=== PATIENT | male | born 1940 | race Caucasian/White ===

== ENCOUNTER 2022-05-09 07:36 | Inpatient (IN) | payer MEDICARE ==
--- NOTE | 2022-05-09 08:09 | ED ---
General Adult HPI - General Chief complaint: Shortness of Breath Stated complaint: Respiratory failure Time Seen by Provider: 05/09/22 07:38 Source: patient, EMS Mode of arrival: EMS Limitations: no limitations - History of Present Illness Initial comments: Dictation was produced using EyeEm dictation software. please excuse any grammatical, word or spelling errors. Chief Complaint: 82-year-old male transferred from outside hospital for shortness of breath History of Present Illness: Patient is a 82-year-old male presents emergency department for shortness of breath. Patient allegedly is 2 months postoperative [facility]. His had one day of shortness of breath. Patient was brought to outside hospital according to transfer documentation for shortness breath and hypoxia measured 57%. Patient had elevated cardiac enzymes and elevated prematurity peptide suggesting heart failure. Patient was given La six, vancomycin, cefepime and placed on BiPAP. Patient is a limited historian. The ROS documented in this emergency department record has been reviewed and confirmed by me. Those systems with pertinent positive or negative responses have been documented in the HPI. All other systems are other negative and/or noncontributory. PHYSICAL EXAM: General Impression: Alert and oriented, not in acute distress, BiPAP in place HEENT: Normocephalic atraumatic, extra-ocular movements intact, pupils equal and reactive to light bilaterally, mucous membranes moist. Cardiovascular: Heart regular rate and rhythm Chest: Diffuse crackles with auscultation of the lungs, no retractions, no tachypnea Abdomen: abdomen soft, non-tender, non-distended, no organomegaly Musculoskeletal: Pulses present and equal in all extremities, 2+ pitting edema to bilateral lower extremities Motor: no focal deficits noted Neurological: CN II-XII grossly intact, no focal motor or sensory deficits noted Skin: Intact with no visualized rashes Psych: Normal affect and mood ED course: 82-year-old male transferred from outside hospital for shortness of breath. Patient was received in emergency Department room #2. Patient is in no acute distress. He does have lower extremity pitting edema and diffuse crackles with auscultation of the lungs. Vital signs upon arrival are within acceptable limits. Nursing notes and chart review was performed Transfer documentation was reviewed. Labs imaging and documentation was reviewed. Unclear why patient was given broad-spectrum antibiotics.Patient is a poor historian unable to explain what cardiac procedures he had performed 2 months ago. Attempt was made to remove BiPAP and patient became hypoxic and dyspneic. BiPAP was replaced. My EKG interpretation: Ventricular rate 76, sinus rhythm,. Interval 132, QRS 106, QTC 410. No ND prolongation, no QTC prolongation, no ST or T-wave changes noted. Laboratory evaluation obtained. CBC within acceptable limits. Coag panel is negative. Metabolic within acceptable limits. Lactic acidosis of 4.6. Tr oponin 0.020. Patient's lactic acidosis likely secondary to respiratory failure. Chest x-ray shows pneumonia versus pulmonary edema. Patient had originally received antibiotics prior to hospital arrival. Respiratory issues likely multifactorial. After replacing the BiPAP is reevaluated with normal vitals and no dyspnea noted. Patient will be admitted to [facility] group with consultation to cardiology. Critical care time: 33 minutes - Related Data Home Medications Medication Instructions Recorded Confirmed Amiodarone [Cordarone] 200 mg PO BID@0900,1700 05/09/22 05/09/22 Aspirin EC [Ecotrin Low Dose] 81 mg PO DAILY 05/09/22 05/09/22 Atorvastatin [Lipitor] 10 mg PO HS 05/09/22 05/09/22 Azithromycin [Zithromax] See Taper PO DAILY 05/09/22 05/09/22 Bumetanide [BUMEX] 2 mg PO DAILY 05/09/22 05/09/22 Ferrous Sulfate [Feosol] 325 mg PO DAILY 05/09/22 05/09/22 Furosemide 40 mg IM ONCE 05/09/22 05/09/22 Margaret-Lanta 30 ml PO Q4H PRN 05/09/22 05/09/22 Ipratropium-Albuterol Nebulize 3 ml INHALATION RT-Q4H PRN 05/09/22 05/09/22 [Duoneb 0.5 mg-3 mg/3 ml Soln] Lactobacillus Acidophilus 1 tab PO DAILY 05/09/22 05/09/22 [Acidophilus] Levothyroxine Sodium [Synthroid] 125 mcg PO DAILY 05/09/22 05/09/22 Magnesium Hydroxide [Milk of 7,200 mg PO DAILY PRN 05/09/22 05/09/22 Magnesia Concentrate] Magnesium Oxide [Mag-Ox] 400 mg PO DIRECTED 05/09/22 05/09/22 Melatonin 5 mg PO HS 05/09/22 05/09/22 Methylprednisolone 125mg Inj 125 mg IM ONCE 05/09/22 05/09/22 Midodrine HCl [ProAmatine] 10 mg PO TID@0900,1300,2100 05/09/22 05/09/22 Multivitamins, Thera [Multivitamin 1 tab PO DAILY 05/09/22 05/09/22 (formulary)] [place]-3 Fatty Acids [[place]-3] 1,000 mg PO DAILY 05/09/22 05/09/22 Ondansetron [Zofran] 4 mg PO Q8H PRN 05/09/22 05/09/22 Tamsulosin HCl [Flomax] 0.4 mg PO DAILY 05/09/22 05/09/22 Thermotabs 1 tab PO DIRECTED 05/09/22 05/09/22 predniSONE [Deltasone] 20 mg PO BID 05/09/22 05/09/22 predniSONE [Deltasone] 20 mg PO ONCE 05/09/22 05/09/22 Allergies Allergy/AdvReac Type Severity Reaction Status Date / Time Penicillins Allergy Unknown Verified 05/09/22 08:02 Review of Systems ROS Statement: Those systems with pertinent positive or pertinent negative responses have been documented in the HPI. ROS Other: All systems not noted in ROS Statement are negative. Past Medical History Past Medical History: Atrial Fibrillation, Coronary Artery Disease (CAD), Heart Failure, GERD/Reflux, Hyperlipidemia, Prostate Disorder, Respiratory Disorder, Thyroid Disorder Additional Past Medical History / Comment(s): hypothyroid, Angina, pulmonary edema, difficulty in walking, hypotension, anemia, hx of covid, hx of respiratory failure, insomnia, Past Surgical History: Coronary Bypass/CABG Past Psychological History: No Psychological Hx Reported Smoking Status: Former smoker Past Alcohol Use History: None Reported Past Drug Use History: None Reported General Exam Limitations: no limitations Course Vital Signs 05/09/22 05/09/22 05/09/22 07:40 07:54 07:57 Temperature 98.3 F Pulse Rate 79 Respiratory 18 Rate Blood Pressure 113/68 O2 Sat by Pulse 96 Oximetry Fraction of 60 60 Inspired Oxygen (FIO2) 05/09/22 05/09/22 05/09/22 07:58 08:01 09:24 Temperature Pulse Rate 74 Respiratory 18 18 Rate Blood Pressure 124/71 O2 Sat by Pulse 97 Oximetry Fraction of 60 Inspired Oxygen (FIO2) Medical Decision Making - Lab Data Result diagrams: 05/09/22 08:35 05/09/22 08:35 Lab Results 05/09/22 05/09/22 05/09/22 Range/Units 08:35 08:35 08:35 WBC 12.6 H (3.8-10.6) k/uL RBC 3.45 L (4.30-5.90) m/uL Hgb 10.3 L (13.0-17.5) gm/dL Hct 33.2 L (39.0-53.0) % MCV 96.4 (80.0-100.0) fL MCH 29.9 (25.0-35.0) pg MCHC 31.0 (31.0-37.0) g/dL RDW 13.5 (11.5-15.5) % Plt Count 309 (150-450) k/uL MPV 9.2 Neutrophils % 94 % Lymphocytes % 1 % Monocytes % 4 % Eosinophils % 0 % Basophils % 0 % Neutrophils # 11.9 H (1.3-7.7) k/uL Lymphocytes # 0.2 L (1.0-4.8) k/uL Monocytes # 0.5 (0-1.0) k/uL Eosinophils # 0.0 (0-0.7) k/uL Basophils # 0.0 (0-0.2) k/uL Hypochromasia Marked PT (9.0-12.0) sec INR (<1.2) APTT (22.0-30.0) sec Sodium 139 (137-145) mmol/L Potassium 3.6 (3.5-5.1) mmol/L Chloride 92 L (98-107) mmol/L Carbon Dioxide 38 H (22-30) mmol/L Anion Gap 9 mmol/L BUN 38 H (9-20) mg/dL Creatinine 0.93 (0.66-1.25) mg/dL Est GFR (CKD-EPI)AfAm 87 (>60 ml/min/1.73 sqM) Est GFR (CKD-EPI)NonAf 75 (>60 ml/min/1.73 sqM) Glucose 171 H (74-99) mg/dL Plasma Lactic Acid Huy 4.6 H* (0.7-2.0) mmol/L Calcium 8.2 L (8.4-10.2) mg/dL Total Bilirubin 0.5 (0.2-1.3) mg/dL AST 36 (17-59) U/L ALT 32 (4-49) U/L Alkaline Phosphatase 140 H (38-126) U/L Troponin I (0.000-0.034) ng/mL Total Protein 7.0 (6.3-8.2) g/dL Albumin 3.3 L (3.5-5.0) g/dL 05/09/22 05/09/22 Range/Units 08:35 09:50 WBC (3.8-10.6) k/uL RBC (4.30-5.90) m/uL Hgb (13.0-17.5) gm/dL Hct (39.0-53.0) % MCV (80.0-100.0) fL MCH (25.0-35.0) pg MCHC (31.0-37.0) g/dL RDW (11.5-15.5) % Plt Count (150-450) k/uL MPV Neutrophils % % Lymphocytes % % Monocytes % % Eosinophils % % Basophils % % Neutrophils # (1.3-7.7) k/uL Lymphocytes # (1.0-4.8) k/uL Monocytes # (0-1.0) k/uL Eosinophils # (0-0.7) k/uL Basophils # (0-0.2) k/uL Hypochromasia PT 11.4 (9.0-12.0) sec INR 1.1 (<1.2) APTT 21.9 L (22.0-30.0) sec Sodium (137-145) mmol/L Potassium (3.5-5.1) mmol/L Chloride (98-107) mmol/L Carbon Dioxide (22-30) mmol/L Anion Gap mmol/L BUN (9-20) mg/dL Creatinine (0.66-1.25) mg/dL Est GFR (CKD-EPI)AfAm (>60 ml/min/1.73 sqM) Est GFR (CKD-EPI)NonAf (>60 ml/min/1.73 sqM) Glucose (74-99) mg/dL Plasma Lactic Acid Huy (0.7-2.0) mmol/L Calcium (8.4-10.2) mg/dL Total Bilirubin (0.2-1.3) mg/dL AST (17-59) U/L ALT (4-49) U/L Alkaline Phosphatase (38-126) U/L Troponin I 0.020 (0.000-0.034) ng/mL Total Protein (6.3-8.2) g/dL Albumin (3.5-5.0) g/dL Disposition Clinical Impression: Respiratory failure Disposition: ADMITTED IP TO THIS HOSP Condition: Serious Referrals: Arnie Saleem MD [Primary Care Provider] - 1-2 days Decision Time: 10:39
[2022-05-09 08:56] LABS: Basophils % (A) 0 %; Eosinophils % (A) 0 %; HCT 33.2 % (39.0-53.0); HGB 10.3 gm/dL (13.0-17.5); Hypochromasia Marked; Lymphocytes # (A) 0.2 k/uL (1.0-4.8); Lymphocytes % (A) 1 %; MCH 29.9 pg (25.0-35.0); MCV 96.4 fL (80.0-100.0); Mean Platelet Volume 9.2; Monocytes # (A) 0.5 k/uL (0-1.0); Monocytes % (A) 4 %; Neutrophils # (A) 11.9 k/uL (1.3-7.7); Neutrophils % (A) 94 %; Platelet Count 309 k/uL (150-450); RBC 3.45 m/uL (4.30-5.90); RDW 13.5 % (11.5-15.5); WBC 12.6 k/uL (3.8-10.6)
[2022-05-09 09:05] LABS: Albumin 3.3 g/dL (3.5-5.0); Calcium 8.2 mg/dL (8.4-10.2); Potassium 3.6 mmol/L (3.5-5.1); Total Bilirubin 0.5 mg/dL (0.2-1.3)
--- NOTE | 2022-05-09 09:26 | XR ---
EXAMINATION TYPE: XR chest 1V DATE OF EXAM: 05/09/2022 HISTORY: Shortness of breath. COMPARISON: None. TECHNIQUE: Single view of the chest is submitted. FINDINGS: Demonstrated are scattered senescent parenchymal change. Diffuse bilateral airspace infiltrates may reflect pulmonary edema versus pneumonia. Correlate clinic ally. The heart is mildly enlarged. Hilar and mediastinal structures are within normal limits. Degenerative changes are seen of the dorsal spine. IMPRESSION: 1. Diffuse bilateral airspace infiltrates may reflect pulmonary edema versus pneumonia. Correlate cl inically.
[2022-05-09 10:21] LABS: INR 1.1 (<1.2); Prothrombin Time 11.4 sec (9.0-12.0)
[2022-05-09 10:30] LABS: Partial Thromboplastin Time 21.9 sec (22.0-30.0)
[2022-05-09] MEDS ORDERED: NALOXONE 0.4 MG/ML 1 ML VIAL IV PRN (10:40)
[2022-05-09] MEDS ORDERED: MELATONIN 5 MG TABLET PO PRN (11:32)
[2022-05-09] MEDS: IPRATROPIUM-ALBUTEROL 3 ML NEB INHALATION PRN ×3 (11:54→20:09)
[2022-05-09] MEDS: FUROSEMIDE 10 MG/ML 10 ML VIAL IV SCH ×2 (12:00→20:28)
[2022-05-09] MEDS: SODIUM CHLORIDE 0.9% 1,000 ML IV SCH (12:39)
--- NOTE | 2022-05-09 12:53 | P.HPIM ---
History of Present Illness 82-year-old presently came in with complains of shortness of breath orthopnea, proximal nocturnal dyspnea patient had open-heart surgery at [facility] recently I do not have any echo available although patient has significant pulmonary edema with a BNP of 3790 patient does have elevated lactic acid of around 4.6 which has come down to 4. Patient is not receiving IV fluids in fact patient will need IV Lasix patient is on BiPAP at this time. Patient doesn't have any fever chills does have leukocytosis with the WBC of around 1600 and takes 2 mg of Bumex at home he does have history of atrial fibrillation for denied any history of COPD, does have previous history of smoking. Doesn't use any oxygen at home. Facet of troponin is 0.020. REVIEW OF SYSTEMS: CONSTITUTIONAL: No fever, no malaise, no fatigue. HEENT: No recent visual problems or hearing problems. Denied any sore throat. CARDIOVASCULAR: No chest pain, no palpitations, no syncope. PULMONARY: no cough, no hemoptysis. GASTROINTESTINAL: No diarrhea, no nausea, no vomiting, no abdominal pain. NEUROLOGICAL: No headaches, no weakness, no numbness. HEMATOLOGICAL: Denies any bleeding or petechiae. GENITOURINARY: Denies any burning micturition, frequency, or urgency. MUSCULOSKELETAL/RHEUMATOLOGICAL: Denies any joint pain, swelling, or any muscle pain. ENDOCRINE: Denies any polyuria or polydipsia. The rest of the 14-point review of systems is negative. PHYSICAL EXAMINATION: GENERAL: The patient is alert and oriented x3, not in any acute distress. Well developed, well nourished. HEENT: Pupils are round and equally reacting to light. EOMI. No scleral icterus. No conjunctival pallor. Normocephalic, atraumatic. No pharyngeal erythema. No thyromegaly. CARDIOVASCULAR: S1 and S2 present. No murmurs, rubs, or gallops. Crackles bilaterally PULMONARY: no wheezing or bilateral diffuse crackles ABDOMEN: Soft, nontender, nondistended, normoactive bowel sounds. No palpable organomegaly. MUSCULOSKELETAL: No joint swelling or deformity. EXTREMITIES: No cyanosis, clubbing, does have 1+ pitting pedal edema extending up to the midshin area NEUROLOGICAL: Gross neurological examination did not reveal any focal deficits. SKIN: No rashes. Assessment and plan -Congestive heart failure probably systolic dysfunction echo cardiac is not av ailable patient does have acute heart failure exacerbation at this time patient will be started on 60 mg twice a day of IV Lasix continue with respiratory support will obtain pro-Level of the Possibility of Pneumonia Is Low -Acute hypoxic respiratory failure secondary to pulmonary edema -History of atrial fibrillation probably paroxysmal presently sinus rhythm not on any anti-correlation at this time. Patient probably had a maze procedure. She is on amiodarone which will be continued and-coronary artery disease with recent CABG -Gases pharyngeal reflux disease -Hyperlipidemia -Benign prostatic hypertrophy -Hypothyroidism DVT prophylaxis: On Lovenox Past Medical History Past Medical History: Atrial Fibrillation, Coronary Artery Disease (CAD), Heart Failure, GERD/Reflux, Hyperlipidemia, Prostate Disorder, Respiratory Disorder, Thyroid Disorder Additional Past Medical History / Comment(s): hypothyroid, Angina, pulmonary edema, difficulty in walking, hypotension, anemia, hx of covid, hx of respiratory failure, insomnia, Past Surgical History: Coronary Bypass/CABG Past Psychological History: No Psychological Hx Reported Smoking Status: Former smoker Past Alcohol Use History: None Reported Past Drug Use History: None Reported Medications and Allergies Home Medications Medication Instructions Recorded Confirmed Type Amiodarone [Cordarone] 200 mg PO BID@0900,1700 05/09/22 05/09/22 History Aspirin EC [Ecotrin Low Dose] 81 mg PO DAILY 05/09/22 05/09/22 History Atorvastatin [Lipitor] 10 mg PO HS 05/09/22 05/09/22 History Azithromycin [Zithromax] See Taper PO DAILY 05/09/22 05/09/22 History Bumetanide [BUMEX] 2 mg PO DAILY 05/09/22 05/09/22 History Ferrous Sulfate [Feosol] 325 mg PO DAILY 05/09/22 05/09/22 History Furosemide 40 mg IM ONCE 05/09/22 05/09/22 History Margaret-Lanta 30 ml PO Q4H PRN 05/09/22 05/09/22 History Ipratropium-Albuterol Nebulize 3 ml INHALATION RT-Q4H PRN 05/09/22 05/09/22 History [Duoneb 0.5 mg-3 mg/3 ml Soln] Lactobacillus Acidophilus 1 tab PO DAILY 05/09/22 05/09/22 History [Acidophilus] Levothyroxine Sodium [Synthroid] 125 mcg PO DAILY 05/09/22 05/09/22 History Magnesium Hydroxide [Milk of 7,200 mg PO DAILY PRN 05/09/22 05/09/22 History Magnesia Concentrate] Magnesium Oxide [Mag-Ox] 400 mg PO DIRECTED 05/09/22 05/09/22 History Melatonin 5 mg PO HS 05/09/22 05/09/22 History Methylprednisolone 125mg Inj 125 mg IM ONCE 05/09/22 05/09/22 History Midodrine HCl [ProAmatine] 10 mg PO TID@0900,1300,2100 05/09/22 05/09/22 History Multivitamins, Thera [Multivitamin 1 tab PO DAILY 05/09/22 05/09/22 History (formulary)] [place]-3 Fatty Acids [[place]-3] 1,000 mg PO DAILY 05/09/22 05/09/22 History Ondansetron [Zofran] 4 mg PO Q8H PRN 05/09/22 05/09/22 History Tamsulosin HCl [Flomax] 0.4 mg PO DAILY 05/09/22 05/09/22 History Thermotabs 1 tab PO DIRECTED 05/09/22 05/09/22 History predniSONE [Deltasone] 20 mg PO BID 05/09/22 05/09/22 History predniSONE [Deltasone] 20 mg PO ONCE 05/09/22 05/09/22 History Allergies Allergy/AdvReac Type Severity Reaction Status Date / Time Penicillins Allergy Unknown Verified 05/09/22 08:02 Physical Exam Vitals: Vital Signs Temp Pulse Resp BP Pulse Ox FiO2 05/09/22 12:10 75 05/09/22 11:55 72 55 05/09/22 09:24 74 18 124/71 97 05/09/22 08:01 60 05/09/22 07:58 18 05/09/22 07:57 60 05/09/22 07:54 60 05/09/22 07:40 98.3 F 79 18 113/68 96 Intake and Output 05/08/22 05/09/22 05/09/22 22:59 06:59 14:59 Other: Weight 88.451 kg Results CBC & Chem 7: 05/09/22 08:35 05/09/22 08:35 Labs: Abnormal Lab Results - Last 24 Hours (Table) 05/09/22 05/09/22 05/09/22 Range/Units 08:35 08:35 08:35 WBC 12.6 H (3.8-10.6) k/uL RBC 3.45 L (4.30-5.90) m/uL Hgb 10.3 L (13.0-17.5) gm/dL Hct 33.2 L (39.0-53.0) % Neutrophils # 11.9 H (1.3-7.7) k/uL Lymphocytes # 0.2 L (1.0-4.8) k/uL APTT (22.0-30.0) sec Chloride 92 L (98-107) mmol/L Carbon Dioxide 38 H (22-30) mmol/L BUN 38 H (9-20) mg/dL Glucose 171 H (74-99) mg/dL Plasma Lactic Acid Huy 4.6 H* (0.7-2.0) mmol/L Calcium 8.2 L (8.4-10.2) mg/dL Alkaline Phosphatase 140 H (38-126) U/L Albumin 3.3 L (3.5-5.0) g/dL 05/09/22 05/09/22 Range/Units 09:50 11:21 WBC (3.8-10.6) k/uL RBC (4.30-5.90) m/uL Hgb (13.0-17.5) gm/dL Hct (39.0-53.0) % Neutrophils # (1.3-7.7) k/uL Lymphocytes # (1.0-4.8) k/uL APTT 21.9 L (22.0-30.0) sec Chloride (98-107) mmol/L Carbon Dioxide (22-30) mmol/L BUN (9-20) mg/dL Glucose (74-99) mg/dL Plasma Lactic Acid Huy 4.0 H* (0.7-2.0) mmol/L Calcium (8.4-10.2) mg/dL Alkaline Phosphatase (38-126) U/L Albumin (3.5-5.0) g/dL
--- NOTE | 2022-05-09 14:34 | P.CNPUL ---
History of Present Illness Consult date: 05/09/22 Requesting physician: Meng Muñoz Reason for consult: dyspnea, cough, other Chief complaint: shortness of breath and cough. History of present illness: This is an 82-year-old white male with history of coronary artery disease, recent CABG about 2 months ago, this was done at [facility]. Patient presented to [facility] with a few days' history of increased shortness of breath, and his shortness of breath, much worse today. In addition to shortness of breath, the patient is coughing, the cough is productive with whitish phlegm, no fever no chills, no hemoptysis, no chest pain. workup in [place] showed evidence of pulmonary edema, he also had elevated BNP level, and elevated troponin level. Patient was transferred to [facility], I saw him down in the ER. Patient is on BiPAP, 12/5/55%, O2 saturation is in the low 90s. Patient was already given Lasix by the admitting physician and he is now on Lasix at 60 mg IV push twice a day. Some improvement clinically noted according to the patient. Patient has no previous history of COPD, and no previous history of smoking. His WBC count is 12.6 hemoglobin is 10.3, basic metabolic profile is normal renal profile is normal bicarb is 38 lactic acid 4.6. ProBNP level is 3790. Chest x-ray is consistent with interstitial edema however underlying pneumonia is not entirely ruled out but felt to be less likely. EKG showed sinus rhythm, and incomplete right bundle branch block pattern otherwise unremarkable, nonspecific ST and T-wave changes noted. Review of Systems CONSTITUTIONAL: Denies fever chills weight loss. HEENT: Negative. CARDIOVASCULAR: As noted in HPI. PULMONARY: Cough, cough is productive with whitish phlegm, no chest pain no hemoptysis. GASTROINTESTINAL: Negative NEUROLOGICAL: negative HEMATOLOGICAL: negative GENITOURINARY: negative MUSCULOSKELETAL/RHEUMATOLOGICAL: negativen. ENDOCRINE: negative Past Medical History Past Medical History: Atrial Fibrillation, Coronary Artery Disease (CAD), Heart Failure, GERD/Reflux, Hyperlipidemia, Prostate Disorder, Respiratory Disorder, Thyroid Disorder Additional Past Medical History / Comment(s): hypothyroid, Angina, pulmonary edema, difficulty in walking, hypotension, anemia, hx of covid, hx of respiratory failure, insomnia, Past Surgical History: Coronary Bypass/CABG Past Psychological History: No Psychological Hx Reported Smoking Status: Former smoker Past Alcohol Use History: None Reported Past Drug Use History: None Reported Medications and Allergies Home Medications Medication Instructions Recorded Confirmed Type Amiodarone [Cordarone] 200 mg PO BID@0900,1700 05/09/22 05/09/22 History Aspirin EC [Ecotrin Low Dose] 81 mg PO DAILY 05/09/22 05/09/22 History Atorvastatin [Lipitor] 10 mg PO HS 05/09/22 05/09/22 History Azithromycin [Zithromax] See Taper PO DAILY 05/09/22 05/09/22 History Bumetanide [BUMEX] 2 mg PO DAILY 05/09/22 05/09/22 History Ferrous Sulfate [Feosol] 325 mg PO DAILY 05/09/22 05/09/22 History Furosemide 40 mg IM ONCE 05/09/22 05/09/22 History Margaret-L[place] 30 ml PO Q4H PRN 05/09/22 05/09/22 History Ipratropium-Albuterol Nebulize 3 ml INHALATION RT-Q4H PRN 05/09/22 05/09/22 History [Duoneb 0.5 mg-3 mg/3 ml Soln] Lactobacillus Acidophilus 1 tab PO DAILY 05/09/22 05/09/22 History [Acidophilus] Levothyroxine Sodium [Synthroid] 125 mcg PO DAILY 05/09/22 05/09/22 History Magnesium Hydroxide [Milk of 7,200 mg PO DAILY PRN 05/09/22 05/09/22 History Magnesia Concentrate] Magnesium Oxide [Mag-Ox] 400 mg PO DIRECTED 05/09/22 05/09/22 History Melatonin 5 mg PO HS 05/09/22 05/09/22 History Methylprednisolone 125mg Inj 125 mg IM ONCE 05/09/22 05/09/22 History Midodrine HCl [ProAmatine] 10 mg PO TID@0900,1300,2100 05/09/22 05/09/22 History Multivitamins, Thera [Multivitamin 1 tab PO DAILY 05/09/22 05/09/22 History (formulary)] [place]-3 Fatty Acids [[place]-3] 1,000 mg PO DAILY 05/09/22 05/09/22 History Ondansetron [Zofran] 4 mg PO Q8H PRN 05/09/22 05/09/22 History Tamsulosin HCl [Flomax] 0.4 mg PO DAILY 05/09/22 05/09/22 History Thermotabs 1 tab PO DIRECTED 05/09/22 05/09/22 History predniSONE [Deltasone] 20 mg PO BID 05/09/22 05/09/22 History predniSONE [Deltasone] 20 mg PO ONCE 05/09/22 05/09/22 History Allergies Allergy/AdvReac Type Severity Reaction Status Date / Time Penicillins Allergy Unknown Verified 05/09/22 08:02 Physical Exam Vitals: Vital Signs Temp Pulse Resp BP Pulse Ox FiO2 05/09/22 12:51 76 18 121/71 92 L 05/09/22 12:10 75 05/09/22 11:55 72 55 05/09/22 09:24 74 18 124/71 97 05/09/22 08:01 60 05/09/22 07:58 18 05/09/22 07:57 60 05/09/22 07:54 60 05/09/22 07:40 98.3 F 79 18 113/68 96 Intake and Output 05/08/22 05/09/22 05/09/22 22:59 06:59 14:59 Other: Weight 88.451 kg Physical Exam: Revealed an 82-year-old white male in no distress, on BiPAP,04/24/% HEENT:[Neck is supple.] [No neck masses.] [No thyromegaly.] [No JVD.] Chest: [ symmetrical chest expansion, crackles bilaterally. No rhonchi and no wheezes. Cardiac Exam: Distant S1 and S2, no S3 gallop, no murmur. Abdomen: [Soft, nontender, no megaly, no rebound, no guarding, normal bowel sounds.] Extremities: [No clubbing, 2+ bipedaledema, no cyanosis.] Neurological Exam: patient seems to be a bit confused, not a great historian. Psychiatric: Normal mood, normal affect, slightly confused and unable to give a good history. Skin: No rashes. Results - Laboratory Findings CBC and BMP: 05/09/22 08:35 05/09/22 08:35 PT/INR, D-dimer PT 11.4 sec (9.0-12.0) 05/09/22 09:50 INR 1.1 (<1.2) 05/09/22 09:50 Abnormal lab findings: Abnormal Labs 05/09/22 05/09/22 05/09/22 08:35 08:35 08:35 WBC 12.6 H RBC 3.45 L Hgb 10.3 L Hct 33.2 L Neutrophils # 11.9 H Lymphocytes # 0.2 L APTT Chloride 92 L Carbon Dioxide 38 H BUN 38 H Glucose 171 H Plasma Lactic Acid Huy 4.6 H* Calcium 8.2 L Alkaline Phosphatase 140 H Albumin 3.3 L 05/09/22 05/09/22 09:50 11:21 WBC RBC Hgb Hct Neutrophils # Lymphocytes # APTT 21.9 L Chloride Carbon Dioxide BUN Glucose Plasma Lactic Acid Huy 4.0 H* Calcium Alkaline Phosphatase Albumin - Diagnostic Findings Chest x-ray: image reviewed ( As noted in HPI) Assessment and Plan Assessment: impression: Acute hypoxic respiratory failure secondary to acute congestive heart failure, not clear whether this is systolic or diastolic in nature, echocardiogram is pending. Acute pulmonary edema history of paroxysmal atrial fibrillation, patient is maintained on amiodarone. Recent CABG at [facility]. History of underlying coronary artery disease. Dyslipidemia history of hypothyroidism GERD without esophagitis recommendation: Continue BiPAP and titrate FiO2 down, maintaining O2 saturation above 90% continue Lasix presently on 60 mg IV push every 12 hours resume his home cardiac meds including amiodarone. No need for antibiotics at this point unless pro calcitonin comes back elevated. Continue Lovenox for DVT prophylaxis Protonix for GI prophylaxis repeat chest x-ray in a.m. after good Trial of diuretics, Lasix 60 mg IV push twice a day Will continue to follow. Time with Patient: Greater than 30
[2022-05-09] MEDS: AMIODARONE 200 MG TAB PO SCH (17:45)
[2022-05-09] MEDS: ATORVASTATIN 10 MG TAB PO SCH (20:29)
[2022-05-10] MEDS: LEVOTHYROXINE 125 MCG TAB PO SCH (06:48)
[2022-05-10] MEDS: IPRATROPIUM-ALBUTEROL 3 ML NEB INHALATION PRN ×4 (07:32→19:24)
[2022-05-10] MEDS: FUROSEMIDE 10 MG/ML 10 ML VIAL IV SCH ×2 (09:32→21:47)
[2022-05-10] MEDS: AMIODARONE 200 MG TAB PO SCH ×2 (09:32→17:06)
[2022-05-10] MEDS: TAMSULOSIN 0.4 MG CAP.ER.24H PO SCH (09:32)
[2022-05-10] MEDS: ASPIRIN 81 MG PO SCH (09:32)
[2022-05-10] MEDS: ENOXAPARIN 40 MG/0.4 ML SYRINGE SQ SCH (09:33)
[2022-05-10 11:31] LABS: Potassium 3.7 mmol/L (3.5-5.1)
[2022-05-10 11:32] LABS: Calcium 8.5 mg/dL (8.4-10.2)
[2022-05-10 12:22] LABS: Basophils % (A) 0 %; Eosinophils % (A) 0 %; HCT 31.7 % (39.0-53.0); HGB 9.6 gm/dL (13.0-17.5); Hypochromasia Marked; Lymphocytes # (A) 0.4 k/uL (1.0-4.8); Lymphocytes % (A) 3 %; MCH 29.6 pg (25.0-35.0); MCHC 30.1 g/dL (31.0-37.0); MCV 98.1 fL (80.0-100.0); Mean Platelet Volume 9.5; Monocytes # (A) 0.6 k/uL (0-1.0); Monocytes % (A) 5 %; Neutrophils % (A) 91 %; Platelet Count 275 k/uL (150-450); RBC 3.24 m/uL (4.30-5.90); RDW 13.3 % (11.5-15.5)
[2022-05-10 12:39] LABS: ALT 24 U/L (4-49); AST 35 U/L (17-59); African American GFR (CKD) >90 (>60 ml/min/1.73 sqM); Albumin 2.9 g/dL (3.5-5.0); Alkaline Phosphatase 123 U/L (38-126); Blood Urea Nitrogen 40 mg/dL (9-20); Calcium 8.4 mg/dL (8.4-10.2); Chloride 93 mmol/L (98-107); Glucose 109 mg/dL (74-99); Non-African American GFR(CKD) 81 (>60 ml/min/1.73 sqM); Potassium 3.8 mmol/L (3.5-5.1); Sodium 142 mmol/L (137-145); Total Bilirubin 0.6 mg/dL (0.2-1.3); Total Protein 6.5 g/dL (6.3-8.2)
[2022-05-10 12:47] LABS: Anion Gap 7 mmol/L
[2022-05-10 13:04] LABS: Carbon Dioxide 42 mmol/L (22-30)
--- NOTE | 2022-05-10 13:09 | P.CRDCN ---
History of Present Illness History of present illness: HISTORY OF PRESENTING ILLNESS Patient is a pleasant 82-year-old male with history of CAD status post recent CABG, BPH, GERD, hyperlipidemia, hypothyroidism, paroxysmal atrial fibrillation, reported systolic heart failure, previous issues with hypotension. Patient states he had CABG approximately 1.5 months ago at [facility] and has been in rehab since then. He states that over the past few days he has been more short of breath and has been having increasing lower extremity edema. Denies any chest pain or pressure. Denies any palpitations. He was noted to be in respiratory distress on presentation and placed on BiPAP. It appears he was placed on amiodarone 200 mg twice a day on discharge as well as prednisone 20 mg twice a day. Per medication list he was being given Lasix on an as-needed basis. He was initially seen at [facility] and then transferred to [facility]. Lactic acid initially 4.3, GFR 64, troponin 0.03, white blood cell count 14.0, hemoglobin 10.0, BNP 685, creatinine 1.1. He was given IV Lasix with good urine output per patient. Unclear if atrial fibrillation was postoperative however patient not on any anticoagulation. EKG currently showing sinus rhythm with normal axis, no significant ST or T wave abnormalities REVIEW OF SYSTEMS At the time of my exam: CONSTITUTIONAL: Denies fever or chills. CARDIOVASCULAR: Denies chest pain, +shortness of breath, +orthopnea, no PND or palpitations. RESPIRATORY: Denies cough. GASTROINTESTINAL: Denies abdominal pain, diarrhea, constipation, nausea or vomiting. MUSCULOSKELETAL: Denies myalgias. NEUROLOGIC: Denies numbness, tingling or weakness. ENDOCRINE: Denies fatigue, weight change, polydipsia or polyurina. GENITOURINARY: Denies burning, hematuria or urgency with micturation. HEMATOLOGIC: Denies history of anemia or bleeding. PHYSICAL EXAMINATION Vital signs reviewed. CONSTITUTIONAL: Mild tachypnea on BIPAP, ill appearing HEENT: Head is normocephalic. Pupils are equal, round. Sclerae anicteric. Mucous membranes of the mouth are moist. No JVD. No carotid bruit. CHEST EXAMINATION: +crackles throughout HEART EXAMINATION: Regular rate and rhythm. S1, S2 heard. No murmurs, gallops or rub. ABDOMEN: Soft, nontender. Positive bowel sounds. EXTREMITIES: 2+ peripheral pulses, 2+ extremity edema and no calf tenderness. NEUROLOGIC EXAMINATION: Patient is awake, alert and oriented x3. ASSESSMENT 1. Acute on chronic systolic heart failure 2. CAD status post CABG 3. Paroxysmal atrial fibrillation, unclear if postoperative A. fib, not on anticoagulation at home 4. Mild anemia 5. Bilateral infiltrates more likely consistent with vascular congestion, rule out pneumonia 6. Hypertension, borderline blood pressures PLAN Continue with diuretics. Check repeat 2-D echo to rule out any complications from surgery. Optimize heart failure regimen as able. No significant ischemic type symptoms. Prognosis guarded. Past Medical History Past Medical History: Atrial Fibrillation, Coronary Artery Disease (CAD), Heart Failure, GERD/Reflux, Hyperlipidemia, Prostate Disorder, Respiratory Disorder, Thyroid Disorder Additional Past Medical History / Comment(s): hypothyroid, Angina, pulmonary edema, difficulty in walking, hypotension, anemia, hx of covid, hx of respiratory failure, insomnia, History of Any Multi-Drug Resistant Organisms: Unobtainable Past Surgical History: Coronary Bypass/CABG Past Anesthesia/Blood Transfusion Reactions: Unable to Obtain Past Psychological History: No Psychological Hx Reported Smoking Status: Former smoker Past Alcohol Use History: None Reported Past Drug Use History: None Reported Medications and Allergies Home Medications Medication Instructions Recorded Confirmed Type Amiodarone [Cordarone] 200 mg PO BID@0900,1700 05/09/22 05/09/22 History Aspirin EC [Ecotrin Low Dose] 81 mg PO DAILY 05/09/22 05/09/22 History Atorvastatin [Lipitor] 10 mg PO HS 05/09/22 05/09/22 History Azithromycin [Zithromax] See Taper PO DAILY 05/09/22 05/09/22 History Bumetanide [BUMEX] 2 mg PO DAILY 05/09/22 05/09/22 History Ferrous Sulfate [Feosol] 325 mg PO DAILY 05/09/22 05/09/22 History Furosemide 40 mg IM ONCE 05/09/22 05/09/22 History Margaret-Lanta 30 ml PO Q4H PRN 05/09/22 05/09/22 History Ipratropium-Albuterol Nebulize 3 ml INHALATION RT-Q4H PRN 05/09/22 05/09/22 History [Duoneb 0.5 mg-3 mg/3 ml Soln] Lactobacillus Acidophilus 1 tab PO DAILY 05/09/22 05/09/22 History [Acidophilus] Levothyroxine Sodium [Synthroid] 125 mcg PO DAILY 05/09/22 05/09/22 History Magnesium Hydroxide [Milk of 7,200 mg PO DAILY PRN 05/09/22 05/09/22 History Magnesia Concentrate] Magnesium Oxide [Mag-Ox] 400 mg PO DIRECTED 05/09/22 05/09/22 History Melatonin 5 mg PO HS 05/09/22 05/09/22 History Methylprednisolone 125mg Inj 125 mg IM ONCE 05/09/22 05/09/22 History Midodrine HCl [ProAmatine] 10 mg PO TID@0900,1300,2100 05/09/22 05/09/22 History Multivitamins, Thera [Multivitamin 1 tab PO DAILY 05/09/22 05/09/22 History (formulary)] Houston-3 Fatty Acids [Houston-3] 1,000 mg PO DAILY 05/09/22 05/09/22 History Ondansetron [Zofran] 4 mg PO Q8H PRN 05/09/22 05/09/22 History Tamsulosin HCl [Flomax] 0.4 mg PO DAILY 05/09/22 05/09/22 History Thermotabs 1 tab PO DIRECTED 05/09/22 05/09/22 History predniSONE [Deltasone] 20 mg PO BID 05/09/22 05/09/22 History predniSONE [Deltasone] 20 mg PO ONCE 05/09/22 05/09/22 History Allergies Allergy/AdvReac Type Severity Reaction Status Date / Time Penicillins Allergy Unknown Verified 05/09/22 08:02 Physical Exam Vitals: Vital Signs Temp Pulse Pulse Resp BP BP Pulse Ox 05/10/22 11:45 76 05/10/22 11:27 72 05/10/22 08:00 81 40 H 119/59 84 L 05/10/22 07:45 76 05/10/22 07:32 76 05/10/22 04:00 98.4 F 81 28 H 121/66 90 L 05/10/22 03:44 05/10/22 02:15 32 H 05/10/22 00:19 05/10/22 00:00 97.7 F 76 31 H 117/64 98 05/09/22 20:26 80 05/09/22 20:25 98.4 F 78 32 H 119/66 98 05/09/22 20:15 32 H 05/09/22 20:09 75 05/09/22 19:54 95 05/09/22 19:52 05/09/22 19:00 98.8 F 72 18 112/72 95 05/09/22 17:56 87 18 130/65 96 05/09/22 15:57 76 05/09/22 15:41 73 05/09/22 15:00 79 18 126/64 94 L 05/09/22 14:00 77 18 120/79 94 L FiO2 05/10/22 11:45 05/10/22 11:27 55 05/10/22 08:00 55 05/10/22 07:45 05/10/22 07:32 55 05/10/22 04:00 55 05/10/22 03:44 55 05/10/22 02:15 05/10/22 00:19 55 05/10/22 00:00 55 05/09/22 20:26 05/09/22 20:25 55 05/09/22 20:15 05/09/22 20:09 05/09/22 19:54 55 05/09/22 19:52 55 05/09/22 19:00 05/09/22 17:56 05/09/22 15:57 05/09/22 15:41 55 05/09/22 15:00 05/09/22 14:00 Intake and Output 05/09/22 05/10/22 05/10/22 22:59 06:59 14:59 Output Total 200 Balance -200 Output: Urine 200 Other: Weight 83.5 kg Results 05/10/22 11:01 05/10/22 11:51 Cardiac Enzymes 05/10/22 Range/Units 11:51 AST 35 (17-59) U/L CBC 05/10/22 Range/Units 11:01 WBC 11.0 H (3.8-10.6) k/uL RBC 3.24 L (4.30-5.90) m/uL Hgb 9.6 L (13.0-17.5) gm/dL Hct 31.7 L (39.0-53.0) % Plt Count 275 (150-450) k/uL Comprehensive Metabolic Panel 05/10/22 05/10/22 Range/Units 11:01 11:51 Sodium 143 142 (137-145) mmol/L Potassium 3.7 3.8 (3.5-5.1) mmol/L Chloride 92 L 93 L (98-107) mmol/L Carbon Dioxide 45 H* 42 H* (22-30) mmol/L BUN 38 H 40 H (9-20) mg/dL Creatinine 1.00 0.82 (0.66-1.25) mg/dL Glucose 114 H 109 H (74-99) mg/dL Calcium 8.5 8.4 (8.4-10.2) mg/dL AST 35 (17-59) U/L ALT 24 (4-49) U/L Alkaline Phosphatase 123 (38-126) U/L Total Protein 6.5 (6.3-8.2) g/dL Albumin 2.9 L (3.5-5.0) g/dL Current Medications Generic Name Dose Route Start Last Admin Trade Name Freq PRN Reason Stop Dose Admin Albuterol/Ipratropium 3 ml 05/09/22 11:32 05/10/22 11:27 Ipratropium-Albuterol 3 Ml Neb INHALATION 3 ml RT-Q4H PRN Administration Shortness Of Breath Or Wheezing Amiodarone HCl 200 mg 05/09/22 17:00 05/10/22 09:32 Amiodarone 200 Mg Tab PO 200 mg BID@0900,1700 AUGUST Administration Aspirin 81 mg 05/10/22 09:00 05/10/22 09:32 Aspirin 81 Mg PO 81 mg DAILY AUGUST Administration Atorvastatin Calcium 10 mg 05/09/22 21:00 05/09/22 20:29 Atorvastatin 10 Mg Tab PO 10 mg HS AUGUST Administration Enoxaparin Sodium 40 mg 05/10/22 09:00 05/10/22 09:33 Enoxaparin 40 Mg/0.4 Ml Syringe SQ 40 mg DAILY AUGUST Administration Furosemide 60 mg 05/09/22 11:45 05/10/22 09:32 Furosemide 10 Mg/Ml 10 Ml Vial IV 60 mg Q12HR AUGUST Administration Sodium Chloride 1,000 mls @ 20 mls/hr 05/09/22 10:45 05/09/22 12:39 Saline 0.9% IV 20 mls/hr .Q24H AUGUST Administration Levothyroxine Sodium 125 mcg 12/21/22 06:30 05/10/22 06:48 Levothyroxine 125 Mcg Tab PO 125 mcg DAILY@0630 AUGUST Administration Magnesium Hydroxide 7,200 mg 05/09/22 11:32 Magnesium Hydroxide 2,400 Mg/10 Ml Cup PO DAILY PRN Constipation Magnesium Oxide 400 mg 05/12/22 09:00 Magnesium Oxide 400 Mg Tab PO DAILY AUGUST Melatonin 5 mg 05/09/22 11:32 Melatonin 5 Mg Tablet PO HS PRN Insomnia Naloxone HCl 0.2 mg 05/09/22 10:40 Naloxone 0.4 Mg/Ml 1 Ml Vial IV Q2M PRN Opioid Reversal Tamsulosin HCl 0.4 mg 05/10/22 09:00 05/10/22 09:32 Tamsulosin 0.4 Mg Cap.Er.24h PO 0.4 mg DAILY AUGUST Administration Intake and Output 05/09/22 05/10/22 05/10/22 22:59 06:59 14:59 Output Total 200 Balance -200 Output: Urine 200 Other: Weight 83.5 kg 05/10/22 11:01 05/10/22 11:51
--- NOTE | 2022-05-10 13:11 | XR ---
EXAMINATION TYPE: XR chest 1V portable DATE OF EXAM: 05/10/2022 HISTORY: Shortness of breath. COMPARISON: 05/09/2022 TECHNIQUE: Single view of the chest is submitted. FINDINGS: Demonstrated are scattered senescent parenchymal change. Diffuse mixed infiltrates are seen bilaterally. There appears to be a tiny right-sided pleural effusi on. Findings are suspicious for pneumonia. Pulmonary edema is felt to be less likely. The heart is stable. Hilar and mediastinal structures are within normal limits. Degenerative changes are seen of the dorsal spine. IMPRESSION: 1. Diffuse mixed infiltrates are seen bilaterally. There appears to be a tiny right-sided pleural ef fusion. Findings are suspicious for pneumonia. Pulmonary edema is felt to be less likely.
--- NOTE | 2022-05-10 13:22 | CA ---
Transthoracic Echo Report Name: Derek Sanchez Age: 82 Gender: M : 1940 Exam Date: 05/10/2022 09:43 Exam Location: [facility] Ht (in): 60 Wt (lb): 184 Ordering Physician: Meng Muñoz MD Attending/Referring Phys: Underground Truck Operator Francheska Romero RDCS Procedure CPT: Indications: chf Cardiac Hx: Technical Quality: Contrast 1: Total Dose (mL): Contrast 2: Total Dose (mL): MEASUREMENTS (Male / Female) Normal Values 2D ECHO LV Diastolic Diameter PLAX 4.6 cm 4.2 - 5.9 / 3.9 - 5.3 cm LV Systolic Diameter PLAX 3.7 cm IVS Diastolic Thickness 1.0 cm 0.6 - 1.0 / 0.6 - 0.9 cm LVPW Diastolic Thickness 1.5 cm 0.6 - 1.0 / 0.6 - 0.9 cm LV Relative Wall Thickness 0.5 RV Internal Dim ED PLAX 3.4 cm LA Systolic Diameter LX 3.6 cm 3.0 - 4.0 / 2.7 - 3.8 cm LA Volume 71.7 cm??? 18 - 58 / 22 - 52 cm??? M-MODE Aortic Root Diameter MM 3.7 cm LA Systolic Diameter MM 4.0 cm LA Ao Ratio MM 1.1 MV E Point Septal Separation 0.5 cm AV Cusp Separation MM 1.9 cm DOPPLER MV Area PHT 6.5 cm??? Mitral E Point Velocity 80.3 cm/s Mitral A Point Velocity 36.6 cm/s Mitral E to A Ratio 2.2 MV Deceleration Time 116.9 ms MV E' Velocity 5.6 cm/s Mitral E to MV E' Ratio 14.2 TR Peak Velocity 337.9 cm/s TR Peak Gradient 45.7 mmHg Right Ventricular Systolic Press 50.7 mmHg FINDINGS Left Ventricle Low-normal left ventricular systolic function was EF around 50% Right Ventricle Normal right ventricular size and function. Moderate pulmonary hypertension. Right ventricular systolic pressure estimated at 50.7 mm hg. Right Atrium Normal right atrial size. Left Atrium Moderately increased left atrial volume. Mildly increased left atrial area. Mitral Valve Structurally normal mitral valve. Moderate to severe mitral regurgitation Aortic Valve Trileaflet aortic valve. Tricuspid Valve Structurally normal tricuspid valve. Mild tricuspid regurgitation. Pulmonic Valve Structurally normal pulmonic valve. Pericardium Normal pericardium. Aorta Normal size aortic root and proximal ascending aorta. CONCLUSIONS Low-normal left ventricular systolic function was EF around 50% Moderate to severe mitral regurgitation Previewed by: Dr. Héctor Conte MD (Electronically Signed) Final Date: 10 May 2022 13:21
--- NOTE | 2022-05-10 13:23 | P.PN ---
Subjective Progress Note Date: 05/10/22 This is an 82-year-old white male with history of coronary artery disease, recent CABG about 2 months ago, this was done at [facility]. Patient presented to [facility] with a few days' history of increased shortness of breath, and his shortness of breath, much worse today. In addition to shortness of breath, the patient is coughing, the cough is productive with whitish phlegm, no fever no chills, no hemoptysis, no chest pain. workup in [place] showed evidence of pulmonary edema, he also had elevated BNP level, and elevated troponin level. Patient was transferred to [facility], I saw him down in the ER. Patient is on BiPAP, 12/5/55%, O2 saturation is in the low 90s. Patient was already given Lasix by the admitting physician and he is now on Lasix at 60 mg IV push twice a day. Some improvement clinically noted according to the patient. Patient has no previous history of COPD, and no previous history of smoking. His WBC count is 12.6 hemoglobin is 1 0.3, basic metabolic profile is normal renal profile is normal bicarb is 38 lactic acid 4.6. ProBNP level is 3790. Chest x-ray is consistent with interstitial edema however underlying pneumonia is not entirely ruled out but felt to be less likely. EKG showed sinus rhythm, and incomplete right bundle branch block pattern otherwise unremarkable, nonspecific ST and T-wave changes noted. The patient is seen today 05/10/2022 in follow-up on the selective care unit. He is currently resting in bed. Awake and alert in no acute distress. He is still on BiPAP 12/5 and 55%. white count 11.0. Hemoglobin 9.6. Platelets 275. Sodium 142. Potassium 3.8. Bicarb 42. BUN 40. Creatinine 0.82. Glucose 109. He is continued on Lasix 60 mg every 12 hours. No accurate I&O recorded. Current weight 83.5 kg. today's chest x-ray is essentially unchanged. Pro- calcitoninn level 0.07. Objective - Vital Signs Vital signs: Vital Signs Temp 98.4 F 05/10/22 04:00 Pulse 76 05/10/22 11:45 Resp 40 H 05/10/22 08:00 BP 119/59 05/10/22 08:00 Pulse Ox 84 L 05/10/22 08:00 FiO2 55 05/10/22 11:27 Intake & Output 05/09/22 05/10/22 05/10/22 18:59 06:59 18:59 Output Total 200 Balance -200 Weight 83.5 kg 83.5 kg Output: Urine 200 - Exam GENERAL EXAM: Alert, pleasant 82-year-old gentleman, currently on BiPAP 12/5 and 55% FiO2 comfortable in no apparent distress. HEAD: Normocephalic. EYES: Normal reaction of pupils, equal size. NOSE: Clear with pink turbinates. THROAT: No erythema or exudates. NECK: No masses, no JVD. CHEST: No chest wall deformity. LUNGS: Equal air entry with bibasilar crackles. CVS: S1 and S2 normal with no audible murmur, regular rhythm. ABDOMEN: No hepatosplenomegaly, normal bowel sounds, no guarding or rigidity. SPINE: No scoliosis or deformity SKIN: No rashes CENTRAL NERVOUS SYSTEM: No focal deficits, tone is normal in all 4 extremities. EXTREMITIES: There is 2+ peripheral edema. No clubbing, no cyanosis. Peripheral pulses are intact. - Labs CBC & Chem 7: 05/10/22 11:01 05/10/22 11:51 Labs: Abnormal Lab Results - Last 24 Hours (Table) 05/09/22 05/09/22 05/10/22 Range/Units 14:18 17:31 11:01 WBC 11.0 H (3.8-10.6) k/uL RBC 3.24 L (4.30-5.90) m/uL Hgb 9.6 L (13.0-17.5) gm/dL Hct 31.7 L (39.0-53.0) % MCHC 30.1 L (31.0-37.0) g/dL Chloride (98-107) mmol/L Carbon Dioxide (22-30) mmol/L BUN (9-20) mg/dL Glucose (74-99) mg/dL Plasma Lactic Acid Huy 3.6 H* 3.0 H* (0.7-2.0) mmol/L Albumin (3.5-5.0) g/dL 05/10/22 05/10/22 Range/Units 11:01 11:51 WBC (3.8-10.6) k/uL RBC (4.30-5.90) m/uL Hgb (13.0-17.5) gm/dL Hct (39.0-53.0) % MCHC (31.0-37.0) g/dL Chloride 92 L 93 L (98-107) mmol/L Carbon Dioxide 45 H* 42 H* (22-30) mmol/L BUN 38 H 40 H (9-20) mg/dL Glucose 114 H 109 H (74-99) mg/dL Plasma Lactic Acid Huy (0.7-2.0) mmol/L Albumin 2.9 L (3.5-5.0) g/dL Assessment and Plan Assessment: Acute hypoxemic respiratory failure secondary to an acute exacerbation of suspected systolic congestive heart failure, echocardiogram pending, cannot rule out amiodarone toxicity fibrosis Acute pulmonary edema History of paroxysmal atrial fibrillation maintained on amiodarone, History of recent coronary artery bypass grafting at [facility] History of underlying coronary disease Hyperlipidemia Hypothyroidism History of gastroesophageal reflux disease without esophagitis Former smoker Plan: The patient was seen and evaluated Chest x-ray, labs and medications reviewed Cannot rule out amiodarone toxicity Hold amiodarone for now We'll obtain a high-resolution computed tomography scan of the chest Continued on BiPAP support for now Titrate down the FiO2 as tolerated Increase Lasix to 60 mg IV every 8 hours Insert indwelling catheter Follow-up chest x-ray and labs in a.m. We will continue to follow I have personally seen and examined the patient, performed the documentation and the assessment and plan as written. Number of minutes spent on the visit: 10.
[2022-05-10] MEDS: SODIUM CHLORIDE 0.9% 1,000 ML IV SCH (13:41)
[2022-05-10 13:42] LABS: Anisocytosis (M) Present; Poikilocytosis (M) Present
--- NOTE | 2022-05-10 17:30 | CT ---
EXAMINATION TYPE: CT chest w con CT DLP: 354 mGycm, Automated exposure control for dose reduction was used. DATE OF EXAM: 05/10/2022 5:12 PM COMPARISON: Chest radiograph from same day. CLINICAL INDICATION:Male, 82 years old with history of Hypoxemic respiratory failure; TECHNIQUE: Multiple axial images were obtained through the chest. Sagittal and coronal reformats were created for review. Contrast used:100 mL of Isovue 300 with IV Contrast Oral contrast used: none. FINDINGS: LUNGS/ PLEURA: Small bilateral pleural effusions right greater than left. There is extensive diffuse groundglass and consolidation changes throughout the lungs. No evidence of pneumothorax. Interlobular septal thickening is noted. AIRWAY: Patent and unremarkable. HEART: Heart is enlarged for size. There is coronary artery atherosclerosis. MEDIASTINUM: The sternal lymphadenopathy with right low paratracheal lymph node measuring up to 17 mm in short axis. VASCULATURE: No aortic aneurysm. Pulmonary trunk is enlarged measuring up to 3.8 cm. MUSCULOSKELETAL: No acute osseous abnormalities, multilevel disc degeneration changes throughout the spine. Sternotomy wires are present. T9 and T12 compression deformities are present. No evidence of s ignificant spinal canal neural foraminal stenosis. SOFT TISSUES/LYMPH NODES: Unremarkable. LOWER NECK: No significant findings. UPPER ABDOMEN: Bilateral renal cysts. IMPRESSION: 1. Diffuse airspace opacities and consolidation changes, small bilateral pleural effusions, evidence of pulmonary hypertension and cardiomegaly. Findings likely representing combination of atypical pne umonia/infection/inflammatory process with superimposed pulmonary vascular congestion/congestive hear t failure. Correlate with serum BNP and symptomatology. 2. Reactive lymph nodes in the mediastinum likely secondary to #1. 3. Compression deformities of the vertebral bodies at T9 and T12 favored to be chronic.
[2022-05-10] MEDS: methylPREDNISolone SOD SUCCI 40 MG/ML 1 ML VIAL IV SCH ×2 (17:55→23:40)
[2022-05-10] MEDS: ATORVASTATIN 10 MG TAB PO SCH (21:48)
[2022-05-11] MEDS: LEVOTHYROXINE 125 MCG TAB PO SCH (06:52)
--- NOTE | 2022-05-11 06:56 | P.PN ---
Subjective Progress Note Date: 05/10/22 82-year-old presently came in with complains of shortness of breath orthopnea, proximal nocturnal dyspnea patient had open-heart surgery at [facility] recently I do not have any echo available although patient has significant pulmonary edema with a BNP of 3790 patient does have elevated lactic acid of around 4.6 which has come down to 4. Patient is not receiving IV fluids in fact patient will need IV Lasix patient is on BiPAP at this time. Patient doesn't have any fever chills does have leukocytosis with the WBC of around 1600 and takes 2 mg of Bumex at home he does have history of atrial fibrillation for denied any history of COPD, does have previous history of smoking. Doesn't use any oxygen at home. Facet of troponin is 0.020. 05/10/2022 Patient is seen and evaluated in follow-up today continues on BiPAP at 55% FiO2 with cardiology and pulmonary following. Patient continues on antibiotics along with high-dose IV Lasix twice daily. Chest x-ray with concerns for bilateral in filtrates and effusions with concerns for pneumonia and pro-calcitonin has been ordered and negative. Repeat 2-D echo was ordered along with a CT of the chest. Patient is afebrile and continues to have shortness of breath continue with BiPAP and wean as tolerated. Patient is not eating very well due to his respiratory status and will monitor closely. Recommend repeat labs in a.m. Review of systems: Constitutional: reports of fatigue, no fever, or chills Cardiovascular: No reports of chest pain or palpitations Respiratory: reports of worsening shortness of breath GI: No reports of nausea, vomiting, or diarrhea reports decreased appetite and not eating : No reports of dysuria or retention Neurovascular: reports of generalized weakness All medications have been reviewed PHYSICAL EXAMINATION: GENERAL: The patient is alert and oriented x3, not in any acute distress. Well developed, well nourished. HEENT: Pupils are round and equally reacting to light. EOMI. No scleral icterus. No conjunctival pallor. Normocephalic, atraumatic. No pharyngeal erythema. No thyromegaly. CARDIOVASCULAR: S1 and S2 present. No murmurs, rubs, or gallops. Crackles bilaterally PULMONARY: no wheezing or bilateral diffuse crackles ABDOMEN: Soft, nontender, nondistended, normoactive bowel sounds. No palpable organomegaly. MUSCULOSKELETAL: No joint swelling or deformity. EXTREMITIES: No cyanosis, clubbing, does have 1+ pitting pedal edema extending up to the midshin area NEUROLOGICAL: Gross neurological examination did not reveal any focal deficits. SKIN: No rashes. Assessment and plan -Congestive heart failure with systolic dysfunction, on chronic with exacerbation -Acute hypoxic respiratory failure secondary to pulmonary edema and CHF exacerbation -History of atrial fibrillation probably paroxysmal presently sinus rhythm, not on anticoagulation at this time. -coronary artery disease with recent CABG -Gastroesophageal reflux disease -Hyperlipidemia -Benign prostatic hypertrophy -Hypothyroidism -DVT prophylaxis: On Lovenox -Full code Plan: Recommend to continue on high-dose IV Lasix along with BiPAP support with pulmonary and cardiology following Recommend follow-up labs in the a.m. Chest x-ray with concerns for possible infiltrate more likely venous congestion although CT chest being ordered Pro-calcitonin is negative most likely CHF exacerbation and suspicion for pneumonia is low Recommend wean FiO2 as tolerated Prognosis is guarded The impression and plan of care has been dictated by Gabriela Ma, Nurse Practitioner as directed. Dr. Wanda MD I have performed a history and examination and MDM of this patient, discussed the same with the dictator, and agree with the dictator's assessment and plan as written ,documented as a scribe. Based on total visit time, I have performed more than 50% of the visit. Objective - Vital Signs Vital signs: Vital Signs Temp 98.4 F 05/10/22 04:00 Pulse 76 05/10/22 07:45 Resp 28 H 05/10/22 04:00 BP 121/66 05/10/22 04:00 Pulse Ox 90 L 05/10/22 04:00 FiO2 55 05/10/22 07:32 Intake & Output 05/09/22 05/10/22 05/10/22 18:59 06:59 18:59 Output Total 200 Balance -200 Weight 88.451 kg 83.5 kg Output: Urine 200 - Labs CBC & Chem 7: 05/10/22 11:01 05/10/22 11:51 Labs: Abnormal Lab Results - Last 24 Hours (Table) 05/09/22 05/09/22 05/09/22 Range/Units 09:50 11:21 14:18 APTT 21.9 L (22.0-30.0) sec Plasma Lactic Acid Huy 4.0 H* 3.6 H* (0.7-2.0) mmol/L 05/09/22 Range/Units 17:31 APTT (22.0-30.0) sec Plasma Lactic Acid Huy 3.0 H* (0.7-2.0) mmol/L
[2022-05-11] MEDS: IPRATROPIUM-ALBUTEROL 3 ML NEB INHALATION PRN ×3 (07:35→19:58)
[2022-05-11 08:56] LABS: Basophils % (A) 0 %; Eosinophils % (A) 0 %; HCT 30.9 % (39.0-53.0); HGB 9.4 gm/dL (13.0-17.5); Hypochromasia Marked; Lymphocytes # (A) 0.2 k/uL (1.0-4.8); Lymphocytes % (A) 3 %; MCH 29.8 pg (25.0-35.0); MCHC 30.5 g/dL (31.0-37.0); MCV 97.5 fL (80.0-100.0); Mean Platelet Volume 9.5; Monocytes # (A) 0.3 k/uL (0-1.0); Monocytes % (A) 3 %; Neutrophils # (A) 7.3 k/uL (1.3-7.7); Neutrophils % (A) 93 %; Platelet Count 280 k/uL (150-450); RBC 3.17 m/uL (4.30-5.90); RDW 13.3 % (11.5-15.5); WBC 7.8 k/uL (3.8-10.6)
[2022-05-11 09:11] LABS: Calcium 8.4 mg/dL (8.4-10.2); Potassium 3.9 mmol/L (3.5-5.1)
[2022-05-11] MEDS: ENOXAPARIN 40 MG/0.4 ML SYRINGE SQ SCH (10:05)
[2022-05-11] MEDS: FUROSEMIDE 10 MG/ML 10 ML VIAL IV SCH ×2 (10:06→20:27)
[2022-05-11] MEDS: TAMSULOSIN 0.4 MG CAP.ER.24H PO SCH (10:06)
[2022-05-11] MEDS: methylPREDNISolone SOD SUCCI 40 MG/ML 1 ML VIAL IV SCH ×3 (10:06→23:34)
[2022-05-11] MEDS: ASPIRIN 81 MG PO SCH (10:06)
--- NOTE | 2022-05-11 10:32 | XR ---
EXAMINATION TYPE: XR chest 1V portable DATE OF EXAM: 05/11/2022 HISTORY: Shortness of breath. COMPARISON: 05/10/2022 TECHNIQUE: Single view of the chest is submitted. FINDINGS: Demonstrated are scattered senescent parenchymal change. Diffuse Mixed interstitial and alveolar infiltrates are seen bilaterally. Findings are suspicious for pneumonia. Slight progression suggested. The heart is stable. Hilar and mediastinal structures are within normal limits. Degenerative changes are seen of the dorsal spine. IMPRESSION: 1. Diffuse Mixed interstitial and alveolar infiltrates are seen bilaterally. Findings are suspicious for pneumonia. Slight progression suggested.
[2022-05-11 11:12] LABS: Glucose,Whole Blood 192 mg/dL (70-110)
--- NOTE | 2022-05-11 13:32 | P.PN ---
Subjective HISTORY OF PRESENTING ILLNESS Patient is a pleasant 82-year-old male with history of CAD status post recent CABG, BPH, GERD, hyperlipidemia, hypothyroidism, paroxysmal atrial fibrillation, reported systolic heart failure, previous issues with hypotension. Patient states he had CABG approximately 1.5 months ago at [facility] and has been in rehab since then. He states that over the past few days he has been more short of breath and has been having increasing lower extremity edema. Denies any chest pain or pressure. Denies any palpitations. He was noted to be in respiratory distress on presentation and placed on BiPAP. It appears he was placed on amiodarone 200 mg twice a day on discharge as well as prednisone 20 mg twice a day. Per medication list he was being given Lasix on an as-needed basis. He was initially seen at [facility] and then transferred to [facility]. Lactic acid initially 4.3, GFR 64, troponin 0.03, white blood cell count 14.0, hemoglobin 10.0, BNP 685, creatinine 1.1. He was given IV Lasix with good urine output per patient. Unclear if atrial fibrillation was postoperative however patient not on any anticoagulation. EKG currently showing sinus rhythm with normal axis, no significant ST or T wave abnormalities 05/11 Patient seen and examined. Patient remains on BiPAP and was transferred to ICU for closer monitoring. He states he feels somewhat better with diuretics. Echo showed EF 50% with moderate to severe mitral regurgitation. Chest CT shows diffuse airspace opacities and consolidation changes, possibly representing atypical pneumonia with pulmonary vascular congestion. -2.9 L last 24 hours. Creatinine stable at 1.0. PHYSICAL EXAMINATION Vital signs reviewed. CONSTITUTIONAL: Mild tachypnea on BIPAP, ill appearing HEENT: Head is normocephalic. Pupils are equal, round. Sclerae anicteric. Mucous membranes of the mouth are moist. No JVD. No carotid bruit. CHEST EXAMINATION: +crackles throughout HEART EXAMINATION: Regular rate and rhythm. S1, S2 heard. No murmurs, gallops or rub. ABDOMEN: Soft, nontender. Positive bowel sounds. EXTREMITIES: 2+ peripheral pulses, 2+ extremity edema and no calf tenderness. NEUROLOGIC EXAMINATION: Patient is awake, alert and oriented x3. ASSESSMENT 1. Acute on chronic diastolic heart failure 2. CAD status post CABG 3. Paroxysmal atrial fibrillation, unclear if postoperative A. fib, not on anticoagulation at home 4. Mild anemia 5. Bilateral infiltrates more likely consistent with vascular congestion, rule out pneumonia 6. Hypertension, borderline blood pressures PLAN Patient appears to be progressing well with diuretics. Echo shows EF 50% with moderate to severe mitral regurgitation. Continue with current supportive care. Obtain records from [facility]. Further recommendations to follow. Objective - Vital Signs Vital signs: Vital Signs Temp 98.1 F 05/11/22 10:02 Pulse 83 05/11/22 10:02 Resp 37 H 05/11/22 10:26 BP 158/89 05/11/22 10:02 Pulse Ox 90 L 05/11/22 10:02 FiO2 70 05/11/22 11:02 Intake & Output 05/10/22 05/11/22 05/11/22 18:59 06:59 18:59 Intake Total 240 Output Total 1350 1800 1725 Balance -7976 -1800 -1722 Weight 83 kg Intake: Oral 240 Output: Urine 1350 1800 1725 Other: Voiding Method Indwelling Catheter - Labs CBC & Chem 7: 05/11/22 08:17 05/11/22 08:17 Labs: Abnormal Lab Results - Last 24 Hours (Table) 05/10/22 05/11/22 05/11/22 Range/Units 11:01 08:17 08:17 RBC 3.17 L (4.30-5.90) m/uL Hgb 9.4 L (13.0-17.5) gm/dL Hct 30.9 L (39.0-53.0) % MCHC 30.5 L (31.0-37.0) g/dL Neutrophils # 10.0 H (1.3-7.7) k/uL Lymphocytes # 0.4 L 0.2 L (1.0-4.8) k/uL Chloride 94 L (98-107) mmol/L Carbon Dioxide 42 H* (22-30) mmol/L BUN 45 H (9-20) mg/dL Glucose 139 H (74-99) mg/dL POC Glucose (mg/dL) (70-110) mg/dL 05/11/22 Range/Units 11:09 RBC (4.30-5.90) m/uL Hgb (13.0-17.5) gm/dL Hct (39.0-53.0) % MCHC (31.0-37.0) g/dL Neutrophils # (1.3-7.7) k/uL Lymphocytes # (1.0-4.8) k/uL Chloride (98-107) mmol/L Carbon Dioxide (22-30) mmol/L BUN (9-20) mg/dL Glucose (74-99) mg/dL POC Glucose (mg/dL) 192 H (70-110) mg/dL
--- NOTE | 2022-05-11 13:33 | P.PN ---
Subjective Progress Note Date: 05/11/22 Principal diagnosis: CHF exacerbation, possible pulmonary toxicity related to amiodarone This is an 82-year-old white male with history of coronary artery disease, recent CABG about 2 months ago, this was done at [facility]. Patient presented to [facility] with a few days' history of increased shortness of breath, and his shortness of breath, much worse today. In addition to shortness of breath, the patient is coughing, the cough is productive with whitish phlegm, no fever no chills, no hemoptysis, no chest pain. workup in [place] showed evidence of pulmonary edema, he also had elevated BNP level, and elevated troponin level. Patient was transferred to [facility], I saw him down in the ER. Patient is on BiPAP, 12/5/55%, O2 satu ration is in the low 90s. Patient was already given Lasix by the admitting physician and he is now on Lasix at 60 mg IV push twice a day. Some improvement clinically noted according to the patient. Patient has no previous history of COPD, and no previous history of smoking. His WBC count is 12.6 hemoglobin is 10.3, basic metabolic profile is normal renal profile is normal bicarb is 38 lactic acid 4.6. ProBNP level is 3790. Chest x-ray is consistent with interstitial edema however underlying pneumonia is not entirely ruled out but felt to be less likely. EKG showed sinus rhythm, and incomplete right bundle branch block pattern otherwise unremarkable, nonspecific ST and T-wave changes n oted. The patient is seen today 05/10/2022 in follow-up on the selective care unit. He is currently resting in bed. Awake and alert in no acute distress. He is still on BiPAP 12/5 and 55%. white count 11.0. Hemoglobin 9.6. Platelets 275. Sodium 142. Potassium 3.8. Bicarb 42. BUN 40. Creatinine 0.82. Glucose 109. He is continued on Lasix 60 mg every 12 hours. No accurate I&O recorded. Current weight 83.5 kg. today's chest x-ray is essentially unchanged. Pro- calcitoninn level 0.07. I'm evaluating this patient today on 05/11/2022. His work of breathing has obviously increased overnight. He is requiring BiPAP titrations and is currently 14/5 and 70%. He is tachypneic breathing about 30-40 breaths per minute with accessory muscle use. Recent echocardiogram was performed on 07/11/2021 which showed a normal ejection fraction of 50% and some moderate to severe mitral regurgitation. He is receiving furosemide 80 mg twice a day. A urinary catheter was inserted yesterday for accurate intake and output. Fluid balance is -1 L. Normal saline is using KVO. CT of the chest with contrast was also performed yesterday on 05/10/2022 which showed diffuse airspace opacities and consolidation changes, some small bilateral pleural effusions, evidence of pulmonary hypertension, and cardiomegaly. Likely representing a combination of atypical pneumonia versus inflammatory process. There is also some superimposed pulmonary vascular congestion. Chest x-ray from today 05/11/2022 continues to show diffuse interstitial and alveolar infiltrates bilaterally. He continues to receive by mouth amiodarone. And his heart rhythm is currently normal sinus. Patient remains afebrile. CBC did not show any leukocytosis with a WBC of 7.8, hemoglobin 9.4, hematocrit 30.9, platelet count 280,000. BMP from today shows sodium 140, potassium of 3.9, chloride of 94, serum CO2 of 42 to, UN 45, creatinine 1.04, glucose 139. Remains on Lovenox for DVT prophylaxis. We'll transfer this patient in ICU for closer monitoring. Objective - Vital Signs Vital signs: Vital Signs Temp 98.1 F 05/11/22 10:02 Pulse 83 05/11/22 10:02 Resp 37 H 05/11/22 10:26 BP 158/89 05/11/22 10:02 Pulse Ox 90 L 05/11/22 10:02 FiO2 70 05/11/22 11:02 Intake & Output 05/10/22 05/11/22 05/11/22 18:59 06:59 18:59 Intake Total 240 Output Total 1350 1800 1725 Balance -1110 -1800 -1725 Weight 83 kg Intake: Oral 240 Output: Urine 1350 1800 1725 Other: Voiding Method Indwelling Catheter - Exam GENERAL EXAM: Alert, pleasant 82-year-old gentleman, currently on BiPAP 14/5 and 70%. He is in some mild respiratory distress. HEAD: Normocephalic. EYES: Normal reaction of pupils, equal size. NOSE: Clear with pink turbinates. THROAT: No erythema or exudates. NECK: No masses, no JVD. CHEST: No chest wall deformity. Accessory muscle use. LUNGS: Equal air entry bronchial breath sounds with bibasilar crackles. CVS: S1 and S2 normal with no audible murmur, regular rhythm. ABDOMEN: No hepatosplenomegaly, normal bowel sounds, no guarding or rigidity. SPINE: No scoliosis or deformity SKIN: No rashes CENTRAL NERVOUS SYSTEM: No focal deficits, tone is normal in all 4 extremities. EXTREMITIES: There is 2+ peripheral edema. No clubbing, no cyanosis. Peripheral pulses are intact. - Labs CBC & Chem 7: 05/11/22 08:17 05/11/22 08:17 Labs: Abnormal Lab Results - Last 24 Hours (Table) 05/10/22 05/11/22 05/11/22 Range/Units 11:01 08:17 08:17 RBC 3.17 L (4.30-5.90) m/uL Hgb 9.4 L (13.0-17.5) gm/dL Hct 30.9 L (39.0-53.0) % MCHC 30.5 L (31.0-37.0) g/dL Neutrophils # 10.0 H (1.3-7.7) k/uL Lymphocytes # 0.4 L 0.2 L (1.0-4.8) k/uL Chloride 94 L (98-107) mmol/L Carbon Dioxide 42 H* (22-30) mmol/L BUN 45 H (9-20) mg/dL Glucose 139 H (74-99) mg/dL POC Glucose (mg/dL) (70-110) mg/dL 05/11/22 Range/Units 11:09 RBC (4.30-5.90) m/uL Hgb (13.0-17.5) gm/dL Hct (39.0-53.0) % MCHC (31.0-37.0) g/dL Neutrophils # (1.3-7.7) k/uL Lymphocytes # (1.0-4.8) k/uL Chloride (98-107) mmol/L Carbon Dioxide (22-30) mmol/L BUN (9-20) mg/dL Glucose (74-99) mg/dL POC Glucose (mg/dL) 192 H (70-110) mg/dL Assessment and Plan Assessment: Acute hypoxemic respiratory failure secondary to an acute exacerbation of diastolic congestive heart failure with severe mitral regurgitation as evidenced by recent echocardiogram. 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 Will hold amiodarone Acute pulmonary edema History of paroxysmal atrial fibrillation. Currently normal sinus rhythm History of recent coronary artery bypass grafting at [facility] History of underlying coronary disease Hyperlipidemia Hypothyroidism History of gastroesophageal reflux disease without esophagitis Former smoker Plan: The patient was seen and evaluated Chest x-ray, labs and medications reviewed Cannot rule out amiodarone toxicity Hold amiodarone for now Continued on BiPAP support for now Titrate down the FiO2 as tolerated Continue aggressive IV diuresis Monitor accurate intake and output We will transfer patient to ICU for closer monitoring We will continue to follow I have personally seen and examined the patient, performed the documentation and the assessment and plan as written. Number of minutes spent on the visit: [ 20]. Time with Patient: Less than 30
--- NOTE | 2022-05-11 15:21 | P.PN ---
Subjective Progress Note Date: 05/11/22 82-year-old presently came in with complains of shortness of breath orthopnea, proximal nocturnal dyspnea patient had open-heart surgery at [facility] recently I do not have any echo available although patient has significant pulmonary edema with a BNP of 3790 patient does have elevated lactic acid of around 4.6 which has come down to 4. Patient is not receiving IV fluids in fact patient will need IV Lasix patient is on BiPAP at this time. Patient doesn't have any fever chills does have leukocytosis with the WBC of around 1600 and takes 2 mg of Bumex at home he does have history of atrial fibrillation for denied any history of COPD, does have previous history of smoking. Doesn't use any oxygen at home. Facet of troponin is 0.020. 05/10/2022 Patient is seen and evaluated in follow-up today continues on BiPAP at 55% FiO2 with cardiology and pulmonary following. Patient continues on antibiotics along with high-dose IV Lasix twice daily. Chest x-ray with concerns for bilateral in filtrates and effusions with concerns for pneumonia and pro-calcitonin has been ordered and negative. Repeat 2-D echo was ordered along with a CT of the chest. Patient is afebrile and continues to have shortness of breath continue with BiPAP and wean as tolerated. Patient is not eating very well due to his respiratory status and will monitor closely. Recommend repeat labs in a.m. 05/11/2022 Patient is seen in follow-up today continues to be in respiratory distress obtained on BiPAP with oxygen saturations in the 80s with cardiology and pulmonary following. Patient is on high-dose IV Lasix which is being increased to 80 mg twice daily and pulmonary following recommending transfer to ICU for close monitoring. Patient's BiPAP settings being increased to 70% during my exam. Patient is afebrile and WBC is normalized at 7.8, hemoglobin is stable at 9.4, creatinine stable at 1.04 and will continue to monitor with follow-up labs. Chest x-ray today shows diffuse mixed interstitial and alveolar infiltrates that are seen bilaterally with suspicion for pneumonia and slight progression suggested. Patient did have CT of the chest which shows diffuse airspace opacification and consolidation changes with small bilateral pleural effusions with evidence of pulmonary hypertension and cardiomegaly and also concern for infection or inflammatory process with superimposed pulmonary vascular congestion and CHF. IV steroids also titrated to 40 every 8 and will continue. Overall prognosis remains guarded. Patient reports he is hungry although unable to eat much due to requiring continuous BiPAP and his respiratory status. Will follow-up with repeat labs in the a.m. Review of systems: Constitutional: reports of fatigue, no fever, or chills Cardiovascular: No reports of chest pain or palpitations Respiratory: reports of worsening shortness of breath GI: No reports of nausea, vomiting, or diarrhea reports feeling hungry and unable to eat due to BiPAP : No reports of dysuria or retention Neurovascular: reports of generalized weakness All medications have been reviewed PHYSICAL EXAMINATION: GENERAL: The patient is alert and oriented x3, working to breathe and tachyp neic. Well developed, well nourished. HEENT: Pupils are round and equally reacting to light. EOMI. No scleral icterus. No conjunctival pallor. Normocephalic, atraumatic. No pharyngeal erythema. No th yromegaly. CARDIOVASCULAR: S1 and S2 present. No murmurs, rubs, or gallops. PULMONARY: no wheezing or bilateral diffuse crackles bilaterally ABDOMEN: Soft, nontender, nondistended, normoactive bowel sounds. No palpable organomegaly. MUSCULOSKELETAL: No joint swelling or deformity. EXTREMITIES: No cyanosis, clubbing, does have 1+ pitting pedal edema extending up to the midshin area NEUROLOGICAL: Gross neurological examination did not reveal any focal deficits. SKIN: No rashes. Assessment: -Congestive heart failure with systolic dysfunction, acute on chronic with exacerbation -Acute hypoxic respiratory failure secondary to pulmonary edema and CHF exacerbation -History of atrial fibrillation probably paroxysmal presently sinus rhythm, not on anticoagulation at this time. -coronary artery disease with recent CABG -Gastroesophageal reflux disease -Hyperlipidemia -Benign prostatic hypertrophy -Hypothyroidism -DVT prophylaxis: On Lovenox -Full code Plan: Recommend to continue on high-dose IV Lasix along with BiPAP support with pulmonary and cardiology following. Pulmonary recommending transfer to ICU for close monitoring as patient is requiring more oxygen support and increased settings to 70% FiO2 on BiPAP Recommend follow-up labs in the a.m. Chest x-ray with concerns for progression Pro-calcitonin is negative most likely CHF exacerbation and suspicion for pneumonia is low Recommend wean FiO2 as tolerated Prognosis is extremely guarded The impression and plan of care has been dictated by Gabriela Ma, Nurse Practitioner as directed. Dr. Wanda MD I have performed a history and examination and MDM of this patient, discussed the same with the dictator, and agree with the dictator's assessment and plan as written ,documented as a scribe. Based on total visit time, I have performed more than 50% of the visit. Objective - Vital Signs Vital signs: Vital Signs Temp 98.8 F 05/11/22 04:45 Pulse 82 05/11/22 07:47 Resp 29 H 05/11/22 04:45 BP 132/71 05/11/22 04:45 Pulse Ox 89 L 05/11/22 07:35 FiO2 60 05/11/22 07:33 Intake & Output 05/10/22 05/11/22 05/11/22 18:59 06:59 18:59 Intake Total 240 Output Total 1350 1800 Balance -1110 -1800 Weight 83 kg Intake: Oral 240 Output: Urine 1350 1800 - Labs CBC & Chem 7: 05/11/22 08:17 05/11/22 08:17 Labs: Abnormal Lab Results - Last 24 Hours (Table) 05/10/22 05/10/22 05/10/22 Range/Units 11:01 11:01 11:51 WBC 11.0 H (3.8-10.6) k/uL RBC 3.24 L (4.30-5.90) m/uL Hgb 9.6 L (13.0-17.5) gm/dL Hct 31.7 L (39.0-53.0) % MCHC 30.1 L (31.0-37.0) g/dL Neutrophils # 10.0 H (1.3-7.7) k/uL Lymphocytes # 0.4 L (1.0-4.8) k/uL Chloride 92 L 93 L (98-107) mmol/L Carbon Dioxide 45 H* 42 H* (22-30) mmol/L BUN 38 H 40 H (9-20) mg/dL Glucose 114 H 109 H (74-99) mg/dL Albumin 2.9 L (3.5-5.0) g/dL 05/11/22 05/11/22 Range/Units 08:17 08:17 WBC (3.8-10.6) k/uL RBC 3.17 L (4.30-5.90) m/uL Hgb 9.4 L (13.0-17.5) gm/dL Hct 30.9 L (39.0-53.0) % MCHC 30.5 L (31.0-37.0) g/dL Neutrophils # (1.3-7.7) k/uL Lymphocytes # 0.2 L (1.0-4.8) k/uL Chloride 94 L (98-107) mmol/L Carbon Dioxide 42 H* (22-30) mmol/L BUN 45 H (9-20) mg/dL Glucose 139 H (74-99) mg/dL Albumin (3.5-5.0) g/dL
[2022-05-11 17:15] LABS: Appearance,Urine Clear (Clear); Bilirubin,Urine Negative (Negative); Blood,Urine Moderate (Negative); Color,Urine Yellow; Glucose,Urine (UA) Negative (Negative); Hyaline Casts,Urine 53 /lpf (0-2); Ketones,Urine Negative (Negative); Leukocyte Esterase,Urine Negative (Negative); Mucus,Urine Rare /hpf; Nitrite,Urine Negative (Negative); PH, Urine 5.5 (5.0-8.0); Protein,Urine 1+ (Negative); RBC,Urine 16 /hpf (0-5); Specific Gravity,Urine 1.028 (1.001-1.035); Squamous Epithelial Cell,Urine <1 /hpf (0-4); Urobilinogen,Urine <2.0 mg/dL (<2.0); WBC,Urine 5 /hpf (0-5)
[2022-05-11] MEDS: SODIUM CHLORIDE 0.9% 1,000 ML IV SCH (17:17)
[2022-05-11] MEDS: ATORVASTATIN 10 MG TAB PO SCH (20:28)
[2022-05-12] MEDS: LEVOTHYROXINE 125 MCG TAB PO SCH (06:09)
[2022-05-12 06:43] LABS: Basophils % (A) 0 %; Eosinophils % (A) 0 %; HCT 32.9 % (39.0-53.0); HGB 9.8 gm/dL (13.0-17.5); Hypochromasia Marked; Lymphocytes # (A) 0.2 k/uL (1.0-4.8); Lymphocytes % (A) 3 %; MCH 29.1 pg (25.0-35.0); MCHC 29.8 g/dL (31.0-37.0); MCV 97.8 fL (80.0-100.0); Mean Platelet Volume 9.7; Monocytes # (A) 0.3 k/uL (0-1.0); Monocytes % (A) 4 %; Neutrophils # (A) 7.6 k/uL (1.3-7.7); Neutrophils % (A) 93 %; Platelet Count 303 k/uL (150-450); RBC 3.36 m/uL (4.30-5.90); RDW 13.5 % (11.5-15.5); WBC 8.2 k/uL (3.8-10.6)
[2022-05-12 06:55] LABS: Calcium 8.2 mg/dL (8.4-10.2)
--- NOTE | 2022-05-12 08:26 | XR ---
EXAMINATION TYPE: XR chest 1V DATE OF EXAM: 05/12/2022 HISTORY: Shortness of breath. COMPARISON: 05/11/2022 TECHNIQUE: Single view of the chest is submitted. FINDINGS: Demonstrated are scattered senescent parenchymal change. Diffuse airspace infiltrates persist without significant interval change. The heart is stable. Hilar and mediastinal structures are within normal limits. Degenerative changes are seen of the dorsal spine. IMPRESSION: 1. Stable chest
[2022-05-12] MEDS: TAMSULOSIN 0.4 MG CAP.ER.24H PO SCH (08:46)
[2022-05-12] MEDS: MAGNESIUM OXIDE 400 MG TAB PO SCH (08:46)
[2022-05-12] MEDS: ASPIRIN 81 MG PO SCH (08:46)
[2022-05-12] MEDS: methylPREDNISolone SOD SUCCI 40 MG/ML 1 ML VIAL IV SCH ×3 (08:46→23:49)
[2022-05-12] MEDS: PANTOPRAZOLE 40 MG/10 ML VIAL IVP SCH (08:47)
[2022-05-12] MEDS: ENOXAPARIN 40 MG/0.4 ML SYRINGE SQ SCH (08:47)
[2022-05-12] MEDS: FUROSEMIDE 10 MG/ML 10 ML VIAL IV SCH ×2 (08:47→20:18)
[2022-05-12] MEDS: IPRATROPIUM-ALBUTEROL 3 ML NEB INHALATION PRN ×2 (08:52→19:29)
--- NOTE | 2022-05-12 08:55 | P.PN ---
Subjective HISTORY OF PRESENTING ILLNESS Patient is a pleasant 82-year-old male with history of CAD status post recent CABG, BPH, GERD, hyperlipidemia, hypothyroidism, paroxysmal atrial fibrillation, reported systolic heart failure, previous issues with hypotension. Patient states he had CABG approximately 1.5 months ago at [facility] and has been in rehab since then. He states that over the past few days he has been more short of breath and has been having increasing lower extremity edema. Denies any chest pain or pressure. Denies any palpitations. He was noted to be in respiratory distress on presentation and placed on BiPAP. It appears he was placed on amiodarone 200 mg twice a day on discharge as well as prednisone 20 mg twice a day. Per medication list he was being given Lasix on an as-needed basis. He was initially seen at [facility] and then transferred to [facility]. Lactic acid initially 4.3, GFR 64, troponin 0.03, white blood cell count 14.0, hemoglobin 10.0, BNP 685, creatinine 1.1. He was given IV Lasix with good urine output per patient. Unclear if atrial fibrillation was postoperative however patient not on any anticoagulation. EKG currently showing sinus rhythm with normal axis, no significant ST or T wave abnormalities 05/11 Patient seen and examined. Patient remains on BiPAP and was transferred to ICU for closer monitoring. He states he feels somewhat better with diuretics. Echo showed EF 50% with moderate to severe mitral regurgitation. Chest CT shows diffuse airspace opacities and consolidation changes, possibly representing atypical pneumonia with pulmonary vascular congestion. -2.9 L last 24 hours. Creatinine stable at 1.0. 05/12 Prior records from [facility] reviewed with admission 03/18/2022 with non-STEMI and relatively no prior medical problems and was found to have pulmonary edema and echo showed left ventricular EF 40-45%. He eventually u nderwent CABG 3 with left radial to diagonal, SVG to PDA and TREVIZO to LAD with left atrial appendage ligation 03/27/2022. He did have shock liver and was noted be positive for coated 04/03/2022. He additionally was noted to be in A. fib and was placed on amiodarone. He had been placed on balloon pump postoperatively as well and did have shock liver. He did require cardioversion 04/01/2022 due to atrial fibrillation with hypotension as well as cardioversion 04/05. Original heart catheterization had shown a wedge pressure 14 and LVEDP of 16 a cardiac output of 2.8 a cardiac index of 1.4 by thermodilution and cardiac index of 2.2 by thermodilution. Her cardiogram reviewed with posteriorly directed mitral regurgitation appears related to tethering of posterior leaflet. Moderate to severe however appears more moderate. PHYSICAL EXAMINATION Vital signs reviewed. CONSTITUTIONAL: Mild tachypnea on BIPAP, ill appearing HEENT: Head is normocephalic. Pupils are equal, round. Sclerae anicteric. Mucous membranes of the mouth are moist. No JVD. No carotid bruit. CHEST EXAMINATION: +crackles throughout HEART EXAMINATION: Regular rate and rhythm. S1, S2 heard. No murmurs, gallops or rub. ABDOMEN: Soft, nontender. Positive bowel sounds. EXTREMITIES: 2+ peripheral pulses, 2+ extremity edema and no calf tenderness. NEUROLOGIC EXAMINATION: Patient is awake, alert and oriented x3. ASSESSMENT 1. Acute on chronic diastolic heart failure 2. CAD status post CABG 3. Paroxysmal atrial fibrillation, unclear if postoperative A. fib, not on anticoagulation at home 4. Mild anemia 5. Bilateral infiltrates more likely consistent with vascular congestion, rule out pneumonia 6. Hypertension, borderline blood pressures 7. Moderate to severe mitral regurgitation, appears more moderate with posteriorly directed jet from posterior leaflet tethering by echo PLAN Patient still with significant respiratory distress and CT showing diffuse severe edema/infiltrates. Amiodarone was discontinued. Continue to hold however prior hospitalization he did have significant decompensation requiring urgent cardioversion 2. He did have prolonged hospitalization with [facility] with, difficulty weaning requiring balloon pump. If patient does not progress consider right heart catheterization for further evaluation. Patient having some contraction alkalosis and we will add Diamox. Additionally some decrease in urine output and give dose of Zaroxolyn. Prognosis guarded. Objective - Vital Signs Vital signs: Vital Signs Temp 97.3 F L 05/12/22 08:00 Pulse 78 05/12/22 08:30 Resp 21 05/12/22 08:30 BP 120/75 05/12/22 08:30 Pulse Ox 93 L 05/12/22 08:30 FiO2 70 05/12/22 08:00 Intake & Output 05/11/22 05/12/22 05/12/22 18:59 06:59 18:59 Intake Total 940 140 Output Total 2230 985 10 Balance -2229 130 Weight 81.6 kg Intake: Intake, IV Titration 220 20 Amount Sodium Chloride 0.9% 1, 220 20 000 ml @ 20 mls/hr IV . Q24H [facility] Rx#:[id number] Oral 720 120 Output: Urine 2230 985 10 Other: Voiding Method Indwelling Catheter Indwelling Catheter - Labs CBC & Chem 7: 05/12/22 06:01 05/12/22 06:01 Labs: Abnormal Lab Results - Last 24 Hours (Table) 05/11/22 05/11/22 05/11/22 Range/Units 08:17 08:17 11:09 RBC 3.17 L (4.30-5.90) m/uL Hgb 9.4 L (13.0-17.5) gm/dL Hct 30.9 L (39.0-53.0) % MCHC 30.5 L (31.0-37.0) g/dL Lymphocytes # 0.2 L (1.0-4.8) k/uL Chloride 94 L (98-107) mmol/L Carbon Dioxide 42 H* (22-30) mmol/L BUN 45 H (9-20) mg/dL Glucose 139 H (74-99) mg/dL POC Glucose (mg/dL) 192 H (70-110) mg/dL Calcium (8.4-10.2) mg/dL Urine Protein (Negative) Urine Blood (Negative) Urine RBC (0-5) /hpf Hyaline Casts (0-2) /lpf Urine Mucus (None) /hpf 05/11/22 05/12/22 05/12/22 Range/Units 16:24 06:01 06:01 RBC 3.36 L (4.30-5.90) m/uL Hgb 9.8 L (13.0-17.5) gm/dL Hct 32.9 L (39.0-53.0) % MCHC 29.8 L (31.0-37.0) g/dL Lymphocytes # 0.2 L (1.0-4.8) k/uL Chloride 90 L (98-107) mmol/L Carbon Dioxide 44 H* (22-30) mmol/L BUN 50 H (9-20) mg/dL Glucose 147 H (74-99) mg/dL POC Glucose (mg/dL) (70-110) mg/dL Calcium 8.2 L (8.4-10.2) mg/dL Urine Protein 1+ H (Negative) Urine Blood Moderate H (Negative) Urine RBC 16 H (0-5) /hpf Hyaline Casts 53 H (0-2) /lpf Urine Mucus Rare H (None) /hpf
[2022-05-12] MEDS: acetaZOLAMIDE 250 MG TAB PO SCH ×2 (10:12→22:32)
[2022-05-12] MEDS: metOLazone 5 MG TAB PO SCH (10:12)
--- NOTE | 2022-05-12 11:27 | P.PN ---
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 This is an 82-year-old white male with history of coronary artery disease, recent CABG about 2 months ago, this was done at [facility]. Patient presented to [facility] with a few days' history of increased shor tness of breath, and his shortness of breath, much worse today. In addition to shortness of breath, the patient is coughing, the cough is productive with whitish phlegm, no fever no chills, no hemoptysis, no chest pain. workup in [place] [facility] showed evidence of pulmonary edema, he also had elevated BNP level, and elevated troponin level. Patient was transferred to [facility], I saw him down in the ER. Patient is on BiPAP, 12/5/55%, O2 saturation is in the low 90s. Patient was already given Lasix by the admitting physician and he is now on Lasix at 60 mg IV push twice a day. Some improvement clinically noted according to the patient. Patient has no previous history of COPD, and no previous history of smoking. His WBC count is 12.6 hemoglobin is 10.3, basic metabolic profile is normal renal profile is normal bicarb is 38 lactic acid 4.6. ProBNP level is 3790. Chest x-ray is consistent with interstitial edema however underlying pneumonia is not entirely ruled out but felt to be less likely. EKG showed sinus rhythm, and incomplete right bundle branch block pattern otherwise unremarkable, nonspecific ST and T-wave changes noted. The patient is seen today 05/10/2022 in follow-up on the selective care unit. He is currently resting in bed. Awake and alert in no acute distress. He is still on BiPAP 12/5 and 55%. white count 11.0. Hemoglobin 9.6. Platelets 275. Sodium 142. Potassium 3.8. Bicarb 42. BUN 40. Creatinine 0.82. Glucose 109. He is continued on Lasix 60 mg every 12 hours. No accurate I&O recorded. Current weight 83.5 kg. today's chest x-ray is essentially unchanged. Pro- calcitoninn level 0.07. I'm evaluating this patient today on 05/11/2022. His work of breathing has obviously increased overnight. He is requiring BiPAP titrations and is currently 14/5 and 70%. He is tachypneic breathing about 30-40 breaths per minute with accessory muscle use. Recent echocardiogram was performed on 05/10/2022 which showed a normal ejection fraction of 50% and some moderate to severe mitral regurgitation. He is receiving furosemide 80 mg twice a day. A urinary catheter was inserted yesterday for accurate intake and output. Fluid balance is -1 L. Normal saline is using KVO. CT of the chest with contrast was also performed yesterday on 05/10/2022 which showed diffuse airspace opacities and consolidation changes, some small bilateral pleural effusions, evidence of pulmonary hypertension, and cardiomegaly. Likely representing a combination of atypical pneumonia versus inflammatory process. There is also some superimposed pulmonary vascular congestion. Chest x-ray from today 05/11/2022 continues to show diffuse interstitial and alveolar infiltrates bilaterally. He continues to receive by mouth amiodarone. And his heart rhythm is currently normal sinus. Patient remains afebrile. CBC did not show any leukocytosis with a WBC of 7.8, hemoglobin 9.4, hematocrit 30.9, platelet count 280,000. BMP from today shows sodium 140, potassium of 3.9, chloride of 94, serum CO2 of 42 to, UN 45, creatinine 1.04, glucose 139. Remains on Lovenox for DVT prophylaxis. We'll transfer this patient in ICU for closer monitoring. Reevaluated today on 05/12/2022, patient is basically about the same. Remains on BiPAP, he is on IPAP of 14 EPAP of 5 and FiO2 70%, chest x-ray continues to show diffuse interstitial process bilaterally, it is difficult to tell how much of this is true pulmonary edema and how much of it is acute lung injury, induced by amiodarone. Not to mention the patient is not a candidate to perform or even think of lung biopsy. Patient is receiving diuretics and he is a -2 L in the last 24 hours, he is now on Lasix and Diamox, not seeing much improvement in his overall pulmonary status in spite of aggressive diuresis as a matter of fact I have a strong feeling that the patient will require eventually intubation and mechanical ventilation if he continues to do poorly. He is basically marginal at best at this point. CBC is relatively normal electrolytes are normal except bicarb is up to 44, patient is sleepy developing a bit of metabolic contraction alkalosis. Hence Diamox was added. Patient remains on steroids for his presumptive amiodarone induced lung injury although this is not definitive Objective - Vital Signs Vital signs: Vital Signs Temp 97.3 F L 05/12/22 08:00 Pulse 84 05/12/22 10:00 Resp 27 H 05/12/22 10:00 BP 120/75 05/12/22 10:00 Pulse Ox 94 L 05/12/22 10:00 FiO2 70 05/12/22 10:27 Intake & Output 05/11/22 05/12/22 05/12/22 18:59 06:59 18:59 Intake Total 940 200 Output Total 2230 985 335 Balance -222945 -135 Weight 81.6 kg Intake: IV 60 Sodium Chloride 0.9% 1, 60 000 ml @ 20 mls/hr IV . Q24H [facility] Rx#:[id number] Intake, IV Titration 220 20 Amount Sodium Chloride 0.9% 1, 220 20 000 ml @ 20 mls/hr IV . Q24H [facility] Rx#:[id number] Oral 720 120 Output: Urine 2230 985 335 Other: Voiding Method Indwelling Catheter Indwelling Catheter Indwelling Catheter - Exam Physical Exam: Revealed an 82-year-old white male on BiPAP, in mild respiratory distress, O2 saturation is marginal on 70% FiO2. IPAP 14 EPAP of 5. Head: Atraumatic, normocephalic. HEENT:[Neck is supple.] [No neck masses.] [No thyromegaly.] [No JVD.] Chest: [Fine crackles at the bases no rhonchi and no wheezes Cardiac Exam: [Normal S1 and S2, no S3 gallop, 2/6 systolic murmur thought the precordium. Abdomen: [Soft, nontender, no megaly, no rebound, no guarding, normal bowel sounds.] Extremities: [No clubbing, trace of bipedal edema, no cyanosis.] Neurological Exam: [No focal neurologic deficit.] Alert oriented 3. Psychiatric: Normal mood, affect and normal mental status examination. Skin: No rashes. - Labs CBC & Chem 7: 05/12/22 06:01 05/12/22 06:01 Labs: Abnormal Lab Results - Last 24 Hours (Table) 05/11/22 05/12/22 05/12/22 Range/Units 16:24 06:01 06:01 RBC 3.36 L (4.30-5.90) m/uL Hgb 9.8 L (13.0-17.5) gm/dL Hct 32.9 L (39.0-53.0) % MCHC 29.8 L (31.0-37.0) g/dL Lymphocytes # 0.2 L (1.0-4.8) k/uL Chloride 90 L (98-107) mmol/L Carbon Dioxide 44 H* (22-30) mmol/L BUN 50 H (9-20) mg/dL Glucose 147 H (74-99) mg/dL Calcium 8.2 L (8.4-10.2) mg/dL Urine Protein 1+ H (Negative) Urine Blood Moderate H (Negative) Urine RBC 16 H (0-5) /hpf Hyaline Casts 53 H (0-2) /lpf Urine Mucus Rare H (None) /hpf Assessment and Plan Assessment: impression: Acute hypoxic respiratory failure secondary to acute on chronic diastolic congestive heart failure and severe mitral regurgitation noted on echocardiogram. Possibility of amiodarone induced lung injury/amiodarone lung toxicity is possible and not entirely ruled out. Hence amiodarone is still on hold at present. history of paroxysmal atrial fibrillation, presently in sinus rhythm. Recent CABG at [facility]. History of underlying coronary artery disease. Dyslipidemia history of hypothyroidism GERD without esophagitis recommendation: Continue to monitor the patient in the ICU. Continue diuretics, agree with Diamox. Continue steroids high-dose for presumptive underlying amiodarone-induced lung injury Continue BiPAP and titrate FiO2 down, maintaining O2 saturation above 90% No need for antibiotics pro calcitonin level was not elevated Continue Lovenox for DVT prophylaxis Protonix for GI prophylaxis Reviewed and discussed with the patient his abnormal chest x-ray findings Discussed and reviewed with the patient his overall status, and made him aware that he may require to go on life-support machinery, patient stated to me that he doesn't mind as long as we can potentially reverse what he has and he does not want to be on it long-term. Patient is critically ill. Critical care time is over 30 minutes. We will continue to follow Time with Patient: Greater than 30
--- NOTE | 2022-05-12 15:00 | P.PN ---
Subjective Progress Note Date: 05/12/22 82-year-old presently came in with complains of shortness of breath orthopnea, proximal nocturnal dyspnea patient had open-heart surgery at [facility] recently I do not have any echo available although patient has significant pulmonary edema with a BNP of 3790 patient does have elevated lactic acid of around 4.6 which has come down to 4. Patient is not receiving IV fluids in fact patient will need IV Lasix patient is on BiPAP at this time. Patient doesn't have any fever chills does have leukocytosis with the WBC of around 1600 and takes 2 mg of Bumex at home he does have history of atrial fibrillation for denied any history of COPD, does have previous history of smoking. Doesn't use any oxygen at home. Facet of troponin is 0.020. 05/10/2022 Patient is seen and evaluated in follow-up today continues on BiPAP at 55% FiO2 with cardiology and pulmonary following. Patient continues on antibiotics along with high-dose IV Lasix twice daily. Chest x-ray with concerns for bilateral in filtrates and effusions with concerns for pneumonia and pro-calcitonin has been ordered and negative. Repeat 2-D echo was ordered along with a CT of the chest. Patient is afebrile and continues to have shortness of breath continue with BiPAP and wean as tolerated. Patient is not eating very well due to his respiratory status and will monitor closely. Recommend repeat labs in a.m. 05/11/2022 Patient is seen in follow-up today continues to be in respiratory distress obtained on BiPAP with oxygen saturations in the 80s with cardiology and pulmonary following. Patient is on high-dose IV Lasix which is being increased to 80 mg twice daily and pulmonary following recommending transfer to ICU for close monitoring. Patient's BiPAP settings being increased to 70% during my exam. Patient is afebrile and WBC is normalized at 7.8, hemoglobin is stable at 9.4, creatinine stable at 1.04 and will continue to monitor with follow-up labs. Chest x-ray today shows diffuse mixed interstitial and alveolar infiltrates that are seen bilaterally with suspicion for pneumonia and slight progression suggested. Patient did have CT of the chest which shows diffuse airspace opacification and consolidation changes with small bilateral pleural effusions with evidence of pulmonary hypertension and cardiomegaly and also concern for infection or inflammatory process with superimposed pulmonary vascular congestion and CHF. IV steroids also titrated to 40 every 8 and will continue. Overall prognosis remains guarded. Patient reports he is hungry although unable to eat much due to requiring continuous BiPAP and his respiratory status. Will follow-up with repeat labs in the a.m. 05/12/2022 Patient is seen and evaluated in follow-up today currently remains in the ICU on BiPAP and working on possible Airvo transition sit the patient can eat. Patient is being followed by cardiology and pulmonary and repeat chest x-ray today shows stable chest with diffuse airspace infiltrates Persist without significant interval change. Patient appears more comfortable today and less dyspneic and is significantly weak. Patient is maintained on IV Lasix 80 twice a day and Diamox along with metolazone being added. Patient is currently afebrile and denies chest pain or palpitations. Patient continues with shortness of breath although feels he is breathing a little easier today. Patient denies nausea or vomiting and reports to being hungry. Active Medications Acetazolamide (Acetazolamide 250 Mg Tab) 250 mg PO BID [facility] Last Admin: 05/12/22 10:12 Dose: 250 mg Albuterol/Ipratropium (Ipratropium-Albuterol 3 Ml Neb) 3 ml INHALATION RT-Q4H PRN PRN Reason: Shortness Of Breath Or Wheezing Last Admin: 05/12/22 08:52 Dose: 3 ml Aspirin (Aspirin 81 Mg) 81 mg PO DAILY [facility] Last Admin: 05/12/22 08:46 Dose: 81 mg Atorvastatin Calcium (Atorvastatin 10 Mg Tab) 10 mg PO HS [facility] Last Admin: 05/11/22 20:28 Dose: 10 mg Enoxaparin Sodium (Enoxaparin 40 Mg/0.4 Ml Syringe) 40 mg SQ DAILY [facility] Last Admin: 05/12/22 08:47 Dose: 40 mg Furosemide (Furosemide 10 Mg/Ml 10 Ml Vial) 80 mg IV Q12HR [facility] Last Admin: 05/12/22 08:47 Dose: 80 mg Sodium Chloride (Saline 0.9%) 1,000 mls @ 20 mls/hr IV .Q24H [facility] Last Admin: 05/11/22 17:17 Dose: Not Given Levothyroxine Sodium (Levothyroxine 125 Mcg Tab) 125 mcg PO DAILY@0630 [facility] Last Admin: 05/12/22 06:09 Dose: 125 mcg Magnesium Hydroxide (Magnesium Hydroxide 2,400 Mg/10 Ml Cup) 7,200 mg PO DAILY PRN PRN Reason: Constipation Magnesium Oxide (Magnesium Oxide 400 Mg Tab) 400 mg PO DAILY [facility] Last Admin: 05/12/22 08:46 Dose: 400 mg Melatonin (Melatonin 5 Mg Tablet) 5 mg PO HS PRN PRN Reason: Insomnia Last Admin: 05/11/22 20:28 Dose: 5 mg Methylprednisolone Sodium Succinate (Methylprednisolone Sod Succi 40 Mg/Ml 1 Ml Vial) 40 mg IV Q8HR [facility] Last Admin: 05/12/22 08:46 Dose: 40 mg Metolazone (Metolazone 5 Mg Tab) 5 mg PO DAILY [facility] Last Admin: 05/12/22 10:12 Dose: 5 mg Naloxone HCl (Naloxone 0.4 Mg/Ml 1 Ml Vial) 0.2 mg IV Q2M PRN PRN Reason: Opioid Reversal Pantoprazole Sodium (Pantoprazole 40 Mg/10 Ml Vial) 40 mg IVP DAILY [facility] Last Admin: 05/12/22 08:47 Dose: 40 mg Tamsulosin HCl (Tamsulosin 0.4 Mg Cap.Er.24h) 0.4 mg PO DAILY [facility] Last Admin: 05/12/22 08:46 Dose: 0.4 mg Review of systems: Constitutional: No reports of fatigue, no fever, or chills Cardiovascular: No reports of chest pain or palpitations Respiratory: reports of continued shortness of breath GI: No reports of nausea, vomiting, or diarrhea reports feeling hungry : No reports of dysuria or retention Neurovascular: reports of generalized weakness All medications have been reviewed PHYSICAL EXAMINATION: GENERAL: The patient is alert and oriented x3, tachypneic. Well developed, well nourished. HEENT: Pupils are round and equally reacting to light. EOMI. No scleral icterus. No conjunctival pallor. Normocephalic, atraumatic. No pharyngeal erythema. No thyromegaly. CARDIOVASCULAR: S1 and S2 muffled PULMONARY: Diminished breath sounds bilaterally with some scattered rhonchi and crackles noted at the bases ABDOMEN: Soft, nontender, nondistended, normoactive bowel sounds. No palpable organomegaly. MUSCULOSKELETAL: No joint swelling or deformity. EXTREMITIES: No cyanosis, clubbing, does have 1+ pitting pedal edema extending up to the midshin area NEUROLOGICAL: Gross neurological examination did not reveal any focal deficits. Diffusely weak SKIN: No rashes. Assessment: -Congestive heart failure with systolic dysfunction, acute on chronic with exacerbation -Acute hypoxic respiratory failure secondary to pulmonary edema and CHF exacerbation -History of atrial fibrillation probably paroxysmal presently sinus rhythm, not on anticoagulation at this time. -coronary artery disease with recent CABG -Gastroesophageal reflux disease -Hyperlipidemia -Benign prostatic hypertrophy -Hypothyroidism -DVT prophylaxis: On Lovenox -Full code Plan: Recommend to continue on high-dose IV Lasix along with BiPAP support with pulmonary and cardiology following. Pulmonary has transferred the patient to ICU for close monitoring as patient is requiring more oxygen support and increased settings to 70% FiO2 on BiPAP, working on transitioning to airvo so the patient can eat with settings of 60/90 Recommend follow-up labs in the a.m. Chest x-ray today is stable with no significant change from previous Encouraged oral intake while on high flow oxygen and continuous BiPAP as needed Recommend wean FiO2 as tolerated Patient will need PT/OT therapy once respiratory status improves Prognosis is extremely guarded The impression and plan of care has been dictated by Gabriela Ma, Nurse Practitioner as directed. Dr. Adan MD I have performed a history and examination and MDM of this patient, discussed the same with the dictator, and agree with the dictator's assessment and plan as written ,documented as a scribe. Based on total visit time, I have performed more than 50% of the visit. Objective - Vital Signs Vital signs: Vital Signs Temp 97.2 F L 05/12/22 12:00 Pulse 90 05/12/22 14:00 Resp 23 05/12/22 14:00 BP 113/73 05/12/22 14:00 Pulse Ox 90 L 05/12/22 14:00 FiO2 90 05/12/22 13:00 Intake & Output 05/11/22 05/12/22 05/12/22 18:59 06:59 18:59 Intake Total 940 280 Output Total 2230 985 1260 Balance -2229 -45 -980 Weight 81.6 kg Intake: IV 140 Sodium Chloride 0.9% 1, 140 000 ml @ 20 mls/hr IV . Q24H [facility] Rx#:[id number] Intake, IV Titration 220 20 Amount Sodium Chloride 0.9% 1, 220 20 000 ml @ 20 mls/hr IV . Q24H [facility] Rx#:[id number] Oral 720 120 Output: Urine 2230 985 1260 Other: Voiding Method Indwelling Catheter Indwelling Catheter Indwelling Catheter - Labs CBC & Chem 7: 05/12/22 06:01 05/12/22 06:01 Labs: Abnormal Lab Results - Last 24 Hours (Table) 05/11/22 05/12/22 05/12/22 Range/Units 16:24 06:01 06:01 RBC 3.36 L (4.30-5.90) m/uL Hgb 9.8 L (13.0-17.5) gm/dL Hct 32.9 L (39.0-53.0) % MCHC 29.8 L (31.0-37.0) g/dL Lymphocytes # 0.2 L (1.0-4.8) k/uL Chloride 90 L (98-107) mmol/L Carbon Dioxide 44 H* (22-30) mmol/L BUN 50 H (9-20) mg/dL Glucose 147 H (74-99) mg/dL Calcium 8.2 L (8.4-10.2) mg/dL Urine Protein 1+ H (Negative) Urine Blood Moderate H (Negative) Urine RBC 16 H (0-5) /hpf Hyaline Casts 53 H (0-2) /lpf Urine Mucus Rare H (None) /hpf
[2022-05-12] MEDS: SODIUM CHLORIDE 0.9% 1,000 ML IV SCH (16:26)
[2022-05-12] MEDS: ATORVASTATIN 10 MG TAB PO SCH (20:18)
--- NOTE | 2022-05-13 06:29 | XR ---
EXAMINATION TYPE: XR chest 1V portable DATE OF EXAM: 05/13/2022 CLINICAL HISTORY: Difficulty breathing progress study. Pneumonia and CHF. TECHNIQUE: Single AP portable semiupright view of the chest is obtained. COMPARISON: Chest x-ray from one day earlier and older studies. FINDINGS: Overlying sternal wires and mediastinal clips along with left atrial appendage clip are al l redemonstrated. Stable mild cardiomegaly with bilateral increased opacities. Osseous structures are intact. IMPRESSION: Persistent bilateral multifocal edema and/or infiltrates suggestive of ARDS. No significa nt change from one day earlier.
[2022-05-13] MEDS: LEVOTHYROXINE 125 MCG TAB PO SCH (06:35)
[2022-05-13 07:08] LABS: Basophils % (A) 0 %; Eosinophils % (A) 0 %; HCT 36.5 % (39.0-53.0); HGB 10.6 gm/dL (13.0-17.5); Hypochromasia Marked; Lymphocytes # (A) 0.2 k/uL (1.0-4.8); Lymphocytes % (A) 2 %; MCH 29.2 pg (25.0-35.0); MCHC 29.1 g/dL (31.0-37.0); MCV 100.4 fL (80.0-100.0); Mean Platelet Volume 9.8; Monocytes # (A) 0.4 k/uL (0-1.0); Monocytes % (A) 4 %; Neutrophils % (A) 94 %; Platelet Count 294 k/uL (150-450); RBC 3.64 m/uL (4.30-5.90); RDW 13.3 % (11.5-15.5); WBC 10.6 k/uL (3.8-10.6)
[2022-05-13 07:26] LABS: Calcium 8.4 mg/dL (8.4-10.2); Potassium 3.9 mmol/L (3.5-5.1)
[2022-05-13] MEDS: FUROSEMIDE 10 MG/ML 10 ML VIAL IV SCH (08:05)
[2022-05-13] MEDS: ASPIRIN 81 MG PO SCH (08:05)
[2022-05-13] MEDS: methylPREDNISolone SOD SUCCI 40 MG/ML 1 ML VIAL IV SCH ×4 (08:05→23:33)
[2022-05-13] MEDS: PANTOPRAZOLE 40 MG/10 ML VIAL IVP SCH (08:05)
[2022-05-13] MEDS: TAMSULOSIN 0.4 MG CAP.ER.24H PO SCH (08:06)
[2022-05-13] MEDS: ENOXAPARIN 40 MG/0.4 ML SYRINGE SQ SCH (08:06)
[2022-05-13] MEDS: MAGNESIUM OXIDE 400 MG TAB PO SCH (08:06)
[2022-05-13] MEDS: metOLazone 5 MG TAB PO SCH (08:06)
[2022-05-13] MEDS: acetaZOLAMIDE 250 MG TAB PO SCH ×2 (08:06→20:43)
[2022-05-13] MEDS ORDERED: Potassium Replacement Protocol 1 EACH MISC MISCELLANE PRN (08:23)
[2022-05-13] MEDS ORDERED: POTASSIUM CHLORIDE ER 20 MEQ TAB.ER PO SCH ×2 (09:00→18:00)
--- NOTE | 2022-05-13 11:34 | P.PN ---
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 This is an 82-year-old white male with history of coronary artery disease, recent CABG about 2 months ago, this was done at [facility]. Patient presented to [facility] with a few days' history of increased shor tness of breath, and his shortness of breath, much worse today. In addition to shortness of breath, the patient is coughing, the cough is productive with whitish phlegm, no fever no chills, no hemoptysis, no chest pain. workup in [place] showed evidence of pulmonary edema, he also had elevated BNP level, and elevated troponin level. Patient was transferred to [facility], I saw him down in the ER. Patient is on BiPAP, 12/5/55%, O2 saturation is in the low 90s. Patient was already given Lasix by the admitting physician and he is now on Lasix at 60 mg IV push twice a day. Some improvement clinically noted according to the patient. Patient has no previous history of COPD, and no previous history of smoking. His WBC count is 12.6 hemoglobin is 10.3, basic metabolic profile is normal renal profile is normal bicarb is 38 lactic acid 4.6. ProBNP level is 3790. Chest x-ray is consistent with interstitial edema however underlying pneumonia is not entirely ruled out but felt to be less likely. EKG showed sinus rhythm, and incomplete right bundle branch block pattern otherwise unremarkable, nonspecific ST and T-wave changes noted. The patient is seen today 05/10/2022 in follow-up on the selective care unit. He is currently resting in bed. Awake and alert in no acute distress. He is still on BiPAP 12/5 and 55%. white count 11.0. Hemoglobin 9.6. Platelets 275. Sodium 142. Potassium 3.8. Bicarb 42. BUN 40. Creatinine 0.82. Glucose 109. He is continued on Lasix 60 mg every 12 hours. No accurate I&O recorded. Current weight 83.5 kg. today's chest x-ray is essentially unchanged. Pro- calcitoninn level 0.07. I'm evaluating this patient today on 05/11/2022. His work of breathing has obviously increased overnight. He is requiring BiPAP titrations and is currently 14/5 and 70%. He is tachypneic breathing about 30-40 breaths per minute with accessory muscle use. Recent echocardiogram was performed on 05/10/2022 which showed a normal ejection fraction of 50% and some moderate to severe mitral regurgitation. He is receiving furosemide 80 mg twice a day. A urinary catheter was inserted yesterday for accurate intake and output. Fluid balance is -1 L. Normal saline is using KVO. CT of the chest with contrast was also performed yesterday on 05/10/2022 which showed diffuse airspace opacities and consolidation changes, some small bilateral pleural effusions, evidence of pulmonary hypertension, and cardiomegaly. Likely representing a combination of atypical pneumonia versus inflammatory process. There is also some superimposed pulmonary vascular congestion. Chest x-ray from today 05/11/2022 continues to show diffuse interstitial and alveolar infiltrates bilaterally. He continues to receive by mouth amiodarone. And his heart rhythm is currently normal sinus. Patient remains afebrile. CBC did not show any leukocytosis with a WBC of 7.8, hemoglobin 9.4, hematocrit 30.9, platelet count 280,000. BMP from today shows sodium 140, potassium of 3.9, chloride of 94, serum CO2 of 42 to, UN 45, creatinine 1.04, glucose 139. Remains on Lovenox for DVT prophylaxis. We'll transfer this patient in ICU for closer monitoring. Reevaluated today on 05/12/2022, patient is basically about the same. Remains on BiPAP, he is on IPAP of 14 EPAP of 5 and FiO2 70%, chest x-ray continues to show diffuse interstitial process bilaterally, it is difficult to tell how much of this is true pulmonary edema and how much of it is acute lung injury, induced by amiodarone. Not to mention the patient is not a candidate to perform or even think of lung biopsy. Patient is receiving diuretics and he is a -2 L in the last 24 hours, he is now on Lasix and Diamox, not seeing much improvement in his overall pulmonary status in spite of aggressive diuresis as a matter of fact I have a strong feeling that the patient will require eventually intubation and mechanical ventilation if he continues to do poorly. He is basically marginal at best at this point. CBC is relatively normal electrolytes are normal except bicarb is up to 44, patient is sleepy developing a bit of metabolic contraction alkalosis. Hence Diamox was added. Patient remains on steroids for his presumptive amiodarone induced lung injury although this is not definitive Patient was reevaluated today on 05/09/22, remains in the ICU, his overall pulmonary status is marginal at best. Continues to have abnormal chest x-ray, continues to be relatively hypoxic, patient is now on high flow oxygen via airvo, FiO2 90% and 60 L flow, seems to be tolerating this better than the BiPAP, yesterday he was on BiPAP 14/6/80%. Remains on diuretics, remains on steroids, patient tells me that he feels a bit better today, although his chest x-ray is basically about the same, and his oxygenation seems to be marginal/the same.CBC is unremarkable, basic metabolic profile is normal bicarb is 46 BUN is 57 creatinine 1.72, hence I will start cutting down on his diuretics, we will continue Diamox continue Diamox, continue Lasix but quit ahead and stop again I am quite concerned about the rapid increase in his creatinine, not to mention the patient has been in a negative balance over the last 48 hours.since admission, the patient is almost -7 L. And he is becoming quite dehydrated. Objective - Vital Signs Vital signs: Vital Signs Temp 96.6 F L 05/13/22 08:00 Pulse 84 05/13/22 11:00 Resp 21 05/13/22 11:00 BP 112/64 05/13/22 11:00 Pulse Ox 97 05/13/22 11:00 FiO2 90 05/13/22 11:00 Intake & Output 05/12/22 05/13/22 05/13/22 18:59 06:59 18:59 Intake Total 360 600 220 Output Total 1620 1495 1235 Balance -1260 -895 -1015 Weight 79.5 kg Intake: IV 220 240 100 Sodium Chloride 0.9% 1, 220 240 100 000 ml @ 20 mls/hr IV . Q24H [facility] Rx#:[id number] Intake, IV Titration 20 Amount Sodium Chloride 0.9% 1, 20 000 ml @ 20 mls/hr IV . Q24H [facility] Rx#:[id number] Oral 120 360 120 Output: Urine 1620 1495 1235 Other: Voiding Method Indwelling Catheter Indwelling Catheter Indwelling Catheter - Exam Physical Exam: Revealed an 82-year-old white male on airflow, high flow oxygen, not in distress. Head: Atraumatic, normocephalic. HEENT:[Neck is supple.] [No neck masses.] [No thyromegaly.] [No JVD.] Chest: [Fine crackles at the bases no rhonchi and no wheezes Cardiac Exam: [Normal S1 and S2, no S3 gallop, 2/6 systolic murmur thought the precordium. Abdomen: [Soft, nontender, no megaly, no rebound, no guarding, normal bowel sounds.] Extremities: [No clubbing, trace of bipedal edema, no cyanosis.] Neurological Exam: [No focal neurologic deficit.] Alert oriented 3. Psychiatric: Normal mood, affect and normal mental status examination. Skin: No rashes. - Labs CBC & Chem 7: 05/13/22 06:40 05/13/22 06:40 Labs: Abnormal Lab Results - Last 24 Hours (Table) 05/13/22 05/13/22 Range/Units 06:40 06:40 RBC 3.64 L (4.30-5.90) m/uL Hgb 10.6 L (13.0-17.5) gm/dL Hct 36.5 L (39.0-53.0) % MCV 100.4 H (80.0-100.0) fL MCHC 29.1 L (31.0-37.0) g/dL Neutrophils # 10.0 H (1.3-7.7) k/uL Lymphocytes # 0.2 L (1.0-4.8) k/uL Chloride 88 L (98-107) mmol/L Carbon Dioxide 46 H* (22-30) mmol/L BUN 57 H (9-20) mg/dL Creatinine 1.72 H (0.66-1.25) mg/dL Glucose 192 H (74-99) mg/dL Assessment and Plan Assessment: impression: Acute hypoxic respiratory failure secondary to acute on chronic diastolic congestive heart failure and severe mitral regurgitation noted on echoc ardiogram. Possibility of amiodarone induced lung injury/amiodarone lung toxicity is possible and not entirely ruled out. Hence amiodarone is still on hold at present. history of paroxysmal atrial fibrillation, presently in sinus rhythm. Recent CABG at [facility]. History of underlying coronary artery disease. Dyslipidemia history of hypothyroidism GERD without esophagitis recommendation: Continue to monitor the patient in the ICU. Continue diuretics, discontinue Zaroxolyn, continue Lasix and continue Diamox. Continue steroids high-dose for presumptive underlying amiodarone-induced lung injury, patient is on methylprednisolone 40 mg IV push every 6 hours continue oxygen and titrate accordingly presently on airvo. No need for antibiotics pro calcitonin level was not elevated Continue Lovenox for DVT prophylaxis Protonix for GI prophylaxis Patient is critically ill.still has the feeling that the patient may eventually require intubation mechanical ventilation, but not at this point yet. Critical care time is over 30 minutes. We will continue to follow Time with Patient: Greater than 30
[2022-05-13] MEDS: SODIUM CHLORIDE 0.9% 1,000 ML IV SCH (12:19)
[2022-05-13] MEDS: DEXMEDETOMIDINE/0.9% NACL(PMX) 400 MCG in EMPTY BAG 1 BAG IV SCH (16:18)
[2022-05-13] MEDS: ATORVASTATIN 10 MG TAB PO SCH (20:43)
--- NOTE | 2022-05-13 22:35 | PN ---
PROGRESS NOTE HISTORY OF PRESENT ILLNESS: This is an 82-year-old gentleman who has been transferred to [facility] with acute exacerbation of chronic congestive heart failure. He has extensive history including coronary artery disease for which he underwent recent bypass surgery, dyslipidemia, hypothyroidism, paroxysmal atrial fibrillation. His surgery was done about 6 weeks ago at [facility], had gone through rehab and subsequently had been transferred to [facility] where because of shortness of breath and worsening leg edema, he had been transferred over to [facility]. The patient was on amiodarone and apparently has had issues with elevated liver enzymes. The patient had an echo that revealed an ejection fraction of 50% with moderate-to- severe mitral regurgitation. CT scan of the chest suggested atypical pneumonia with some pulmonary congestion. He is being treated as acute exacerbation of chronic congestive heart failure with IV Lasix at 80 mg b.i.d. and has had good urine output. PHYSICAL EXAMINATION: GENERAL: Comfortable at rest. VITAL SIGNS: Heart rate is 80 beats per minute, blood pressure is 120/62, respiratory rate is 18, O2 saturation 95% on high-flow nasal cannula of 60%. CHEST: Reveals diminished air entry at the bases without any crackles or rhonchi. HEART: Reveals first and second heart sounds and a systolic murmur at the apex. ABDOMEN: Soft. EXTREMITIES: Reveal bilateral pitting edema. LABS: Showed a hemoglobin of 10.6, platelet count is 294, potassium is 3.9, BUN and creatinine are elevated. ASSESSMENT: 1. Acute exacerbation of chronic congestive heart failure. 2. Acute renal insufficiency secondary to intravascular volume depletion. 3. Paroxysmal atrial fibrillation. 4. Coronary artery disease, status post coronary artery bypass grafting. PLAN: I am going to decrease the dose of his Lasix to 40 mg IV daily. Continue the metolazone. Follow the renal functions and decide on further course of action. MMODL / IJN: [id number] /
[2022-05-14] MEDS ORDERED: POTASSIUM CHLORIDE ER 20 MEQ TAB.ER PO SCH (01:00)
[2022-05-14 04:18] LABS: Basophils % (A) 0 %; Eosinophils % (A) 0 %; HCT 35.4 % (39.0-53.0); HGB 10.3 gm/dL (13.0-17.5); Hypochromasia Marked; Lymphocytes # (A) 0.2 k/uL (1.0-4.8); Lymphocytes % (A) 2 %; MCH 29.4 pg (25.0-35.0); MCHC 29.2 g/dL (31.0-37.0); MCV 100.6 fL (80.0-100.0); Mean Platelet Volume 10.1; Monocytes # (A) 0.3 k/uL (0-1.0); Monocytes % (A) 3 %; Neutrophils # (A) 8.5 k/uL (1.3-7.7); Neutrophils % (A) 94 %; Platelet Count 297 k/uL (150-450); RBC 3.51 m/uL (4.30-5.90); RDW 13.2 % (11.5-15.5)
[2022-05-14 04:35] LABS: Albumin 2.9 g/dL (3.5-5.0); Calcium 8.4 mg/dL (8.4-10.2); Potassium 3.9 mmol/L (3.5-5.1); Total Bilirubin 0.4 mg/dL (0.2-1.3); Total Protein 6.3 g/dL (6.3-8.2)
[2022-05-14] MEDS: DEXMEDETOMIDINE/0.9% NACL(PMX) 400 MCG in EMPTY BAG 1 BAG IV SCH ×2 (04:38→23:28)
[2022-05-14] MEDS: methylPREDNISolone SOD SUCCI 40 MG/ML 1 ML VIAL IV SCH ×4 (05:22→23:49)
[2022-05-14] MEDS: LEVOTHYROXINE 125 MCG TAB PO SCH (06:25)
[2022-05-14] MEDS: POTASSIUM CHLORIDE 10 MEQ in WATER FOR INJECTION 1 100ML.BAG IVPB SCH ×2 (06:35→08:18)
[2022-05-14] MEDS: PANTOPRAZOLE 40 MG/10 ML VIAL IVP SCH (08:16)
[2022-05-14] MEDS: acetaZOLAMIDE 250 MG TAB PO SCH ×2 (08:17→20:13)
[2022-05-14] MEDS: ASPIRIN 81 MG PO SCH (08:17)
[2022-05-14] MEDS: MAGNESIUM OXIDE 400 MG TAB PO SCH (08:17)
[2022-05-14] MEDS: ENOXAPARIN 40 MG/0.4 ML SYRINGE SQ SCH (08:17)
[2022-05-14] MEDS: TAMSULOSIN 0.4 MG CAP.ER.24H PO SCH (08:17)
--- NOTE | 2022-05-14 08:40 | XR ---
EXAMINATION TYPE: XR chest 1V portable DATE OF EXAM: 05/14/2022 Comparison: 05/13/2022 Clinical History: 82-year-old male PNA/CHF Findings: Median sternotomy wires are present with post-CABG clips the mediastinum. Diffuse bilateral airspace opacity similar to slightly increased from prior. Impression: Diffuse bilateral airspace disease similar to possibly minimally worsened.
[2022-05-14] MEDS ORDERED: FUROSEMIDE 10 MG/ML 4 ML VIAL IV SCH (09:00)
--- NOTE | 2022-05-14 10:36 | P.PN ---
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 This is an 82-year-old white male with history of coronary artery disease, recent CABG about 2 months ago, this was done at [facility]. Patient presented to [facility] with a few days' history of increased shor tness of breath, and his shortness of breath, much worse today. In addition to shortness of breath, the patient is coughing, the cough is productive with whitish phlegm, no fever no chills, no hemoptysis, no chest pain. workup in [place] showed evidence of pulmonary edema, he also had elevated BNP level, and elevated troponin level. Patient was transferred to [facility], I saw him down in the ER. Patient is on BiPAP, 12/5/55%, O2 saturation is in the low 90s. Patient was already given Lasix by the admitting physician and he is now on Lasix at 60 mg IV push twice a day. Some improvement clinically noted according to the patient. Patient has no previous history of COPD, and no previous history of smoking. His WBC count is 12.6 hemoglobin is 10.3, basic metabolic profile is normal renal profile is normal bicarb is 38 lactic acid 4.6. ProBNP level is 3790. Chest x-ray is consistent with interstitial edema however underlying pneumonia is not entirely ruled out but felt to be less likely. EKG showed sinus rhythm, and incomplete right bundle branch block pattern otherwise unremarkable, nonspecific ST and T-wave changes noted. The patient is seen today 05/10/2022 in follow-up on the selective care unit. He is currently resting in bed. Awake and alert in no acute distress. He is still on BiPAP 12/5 and 55%. white count 11.0. Hemoglobin 9.6. Platelets 275. Sodium 142. Potassium 3.8. Bicarb 42. BUN 40. Creatinine 0.82. Glucose 109. He is continued on Lasix 60 mg every 12 hours. No accurate I&O recorded. Current weight 83.5 kg. today's chest x-ray is essentially unchanged. Pro- calcitoninn level 0.07. I'm evaluating this patient today on 05/11/2022. His work of breathing has obviously increased overnight. He is requiring BiPAP titrations and is currently 14/5 and 70%. He is tachypneic breathing about 30-40 breaths per minute with accessory muscle use. Recent echocardiogram was performed on 05/10/2022 which showed a normal ejection fraction of 50% and some moderate to severe mitral regurgitation. He is receiving furosemide 80 mg twice a day. A urinary catheter was inserted yesterday for accurate intake and output. Fluid balance is -1 L. Normal saline is using KVO. CT of the chest with contrast was also performed yesterday on 05/10/2022 which showed diffuse airspace opacities and consolidation changes, some small bilateral pleural effusions, evidence of pulmonary hypertension, and cardiomegaly. Likely representing a combination of atypical pneumonia versus inflammatory process. There is also some superimposed pulmonary vascular congestion. Chest x-ray from today 05/11/2022 continues to show diffuse interstitial and alveolar infiltrates bilaterally. He continues to receive by mouth amiodarone. And his heart rhythm is currently normal sinus. Patient remains afebrile. CBC did not show any leukocytosis with a WBC of 7.8, hemoglobin 9.4, hematocrit 30.9, platelet count 280,000. BMP from today shows sodium 140, potassium of 3.9, chloride of 94, serum CO2 of 42 to, UN 45, creatinine 1.04, glucose 139. Remains on Lovenox for DVT prophylaxis. We'll transfer this patient in ICU for closer monitoring. Reevaluated today on 05/12/2022, patient is basically about the same. Remains on BiPAP, he is on IPAP of 14 EPAP of 5 and FiO2 70%, chest x-ray continues to show diffuse interstitial process bilaterally, it is difficult to tell how much of this is true pulmonary edema and how much of it is acute lung injury, induced by amiodarone. Not to mention the patient is not a candidate to perform or even think of lung biopsy. Patient is receiving diuretics and he is a -2 L in the last 24 hours, he is now on Lasix and Diamox, not seeing much improvement in his overall pulmonary status in spite of aggressive diuresis as a matter of fact I have a strong feeling that the patient will require eventually intubation and mechanical ventilation if he continues to do poorly. He is basically marginal at best at this point. CBC is relatively normal electrolytes are normal except bicarb is up to 44, patient is sleepy developing a bit of metabolic contraction alkalosis. Hence Diamox was added. Patient remains on steroids for his presumptive amiodarone induced lung injury although this is not definitive Patient was reevaluated today on 05/09/22, remains in the ICU, his overall pulmonary status is marginal at best. Continues to have abnormal chest x-ray, continues to be relatively hypoxic, patient is now on high flow oxygen via airvo, FiO2 90% and 60 L flow, seems to be tolerating this better than the BiPAP, yesterday he was on BiPAP 14/6/80%. Remains on diuretics, remains on steroids, patient tells me that he feels a bit better today, although his chest x-ray is basically about the same, and his oxygenation seems to be marginal/the same.CBC is unremarkable, basic metabolic profile is normal bicarb is 46 BUN is 57 creatinine 1.72, hence I will start cutting down on his diuretics, we will continue Diamox continue Diamox, continue Lasix but quit ahead and stop again I am quite concerned about the rapid increase in his creatinine, not to mention the patient has been in a negative balance over the last 48 hours.since admission, the patient is almost -7 L. And he is becoming quite dehydrated. Reevaluated today on 05/14/22, patient remains in the ICU, remains on BiPAP with IPAP of 14/EPAP of 6, FiO2 is 70%. Patient is becoming more and more alkalotic, hence I'm stopping his Lasix. We will continue the patient on Diamox. He is also off Zaroxolyn. Patient has been in a significant negative balance over the last few days. Last night he became quite agitated and we had to place him on Precedex, he is on 0.4 mcg/kg/h of Precedex today. Seems to be calm, chest x- ray continues to show evidence of interstitial infiltrates bilaterally. Again it is not clear how much of it is really congestive heart failure and how much of an acute lung injury.WBC count today is 9 hemoglobin is 10.3, bicarb is elevated at 52 BUN is 50 creatinine 1.61 slightly better than yesterday. Objective - Vital Signs Vital signs: Vital Signs Temp 97.4 F L 05/14/22 08:00 Pulse 64 05/14/22 10:00 Resp 16 05/14/22 10:00 BP 97/60 05/14/22 10:00 Pulse Ox 98 05/14/22 10:00 FiO2 70 05/14/22 10:00 Intake & Output 05/13/22 05/14/22 05/14/22 18:59 06:59 18:59 Intake Total 360 731.099 144.075 Output Total 2165 1045 150 Balance -1805 -313.901 -5.925 Weight 78.8 kg Intake: IV 240 260 40 Sodium Chloride 0.9% 1, 240 260 40 000 ml @ 20 mls/hr IV . Q24H [facility] Rx#:[id number] Intake, IV Titration 111.099 104.075 Amount Dexmedetomidine/0.9% NaCl 11.099 4.075 (Pmx) 400 mcg In Empty Bag 1 bag @ 0.2 MCG/KG/HR 3.975 mls/hr IV .Q24H [facility] Rx#:[id number] Potassium Chloride 10 meq 100 100 In Water For Injection 1 100ml.bag @ 100 mls/hr IVPB Q1H [facility] Rx#: [id number] Oral 120 360 Output: Urine 2165 1045 150 Other: Voiding Method Indwelling Catheter Indwelling Catheter - Exam Physical Exam: Revealed an 82-year-old white male on BiPAP, 14/, FiO2 70%. Patient is also on Precedex. Head: Atraumatic, normocephalic. HEENT:[Neck is supple.] [No neck masses.] [No thyromegaly.] [No JVD.] Chest: [Fine crackles at the bases no rhonchi and no wheezes Cardiac Exam: [Normal S1 and S2, no S3 gallop, 2/6 systolic murmur thought the precordium. Abdomen: [Soft, nontender, no megaly, no rebound, no guarding, normal bowel sounds.] Extremities: [No clubbing, trace of bipedal edema, no cyanosis.] Neurological Exam: [No focal neurologic deficit.] Alert oriented 3. Psychiatric: Normal mood, affect and normal mental status examination. Skin: No rashes. - Labs CBC & Chem 7: 05/14/22 03:29 05/14/22 03:29 Labs: Abnormal Lab Results - Last 24 Hours (Table) 05/14/22 05/14/22 Range/Units 03:29 03:29 RBC 3.51 L (4.30-5.90) m/uL Hgb 10.3 L (13.0-17.5) gm/dL Hct 35.4 L (39.0-53.0) % MCV 100.6 H (80.0-100.0) fL MCHC 29.2 L (31.0-37.0) g/dL Neutrophils # 8.5 H (1.3-7.7) k/uL Lymphocytes # 0.2 L (1.0-4.8) k/uL Chloride 85 L (98-107) mmol/L Carbon Dioxide 52 H* (22-30) mmol/L BUN 50 H (9-20) mg/dL Creatinine 1.61 H (0.66-1.25) mg/dL Glucose 171 H (74-99) mg/dL Alkaline Phosphatase 169 H (38-126) U/L Albumin 2.9 L (3.5-5.0) g/dL Assessment and Plan Assessment: impression: Acute hypoxic respiratory failure secondary to acute on chronic diastolic congestive heart failure and severe mitral regurgitation noted on echocardiogram. Possibility of amiodarone induced lung injury/amiodarone lung toxicity is possible and not entirely ruled out. Hence amiodarone is still on hold at present. history of paroxysmal atrial fibrillation, presently in sinus rhythm. Recent CABG at [facility]. History of underlying coronary artery disease. Dyslipidemia history of hypothyroidism GERD without esophagitis worsening metabolic contraction alkalosis. recommendation: Continue to monitor the patient in the ICU. discontinue all diuretics and maintain patient on Diamox. Continue steroids high-dose for presumptive underlying amiodarone-induced lung injury, patient is on methylprednisolone 40 mg IV push every 6 hours continue oxygen and titrate accordingly presently on airvo. No need for antibiotics pro calcitonin level was not elevated Continue Lovenox for DVT prophylaxis Protonix for GI prophylaxis we'll continue to monitor in the ICU. May still require intubation and mechanical ventilation if his condition gets any worse. We will continue to follow Time with Patient: Less than 30
--- NOTE | 2022-05-14 11:43 | PN ---
PROGRESS NOTE DATE OF SERVICE: 05/13/2022 SUBJECTIVE: This is an 82-year-old gentleman, who was admitted with CHF acute exacerbation and closely monitored. The patient is on Airvo high-flow oxygen instead of BiPAP today. The patient is being closely monitored. The chest x-ray which was reviewed personally by me today showed persistent bilateral multifocal edema. There is no history of any fever, rigors, or chills. PAST MEDICAL HISTORY: Reviewed. REVIEW OF SYSTEMS: Fourteen-point review is negative except as mentioned earlier. CURRENT MEDICATIONS: Reviewed include DuoNeb. Doses and rest of the medications noted. PHYSICAL EXAMINATION: VITAL SIGNS: Pulse is 90, blood pressure is 114/69, respirations 16. HEENT: Conjunctivae are normal. NECK: No jugular venous distention. CARDIOVASCULAR: S1 and S2. RESPIRATORY: Breath sounds diminished at the bases. Few scattered rhonchi and crackles. ABDOMEN: Soft. NERVOUS SYSTEM: Nonfocal. LABORATORY DATA: Reviewed. CO2 is 46, creatinine is 1.72. ASSESSMENT: 1. Congestive heart failure acute exacerbation with [id number] systolic dysfunction. 2. Acute hypoxic respiratory failure. 3. History of atrial fibrillation. 4. Coronary artery disease, coronary artery bypass grafting. 5. Gastroesophageal reflux disease. 6. Hyperlipidemia. 7. Multiple medical issues. RECOMMENDATIONS: Recommend to continue current medications and symptomatic treatment. Closely monitor. The creatinine is elevated at this time. We will continue to monitor. The patient is on Lasix 40 IV daily. Continue with bronchodilators. I would also recommend flu testing and COVID testing also. The CO2 is elevated. Further recommendations to follow. MMODL / IJN: [id number] /
[2022-05-14] MEDS: SODIUM CHLORIDE 0.9% 1,000 ML IV SCH (12:42)
[2022-05-14] MEDS: ATORVASTATIN 10 MG TAB PO SCH (20:14)
--- NOTE | 2022-05-14 21:55 | PN ---
PROGRESS NOTE SUBJECTIVE: This is an 82-year-old gentleman with history of coronary artery disease, status post prior bypass surgery, in chronic congestive heart failure, who is transferred from [facility] with worsening shortness of breath. This morning, he is on a nonrebreather and appears somewhat anxious and might be going into respiratory failure and may need intubation. OBJECTIVE: VITAL SIGNS: Heart rate is 63 beats per minute, blood pressure is 99/60, respiratory rate is 18, O2 saturation is 96% on BiPAP. CHEST: Reveals diminished air entry with occasional rhonchi and crackles. HEART: Reveals first and second heart sounds with systolic murmur at the apex. ABDOMEN: Soft. EXTREMITIES: Examination of the extremities reveals mild edema. Peripheral pulses are felt. IMAGING STUDIES: An echocardiogram on this admission revealed normal LV systolic function with moderate- to-severe mitral regurgitation. MEDICATIONS: The patient is currently on: 1. Aspirin. 2. Lipitor. 3. Diamox. ASSESSMENT AND PLAN: He has significant prerenal azotemia. I decreased the dose of Lasix yesterday. Currently, the Lasix is on hold. MMODL / IJN: [id number] /
[2022-05-15] MEDS: POTASSIUM CHLORIDE 10 MEQ in WATER FOR INJECTION 1 100ML.BAG IVPB SCH ×2 (02:45→03:44)
--- NOTE | 2022-05-15 03:34 | PN ---
PROGRESS NOTE DATE OF SERVICE: 05/14/2022 SUBJECTIVE: This 82-year-old gentleman who was admitted with CHF acute exacerbation, is currently on Airvo instead of BiPAP. The patient was closely monitored at this time. The most recent chest x-ray which I reviewed personally showed probably minimal worsening. The patient is being closely monitored. Dr. Tran and Cardiology are following the patient closely. REVIEW OF SYSTEMS: Could not be taken. The patient is slightly drowsy. CURRENT MEDICATIONS: Reviewed include DuoNeb. Doses and rest of medication noted. PHYSICAL EXAMINATION: VITAL SIGNS: Pulse is 61, blood pressure 88/60, respirations 18. HEENT: Conjunctivae normal. CARDIAC: Normal. RESPIRATIONS: Bases a few scattered rhonchi and crackles. ABDOMEN: Soft, nontender. LEGS: No edema. NERVOUS SYSTEM: No focal. LABORATORY DATA: At this time showed WBC 10.3, sodium 140, potassium 3.9. The rest of the labs are noted. Influenza, RSV and COVID 19 are negative. ASSESSMENT: 1. Congestive heart failure acute exacerbation with acute on chronic systolic dysfunction with acute hypoxic respiratory failure. 2. History atrial fibrillation. 3. History of coronary artery disease, coronary artery bypass grafting. 4. Gastroesophageal reflux disease. 5. Hyperlipidemia. 6. History of multiple medical issues. 7. Severe mitral regurgitation. RECOMMENDATIONS: Recommend to continue current management and continue the bronchodilators. Continue with the monitoring. Otherwise, the patient is on steroids as well currently. We will closely follow with multiple consultants. Prognosis guarded. Further recommendations to follow. MMODL / IJN: [id number] /
[2022-05-15 04:55] LABS: Basophils % (A) 0 %; Eosinophils % (A) 0 %; HCT 33.4 % (39.0-53.0); HGB 9.9 gm/dL (13.0-17.5); Hypochromasia Marked; Lymphocytes # (A) 0.2 k/uL (1.0-4.8); Lymphocytes % (A) 2 %; MCH 29.7 pg (25.0-35.0); MCHC 29.6 g/dL (31.0-37.0); MCV 100.3 fL (80.0-100.0); Mean Platelet Volume 10.2; Monocytes # (A) 0.3 k/uL (0-1.0); Monocytes % (A) 4 %; Neutrophils % (A) 93 %; Platelet Count 263 k/uL (150-450); RBC 3.33 m/uL (4.30-5.90); RDW 13.2 % (11.5-15.5); WBC 7.5 k/uL (3.8-10.6)
[2022-05-15 05:22] LABS: Albumin 2.6 g/dL (3.5-5.0); Calcium 8.1 mg/dL (8.4-10.2); Potassium 3.7 mmol/L (3.5-5.1); Total Bilirubin 0.3 mg/dL (0.2-1.3); Total Protein 5.7 g/dL (6.3-8.2)
[2022-05-15] MEDS: LEVOTHYROXINE 125 MCG TAB PO SCH (06:03)
[2022-05-15] MEDS: methylPREDNISolone SOD SUCCI 40 MG/ML 1 ML VIAL IV SCH ×4 (06:03→23:29)
--- NOTE | 2022-05-15 07:13 | XR ---
EXAMINATION TYPE: XR chest 1V portable DATE OF EXAM: 05/15/2022 6:33 AM COMPARISON: Chest radiograph from one day prior. TECHNIQUE: XR chest 1V portable Portable AP radiograph of the chest. CLINICAL INDICATION:Male, 82 years old with history of chf; FINDINGS: Lungs/Pleura: Similar multifocal airspace opacities. No evidence of pneumothorax or pleural effusion. Pulmonary vascularity: Mild pulmonary vascular congestion. Heart/mediastinum: Cardiomediastinal silhouette is enlarged and stable. Musculoskeletal: No acute osseous pathology. Midline sternotomy wires are noted. IMPRESSION: Similar multifocal airspace opacities.
[2022-05-15] MEDS: ASPIRIN 81 MG PO SCH (07:54)
[2022-05-15] MEDS: MAGNESIUM HYDROXIDE 2,400 MG/10 ML CUP PO PRN (07:55)
[2022-05-15] MEDS: MAGNESIUM OXIDE 400 MG TAB PO SCH (07:55)
[2022-05-15] MEDS: acetaZOLAMIDE 250 MG TAB PO SCH ×2 (07:55→20:02)
[2022-05-15] MEDS: TAMSULOSIN 0.4 MG CAP.ER.24H PO SCH (07:55)
[2022-05-15] MEDS: PANTOPRAZOLE 40 MG/10 ML VIAL IVP SCH (07:55)
[2022-05-15] MEDS: ENOXAPARIN 40 MG/0.4 ML SYRINGE SQ SCH (07:56)
[2022-05-15] MEDS: DEXMEDETOMIDINE/0.9% NACL(PMX) 400 MCG in EMPTY BAG 1 BAG IV SCH (09:56)
[2022-05-15] MEDS: SODIUM CHLORIDE 0.9% 1,000 ML IV SCH (09:59)
[2022-05-15] MEDS ORDERED: POTASSIUM CHLORIDE ER 20 MEQ TAB.ER PO SCH (10:00)
--- NOTE | 2022-05-15 12:33 | P.PN ---
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 This is an 82-year-old white male with history of coronary artery disease, recent CABG about 2 months ago, this was done at [facility]. Patient presented to [facility] with a few days' history of increased shor tness of breath, and his shortness of breath, much worse today. In addition to shortness of breath, the patient is coughing, the cough is productive with whitish phlegm, no fever no chills, no hemoptysis, no chest pain. workup in [place] showed evidence of pulmonary edema, he also had elevated BNP level, and elevated troponin level. Patient was transferred to [facility], I saw him down in the ER. Patient is on BiPAP, 12/5/55%, O2 saturation is in the low 90s. Patient was already given Lasix by the admitting physician and he is now on Lasix at 60 mg IV push twice a day. Some improvement clinically noted according to the patient. Patient has no previous history of COPD, and no previous history of smoking. His WBC count is 12.6 hemoglobin is 10.3, basic metabolic profile is normal renal profile is normal bicarb is 38 lactic acid 4.6. ProBNP level is 3790. Chest x-ray is consistent with interstitial edema however underlying pneumonia is not entirely ruled out but felt to be less likely. EKG showed sinus rhythm, and incomplete right bundle branch block pattern otherwise unremarkable, nonspecific ST and T-wave changes noted. The patient is seen today 05/10/2022 in follow-up on the selective care unit. He is currently resting in bed. Awake and alert in no acute distress. He is still on BiPAP 12/5 and 55%. white count 11.0. Hemoglobin 9.6. Platelets 275. Sodium 142. Potassium 3.8. Bicarb 42. BUN 40. Creatinine 0.82. Glucose 109. He is continued on Lasix 60 mg every 12 hours. No accurate I&O recorded. Current weight 83.5 kg. today's chest x-ray is essentially unchanged. Pro- calcitoninn level 0.07. I'm evaluating this patient today on 05/11/2022. His work of breathing has obviously increased overnight. He is requiring BiPAP titrations and is currently 14/5 and 70%. He is tachypneic breathing about 30-40 breaths per minute with accessory muscle use. Recent echocardiogram was performed on 05/10/2022 which showed a normal ejection fraction of 50% and some moderate to severe mitral regurgitation. He is receiving furosemide 80 mg twice a day. A urinary catheter was inserted yesterday for accurate intake and output. Fluid balance is -1 L. Normal saline is using KVO. CT of the chest with contrast was also performed yesterday on 05/10/2022 which showed diffuse airspace opacities and consolidation changes, some small bilateral pleural effusions, evidence of pulmonary hypertension, and cardiomegaly. Likely representing a combination of atypical pneumonia versus inflammatory process. There is also some superimposed pulmonary vascular congestion. Chest x-ray from today 05/11/2022 continues to show diffuse interstitial and alveolar infiltrates bilaterally. He continues to receive by mouth amiodarone. And his heart rhythm is currently normal sinus. Patient remains afebrile. CBC did not show any leukocytosis with a WBC of 7.8, hemoglobin 9.4, hematocrit 30.9, platelet count 280,000. BMP from today shows sodium 140, potassium of 3.9, chloride of 94, serum CO2 of 42 to, UN 45, creatinine 1.04, glucose 139. Remains on Lovenox for DVT prophylaxis. We'll transfer this patient in ICU for closer monitoring. Reevaluated today on 05/12/2022, patient is basically about the same. Remains on BiPAP, he is on IPAP of 14 EPAP of 5 and FiO2 70%, chest x-ray continues to show diffuse interstitial process bilaterally, it is difficult to tell how much of this is true pulmonary edema and how much of it is acute lung injury, induced by amiodarone. Not to mention the patient is not a candidate to perform or even think of lung biopsy. Patient is receiving diuretics and he is a -2 L in the last 24 hours, he is now on Lasix and Diamox, not seeing much improvement in his overall pulmonary status in spite of aggressive diuresis as a matter of fact I have a strong feeling that the patient will require eventually intubation and mechanical ventilation if he continues to do poorly. He is basically marginal at best at this point. CBC is relatively normal electrolytes are normal except bicarb is up to 44, patient is sleepy developing a bit of metabolic contraction alkalosis. Hence Diamox was added. Patient remains on steroids for his presumptive amiodarone induced lung injury although this is not definitive Patient was reevaluated today on 05/09/22, remains in the ICU, his overall pulmonary status is marginal at best. Continues to have abnormal chest x-ray, continues to be relatively hypoxic, patient is now on high flow oxygen via airvo, FiO2 90% and 60 L flow, seems to be tolerating this better than the BiPAP, yesterday he was on BiPAP 14/6/80%. Remains on diuretics, remains on steroids, patient tells me that he feels a bit better today, although his chest x-ray is basically about the same, and his oxygenation seems to be marginal/the same.CBC is unremarkable, basic metabolic profile is normal bicarb is 46 BUN is 57 creatinine 1.72, hence I will start cutting down on his diuretics, we will continue Diamox continue Diamox, continue Lasix but quit ahead and stop again I am quite concerned about the rapid increase in his creatinine, not to mention the patient has been in a negative balance over the last 48 hours.since admission, the patient is almost -7 L. And he is becoming quite dehydrated. Reevaluated today on 05/14/22, patient remains in the ICU, remains on BiPAP with IPAP of 14/EPAP of 6, FiO2 is 70%. Patient is becoming more and more alkalotic, hence I'm stopping his Lasix. We will continue the patient on Diamox. He is also off Zaroxolyn. Patient has been in a significant negative balance over the last few days. Last night he became quite agitated and we had to place him on Precedex, he is on 0.4 mcg/kg/h of Precedex today. Seems to be calm, chest x- ray continues to show evidence of interstitial infiltrates bilaterally. Again it is not clear how much of it is really congestive heart failure and how much of an acute lung injury.WBC count today is 9 hemoglobin is 10.3, bicarb is elevated at 52 BUN is 50 creatinine 1.61 slightly better than yesterday. Reevaluated today on 05/15/22, patient remains in the ICU, pulmonary status remains marginal at best. However his chest x-ray is probably showing slight improvement, and his FiO2 requirement is less, patient is now on airvo at 60% FiO2 and 60 L flow, O2 sats ration is in the mid 90s. He was on BiPAP earlier today with IPAP of 14 EPAP of 6 and FiO2 of 60%. Remains on Precedex at 0.4 mcg/kg/h. IV fluids at KVO, diuretics have been cut down significantly, remains on Diamox only. CBC is basically unremarkable bicarb is down to 45 and 52 BUN is down to 46 creatinine is down to 1.160. Patient is comfortable on airvo, does not seem to be in distress Objective - Vital Signs Vital signs: Vital Signs Temp 96.4 F L 05/15/22 08:00 Pulse 50 L 05/15/22 11:00 Resp 14 05/15/22 11:00 BP 86/56 05/15/22 11:00 Pulse Ox 93 L 05/15/22 11:00 FiO2 50 05/15/22 11:00 Intake & Output 05/14/22 05/15/22 05/15/22 18:59 06:59 18:59 Intake Total 484.292 684.451 149.549 Output Total 830 775 364 Balance -345.708 -90.549 -214.451 Weight 79.7 kg Intake: IV 220 240 120 Sodium Chloride 0.9% 1, 220 240 120 000 ml @ 20 mls/hr IV . Q24H [facility] Rx#:[id number] Intake, IV Titration 144.292 234.451 29.549 Amount Dexmedetomidine/0.9% NaCl 44.292 34.451 29.549 (Pmx) 400 mcg In Empty Bag 1 bag @ 0.2 MCG/KG/HR 3.975 mls/hr IV .Q24H [facility] Rx#:[id number] Potassium Chloride 10 meq 100 In Water For Injection 1 100ml.bag @ 100 mls/hr IVPB Q1H [facility] Rx#: [id number] Potassium Chloride 10 meq 200 In Water For Injection 1 100ml.bag @ 100 mls/hr IVPB Q1H [facility] Rx#: [id number] Oral 120 210 Output: Urine 830 775 364 Other: Voiding Method Indwelling Catheter Indwelling Catheter Indwelling Catheter - Exam Physical Exam: Revealed an 82-year-old white male on airvo at 60% FiO2 and 60 L flow Head: Atraumatic, normocephalic. HEENT:[Neck is supple.] [No neck masses.] [No thyromegaly.] [No JVD.] Chest: [Fine crackles at the bases no rhonchi and no wheezes Cardiac Exam: [Normal S1 and S2, no S3 gallop, 2/6 systolic murmur thought the precordium. Abdomen: [Soft, nontender, no megaly, no rebound, no guarding, normal bowel sounds.] Extremities: [No clubbing, trace of bipedal edema, no cyanosis.] Neurological Exam: [No focal neurologic deficit.] Alert oriented 3. Psychiatric: Normal mood, affect and normal mental status examination. Skin: No rashes. - Labs CBC & Chem 7: 05/15/22 04:15 05/15/22 08:57 Labs: Abnormal Lab Results - Last 24 Hours (Table) 05/15/22 05/15/22 Range/Units 04:15 04:15 RBC 3.33 L (4.30-5.90) m/uL Hgb 9.9 L (13.0-17.5) gm/dL Hct 33.4 L (39.0-53.0) % MCV 100.3 H (80.0-100.0) fL MCHC 29.6 L (31.0-37.0) g/dL Lymphocytes # 0.2 L (1.0-4.8) k/uL Chloride 88 L (98-107) mmol/L Carbon Dioxide 45 H* (22-30) mmol/L BUN 46 H (9-20) mg/dL Glucose 184 H (74-99) mg/dL Calcium 8.1 L (8.4-10.2) mg/dL AST 15 L (17-59) U/L Total Protein 5.7 L (6.3-8.2) g/dL Albumin 2.6 L (3.5-5.0) g/dL Assessment and Plan Assessment: impression: Acute hypoxic respiratory failure secondary to acute on chronic diastolic congestive heart failure and severe mitral regurgitation noted on echocardiogram. Possibility of amiodarone induced lung injury/amiodarone lung toxicity is possible and not entirely ruled out. Hence amiodarone is still on hold at present. Clinically I'm more inclined to think that this is a picture of amiodarone-induced lung toxicity more so than heart failure. history of paroxysmal atrial fibrillation, presently in sinus rhythm. Recent CABG at [facility]. History of underlying coronary artery disease. Dyslipidemia history of hypothyroidism GERD without esophagitis worsening metabolic contraction alkalosis. recommendation: Continue to monitor the patient in the ICU. Continue Diamox and discontinue the diuretics. Continue steroids high-dose for presumptive underlying amiodarone-induced lung injury, patient is on methylprednisolone 40 mg IV push every 6 hours continue oxygen and titrate accordingly presently on airvo. Continue Lovenox for DVT prophylaxis Protonix for GI prophylaxis Continue to monitor in the ICU. We will continue to follow Time with Patient: Less than 30
--- NOTE | 2022-05-15 12:52 | PN ---
PROGRESS NOTE The patient with known coronary artery disease, status post recent bypass surgery. MMODL / IJN: [id number] /
--- NOTE | 2022-05-15 13:40 | PN ---
PROGRESS NOTE SUBJECTIVE: An 82-year-old gentleman with recent history of coronary artery disease, status post CABG; paroxysmal atrial fibrillation, status post cardioversion, who was on amiodarone, was in a group home in [place], developed worsening shortness of breath and was sent to [facility], where he developed worsening respiratory insufficiency. Currently, has a high-flow nasal cannula O2 and is saturating at 93%. His chest x-ray shows bilateral diffuse interstitial infiltrate, does not seem to be consistent with acute pulmonary edema. We have treated him with intravenous diuretics and developed significant intravascular volume depletion, but there was no change in his symptoms or chest x-ray appearance. If anything, his shortness of breath has worsened. He either has a COVID-related pneumonia and COVID lung or amiodarone toxicity and lung disease as a result. He is currently on steroids and nebulizers along with aspirin and Lipitor. OBJECTIVE: VITAL SIGNS: Heart rate is 50 beats per minute, blood pressure is 93/59, respiratory rate is 18, O2 saturation is 93%. NECK: There is no jugular venous distention. CHEST: Reveals diminished air entry bilaterally without any crackles or rhonchi. HEART: Reveals first and second heart sounds. No gallop. EXTREMITIES: Did not reveal any edema. Peripheral pulses are felt. ASSESSMENT: 1. Respiratory failure, probably primarily from an underlying interstitial lung disease either related to COVID pneumonia or from amiodarone toxicity. The patient is not in congestive heart failure. 2. Coronary artery disease, status post coronary artery bypass grafting. Recent echo shows normal left ventricular function. 3. Paroxysmal atrial fibrillation. PLAN: We will continue on his current medications. Management of the underlying lung disease as per Pulmonary. MMODL / IJN: [id number] /
[2022-05-15] MEDS: ATORVASTATIN 10 MG TAB PO SCH (20:02)
[2022-05-16] MEDS: POTASSIUM CHLORIDE 10 MEQ in WATER FOR INJECTION 1 100ML.BAG IVPB SCH ×2 (01:39→03:38)
--- NOTE | 2022-05-16 02:52 | PN ---
PROGRESS NOTE DATE OF SERVICE: 05/15/2022 SUBJECTIVE: This is an 82-year-old gentleman who was admitted with CHF exacerbation, who is on continuous airway at this time. The patient is also on Precedex. The patient is highly anxious. Patient has tachypnea. Chest x-ray is not showing improvement. Multiple consultants including Cardiology and Pulmonology following the patient closely. PAST MEDICAL HISTORY: Reviewed. REVIEW OF SYSTEMS: Could not be taken. The patient is sedated. CURRENT MEDICATIONS: Reviewed include Lipitor. Dose and rest of medication noted. PHYSICAL EXAMINATION: VITAL SIGNS: Pulse is 67, blood pressure 120/62, respirations 18. HEENT: Conjunctivae normal. CARDIAC: Normal S1, S2. RESPIRATIONS: At bases, a few scattered rhonchi and crackles. ABDOMEN: Soft. LABORATORY DATA: Reviewed. Hemoglobin 9.9. CO2 is 45. ASSESSMENT: 1. Congestive heart failure with acute exacerbation, with [id number] systolic dysfunction with acute hypoxic respiratory failure. 2. History of atrial fibrillation. 3. Coronary artery disease, coronary artery bypass grafting. 4. Anxiety. 5. Gastroesophageal reflux disease. 6. Hyperlipidemia. 7. History of multiple medical issues. 8. History of mitral regurgitation. RECOMMENDATIONS: Recommend to continue current management and symptomatic treatment. Continue Precedex. Otherwise, continue with steroids, bronchodilators, and rest of medications. The prognosis is guarded because of multiple complex medical issues. Further recommendations to follow. The possibility of amiodarone-induced lung injury is also to be considered. MMODL / MARGARITAN: [id number] / DIAZ
[2022-05-16] MEDS: DEXMEDETOMIDINE/0.9% NACL(PMX) 400 MCG in EMPTY BAG 1 BAG IV SCH ×2 (03:38→15:49)
[2022-05-16] MEDS: methylPREDNISolone SOD SUCCI 40 MG/ML 1 ML VIAL IV SCH ×4 (05:43→23:53)
[2022-05-16] MEDS: LEVOTHYROXINE 125 MCG TAB PO SCH (06:12)
[2022-05-16 07:30] LABS: HCT 32.2 % (39.0-53.0); HGB 9.8 gm/dL (13.0-17.5); Hypochromasia Marked; MCH 29.4 pg (25.0-35.0); MCHC 30.4 g/dL (31.0-37.0); Platelet Count 287 k/uL (150-450); RBC 3.32 m/uL (4.30-5.90); RDW 13.4 % (11.5-15.5); WBC 10.2 k/uL (3.8-10.6)
[2022-05-16 07:42] LABS: Calcium 7.9 mg/dL (8.4-10.2); Potassium 3.9 mmol/L (3.5-5.1)
--- NOTE | 2022-05-16 07:55 | XR ---
EXAMINATION TYPE: XR chest 1V portable DATE OF EXAM: 05/16/2022 5:32 AM COMPARISON: Chest radiographs from 05/15/2022 TECHNIQUE: XR chest 1V portable Frontal view of the chest. CLINICAL INDICATION:Male, 82 years old with history of shortness of breath; FINDINGS: Lungs/Pleura: Slightly increased multifocal patchy airspace opacities throughout both lungs. Small bi lateral pleural effusions. No pneumothorax. Pulmonary vascularity: Unremarkable. Heart/mediastinum: Cardiomediastinal silhouette is enlarged and stable. Postoperative changes are pr esent in the mediastinum. Left atrial appendage clip. Musculoskeletal: No acute osseous pathology. Midline sternotomy wires are noted and stable. IMPRESSION: Small bilateral pleural effusions with slightly increased diffuse bilateral multifocal patchy airspac e disease.
[2022-05-16] MEDS: acetaZOLAMIDE 250 MG TAB PO SCH ×2 (09:35→21:17)
[2022-05-16] MEDS: ENOXAPARIN 40 MG/0.4 ML SYRINGE SQ SCH (09:35)
[2022-05-16] MEDS: MAGNESIUM OXIDE 400 MG TAB PO SCH (09:35)
[2022-05-16] MEDS: ASPIRIN 81 MG PO SCH (09:35)
[2022-05-16] MEDS: TAMSULOSIN 0.4 MG CAP.ER.24H PO SCH (09:35)
[2022-05-16] MEDS: PANTOPRAZOLE 40 MG/10 ML VIAL IVP SCH (09:35)
[2022-05-16 09:42] LABS: ABG Base Excess 15.7 mmol/L; ABG Oxygen Saturation 93.7 % (94-97); ABG PCO2 63 mmHg (35-45); ABG PH 7.42 (7.35-7.45); ABG PO2 66 mmHg (83-108); ABG TCO2 42 mmol/L (19-24); Allen Test Performed? Yes
[2022-05-16 09:43] LABS: ABG HCO3 40 mmol/L (21-25)
--- NOTE | 2022-05-16 10:07 | PN ---
PROGRESS NOTE SUBJECTIVE: Mr. Derek Sanchez is an 82-year-old gentleman, who has apparently had open heart surgery a few months ago at [facility]. He was transferred from [place] mainly with history of paroxysmal atrial fibrillation, status post cardioversion, was on amiodarone, developed worsening shortness of breath, respiratory insufficiency and is on a high-flow nasal O2 saturating in the low 90s. His lungs reveal bilateral infiltrates, more consistent with pneumonia or pulmonary fibrosis. His LV systolic function is fairly well preserved. Chest x-ray suggests more of a pneumonia today. Other considerations being entertained include amiodarone toxicity. However, I would recommend that we obtain a procalcitonin level and increase the Lipitor from 10-20 mg daily. PHYSICAL EXAMINATION: VITAL SIGNS: Revealed that his blood pressure is about 98/60, pulse rate is in the 52, sinus. NECK: There is JVD of 1 cm. No carotid bruit. HEART: S1 and S2 heard normally with rhythm being regular. LUNGS: Bilateral air entry with fine rales on both sides. ABDOMEN: Soft. LOWER EXTREMITIES: Reveal diminished pulses. CENTRAL NERVOUS SYSTEM: Not assessed. IMPRESSION: 1. Probable pneumonia. 2. Probable pulmonary fibrosis. 3. Status post CABG couple of months ago in [facility]. Echo revealed fairly well preserved systolic function. 4. Paroxysmal atrial fibrillation, but maintaining sinus rhythm. RECOMMENDATIONS: Increase the Lipitor and obtain a procalcitonin level. The patient is currently on steroids and also on thyroid supplements. MMODL / IJN: [id number] /
--- NOTE | 2022-05-16 10:37 | P.PN ---
Subjective Progress Note Date: 05/16/22 This is an 82-year-old white male with history of coronary artery disease, recent CABG about 2 months ago, this was done at [facility]. Patient presented to [facility] with a few days' history of increased shortness of breath, and his shortness of breath, much worse today. In addition to shortness of breath, the patient is coughing, the cough is productive with whitish phlegm, no fever no chills, no hemoptysis, no chest pain. workup in [place] showed evidence of pulmonary edema, he also had elevated BNP level, and elevated troponin level. Patient was transferred to [facility], I saw him down in the ER. Patient is on BiPAP, 12/5/55%, O2 saturation is in the low 90s. Patient was already given Lasix by the admitting physician and he is now on Lasix at 60 mg IV push twice a day. Some improvement clinically noted according to the patient. Patient has no previous history of COPD, and no previous history of smoking. His WBC count is 12.6 hemoglobin is 1 0.3, basic metabolic profile is normal renal profile is normal bicarb is 38 lactic acid 4.6. ProBNP level is 3790. Chest x-ray is consistent with interstitial edema however underlying pneumonia is not entirely ruled out but felt to be less likely. EKG showed sinus rhythm, and incomplete right bundle branch block pattern otherwise unremarkable, nonspecific ST and T-wave changes noted. The patient is seen today 05/10/2022 in follow-up on the selective care unit. He is currently resting in bed. Awake and alert in no acute distress. He is still on BiPAP 12/5 and 55%. white count 11.0. Hemoglobin 9.6. Platelets 275. Sodium 142. Potassium 3.8. Bicarb 42. BUN 40. Creatinine 0.82. Glucose 109. He is continued on Lasix 60 mg every 12 hours. No accurate I&O recorded. Current weight 83.5 kg. today's chest x-ray is essentially unchanged. Pro- calcitoninn level 0.07. I'm evaluating this patient today on 05/11/2022. His work of breathing has obviously increased overnight. He is requiring BiPAP titrations and is currently 14/5 and 70%. He is tachypneic breathing about 30-40 breaths per minute with accessory muscle use. Recent echocardiogram was performed on 05/10/2022 which showed a normal ejection fraction of 50% and some moderate to severe mitral regurgitation. He is receiving furosemide 80 mg twice a day. A urinary catheter was inserted yesterday for accurate intake and output. Fluid balance is -1 L. Normal saline is using KVO. CT of the chest with contrast was also performed yesterday on 05/10/2022 which showed diffuse airspace opacities and consolidation changes, some small bilateral pleural effusions, evidence of pulmonary hypertension, and cardiomegaly. Likely representing a combination of atypical pneumonia versus inflammatory process. There is also some superimposed pulmonary vascular congestion. Chest x-ray from today 05/11/2022 continues to show diffuse interstitial and alveolar infiltrates bilaterally. He continues to receive by mouth amiodarone. And his heart rhythm is currently normal sinus. Patient remains afebrile. CBC did not show any leukocytosis with a WBC of 7.8, hemoglobin 9.4, hematocrit 30.9, platelet count 280,000. BMP from today shows sodium 140, potassium of 3.9, chloride of 94, serum CO2 of 42 to, UN 45, creatinine 1.04, glucose 139. Remains on Lovenox for DVT prophylaxis. We'll transfer this patient in ICU for closer monitoring. Reevaluated today on 05/12/2022, patient is basically about the same. Remains on BiPAP, he is on IPAP of 14 EPAP of 5 and FiO2 70%, chest x-ray continues to show diffuse interstitial process bilaterally, it is difficult to tell how much of this is true pulmonary edema and how much of it is acute lung injury, induced by amiodarone. Not to mention the patient is not a candidate to perform or even think of lung biopsy. Patient is receiving diuretics and he is a -2 L in the last 24 hours, he is now on Lasix and Diamox, not seeing much improvement in his overall pulmonary status in spite of aggressive diuresis as a matter of fact I have a strong feeling that the patient will require eventually intubation and mechanical ventilation if he continues to do poorly. He is basically marginal at best at this point. CBC is relatively normal electrolytes are normal except bicarb is up to 44, patient is sleepy developing a bit of metabolic contraction alkalosis. Hence Diamox was added. Patient remains on steroids for his presumptive amiodarone induced lung injury although this is not definitive Patient was reevaluated today on 05/09/22, remains in the ICU, his overall pu lmonary status is marginal at best. Continues to have abnormal chest x-ray, continues to be relatively hypoxic, patient is now on high flow oxygen via airvo, FiO2 90% and 60 L flow, seems to be tolerating this better than the BiPAP, yesterday he was on BiPAP 14/6/80%. Remains on diuretics, remains on steroids, patient tells me that he feels a bit better today, although his chest x-ray is basically about the same, and his oxygenation seems to be marginal/the same.CBC is unremarkable, basic metabolic profile is normal bicarb is 46 BUN is 57 creatinine 1.72, hence I will start cutting down on his diuretics, we will continue Diamox continue Diamox, continue Lasix but quit ahead and stop again I am quite concerned about the rapid increase in his creatinine, not to mention the patient has been in a negative balance over the last 48 hours.since admission, the patient is almost -7 L. And he is becoming quite dehydrated. Reevaluated today on 05/14/22, patient remains in the ICU, remains on BiPAP with IPAP of 14/EPAP of 6, FiO2 is 70%. Patient is becoming more and more alkalotic, hence I'm stopping his Lasix. We will continue the patient on Diamox. He is also off Zaroxolyn. Patient has been in a significant negative balance over the last few days. Last night he became quite agitated and we had to place him on Precedex, he is on 0.4 mcg/kg/h of Precedex today. Seems to be calm, chest x- ray continues to show evidence of interstitial infiltrates bilaterally. Again it is not clear how much of it is really congestive heart failure and how much of an acute lung injury.WBC count today is 9 hemoglobin is 10.3, bicarb is elevated at 52 BUN is 50 creatinine 1.61 slightly better than yesterday. Reevaluated today on 05/15/22, patient remains in the ICU, pulmonary status remains marginal at best. However his chest x-ray is probably showing slight improvement, and his FiO2 requirement is less, patient is now on airvo at 60% FiO2 and 60 L flow, O2 sats ration is in the mid 90s. He was on BiPAP earlier today with IPAP of 14 EPAP of 6 and FiO2 of 60%. Remains on Precedex at 0.4 mcg/kg/h. IV fluids at KVO, diuretics have been cut down significantly, remains on Diamox only. CBC is basically unremarkable bicarb is down to 45 and 52 BUN is down to 46 creatinine is down to 1.160. Patient is comfortable on airvo, does not seem to be in distress The patient is seen today 05/16/2022 in follow-up in the intensive care unit. He is currently resting fairly comfortably in bed. Awake and alert. He is still requiring quite a bit of oxygen he was wearing BiPAP 14/60-60% FiO2. Currently more comfortable on the AirVo high flow oxygen at 60 L and 65% FiO2. He has Precedex running at 0.3 mg/kg/h. Normal saline at 20 ML's per hour. Chest x-ray continues to show small bilateral pleural effusions with slightly increased diffuse bilateral multifocal patchy airspace disease. White count 10.2. Hemoglobin 9.8. Platelets 287. Sodium 135. Potassium 3.9. Bicarb 41. BUN 42. Creatinine 1.02. Glucose 145. Arterial blood gases revealed a PaO2 of 66, pCO2 63, pH 7.4-65% FiO2. He is continued on DuoNeb inhalations, IV Solu- Medrol. Lovenox for DVT prophylaxis. He remains off diuretics. Currently in a -500 mL balance. Objective - Vital Signs Vital signs: Vital Signs Temp 97 F L 05/16/22 08:00 Pulse 52 L 05/16/22 09:00 Resp 14 05/16/22 09:00 BP 94/59 05/16/22 09:00 Pulse Ox 93 L 05/16/22 09:00 FiO2 65 05/16/22 08:50 Intake & Output 05/15/22 05/16/22 05/16/22 18:59 06:59 18:59 Intake Total 278.427 518.100 95.182 Output Total 761 687 235 Balance -482.573 -168.900 -139.818 Weight 78.2 kg Intake: IV 240 240 60 Sodium Chloride 0.9% 1, 240 240 60 000 ml @ 20 mls/hr IV . Q24H [facility] Rx#:[id number] Intake, IV Titration 38.427 248.100 35.182 Amount Dexmedetomidine/0.9% NaCl 38.427 48.100 35.182 (Pmx) 400 mcg In Empty Bag 1 bag @ 0.2 MCG/KG/HR 3.975 mls/hr IV .Q24H [facility] Rx#:[id number] Potassium Chloride 10 meq 200 In Water For Injection 1 100ml.bag @ 100 mls/hr IVPB Q1H [facility] Rx#: [id number] Oral 30 Output: Urine 761 687 235 Other: Voiding Method Indwelling Catheter Indwelling Catheter Indwelling Catheter - Exam GENERAL EXAM: Alert, pleasant 82-year-old gentleman, currently on AirVo high flow oxygen at 60 L and 65% alternating with BiPAP 14/6 and 60% FiO2 comfortable in no apparent distress. HEAD: Normocephalic. EYES: Normal reaction of pupils, equal size. NOSE: Clear with pink turbinates. THROAT: No erythema or exudates. NECK: No masses, no JVD. CHEST: No chest wall deformity. LUNGS: Equal air entry with bibasilar crackles. CVS: S1 and S2 normal with an audible murmur, regular rhythm. ABDOMEN: No hepatosplenomegaly, normal bowel sounds, no guarding or rigidity. SPINE: No scoliosis or deformity SKIN: No rashes CENTRAL NERVOUS SYSTEM: No focal deficits, tone is normal in all 4 extremities. EXTREMITIES: There is 2+ peripheral edema. No clubbing, no cyanosis. Perip heral pulses are intact. - Labs CBC & Chem 7: 05/16/22 07:13 05/16/22 07:13 Labs: Abnormal Lab Results - Last 24 Hours (Table) 05/16/22 05/16/22 05/16/22 Range/Units 07:13 07:13 09:38 RBC 3.32 L (4.30-5.90) m/uL Hgb 9.8 L (13.0-17.5) gm/dL Hct 32.2 L (39.0-53.0) % MCHC 30.4 L (31.0-37.0) g/dL ABG pCO2 63 H (35-45) mmHg ABG pO2 66 L (83-108) mmHg ABG HCO3 40 H* (21-25) mmol/L ABG Total CO2 42 H (19-24) mmol/L ABG O2 Saturation 93.7 L (94-97) % Sodium 135 L (137-145) mmol/L Chloride 92 L (98-107) mmol/L Carbon Dioxide 41 H* (22-30) mmol/L BUN 42 H (9-20) mg/dL Glucose 155 H (74-99) mg/dL Calcium 7.9 L (8.4-10.2) mg/dL Assessment and Plan Assessment: Acute hypoxemic respiratory failure secondary to an acute exacerbation of suspected congestive heart failure, moderate to severe mitral regurgitation, cannot rule out amiodarone toxicity fibrosis. Initial pro-calcitonin 0.07. No fever. No leukocytosis. Influenza screen negative. CoVID screen negative. RSV screen negative. Acute pulmonary edema, diuresed over 2 L per day on 05/12 through 05/14/2022. History of paroxysmal atrial fibrillation maintained on amiodarone at 400 mg twice a day for approximately 2 months History of recent coronary artery bypass grafting at [facility] History of underlying coronary disease Hyperlipidemia Hypothyroidism History of gastroesophageal reflux disease without esophagitis Former smoker Plan: The patient was seen and evaluated Chest x-ray, labs and medications reviewed Check a pro-calcitonin, check a proBNP Remains off diuretics and antibiotics for now Continued on AirVo high flow oxygen alternating with BiPAP support for now Titrate down the FiO2 as tolerated We will continue to follow I have personally seen and examined the patient, performed the documentation and the assessment and plan as written. Number of minutes spent on the visit: 10.
[2022-05-16] MEDS: SODIUM CHLORIDE 0.9% 1,000 ML IV SCH (13:29)
--- NOTE | 2022-05-16 14:25 | CDI ---
Documentation Clarification Form Date: 05/16/2022 02:06:01 PM From: Mirela Manriquez CCS, CCDS Admit Date: 05/09/2022 10:41:00 AM Patient Name: Derek Sanchez Visit Number: [id number] Discharge Date: ATTENTION: The Clinical Documentation Specialists (CDI) and [facility] Coding Staff appreciate your assistance in clarifying documentation. Please respond to the clarification below the line at the bottom and electronically sign. The CDI & [facility] Coding staff will review the response and follow-up if needed. Please note: Queries are made part of the Legal Health Record. If you have any questions, please contact the author of this message via ITS. Dr. Migdalia Arellano: Exacerbation of CHF without further specificity is documented beginning with the 05/10 Attending Progress Note. Per the 05/09 History & Physical: CHF probably systolic dysfunction, acute exacerbation, started on IV Lasix. Per the 05/09 Pulmonary Consult: Acute Hypoxic Respiratory Failure secondary to Acute CHF not clear whether this is Systolic or Diastolic in nature. Echo pending. Per the 05/11 Attending Progress Note: CHF with systolic dysfunction, acute on chronic exacerbation. Per the 05/15 Cardiology Progress Note: Respiratory failure, probably primarily from an underlying interstitial lung disease either related to COVID pneumonia or from Amiodarone toxicity. The patient is not in CHF. Additional information regarding the diagnosis of CHF including the Type & Acuity if present. History/Risk Factors per the 05/09 History & Physical: CHF, Atrial Fibrillation probably Paroxysmal, CAD status post CABG month ago, GERD, Hyperlipidemia, BPH, Hypothyroidism, COVID, Respiratory Failure, hypotension. Former smoker. Clinical Indicators: Presented to the ED via EMS with SOB, transferred from outside facility. Hypoxic, PO 57%, elevated cardiac enzymes and elevated peptide suggestive heart failure, put on antibiotics & BiPAP. Admit with Respiratory Failure. 05/09 VS: T 98.3, P 79, R 18 (sob), BP 113/68, PO 96 60% BiPAP, BMI: 24.7 05/09 LAB: WBC 12.6, RBC 3.45, Hgb 10.3, Hct 33.2, Neutrophils 11.9, Lymphocytes 0.2; APTT 21.9; CO2 38, Glucose 171, Lactic Acid 4.0, 3.6, 3.0; Alk Phos 140, Albumin 3.3. BNP 3790 05/09 CXR: Diffuse bilateral airspace infiltrates may reflect pulmonary edema or pneumonia. 05/10 ECHO: Low normal left ventricular systolic function was EF around 50%. Moderate to severe MR. Treatment 05/09: Telemetry, Pneumatic Compression socks, Cardiology & Pulmonary consults, Heart Healthy Diet, O2: BiPAP, IV Na Chl 1,000 mls @ 20 mls/hr q24H, INH Duoneb 3ml q4H/prn, IV Lasix 60 mg q12H. In your professional opinion, can you please clarify the Acuity & Type of CHF if known? [ ] Acute on Chronic Systolic Heart Failure, Present on Admission: Yes or No [ ] Acute on Chronic Diastolic Heart Failure, Present on Admission: Yes or No [ ] Acute on Chronic Heart Failure Systolic & Diastolic Heart Failure, Present on Admission: Yes or No [ ] CHF ruled out [ ] Other, please specify: [ ] Unable to determine (Template Last Revised: June 2020) Unable to determine MTDD
[2022-05-16] MEDS: ATORVASTATIN 20 MG TAB PO SCH (21:17)
[2022-05-17] MEDS: SODIUM CHLORIDE 0.9% 1,000 ML IV SCH (02:42)
--- NOTE | 2022-05-17 03:31 | PN ---
PROGRESS NOTE DATE OF SERVICE: 05/16/2022 SUBJECTIVE: This 82-year-old gentleman was admitted with CHF acute exacerbation, also had significant anxiety. The patient is on Precedex drip and chest x-ray showed significant CHF. Patient is being closely monitored. PAST MEDICAL HISTORY: Could not be taken. REVIEW OF SYSTEMS: Could not be taken, the patient is on Airvo. CURRENT MEDICATIONS: Reviewed include dexmedetomidine, Lovenox, doses and rest of medication noted. OBJECTIVE: VITAL SIGNS: Pulse is 70, blood pressure n, and respirations 20. HEENT: Conjunctivae normal. NECK: No jugular venous distention. CARDIOVASCULAR: S1, S2. RESPIRATIONS: Diminished at the bases, few scattered rhonchi. ABDOMEN: Soft. NERVOUS SYSTEM: Diffusely weak. LABORATORY DATA: Reviewed. ASSESSMENT: 1. Congestive heart failure acute exacerbation, acute on chronic systolic dysfunction on acute hypoxic hypercarbic respiratory failure. 2. History of atrial fibrillation. 3. Coronary artery disease, coronary artery bypass graft. 4. Anxiety. 5. Gastroesophageal reflux disease. 6. Hyperlipidemia. 7. History of multiple medical issues. 8. Mitral regurgitation. RECOMMENDATIONS: Continue the current medications, continue symptomatic treatment. Otherwise, continue with Precedex and continue with fluid and electrolyte balance closely, this is on Diamox. Guarded prognosis because of multiple complex medical issues and further recommendations to follow. See orders for details. MMODL / IJN: [id number] / MTDD
[2022-05-17] MEDS: methylPREDNISolone SOD SUCCI 40 MG/ML 1 ML VIAL IV SCH (05:33)
[2022-05-17] MEDS: LEVOTHYROXINE 125 MCG TAB PO SCH (06:48)
--- NOTE | 2022-05-17 07:52 | XR ---
EXAMINATION TYPE: XR chest 1V portable DATE OF EXAM: 05/17/2022 COMPARISON: 05/16/2022 INDICATION: Pneumonia, CHF TECHNIQUE: Single frontal view of the chest is obtained. FINDINGS: The heart size is normal. The pulmonary vasculature is prominent. Diffuse increased lung markings are present bilaterally. Findings are stable from comparison. Correla te for congestive heart failure. IMPRESSION: 1. Stable appearance suggesting congestive heart failure.
[2022-05-17] MEDS: METOPROLOL TARTRATE 12.5 MG TAB PO SCH (08:42)
[2022-05-17] MEDS: MAGNESIUM OXIDE 400 MG TAB PO SCH (08:42)
[2022-05-17] MEDS: ASPIRIN 81 MG PO SCH (08:42)
[2022-05-17] MEDS: PANTOPRAZOLE 40 MG/10 ML VIAL IVP SCH (08:42)
[2022-05-17] MEDS: acetaZOLAMIDE 250 MG TAB PO SCH ×2 (08:42→21:32)
[2022-05-17] MEDS: APIXABAN 2.5 MG TABLET PO SCH ×2 (08:42→21:29)
[2022-05-17] MEDS: TAMSULOSIN 0.4 MG CAP.ER.24H PO SCH (08:42)
--- NOTE | 2022-05-17 10:38 | PN ---
PROGRESS NOTE SUBJECTIVE: Mr. Sanchez is doing a little better overall today. He is in sinus rhythm, although he does have evidence of paroxysmal atrial fibrillation. He is status post bypass surgery. His procalcitonin is unremarkable. There is only modest elevation of his BNP. Clinical picture appears to be that of possible lung injury. Discussed with Dr. Maradiaga. He feels that the patient may have had some lung injury, but he is progressing well. I am recommending Eliquis 2.5 mg b.i.d. and metoprolol tartrate 12.5 mg every morning. OBJECTIVE: NECK: The patient has JVD 1 cm. No carotid bruit. HEART: S1, S2 with a short systolic murmur at the base and left sternal border. LUNGS: Reveal improved air entry. ABDOMEN: Unchanged. LOWER EXTREMITIES: Unchanged. PLAN: Plan is to continue current medical regimen with the addition of Eliquis and the patient is making decent progress. MMODL / IJN: [id number] /
--- NOTE | 2022-05-17 11:58 | P.PN ---
Subjective Progress Note Date: 05/17/22 This is an 82-year-old white male with history of coronary artery disease, recent CABG about 2 months ago, this was done at [facility]. Patient presented to [facility] with a few days' history of increased shortness of breath, and his shortness of breath, much worse today. In addition to shortness of breath, the patient is coughing, the cough is productive with whitish phlegm, no fever no chills, no hemoptysis, no chest pain. workup in [place] showed evidence of pulmonary edema, he also had elevated BNP level, and elevated troponin level. Patient was transferred to [facility], I saw him down in the ER. Patient is on BiPAP, 12/5/55%, O2 saturation is in the low 90s. Patient was already given Lasix by the admitting physician and he is now on Lasix at 60 mg IV push twice a day. Some improvement clinically noted according to the patient. Patient has no previous history of COPD, and no previous history of smoking. His WBC count is 12.6 hemoglobin is 1 0.3, basic metabolic profile is normal renal profile is normal bicarb is 38 lactic acid 4.6. ProBNP level is 3790. Chest x-ray is consistent with interstitial edema however underlying pneumonia is not entirely ruled out but felt to be less likely. EKG showed sinus rhythm, and incomplete right bundle branch block pattern otherwise unremarkable, nonspecific ST and T-wave changes noted. The patient is seen today 05/10/2022 in follow-up on the selective care unit. He is currently resting in bed. Awake and alert in no acute distress. He is still on BiPAP 12/5 and 55%. white count 11.0. Hemoglobin 9.6. Platelets 275. Sodium 142. Potassium 3.8. Bicarb 42. BUN 40. Creatinine 0.82. Glucose 109. He is continued on Lasix 60 mg every 12 hours. No accurate I&O recorded. Current weight 83.5 kg. today's chest x-ray is essentially unchanged. Pro- calcitoninn level 0.07. I'm evaluating this patient today on 05/11/2022. His work of breathing has obviously increased overnight. He is requiring BiPAP titrations and is currently 14/5 and 70%. He is tachypneic breathing about 30-40 breaths per minute with accessory muscle use. Recent echocardiogram was performed on 05/10/2022 which showed a normal ejection fraction of 50% and some moderate to severe mitral regurgitation. He is receiving furosemide 80 mg twice a day. A urinary catheter was inserted yesterday for accurate intake and output. Fluid balance is -1 L. Normal saline is using KVO. CT of the chest with contrast was also performed yesterday on 05/10/2022 which showed diffuse airspace opacities and consolidation changes, some small bilateral pleural effusions, evidence of pulmonary hypertension, and cardiomegaly. Likely representing a combination of atypical pneumonia versus inflammatory process. There is also some superimposed pulmonary vascular congestion. Chest x-ray from today 05/11/2022 continues to show diffuse interstitial and alveolar infiltrates bilaterally. He continues to receive by mouth amiodarone. And his heart rhythm is currently normal sinus. Patient remains afebrile. CBC did not show any leukocytosis with a WBC of 7.8, hemoglobin 9.4, hematocrit 30.9, platelet count 280,000. BMP from today shows sodium 140, potassium of 3.9, chloride of 94, serum CO2 of 42 to, UN 45, creatinine 1.04, glucose 139. Remains on Lovenox for DVT prophylaxis. We'll transfer this patient in ICU for closer monitoring. Reevaluated today on 05/12/2022, patient is basically about the same. Remains on BiPAP, he is on IPAP of 14 EPAP of 5 and FiO2 70%, chest x-ray continues to show diffuse interstitial process bilaterally, it is difficult to tell how much of this is true pulmonary edema and how much of it is acute lung injury, induced by amiodarone. Not to mention the patient is not a candidate to perform or even think of lung biopsy. Patient is receiving diuretics and he is a -2 L in the last 24 hours, he is now on Lasix and Diamox, not seeing much improvement in his overall pulmonary status in spite of aggressive diuresis as a matter of fact I have a strong feeling that the patient will require eventually intubation and mechanical ventilation if he continues to do poorly. He is basically marginal at best at this point. CBC is relatively normal electrolytes are normal except bicarb is up to 44, patient is sleepy developing a bit of metabolic contraction alkalosis. Hence Diamox was added. Patient remains on steroids for his presumptive amiodarone induced lung injury although this is not definitive Patient was reevaluated today on 05/09/22, remains in the ICU, his overall pu lmonary status is marginal at best. Continues to have abnormal chest x-ray, continues to be relatively hypoxic, patient is now on high flow oxygen via airvo, FiO2 90% and 60 L flow, seems to be tolerating this better than the BiPAP, yesterday he was on BiPAP 14/6/80%. Remains on diuretics, remains on steroids, patient tells me that he feels a bit better today, although his chest x-ray is basically about the same, and his oxygenation seems to be marginal/the same.CBC is unremarkable, basic metabolic profile is normal bicarb is 46 BUN is 57 creatinine 1.72, hence I will start cutting down on his diuretics, we will continue Diamox continue Diamox, continue Lasix but quit ahead and stop again I am quite concerned about the rapid increase in his creatinine, not to mention the patient has been in a negative balance over the last 48 hours.since admission, the patient is almost -7 L. And he is becoming quite dehydrated. Reevaluated today on 05/14/22, patient remains in the ICU, remains on BiPAP with IPAP of 14/EPAP of 6, FiO2 is 70%. Patient is becoming more and more alkalotic, hence I'm stopping his Lasix. We will continue the patient on Diamox. He is also off Zaroxolyn. Patient has been in a significant negative balance over the last few days. Last night he became quite agitated and we had to place him on Precedex, he is on 0.4 mcg/kg/h of Precedex today. Seems to be calm, chest x- ray continues to show evidence of interstitial infiltrates bilaterally. Again it is not clear how much of it is really congestive heart failure and how much of an acute lung injury.WBC count today is 9 hemoglobin is 10.3, bicarb is elevated at 52 BUN is 50 creatinine 1.61 slightly better than yesterday. Reevaluated today on 05/15/22, patient remains in the ICU, pulmonary status remains marginal at best. However his chest x-ray is probably showing slight improvement, and his FiO2 requirement is less, patient is now on airvo at 60% FiO2 and 60 L flow, O2 sats ration is in the mid 90s. He was on BiPAP earlier today with IPAP of 14 EPAP of 6 and FiO2 of 60%. Remains on Precedex at 0.4 mcg/kg/h. IV fluids at KVO, diuretics have been cut down significantly, remains on Diamox only. CBC is basically unremarkable bicarb is down to 45 and 52 BUN is down to 46 creatinine is down to 1.160. Patient is comfortable on airvo, does not seem to be in distress The patient is seen today 05/16/2022 in follow-up in the intensive care unit. He is currently resting fairly comfortably in bed. Awake and alert. He is still requiring quite a bit of oxygen he was wearing BiPAP 14/60-60% FiO2. Currently more comfortable on the AirVo high flow oxygen at 60 L and 65% FiO2. He has Precedex running at 0.3 mg/kg/h. Normal saline at 20 ML's per hour. Chest x-ray continues to show small bilateral pleural effusions with slightly increased diffuse bilateral multifocal patchy airspace disease. White count 10.2. Hemoglobin 9.8. Platelets 287. Sodium 135. Potassium 3.9. Bicarb 41. BUN 42. Creatinine 1.02. Glucose 145. Arterial blood gases revealed a PaO2 of 66, pCO2 63, pH 7.4-65% FiO2. He is continued on DuoNeb inhalations, IV Solu- Medrol. Lovenox for DVT prophylaxis. He remains off diuretics. Currently in a -500 mL balance. The patient is seen today 05/17/2022 in follow-up in the intensive. He is currently sitting up in a chair at the bedside. Awake and alert in no acute distress. He is feeling better today compared to yesterday. He is still requiring AirVo high flow oxygen and 60 L and 65% FiO2. BiPAP has been discontinued. No IV fluids currently. Chest x-ray continues to show diffuse increased lung markings bilaterally. ProBNP 2420. Pro-calcitonin was 0.06. Today's labs are pending. He remains off diuretics. Continued on Diamox. Continued on DuoNeb inhalations, IV Solu-Medrol. Anticoagulated with Eliquis. Remains off amiodarone. Continued in sinus rhythm. Objective - Vital Signs Vital signs: Vital Signs Temp 97.7 F 05/17/22 05:00 Pulse 88 05/17/22 09:00 Resp 14 05/17/22 09:00 BP 120/61 05/17/22 09:00 Pulse Ox 92 L 05/17/22 09:00 FiO2 65 05/17/22 09:00 Intake & Output 05/16/22 05/17/22 05/17/22 18:59 06:59 18:59 Intake Total 275.182 740 200 Output Total 735 525 140 Balance -459.818 215 60 Weight 78.2 kg 78 kg Intake: IV 240 260 Sodium Chloride 0.9% 1, 240 260 000 ml @ 20 mls/hr IV . Q24H AUGUST Rx#:[id number] Intake, IV Titration 35.182 Amount Dexmedetomidine/0.9% NaCl 35.182 (Pmx) 400 mcg In Empty Bag 1 bag @ 0.2 MCG/KG/HR 3.975 mls/hr IV .Q24H AUGUST Rx#:[id number] Oral 480 200 Output: Urine 735 525 140 Other: Voiding Method Indwelling Catheter Indwelling Catheter Indwelling Catheter - Exam GENERAL EXAM: Alert, 82-year-old gentleman, currently on AirVo high flow oxygen at 60 L and 65%, up in a chair at the bedside, comfortable in no apparent distress. HEAD: Normocephalic. EYES: Normal reaction of pupils, equal size. NOSE: Clear with pink turbinates. THROAT: No erythema or exudates. NECK: No masses, no JVD. CHEST: No chest wall deformity. LUNGS: Equal air entry with bibasilar crackles. CVS: S1 and S2 normal with an audible murmur, regular rhythm. ABDOMEN: No hepatosplenomegaly, normal bowel sounds, no guarding or rigidity. SPINE: No scoliosis or deformity SKIN: No rashes CENTRAL NERVOUS SYSTEM: No focal deficits, tone is normal in all 4 extremities. EXTREMITIES: There is 2+ peripheral edema. No clubbing, no cyanosis. Peripheral pulses are intact. - Labs CBC & Chem 7: 05/16/22 07:13 05/16/22 07:13 Assessment and Plan Assessment: Acute hypoxemic respiratory failure secondary to an acute exacerbation of suspected congestive heart failure, moderate to severe mitral regurgitation, cannot rule out amiodarone toxicity fibrosis. Initial pro-calcitonin 0.07. Follow-up pro-calcitonin 05/16/2022 remains negative at 0.06. Broke BNP 2420. No fever. No leukocytosis. Influenza screen negative. CoVID screen negative. RSV screen negative. Acute pulmonary edema, diuresed over 2 L per day on 05/12 through 05/14/2022. Currently off Lasix. Remains on Diamox. History of paroxysmal atrial fibrillation maintained on amiodarone at 400 mg twice a day for approximately 2 months History of recent coronary artery bypass grafting at [facility] History of underlying coronary disease Hyperlipidemia Hypothyroidism History of gastroesophageal reflux disease without esophagitis Former smoker Plan: The patient was seen and evaluated Chest x-ray, medications reviewed Follow-up pro-calcitonin is still negative at 0.06 Remains off diuretics and antibiotics for now Continue IV Solu-Medrol 60 mg every 6 hours Continued on AirVo high flow oxygen Titrate down the FiO2 as tolerated We will continue to follow I have personally seen and examined the patient, performed the documentation and the assessment and plan as written. Number of minutes spent on the visit: 10.
[2022-05-17 12:08] LABS: HCT 39.9 % (39.0-53.0); HGB 12.1 gm/dL (13.0-17.5); Hypochromasia Marked; MCH 28.4 pg (25.0-35.0); MCHC 30.3 g/dL (31.0-37.0); MCV 93.7 fL (80.0-100.0); Mean Platelet Volume 11.5; Platelet Count 303 k/uL (150-450); RBC 4.26 m/uL (4.30-5.90); RDW 13.5 % (11.5-15.5); WBC 14.7 k/uL (3.8-10.6)
[2022-05-17 12:26] LABS: Calcium 8.1 mg/dL (8.4-10.2); Magnesium 2.6 mg/dL (1.6-2.3); Potassium 3.9 mmol/L (3.5-5.1)
[2022-05-17] MEDS: methylPREDNISolone SOD SUCCI 125 MG/2 ML VIAL IV SCH ×2 (13:04→17:57)
[2022-05-17 15:18] LABS: Monocytes # (M) 0.15 k/uL (0-1.0); Neutrophils # (M) 14.55 k/uL (1.3-7.7); Neutrophils % (M) 99 %; Nucleated Red Blood Cells 0 /100 WBC (0-0); Total Cells Counted 100
[2022-05-17] MEDS: ATORVASTATIN 20 MG TAB PO SCH (21:30)
[2022-05-18] MEDS: methylPREDNISolone SOD SUCCI 125 MG/2 ML VIAL IV SCH ×4 (00:02→17:22)
--- NOTE | 2022-05-18 00:06 | PN ---
PROGRESS NOTE DATE OF SERVICE: 05/17/2022 HISTORY OF PRESENT ILLNESS: This is an 82-year-old gentleman who was admitted with significant shortness of breath, was thought to have more of an amiodarone-induced lung toxicity by Pulmonary. No chest pain. No palpitations. The patient is on Airvo at this time. The patient is extremely anxious. Also, the patient is off Precedex at this time. PAST MEDICAL HISTORY: Reviewed. REVIEW OF SYSTEMS: Could not be taken. CURRENT MEDICATIONS: Reviewed include Lipitor, dose and rest of medication noted. PHYSICAL EXAMINATION: VITAL SIGNS: Pulse is 71, blood pressure 120/60, respirations 20. HEENT: Conjunctivae are normal. NECK: No jugular venous distention. CARDIOVASCULAR: S1 and S2. RESPIRATORY: Few scattered rhonchi. ABDOMEN: Soft. NERVOUS SYSTEM: Nonfocal. LABS: WBC 15.7. Rest of the labs are noted. IMAGING STUDIES: Chest x-ray reviewed personally. ASSESSMENT: 1. Shortness of breath mostly amiodarone-induced lung toxicity. 2. Possibly congestive heart failure exacerbation with acute hypoxic respiratory failure. 3. Atrial fibrillation. 4. Coronary artery disease, coronary artery bypass grafting. 5. Anxiety. 6. Gastroesophageal reflux disease. 7. Hyperlipidemia. 8. History of multiple medical issues. 9. Mitral regurgitation. RECOMMENDATIONS: Recommend to continue current medications and symptomatic treatment. Otherwise, continue the bronchodilators. Continue the rest of medications. Further weaning from Airvo per Pulmonary. Prognosis extremely guarded because of multiple complex medical issues. Further recommendations to follow. See orders for details. MMODL / IJN: [id number] /
[2022-05-18] MEDS: LEVOTHYROXINE 125 MCG TAB PO SCH (05:55)
[2022-05-18] MEDS ORDERED: SODIUM CHLORIDE 0.9% 500 ML 250 ML IV ONE (07:19)
[2022-05-18 07:24] LABS: Basophils % (A) 0 %; Eosinophils % (A) 0 %; HCT 40.6 % (39.0-53.0); HGB 11.7 gm/dL (13.0-17.5); Hypochromasia Marked; Lymphocytes # (A) 0.1 k/uL (1.0-4.8); Lymphocytes % (A) 1 %; MCH 28.3 pg (25.0-35.0); MCHC 28.7 g/dL (31.0-37.0); MCV 98.4 fL (80.0-100.0); Mean Platelet Volume 10.3; Monocytes # (A) 0.4 k/uL (0-1.0); Monocytes % (A) 3 %; Neutrophils # (A) 16.2 k/uL (1.3-7.7); Neutrophils % (A) 96 %; Platelet Count 279 k/uL (150-450); RBC 4.13 m/uL (4.30-5.90); RDW 13.3 % (11.5-15.5); WBC 16.8 k/uL (3.8-10.6)
[2022-05-18] MEDS: SODIUM CHLORIDE 0.9% 1,000 ML IV SCH ×4 (07:43→21:40)
[2022-05-18 08:42] LABS: Calcium 8.2 mg/dL (8.4-10.2); Magnesium 2.5 mg/dL (1.6-2.3); Potassium 3.9 mmol/L (3.5-5.1)
[2022-05-18] MEDS: METOPROLOL TARTRATE 12.5 MG TAB PO SCH (09:14)
[2022-05-18] MEDS: APIXABAN 2.5 MG TABLET PO SCH ×2 (09:14→21:41)
[2022-05-18] MEDS: MAGNESIUM OXIDE 400 MG TAB PO SCH (09:14)
[2022-05-18] MEDS: acetaZOLAMIDE 250 MG TAB PO SCH ×2 (09:14→21:41)
[2022-05-18] MEDS: ASPIRIN 81 MG PO SCH (09:14)
[2022-05-18] MEDS: TAMSULOSIN 0.4 MG CAP.ER.24H PO SCH (09:14)
[2022-05-18] MEDS: PANTOPRAZOLE 40 MG/10 ML VIAL IVP SCH (09:15)
--- NOTE | 2022-05-18 13:28 | CDI ---
Documentation Clarification Form Date: 05/18/2022 01:17:47 PM From: Mirela ManriquezCHELY garcia, CCDS Admit Date: 05/09/2022 10:41:00 AM Patient Name: Derek Sanchez Visit Number: [id number] Discharge Date: ATTENTION: The Clinical Documentation Specialists (CDI) and [facility] Coding Staff appreciate your assistance in clarifying documentation. Please respond to the clarification below the line at the bottom and electronically sign. The CDI & [facility] Coding staff will review the response and follow-up if needed. Please note: Queries are made part of the Legal Health Record. If you have any questions, please contact the author of this message via ITS. Dr. Migdalia Arellano: Anemia without further specificity is documented in the patient's Past Medical History in the 05/09 ED Note, the 05/09 H/P and the 05/09 Pulmonary consult. Mild Anemia without further specificity is documented in the Cardiology Progress Notes on 05/11 & 05/12. Additional specificity regarding the Type & Acuity of Anemia is requested. History/Risk Factors per the 05/09 H/P: Recent CABG, CAD, Atrial Fibrillation, Former smoker on home O2. GERD, Hyperlipidemia, BPH, hypothyroidism. Clinical indicators: Presented to the ED on 05/09 with SOB & Respiratory Failure via EMS from an outside hospital. PO 57%, elevated cardiac enzymes & elevated premature Peptide suggesting heart failure. Admit with Respiratory Failure Hemoglobin 05/09: 10.3. 05/11: 9.4. 05/14: 10.3. 05/16: 9.8. 05/18: 11.7. Hematocrit 05/09: 33.2. 05/11: 30.9. 05/14: 35.4. 05/16: 32.2. 05/18: 40.6. Treatment 05/09: Telemetry, Cardiology & Pulmonary consults, Heart Healthy Diet, O2: BiPAP, IV Na Chl 1,000 mls @ 20 mls/hr q24H, INH Duoneb 3 ml q4H/prn, IV lasix 60 mg q12H. Home meds include Feosol 325 mg Daily. Also: Bumex, Zithromax, Acidophilus, Lipitor, Ecotrin low dose, Solumedrol IM, ProAmatine, Zofran, Deltasone, INH Duoneb, Lasix, Prednisone, Cordarone, Flomax, Melatonin, Mag-Ox, Synthroid. Please clarify the Type & Acuity of Anemia if known: [ ] Chronic blood loss anemia [ ] Iron deficiency anemia [ ] Hemolytic anemia [ ] Drug induced anemia [ ] Anemia due chronic disease, please specify: [ ] Unable to determine [ ] Other, please specify (Template Last Revised: June 2020) Unable to determine MTDD
--- NOTE | 2022-05-18 14:15 | P.PN ---
Subjective Progress Note Date: 05/18/22 This is an 82-year-old white male with history of coronary artery disease, recent CABG about 2 months ago, this was done at [facility]. Patient presented to [facility] with a few days' history of increased shortness of breath, and his shortness of breath, much worse today. In addition to shortness of breath, the patient is coughing, the cough is productive with whitish phlegm, no fever no chills, no hemoptysis, no chest pain. workup in [place] showed evidence of pulmonary edema, he also had elevated BNP level, and elevated troponin level. Patient was transferred to [facility], I saw him down in the ER. Patient is on BiPAP, 12/5/55%, O2 saturation is in the low 90s. Patient was already given Lasix by the admitting physician and he is now on Lasix at 60 mg IV push twice a day. Some improvement clinically noted according to the patient. Patient has no previous history of COPD, and no previous history of smoking. His WBC count is 12.6 hemoglobin is 1 0.3, basic metabolic profile is normal renal profile is normal bicarb is 38 lactic acid 4.6. ProBNP level is 3790. Chest x-ray is consistent with interstitial edema however underlying pneumonia is not entirely ruled out but felt to be less likely. EKG showed sinus rhythm, and incomplete right bundle branch block pattern otherwise unremarkable, nonspecific ST and T-wave changes noted. The patient is seen today 05/10/2022 in follow-up on the selective care unit. He is currently resting in bed. Awake and alert in no acute distress. He is still on BiPAP 12/5 and 55%. white count 11.0. Hemoglobin 9.6. Platelets 275. Sodium 142. Potassium 3.8. Bicarb 42. BUN 40. Creatinine 0.82. Glucose 109. He is continued on Lasix 60 mg every 12 hours. No accurate I&O recorded. Current weight 83.5 kg. today's chest x-ray is essentially unchanged. Pro- calcitoninn level 0.07. I'm evaluating this patient today on 05/11/2022. His work of breathing has obviously increased overnight. He is requiring BiPAP titrations and is currently 14/5 and 70%. He is tachypneic breathing about 30-40 breaths per minute with accessory muscle use. Recent echocardiogram was performed on 05/10/2022 which showed a normal ejection fraction of 50% and some moderate to severe mitral regurgitation. He is receiving furosemide 80 mg twice a day. A urinary catheter was inserted yesterday for accurate intake and output. Fluid balance is -1 L. Normal saline is using KVO. CT of the chest with contrast was also performed yesterday on 05/10/2022 which showed diffuse airspace opacities and consolidation changes, some small bilateral pleural effusions, evidence of pulmonary hypertension, and cardiomegaly. Likely representing a combination of atypical pneumonia versus inflammatory process. There is also some superimposed pulmonary vascular congestion. Chest x-ray from today 05/11/2022 continues to show diffuse interstitial and alveolar infiltrates bilaterally. He continues to receive by mouth amiodarone. And his heart rhythm is currently normal sinus. Patient remains afebrile. CBC did not show any leukocytosis with a WBC of 7.8, hemoglobin 9.4, hematocrit 30.9, platelet count 280,000. BMP from today shows sodium 140, potassium of 3.9, chloride of 94, serum CO2 of 42 to, UN 45, creatinine 1.04, glucose 139. Remains on Lovenox for DVT prophylaxis. We'll transfer this patient in ICU for closer monitoring. Reevaluated today on 05/12/2022, patient is basically about the same. Remains on BiPAP, he is on IPAP of 14 EPAP of 5 and FiO2 70%, chest x-ray continues to show diffuse interstitial process bilaterally, it is difficult to tell how much of this is true pulmonary edema and how much of it is acute lung injury, induced by amiodarone. Not to mention the patient is not a candidate to perform or even think of lung biopsy. Patient is receiving diuretics and he is a -2 L in the last 24 hours, he is now on Lasix and Diamox, not seeing much improvement in his overall pulmonary status in spite of aggressive diuresis as a matter of fact I have a strong feeling that the patient will require eventually intubation and mechanical ventilation if he continues to do poorly. He is basically marginal at best at this point. CBC is relatively normal electrolytes are normal except bicarb is up to 44, patient is sleepy developing a bit of metabolic contraction alkalosis. Hence Diamox was added. Patient remains on steroids for his presumptive amiodarone induced lung injury although this is not definitive Patient was reevaluated today on 05/09/22, remains in the ICU, his overall pu lmonary status is marginal at best. Continues to have abnormal chest x-ray, continues to be relatively hypoxic, patient is now on high flow oxygen via airvo, FiO2 90% and 60 L flow, seems to be tolerating this better than the BiPAP, yesterday he was on BiPAP 14/6/80%. Remains on diuretics, remains on steroids, patient tells me that he feels a bit better today, although his chest x-ray is basically about the same, and his oxygenation seems to be marginal/the same.CBC is unremarkable, basic metabolic profile is normal bicarb is 46 BUN is 57 creatinine 1.72, hence I will start cutting down on his diuretics, we will continue Diamox continue Diamox, continue Lasix but quit ahead and stop again I am quite concerned about the rapid increase in his creatinine, not to mention the patient has been in a negative balance over the last 48 hours.since admission, the patient is almost -7 L. And he is becoming quite dehydrated. Reevaluated today on 05/14/22, patient remains in the ICU, remains on BiPAP with IPAP of 14/EPAP of 6, FiO2 is 70%. Patient is becoming more and more alkalotic, hence I'm stopping his Lasix. We will continue the patient on Diamox. He is also off Zaroxolyn. Patient has been in a significant negative balance over the last few days. Last night he became quite agitated and we had to place him on Precedex, he is on 0.4 mcg/kg/h of Precedex today. Seems to be calm, chest x- ray continues to show evidence of interstitial infiltrates bilaterally. Again it is not clear how much of it is really congestive heart failure and how much of an acute lung injury.WBC count today is 9 hemoglobin is 10.3, bicarb is elevated at 52 BUN is 50 creatinine 1.61 slightly better than yesterday. Reevaluated today on 05/15/22, patient remains in the ICU, pulmonary status remains marginal at best. However his chest x-ray is probably showing slight improvement, and his FiO2 requirement is less, patient is now on airvo at 60% FiO2 and 60 L flow, O2 sats ration is in the mid 90s. He was on BiPAP earlier today with IPAP of 14 EPAP of 6 and FiO2 of 60%. Remains on Precedex at 0.4 mcg/kg/h. IV fluids at KVO, diuretics have been cut down significantly, remains on Diamox only. CBC is basically unremarkable bicarb is down to 45 and 52 BUN is down to 46 creatinine is down to 1.160. Patient is comfortable on airvo, does not seem to be in distress The patient is seen today 05/16/2022 in follow-up in the intensive care unit. He is currently resting fairly comfortably in bed. Awake and alert. He is still requiring quite a bit of oxygen he was wearing BiPAP 14/60-60% FiO2. Currently more comfortable on the AirVo high flow oxygen at 60 L and 65% FiO2. He has Precedex running at 0.3 mg/kg/h. Normal saline at 20 ML's per hour. Chest x-ray continues to show small bilateral pleural effusions with slightly increased diffuse bilateral multifocal patchy airspace disease. White count 10.2. Hemoglobin 9.8. Platelets 287. Sodium 135. Potassium 3.9. Bicarb 41. BUN 42. Creatinine 1.02. Glucose 145. Arterial blood gases revealed a PaO2 of 66, pCO2 63, pH 7.4-65% FiO2. He is continued on DuoNeb inhalations, IV Solu- Medrol. Lovenox for DVT prophylaxis. He remains off diuretics. Currently in a -500 mL balance. The patient is seen today 05/17/2022 in follow-up in the intensive. He is currently sitting up in a chair at the bedside. Awake and alert in no acute distress. He is feeling better today compared to yesterday. He is still requiring AirVo high flow oxygen and 60 L and 65% FiO2. BiPAP has been discontinued. No IV fluids currently. Chest x-ray continues to show diffuse increased lung markings bilaterally. ProBNP 2420. Pro-calcitonin was 0.06. Today's labs are pending. He remains off diuretics. Continued on Diamox. Continued on DuoNeb inhalations, IV Solu-Medrol. Anticoagulated with Eliquis. Remains off amiodarone. Continued in sinus rhythm. The patient seen today 05/18/2022 in follow-up in the intensive care unit. He is currently resting comfortably in bed. Awake and alert in no acute distress. He is still requiring AirVo high flow oxygen at 60 L/m and 65% FiO2. Normal saline at KVO. White count 16.8. Hemoglobin 11.7. Platelets 279. Sodium 140. Potassium 3.9. Bicarb 40. The 144. Creatinine 1.06. He is continued on DuoNeb inhalations, IV site Medrol. Anticoagulated with Eliquis. Objective - Vital Signs Vital signs: Vital Signs Temp 97.1 F L 05/18/22 12:00 Pulse 75 05/18/22 14:00 Resp 15 05/18/22 14:00 BP 122/62 05/18/22 14:00 Pulse Ox 94 L 05/18/22 14:00 FiO2 65 05/18/22 14:00 Intake & Output 05/17/22 05/18/22 05/18/22 18:59 06:59 18:59 Intake Total 350 380 360 Output Total 425 500 290 Balance -75 -120 70 Weight 80.7 kg Intake: IV 120 160 Sodium Chloride 0.9% 1, 120 160 000 ml @ 20 mls/hr IV . Q24H [facility] Rx#:[id number] Oral 350 260 200 Output: Urine 425 500 290 Other: Voiding Method Indwelling Catheter Indwelling Catheter Indwelling Catheter - Exam GENERAL EXAM: Alert, 82-year-old male patient, currently on AirVo high flow oxygen at 60 L and 65%, comfortable in no apparent distress. HEAD: Normocephalic. EYES: Normal reaction of pupils, equal size. NOSE: Clear with pink turbinates. THROAT: No erythema or exudates. NECK: No masses, no JVD. CHEST: No chest wall deformity. LUNGS: Equal air entry with bibasilar crackles. CVS: S1 and S2 normal with an audible murmur, regular rhythm. ABDOMEN: No hepatosplenomegaly, normal bowel sounds, no guarding or rigidity. SPINE: No scoliosis or deformity SKIN: No rashes CENTRAL NERVOUS SYSTEM: No focal deficits, tone is normal in all 4 extremities. EXTREMITIES: There is 2+ peripheral edema. No clubbing, no cyanosis. Peripheral pulses are intact. - Labs CBC & Chem 7: 05/18/22 05:43 05/18/22 08:04 Labs: Abnormal Lab Results - Last 24 Hours (Table) 05/17/22 05/18/22 05/18/22 Range/Units 10:05 05:43 08:04 WBC 16.8 H (3.8-10.6) k/uL RBC 4.13 L (4.30-5.90) m/uL Hgb 11.7 L (13.0-17.5) gm/dL MCHC 28.7 L (31.0-37.0) g/dL Neutrophils # 16.2 H (1.3-7.7) k/uL Neutrophils # (Manual) 14.55 H (1.3-7.7) k/uL Lymphocytes # 0.1 L (1.0-4.8) k/uL Chloride 97 L (98-107) mmol/L Carbon Dioxide 40 H (22-30) mmol/L BUN 44 H (9-20) mg/dL Glucose 245 H (74-99) mg/dL Calcium 8.2 L (8.4-10.2) mg/dL Magnesium 2.5 H (1.6-2.3) mg/dL Assessment and Plan Assessment: Acute hypoxemic respiratory failure secondary to an acute exacerbation of suspected congestive heart failure, moderate to severe mitral regurgitation, cannot rule out amiodarone toxicity fibrosis. Initial pro-calcitonin 0.07. Follow-up pro-calcitonin 05/16/2022 remains negative at 0.06. Broke BNP 2420. No fever. No leukocytosis. Influenza screen negative. CoVID screen negative. RSV screen negative. Acute pulmonary edema, diuresed over 2 L per day on 05/12 through 05/14/2022. Currently off Lasix. Remains on Diamox. History of paroxysmal atrial fibrillation maintained on amiodarone at 400 mg twice a day for approximately 2 months History of recent coronary artery bypass grafting at [facility] History of underlying coronary disease Hyperlipidemia Hypothyroidism History of gastroesophageal reflux disease without esophagitis Former smoker Plan: The patient was seen and evaluated Labs and medications reviewed Continue IV Solu-Medrol 60 mg every 6 hours Continued on AirVo high flow oxygen Titrate down the FiO2 as tolerated We will continue to follow I have personally seen and examined the patient, performed the documentation and the assessment and plan as written. Number of minutes spent on the visit: 10.
--- NOTE | 2022-05-18 15:58 | PN ---
PROGRESS NOTE SUBJECTIVE: Mr. Sanchez is doing a bit better. He has some lung injury and appears to be quite dehydrated with concentrated urine and elevated creatinine. I am recommending we give him a fluid bolus and hydrate him. He is maintaining sinus rhythm. He has history of bypass surgery, fairly well-preserved LV systolic function, and some lung injury. OBJECTIVE: VITAL SIGNS: Stable. HEART: S1 and S2 heard normally. Regular. Short systolic murmur. LUNGS: Reveal fair air entry. ABDOMEN: Unchanged. LOWER EXTREMITIES: Unchanged. MMODL / IJN: [id number] /
--- NOTE | 2022-05-18 20:32 | P.PN ---
Subjective This is a pleasant 82 years old male with multiple medical problems as below including history of atrial fibrillation on amiodarone at home and not on a blood thinner, history of coronary artery disease status post recent CABG, heart failure, mitral valve disease, GERD, hyperlipidemia and hypothyroidism Presents with respiratory distress and hypoxia currently he is in the ICU very lethargic, easily arousable and answers questions and follows commands but very tired and go back to sleep. History requiring high flow nasal cannula at 60 L/m with FiO2 of 64-65%. Also he is kept on liquids 2.5 by cephalometric technician for A. fib, he is on diuretic aceta zolamide, no Lasix currently but also his place on some gentle hydration by cephalometric technician for possible dehydration, renal function is improving. Today down to 1.0. Also there is suspected pulmonary fibrosis per pulmonary team, home dose of amiodarone as healthy bowel. Echocardiogram showing ejection fraction 50% with mild to moderate to severe mitral regurgitation There is some evidence of COPD exacerbation and reactive airway disease and he is kept on Solu-Medrol 40 mg. WBC 16.8 while on steroids, hemoglobin 11.1 Active Medications Generic Name Dose Route Start Last Admin Trade Name Freq PRN Reason Stop Dose Admin Acetazolamide 250 mg 05/12/22 09:00 05/18/22 09:14 Acetazolamide 250 Mg Tab PO 250 mg BID AUGUST Administration Albuterol/Ipratropium 3 ml 05/09/22 11:32 05/12/22 19:29 Ipratropium-Albuterol 3 Ml Neb INHALATION 3 ml RT-Q4H PRN Administration Shortness Of Breath Or Wheezing Apixaban 2.5 mg 05/17/22 09:00 05/18/22 09:14 Apixaban 2.5 Mg Tablet PO 2.5 mg BID AUGUST Administration Protocol Aspirin 81 mg 05/10/22 09:00 05/18/22 09:14 Aspirin 81 Mg PO 81 mg DAILY AUGUST Administration Atorvastatin Calcium 20 mg 05/16/22 21:00 05/17/22 21:30 Atorvastatin 20 Mg Tab PO 20 mg HS AUGUST Administration Sodium Chloride 1,000 mls @ 20 mls/hr 05/09/22 10:45 05/18/22 09:55 Saline 0.9% IV 20 mls/hr .Q24H AUGUST Administration Sodium Chloride 1,000 mls @ 50 mls/hr 05/18/22 19:30 Saline 0.9% IV .Q20H AUGUST Levothyroxine Sodium 125 mcg 05/10/22 06:30 05/18/22 05:55 Levothyroxine 125 Mcg Tab PO 125 mcg DAILY@0630 AUGUST Administration Magnesium Hydroxide 7,200 mg 05/09/22 11:32 05/15/22 07:55 Magnesium Hydroxide 2,400 Mg/10 Ml Cup PO 7,200 mg DAILY PRN Administration Constipation Magnesium Oxide 400 mg 05/12/22 09:00 05/18/22 09:14 Magnesium Oxide 400 Mg Tab PO 400 mg DAILY AUGUST Administration Melatonin 5 mg 05/09/22 11:32 05/11/22 20:28 Melatonin 5 Mg Tablet PO 5 mg HS PRN Administration Insomnia Methylprednisolone Sodium Succinate 60 mg 05/17/22 12:00 05/18/22 17:22 Methylprednisolone Sod Succi 125 Mg/2 Ml Vial IV 60 mg Q6HR AUGUST Administration Metoprolol Tartrate 12.5 mg 05/17/22 09:00 05/18/22 09:14 Metoprolol Tartrate 12.5 Mg Tab PO 12.5 mg DAILY AUGUST Administration Miscellaneous Information 1 each 05/13/22 08:23 Potassium Replacement Protocol 1 Each Misc MISCELLANE DAILY PRN Per Protocol Protocol Naloxone HCl 0.2 mg 05/09/22 10:40 Naloxone 0.4 Mg/Ml 1 Ml Vial IV Q2M PRN Opioid Reversal Pantoprazole Sodium 40 mg 05/12/22 09:00 05/18/22 09:15 Pantoprazole 40 Mg/10 Ml Vial IVP 40 mg DAILY AUGUST Administration Tamsulosin HCl 0.4 mg 05/10/22 09:00 05/18/22 09:14 Tamsulosin 0.4 Mg Cap.Er.24h PO 0.4 mg DAILY AUGUST Administration Objective - Vital Signs Vital signs: Vital Signs Temp 97.0 F L 05/18/22 08:00 Pulse 75 05/18/22 10:00 Resp 22 05/18/22 10:00 BP 123/64 05/18/22 10:00 Pulse Ox 95 05/18/22 10:00 FiO2 65 05/18/22 11:17 Intake & Output 05/17/22 05/18/22 05/18/22 18:59 06:59 18:59 Intake Total 350 380 280 Output Total 425 500 160 Balance -75 -120 120 Weight 80.7 kg Intake: IV 120 80 Sodium Chloride 0.9% 1, 120 80 000 ml @ 20 mls/hr IV . Q24H [facility] Rx#:[id number] Oral 350 260 200 Output: Urine 425 500 160 Other: Voiding Method Indwelling Catheter Indwelling Catheter Indwelling Catheter - Exam -GENERAL: The patient is alert and oriented , tired and lethargic not in any acute distress. Well developed, well nourished. Generally weak HEENT: Pupils are round and equally reacting to light. EOMI. No scleral icterus. No conjunctival pallor. Normocephalic, atraumatic. No pharyngeal erythema. No thyromegaly. CARDIOVASCULAR: S1 and S2 present. No murmurs, rubs, or gallops. -PULMONARY: Chest is clear to auscultation, no wheezing bilateral crackles. ABDOMEN: Soft, nontender, nondistended, normoactive bowel sounds. No palpable organomegaly. MUSCULOSKELETAL: No joint swelling or deformity. EXTREMITIES: No cyanosis, clubbing, or pedal edema. NEUROLOGICAL: Gross neurological examination did not reveal any focal deficits. SKIN: No rashes. no petechiae. - Labs CBC & Chem 7: 05/18/22 05:43 05/18/22 08:04 Labs: Abnormal Lab Results - Last 24 Hours (Table) 05/17/22 05/17/22 05/18/22 Range/Units 10:05 11:58 05:43 WBC 14.7 H 16.8 H (3.8-10.6) k/uL RBC 4.26 L 4.13 L (4.30-5.90) m/uL Hgb 12.1 L 11.7 L (13.0-17.5) gm/dL MCHC 30.3 L 28.7 L (31.0-37.0) g/dL Neutrophils # 16.2 H (1.3-7.7) k/uL Neutrophils # (Manual) 14.55 H (1.3-7.7) k/uL Lymphocytes # 0.1 L (1.0-4.8) k/uL Chloride 95 L (98-107) mmol/L Carbon Dioxide 39 H (22-30) mmol/L BUN 48 H (9-20) mg/dL Creatinine 1.27 H (0.66-1.25) mg/dL Glucose 279 H (74-99) mg/dL Calcium 8.1 L (8.4-10.2) mg/dL Magnesium 2.6 H (1.6-2.3) mg/dL 05/18/22 Range/Units 08:04 WBC (3.8-10.6) k/uL RBC (4.30-5.90) m/uL Hgb (13.0-17.5) gm/dL MCHC (31.0-37.0) g/dL Neutrophils # (1.3-7.7) k/uL Neutrophils # (Manual) (1.3-7.7) k/uL Lymphocytes # (1.0-4.8) k/uL Chloride 97 L (98-107) mmol/L Carbon Dioxide 40 H (22-30) mmol/L BUN 44 H (9-20) mg/dL Creatinine (0.66-1.25) mg/dL Glucose 245 H (74-99) mg/dL Calcium 8.2 L (8.4-10.2) mg/dL Magnesium 2.5 H (1.6-2.3) mg/dL Assessment and Plan Assessment: Acute CHF exacerbation Possible reactive airway disease versus acute COPD exacerbation Acute hypoxic respiratory failure Moderate to severe mitral regurgitation Paroxysmal atrial fibrillation Recent history of bypass surgery Possible pulmonary fibrosis Plan: Continue with Eliquis Continue with Solu-Medrol Continue with gentle hydration, recommend holding IV fluids soon Keep holding amiodarone with cardiology team recommendation Continue with acetazolamide Continue with home dose of aspirin Cardiology and pulmonary team of the case Labs and medication were reviewed.. Continue same treatment. Continue with symptomatic treatment. Resume home medication. Monitor lytes and vitals. DVT and GI prophylaxis. Further recommendations as per clinical course of the patient DVT prophylaxis: Eliquis GI Prophylaxis: Ppi PT/OT: Deferred Prognosis is guarded
[2022-05-18] MEDS: ATORVASTATIN 20 MG TAB PO SCH (21:41)
[2022-05-19] MEDS: methylPREDNISolone SOD SUCCI 125 MG/2 ML VIAL IV SCH ×5 (00:51→23:29)
[2022-05-19 01:14] LABS: ABG Base Excess 13.2 mmol/L; ABG Oxygen Saturation 94.5 % (94-97); ABG PO2 69 mmHg (83-108); ABG TCO2 42 mmol/L (19-24); Allen Test Performed? Yes
[2022-05-19 01:28] LABS: ABG PCO2 81 mmHg (35-45)
[2022-05-19 01:29] LABS: ABG HCO3 40 mmol/L (21-25)
[2022-05-19 05:02] LABS: Glucose,Whole Blood 212 mg/dL (70-110)
[2022-05-19 05:11] LABS: ABG Base Excess 12.5 mmol/L; ABG Oxygen Saturation 95.6 % (94-97); ABG PH 7.26 (7.35-7.45); ABG PO2 78 mmHg (83-108); ABG TCO2 42 mmol/L (19-24); Allen Test Performed? Yes
[2022-05-19 05:14] LABS: ABG PCO2 89 mmHg (35-45)
[2022-05-19 05:15] LABS: ABG HCO3 40 mmol/L (21-25)
[2022-05-19] MEDS ORDERED: propofoL 100 ML IV ONE (05:52)
[2022-05-19 06:07] LABS: Basophils % (A) 0 %; Eosinophils % (A) 0 %; HCT 40.3 % (39.0-53.0); HGB 11.3 gm/dL (13.0-17.5); Hypochromasia Marked; Lymphocytes # (A) 0.1 k/uL (1.0-4.8); Lymphocytes % (A) 1 %; MCH 28.7 pg (25.0-35.0); MCHC 28.2 g/dL (31.0-37.0); Macrocytosis Slight; Mean Platelet Volume 10.6; Monocytes # (A) 0.6 k/uL (0-1.0); Monocytes % (A) 3 %; Neutrophils # (A) 17.7 k/uL (1.3-7.7); Neutrophils % (A) 96 %; Platelet Count 228 k/uL (150-450); RBC 3.95 m/uL (4.30-5.90); RDW 13.3 % (11.5-15.5); WBC 18.5 k/uL (3.8-10.6)
[2022-05-19] MEDS: LEVOTHYROXINE 125 MCG TAB PO SCH ×2 (06:18→09:43)
[2022-05-19] MEDS ORDERED: SODIUM CHLORIDE 0.9% 2,000 ML IV ONE (06:26)
[2022-05-19 06:35] LABS: Albumin 2.8 g/dL (3.5-5.0); Calcium 8.2 mg/dL (8.4-10.2); Total Bilirubin 0.5 mg/dL (0.2-1.3); Total Protein 5.7 g/dL (6.3-8.2)
--- NOTE | 2022-05-19 06:55 | XR ---
EXAM: XR Chest, 1 View CLINICAL HISTORY: ITS.REASON XR Reason: Tube placement TECHNIQUE: Frontal view of the chest. COMPARISON: 05/17/22 FINDINGS: Lungs: Low lung volume limit evaluation. Diffuse interstitial opacity, grossly unchanged noting difference in technique and position. Pleural space: Suspect small effusions bilaterally. No pneumothorax. Heart: Cardiovascular silhouette, likely enlarged and unchanged. Mediastinum: Unremarkable. Bones/joints: Status post median sternotomy. Suspect tiny effusions. Vasculature: Calcified tortuous thoracic aorta again noted. Tubes, lines and devices: Interval placement of endotracheal tube tip approximately 2-3 centimeter from the [place]. NG tube, coursing beyond the GE junction, tip not seen on this radiograph, although presumably in the stomach. Overlying chest leads obscure portion of the chest. IMPRESSION: 1. Interval intubation, satisfactory 2. NG tube, coursing beyond the GE junction, as described. 3. Persistent bilateral interstitial edema or pneumonia. 4. Suspect tiny effusions. Low lung volume limit evaluation.
--- NOTE | 2022-05-19 07:18 | P.PN ---
Subjective This is a pleasant 82 years old male with multiple medical problems as below including history of atrial fibrillation on amiodarone at home and not on a blood thinner, history of coronary artery disease status post recent CABG, heart failure, mitral valve disease, GERD, hyperlipidemia and hypothyroidism Presents with respiratory distress and hypoxia currently he is in the ICU very lethargic, easily arousable and answers questions and follows commands but very tired and go back to sleep. History requiring high flow nasal cannula at 60 L/m with FiO2 of 64-65%. Also he is kept on liquids 2.5 by resident service coordinator for A. fib, he is on diuretic aceta zolamide, no Lasix currently but also his place on some gentle hydration by resident service coordinator for possible dehydration, renal function is improving. Today down to 1.0. Also there is suspected pulmonary fibrosis per pulmonary team, home dose of amiodarone as healthy bowel. Echocardiogram showing ejection fraction 50% with mild to moderate to severe mitral regurgitation There is some evidence of COPD exacerbation and reactive airway disease and he is kept on Solu-Medrol 40 mg. WBC 16.8 while on steroids, hemoglobin 11.1 05/19/2022 Patient that more respiratory distress overnight and he got intubated and placed on mechanical ventilation with sedation, with deep 05 and FiO2 of 100%. Patient also blood pressure on the low side 81/51, he is getting 2 units of blood transfusion and possible he'll need pressors per critical care team Urine output was 25-30 mL/h, currently lowered to 10 mL/h, Higginbotham catheter in place we'll keep monitoring Patient is also an Olympus 2.5, Solu-Medrol 60 mg. And acetazolamide Active Medications Generic Name Dose Route Start Last Admin Trade Name Freq PRN Reason Stop Dose Admin Acetazolamide 250 mg 05/12/22 09:00 05/18/22 21:41 Acetazolamide 250 Mg Tab PO 250 mg BID AUGUST Administration Albuterol/Ipratropium 3 ml 05/09/22 11:32 05/12/22 19:29 Ipratropium-Albuterol 3 Ml Neb INHALATION 3 ml RT-Q4H PRN Administration Shortness Of Breath Or Wheezing Apixaban 2.5 mg 05/17/22 09:00 05/18/22 21:41 Apixaban 2.5 Mg Tablet PO 2.5 mg BID AUGUST Administration Protocol Aspirin 81 mg 05/10/22 09:00 05/18/22 09:14 Aspirin 81 Mg PO 81 mg DAILY AUGUST Administration Atorvastatin Calcium 20 mg 05/16/22 21:00 05/18/22 21:41 Atorvastatin 20 Mg Tab PO 20 mg HS AUGUST Administration Chlorhexidine Gluconate 15 ml 05/19/22 09:00 Chlorhexidine Gluconate 15 Ml Cup MUCOUS MEM BID AUGUST Sodium Chloride 1,000 mls @ 20 mls/hr 05/09/22 10:45 05/18/22 09:55 Saline 0.9% IV 20 mls/hr .Q24H AUGUST Administration Sodium Chloride 1,000 mls @ 50 mls/hr 05/18/22 19:30 05/18/22 21:40 Saline 0.9% IV 50 mls/hr .Q20H AUGUST Administration Propofol 1,000 mg/ IV Solution 100 mls @ 7.263 mls/hr 05/19/22 06:00 05/19/22 06:07 IV 25 mcg/kg/min .[id number] AUGUST 12.105 mls/hr Titration Protocol 15 MCG/KG/MIN Sodium Chloride 2,000 mls @ 999 mls/hr 05/19/22 06:26 05/19/22 06:29 Saline 0.9% IV 05/19/22 08:26 999 mls/hr .Q2H1M ONE Administration Levothyroxine Sodium 125 mcg 05/10/22 06:30 05/19/22 06:18 Levothyroxine 125 Mcg Tab PO Not Given DAILY@0630 AUGUST Magnesium Hydroxide 7,200 mg 05/09/22 11:32 05/15/22 07:55 Magnesium Hydroxide 2,400 Mg/10 Ml Cup PO 7,200 mg DAILY PRN Administration Constipation Magnesium Oxide 400 mg 05/12/22 09:00 05/18/22 09:14 Magnesium Oxide 400 Mg Tab PO 400 mg DAILY AUGUST Administration Melatonin 5 mg 05/09/22 11:32 05/11/22 20:28 Melatonin 5 Mg Tablet PO 5 mg HS PRN Administration Insomnia Methylprednisolone Sodium Succinate 60 mg 05/17/22 12:00 05/19/22 06:59 Methylprednisolone Sod Succi 125 Mg/2 Ml Vial IV 60 mg Q6HR AUGUST Administration Metoprolol Tartrate 12.5 mg 05/17/22 09:00 05/18/22 09:14 Metoprolol Tartrate 12.5 Mg Tab PO 12.5 mg DAILY AUGUST Administration Miscellaneous Information 1 each 05/13/22 08:23 Potassium Replacement Protocol 1 Each Misc MISCELLANE DAILY PRN Per Protocol Protocol Naloxone HCl 0.2 mg 05/09/22 10:40 Naloxone 0.4 Mg/Ml 1 Ml Vial IV Q2M PRN Opioid Reversal Pantoprazole Sodium 40 mg 05/12/22 09:00 05/18/22 09:15 Pantoprazole 40 Mg/10 Ml Vial IVP 40 mg DAILY AUGUST Administration Tamsulosin HCl 0.4 mg 05/10/22 09:00 05/18/22 09:14 Tamsulosin 0.4 Mg Cap.Er.24h PO 0.4 mg DAILY AUGUST Administration Objective - Vital Signs Vital signs: Vital Signs Temp 97.8 F 05/19/22 05:00 Pulse 50 L 05/19/22 07:00 Resp 20 05/19/22 07:00 BP 82/51 05/19/22 07:00 Pulse Ox 100 05/19/22 07:00 FiO2 100 05/19/22 06:19 Intake & Output 05/18/22 05/19/22 05/19/22 18:59 06:59 18:59 Intake Total 440 1111.13 2000 Output Total 442 400 10 Balance -2 711.13 1989 Intake: IV 082 658 2685 Sodium Chloride 0.9% 1, 240 20 000 ml @ 20 mls/hr IV . Q24H [facility] Rx#:[id number] Sodium Chloride 0.9% 1, 550 000 ml @ 50 mls/hr IV . Q20H [facility] Rx#:[id number] Sodium Chloride 0.9% 2, 2000 000 ml @ 999 mls/hr IV . Q2H1M [facility] Rx#:[id number] Intake, IV Titration 1.13 Amount propofoL 1,000 mg In 1.13 Empty Bag 1 bag @ 15 MCG/ KG/MIN 7.263 mls/hr IV . [id number] [facility] Rx#:[id number] Oral 200 540 Output: Urine 442 400 10 Other: Voiding Method Indwelling Catheter Indwelling Catheter - Exam -GENERAL: The patient is intubated and sedated. HEENT: Pupils are round and equally reacting to light. EOMI. No scleral icterus. No conjunctival pallor. Normocephalic, atraumatic. No pharyngeal erythema. No thyromegaly. CARDIOVASCULAR: S1 and S2 present. No murmurs, rubs, or gallops. -PULMONARY: Chest is clear to auscultation, no wheezing bilateral crackles. ABDOMEN: Soft, nontender, nondistended, normoactive bowel sounds. No palpable organomegaly. MUSCULOSKELETAL: No joint swelling or deformity. -EXTREMITIES: No cyanosis, clubbing, Bilateral pitting leg edema. NEUROLOGICAL: Gross neurological examination did not reveal any focal deficits. SKIN: No rashes. no petechiae. - Labs CBC & Chem 7: 05/19/22 05:22 05/19/22 05:22 Labs: Abnormal Lab Results - Last 24 Hours (Table) 05/18/22 05/18/22 05/19/22 Range/Units 05:43 08:04 01:12 WBC 16.8 H (3.8-10.6) k/uL RBC 4.13 L (4.30-5.90) m/uL Hgb 11.7 L (13.0-17.5) gm/dL MCV (80.0-100.0) fL MCHC 28.7 L (31.0-37.0) g/dL Neutrophils # 16.2 H (1.3-7.7) k/uL Lymphocytes # 0.1 L (1.0-4.8) k/uL ABG pH 7.30 L (7.35-7.45) ABG pCO2 81 H* (35-45) mmHg ABG pO2 69 L (83-108) mmHg ABG HCO3 40 H* (21-25) mmol/L ABG Total CO2 42 H (19-24) mmol/L Chloride 97 L (98-107) mmol/L Carbon Dioxide 40 H (22-30) mmol/L BUN 44 H (9-20) mg/dL Glucose 245 H (74-99) mg/dL POC Glucose (mg/dL) (70-110) mg/dL Calcium 8.2 L (8.4-10.2) mg/dL Magnesium 2.5 H (1.6-2.3) mg/dL Alkaline Phosphatase (38-126) U/L Total Protein (6.3-8.2) g/dL Albumin (3.5-5.0) g/dL 05/19/22 05/19/22 05/19/22 Range/Units 05:00 05:09 05:22 WBC 18.5 H (3.8-10.6) k/uL RBC 3.95 L (4.30-5.90) m/uL Hgb 11.3 L (13.0-17.5) gm/dL MCV 102.0 H (80.0-100.0) fL MCHC 28.2 L (31.0-37.0) g/dL Neutrophils # 17.7 H (1.3-7.7) k/uL Lymphocytes # 0.1 L (1.0-4.8) k/uL ABG pH 7.26 L (7.35-7.45) ABG pCO2 89 H* (35-45) mmHg ABG pO2 78 L (83-108) mmHg ABG HCO3 40 H* (21-25) mmol/L ABG Total CO2 42 H (19-24) mmol/L Chloride (98-107) mmol/L Carbon Dioxide (22-30) mmol/L BUN (9-20) mg/dL Glucose (74-99) mg/dL POC Glucose (mg/dL) 212 H (70-110) mg/dL Calcium (8.4-10.2) mg/dL Magnesium (1.6-2.3) mg/dL Alkaline Phosphatase (38-126) U/L Total Protein (6.3-8.2) g/dL Albumin (3.5-5.0) g/dL 05/19/22 Range/Units 05:22 WBC (3.8-10.6) k/uL RBC (4.30-5.90) m/uL Hgb (13.0-17.5) gm/dL MCV (80.0-100.0) fL MCHC (31.0-37.0) g/dL Neutrophils # (1.3-7.7) k/uL Lymphocytes # (1.0-4.8) k/uL ABG pH (7.35-7.45) ABG pCO2 (35-45) mmHg ABG pO2 (83-108) mmHg ABG HCO3 (21-25) mmol/L ABG Total CO2 (19-24) mmol/L Chloride (98-107) mmol/L Carbon Dioxide 39 H (22-30) mmol/L BUN 48 H (9-20) mg/dL Glucose 173 H (74-99) mg/dL POC Glucose (mg/dL) (70-110) mg/dL Calcium 8.2 L (8.4-10.2) mg/dL Magnesium (1.6-2.3) mg/dL Alkaline Phosphatase 132 H (38-126) U/L Total Protein 5.7 L (6.3-8.2) g/dL Albumin 2.8 L (3.5-5.0) g/dL Assessment and Plan Assessment: Acute CHF exacerbation Possible reactive airway disease versus acute COPD exacerbation Acute hypoxic respiratory failure, status post intubation on 05/19 Moderate to severe mitral regurgitation Paroxysmal atrial fibrillation Recent history of bypass surgery Possible pulmonary fibrosis Plan: Patient is being multiple IV fluids Continue with current management with the pulmonary/critical care team consult Continue with Eliquis Continue with Solu-Medrol Keep holding amiodarone with cardiology team recommendation Continue with acetazolamide Continue with home dose of aspirin Cardiology and pulmonary team of the watch caser blood pressure, a pressors when necessary for hypotension monitor urine output Labs and medication were reviewed.. Continue same treatment. Continue with symptomatic treatment. Resume home medication. Monitor lytes and vitals. DVT and GI prophylaxis. Further recommendations as per clinical course of the patient DVT prophylaxis: Eliquis GI Prophylaxis: Ppi PT/OT: Deferred Prognosis is guarded
[2022-05-19 07:23] LABS: ABG Base Excess 10.7 mmol/L; ABG HCO3 36 mmol/L (21-25); ABG PCO2 65 mmHg (35-45); ABG PH 7.35 (7.35-7.45); ABG PO2 316 mmHg (83-108); ABG TCO2 38 mmol/L (19-24); Allen Test Performed? Yes
[2022-05-19] MEDS: IPRATROPIUM-ALBUTEROL 3 ML NEB INHALATION PRN (07:43)
[2022-05-19] MEDS: NOREPINEPHRINE 4 MG in SODIUM CHLORIDE 0.9% 250 ML IV SCH ×2 (08:50→16:40)
[2022-05-19] MEDS: METOPROLOL TARTRATE 12.5 MG TAB PO SCH (09:42)
[2022-05-19] MEDS: PANTOPRAZOLE 40 MG/10 ML VIAL IVP SCH (09:43)
[2022-05-19] MEDS: ASPIRIN 81 MG PO SCH (09:43)
[2022-05-19] MEDS: MAGNESIUM OXIDE 400 MG TAB PO SCH (09:44)
[2022-05-19] MEDS: acetaZOLAMIDE 250 MG TAB PO SCH (09:44)
[2022-05-19] MEDS: TAMSULOSIN 0.4 MG CAP.ER.24H PO SCH (09:44)
[2022-05-19] MEDS: CHLORHEXIDINE GLUCONATE 15 ML CUP MUCOUS MEM SCH ×2 (09:45→21:17)
[2022-05-19] MEDS: SODIUM CHLORIDE 0.9% 1,000 ML IV SCH ×2 (09:46→15:29)
[2022-05-19] MEDS ORDERED: CISATRACURIUM 2 MG/ML 5 ML VIAL IV ONE ×2 (10:30→10:36)
[2022-05-19] MEDS ORDERED: LACTATED RINGERS 1,000 ML IV SCH (11:30)
[2022-05-19] MEDS: APIXABAN 2.5 MG TABLET PO SCH ×2 (11:32→21:17)
--- NOTE | 2022-05-19 12:08 | XR ---
EXAMINATION TYPE: XR chest 1V portable DATE OF EXAM: 05/19/2022 Comparison: 05/19/2022, earlier today Clinical History: 82-year-old male line placement Findings: ET tube tip at the level of the medial clavicular heads. New left CVC tip at the lower SVC. Median st ernotomy wires are post-CABG clips in mediastinum. Diffuse interstitial and patchy opacities persist. There may be slight improvement in aeration on the left. Patient obliqued towards the left. NG tube courses below the diaphragm. Retained epicardial pacer leads. Impression: 1. Left CVC tip at the lower SVC. 2. Diffuse bilateral interstitial infiltrates persist but with slight improvement on the left.
--- NOTE | 2022-05-19 12:19 | PCN ---
PROCEDURE NOTE PULMONARY/CRITICAL CARE PROCEDURE NOTE: PROCEDURE PERFORMED: Right radial art line. CO-SURGEONS: Dr. Peralta and Marino Gray NP. PREOPERATIVE DIAGNOSIS: Frequent blood draws and blood gas monitoring. POSTOPERATIVE DIAGNOSIS: Frequent blood draws and blood gas monitoring. INDICATIONS: Hemodynamic monitoring. DESCRIPTION OF PROCEDURE: A time-out was completed verifying correct patient, procedure, site, positioning, and implant(s) or special equipment if applicable. Ramon's test was performed to ensure adequate perfusion. The patient's right wrist or right groin was prepped and draped in sterile fashion. 1% Lidocaine was used to anesthetize the area. An 18G Arrow arterial line was introduced into the radial artery. The catheter was threaded over the guide wire and the needle was removed with good blood return. There was good waveform. Blood loss was minimal. The catheter was then sutured in place to the skin and a sterile dressing applied by the nurse. Perfusion to the extremity distal to the point of catheter insertion was checked and found to be adequate. There was no immediate complication. The patient tolerated the procedure well. MMODL / IJN: [id number] /
--- NOTE | 2022-05-19 13:31 | P.PN ---
Subjective Progress Note Date: 05/19/22 This is an 82-year-old white male with history of coronary artery disease, recent CABG about 2 months ago, this was done at [facility]. Patient presented to [facility] with a few days' history of increased shortness of breath, and his shortness of breath, much worse today. In addition to shortness of breath, the patient is coughing, the cough is productive with whitish phlegm, no fever no chills, no hemoptysis, no chest pain. workup in [place] showed evidence of pulmonary edema, he also had elevated BNP level, and elevated troponin level. Patient was transferred to [facility], I saw him down in the ER. Patient is on BiPAP, 12/5/55%, O2 saturation is in the low 90s. Patient was already given Lasix by the admitting physician and he is now on Lasix at 60 mg IV push twice a day. Some improvement clinically noted according to the patient. Patient has no previous history of COPD, and no previous history of smoking. His WBC count is 12.6 hemoglobin is 1 0.3, basic metabolic profile is normal renal profile is normal bicarb is 38 lactic acid 4.6. ProBNP level is 3790. Chest x-ray is consistent with interstitial edema however underlying pneumonia is not entirely ruled out but felt to be less likely. EKG showed sinus rhythm, and incomplete right bundle branch block pattern otherwise unremarkable, nonspecific ST and T-wave changes noted. The patient is seen today 05/10/2022 in follow-up on the selective care unit. He is currently resting in bed. Awake and alert in no acute distress. He is still on BiPAP 12/5 and 55%. white count 11.0. Hemoglobin 9.6. Platelets 275. Sodium 142. Potassium 3.8. Bicarb 42. BUN 40. Creatinine 0.82. Glucose 109. He is continued on Lasix 60 mg every 12 hours. No accurate I&O recorded. Current weight 83.5 kg. today's chest x-ray is essentially unchanged. Pro- calcitoninn level 0.07. I'm evaluating this patient today on 05/11/2022. His work of breathing has obviously increased overnight. He is requiring BiPAP titrations and is currently 14/5 and 70%. He is tachypneic breathing about 30-40 breaths per minute with accessory muscle use. Recent echocardiogram was performed on 05/10/2022 which showed a normal ejection fraction of 50% and some moderate to severe mitral regurgitation. He is receiving furosemide 80 mg twice a day. A urinary catheter was inserted yesterday for accurate intake and output. Fluid balance is -1 L. Normal saline is using KVO. CT of the chest with contrast was also performed yesterday on 05/10/2022 which showed diffuse airspace opacities and consolidation changes, some small bilateral pleural effusions, evidence of pulmonary hypertension, and cardiomegaly. Likely representing a combination of atypical pneumonia versus inflammatory process. There is also some superimposed pulmonary vascular congestion. Chest x-ray from today 05/11/2022 continues to show diffuse interstitial and alveolar infiltrates bilaterally. He continues to receive by mouth amiodarone. And his heart rhythm is currently normal sinus. Patient remains afebrile. CBC did not show any leukocytosis with a WBC of 7.8, hemoglobin 9.4, hematocrit 30.9, platelet count 280,000. BMP from today shows sodium 140, potassium of 3.9, chloride of 94, serum CO2 of 42 to, UN 45, creatinine 1.04, glucose 139. Remains on Lovenox for DVT prophylaxis. We'll transfer this patient in ICU for closer monitoring. Reevaluated today on 05/12/2022, patient is basically about the same. Remains on BiPAP, he is on IPAP of 14 EPAP of 5 and FiO2 70%, chest x-ray continues to show diffuse interstitial process bilaterally, it is difficult to tell how much of this is true pulmonary edema and how much of it is acute lung injury, induced by amiodarone. Not to mention the patient is not a candidate to perform or even think of lung biopsy. Patient is receiving diuretics and he is a -2 L in the last 24 hours, he is now on Lasix and Diamox, not seeing much improvement in his overall pulmonary status in spite of aggressive diuresis as a matter of fact I have a strong feeling that the patient will require eventually intubation and mechanical ventilation if he continues to do poorly. He is basically marginal at best at this point. CBC is relatively normal electrolytes are normal except bicarb is up to 44, patient is sleepy developing a bit of metabolic contraction alkalosis. Hence Diamox was added. Patient remains on steroids for his presumptive amiodarone induced lung injury although this is not definitive Patient was reevaluated today on 05/09/22, remains in the ICU, his overall pu lmonary status is marginal at best. Continues to have abnormal chest x-ray, continues to be relatively hypoxic, patient is now on high flow oxygen via airvo, FiO2 90% and 60 L flow, seems to be tolerating this better than the BiPAP, yesterday he was on BiPAP 14/6/80%. Remains on diuretics, remains on steroids, patient tells me that he feels a bit better today, although his chest x-ray is basically about the same, and his oxygenation seems to be marginal/the same.CBC is unremarkable, basic metabolic profile is normal bicarb is 46 BUN is 57 creatinine 1.72, hence I will start cutting down on his diuretics, we will continue Diamox continue Diamox, continue Lasix but quit ahead and stop again I am quite concerned about the rapid increase in his creatinine, not to mention the patient has been in a negative balance over the last 48 hours.since admission, the patient is almost -7 L. And he is becoming quite dehydrated. Reevaluated today on 05/14/22, patient remains in the ICU, remains on BiPAP with IPAP of 14/EPAP of 6, FiO2 is 70%. Patient is becoming more and more alkalotic, hence I'm stopping his Lasix. We will continue the patient on Diamox. He is also off Zaroxolyn. Patient has been in a significant negative balance over the last few days. Last night he became quite agitated and we had to place him on Precedex, he is on 0.4 mcg/kg/h of Precedex today. Seems to be calm, chest x- ray continues to show evidence of interstitial infiltrates bilaterally. Again it is not clear how much of it is really congestive heart failure and how much of an acute lung injury.WBC count today is 9 hemoglobin is 10.3, bicarb is elevated at 52 BUN is 50 creatinine 1.61 slightly better than yesterday. Reevaluated today on 05/15/22, patient remains in the ICU, pulmonary status remains marginal at best. However his chest x-ray is probably showing slight improvement, and his FiO2 requirement is less, patient is now on airvo at 60% FiO2 and 60 L flow, O2 sats ration is in the mid 90s. He was on BiPAP earlier today with IPAP of 14 EPAP of 6 and FiO2 of 60%. Remains on Precedex at 0.4 mcg/kg/h. IV fluids at KVO, diuretics have been cut down significantly, remains on Diamox only. CBC is basically unremarkable bicarb is down to 45 and 52 BUN is down to 46 creatinine is down to 1.160. Patient is comfortable on airvo, does not seem to be in distress The patient is seen today 05/16/2022 in follow-up in the intensive care unit. He is currently resting fairly comfortably in bed. Awake and alert. He is still requiring quite a bit of oxygen he was wearing BiPAP 14/60-60% FiO2. Currently more comfortable on the AirVo high flow oxygen at 60 L and 65% FiO2. He has Precedex running at 0.3 mg/kg/h. Normal saline at 20 ML's per hour. Chest x-ray continues to show small bilateral pleural effusions with slightly increased diffuse bilateral multifocal patchy airspace disease. White count 10.2. Hemoglobin 9.8. Platelets 287. Sodium 135. Potassium 3.9. Bicarb 41. BUN 42. Creatinine 1.02. Glucose 145. Arterial blood gases revealed a PaO2 of 66, pCO2 63, pH 7.4-65% FiO2. He is continued on DuoNeb inhalations, IV Solu- Medrol. Lovenox for DVT prophylaxis. He remains off diuretics. Currently in a -500 mL balance. The patient is seen today 05/17/2022 in follow-up in the intensive. He is currently sitting up in a chair at the bedside. Awake and alert in no acute distress. He is feeling better today compared to yesterday. He is still requiring AirVo high flow oxygen and 60 L and 65% FiO2. BiPAP has been discontinued. No IV fluids currently. Chest x-ray continues to show diffuse increased lung markings bilaterally. ProBNP 2420. Pro-calcitonin was 0.06. Today's labs are pending. He remains off diuretics. Continued on Diamox. Continued on DuoNeb inhalations, IV Solu-Medrol. Anticoagulated with Eliquis. Remains off amiodarone. Continued in sinus rhythm. The patient seen today 05/18/2022 in follow-up in the intensive care unit. He is currently resting comfortably in bed. Awake and alert in no acute distress. He is still requiring AirVo high flow oxygen at 60 L/m and 65% FiO2. Normal saline at KVO. White count 16.8. Hemoglobin 11.7. Platelets 279. Sodium 140. Potassium 3.9. Bicarb 40. The 144. Creatinine 1.06. He is continued on DuoNeb inhalations, IV site Medrol. Anticoagulated with Eliquis. The patient is seen today 05/19/2022 in follow-up in the intensive care unit. Throughout the day and into the evening last night patient had become more obtunded and less responsive. He was initiated on AirVo 60 L and 65% with O2 saturations are 96%. He became hypercapnic with a CO2 of 81 and was placed on BiPAP 14/6 and 60% FiO2. He was eventually intubated approximately 6:00 this morning the patient required intubation and mechanical ventilatory support. He is currently an assist-control mode at a rate of 20, tidal by 450, FiO2 50% and a PEEP of 5. Blood gases revealed a PaO2 of 316, pCO2 65 and a pH of 7.35 100% FiO2. FiO2 titrated down appropriately. He is sedated on propofol at 40 mcg/kg/m. Maintained on norepinephrine at 0.06 mcg/kg/m. Normal saline at 50 MLS per hour. Follow-up chest x-ray revealed satisfactory intubation, nasogastric tube in place. Persistent bilateral interstitial edema versus pneumonia. Tiny effusions. White count 18.5. Hemoglobin 11.3. Platelets 223. Sodium 142. Potassium 4.0. BUN 48. Creatinine 1.06. Glucose 173. AST 18. ALT 18. ProBNP 5440. Cortisol 14. He is continued on DuoNeb inhalations, IV Solu-Medrol. Anticoagulated with Eliquis. Objective - Vital Signs Vital signs: Vital Signs Temp 97.7 F 05/19/22 08:00 Pulse 52 L 05/19/22 11:00 Resp 20 05/19/22 11:00 BP 95/56 05/19/22 11:00 Pulse Ox 96 05/19/22 11:00 FiO2 50 05/19/22 10:31 Intake & Output 05/18/22 05/19/22 05/19/22 18:59 06:59 18:59 Intake Total 440 1111.13 2317.100 Output Total 442 400 105 Balance -2 711.13 2212.100 Weight 80.7 kg Intake: IV 348 783 6349 Sodium Chloride 0.9% 1, 240 20 000 ml @ 20 mls/hr IV . Q24H [facility] Rx#:[id number] Sodium Chloride 0.9% 1, 550 150 000 ml @ 50 mls/hr IV . Q20H [facility] Rx#:[id number] Sodium Chloride 0.9% 2, 2000 000 ml @ 999 mls/hr IV . Q2H1M ONE Rx#:[id number] Intake, IV Titration 1.13 127.100 Amount Norepinephrine 4 mg In 40.792 Sodium Chloride 0.9% 250 ml @ 0.03 MCG/KG/MIN 9. 224 mls/hr IV .Q24H [facility] Rx#:[id number] propofoL 1,000 mg In 1.13 86.308 Empty Bag 1 bag @ 15 MCG/ KG/MIN 7.263 mls/hr IV . [id number] [facility] Rx#:[id number] Oral 200 540 Other 40 Output: Urine 442 400 105 Other: Voiding Method Indwelling Catheter Indwelling Catheter - Exam GENERAL EXAM: Intubated, sedated 82-year-old male patient, currently on 50% FiO2 and a PEEP of 5, comfortable in no apparent distress. HEAD: Normocephalic. EYES: Sluggish reaction of pupils, equal size. NOSE: Clear with pink turbinates. THROAT: Oral endotracheal and gastric tube secured in place. No erythema or exudates. NECK: No masses, no JVD. CHEST: No chest wall deformity. LUNGS: Equal air entry with bibasilar crackles. CVS: S1 and S2 normal with an audible murmur, regular rhythm. ABDOMEN: No hepatosplenomegaly, normal bowel sounds, no guarding or rigidity. SPINE: No scoliosis or deformity SKIN: No rashes CENTRAL NERVOUS SYSTEM: No focal deficits, tone is normal in all 4 extremities. EXTREMITIES: There is 2+ peripheral edema. No clubbing, no cyanosis. Peripheral pulses are intact. - Labs CBC & Chem 7: 05/19/22 05:22 05/19/22 05:22 Labs: Abnormal Lab Results - Last 24 Hours (Table) 05/19/22 05/19/22 05/19/22 Range/Units 01:12 05:00 05:09 WBC (3.8-10.6) k/uL RBC (4.30-5.90) m/uL Hgb (13.0-17.5) gm/dL MCV (80.0-100.0) fL MCHC (31.0-37.0) g/dL Neutrophils # (1.3-7.7) k/uL Lymphocytes # (1.0-4.8) k/uL ABG pH 7.30 L 7.26 L (7.35-7.45) ABG pCO2 81 H* 89 H* (35-45) mmHg ABG pO2 69 L 78 L (83-108) mmHg ABG HCO3 40 H* 40 H* (21-25) mmol/L ABG Total CO2 42 H 42 H (19-24) mmol/L ABG O2 Saturation (94-97) % Carbon Dioxide (22-30) mmol/L BUN (9-20) mg/dL Glucose (74-99) mg/dL POC Glucose (mg/dL) 212 H (70-110) mg/dL Calcium (8.4-10.2) mg/dL Alkaline Phosphatase (38-126) U/L Total Protein (6.3-8.2) g/dL Albumin (3.5-5.0) g/dL 05/19/22 05/19/22 05/19/22 Range/Units 05:22 05:22 07:21 WBC 18.5 H (3.8-10.6) k/uL RBC 3.95 L (4.30-5.90) m/uL Hgb 11.3 L (13.0-17.5) gm/dL MCV 102.0 H (80.0-100.0) fL MCHC 28.2 L (31.0-37.0) g/dL Neutrophils # 17.7 H (1.3-7.7) k/uL Lymphocytes # 0.1 L (1.0-4.8) k/uL ABG pH (7.35-7.45) ABG pCO2 65 H (35-45) mmHg ABG pO2 316 H (83-108) mmHg ABG HCO3 36 H (21-25) mmol/L ABG Total CO2 38 H (19-24) mmol/L ABG O2 Saturation 100.0 H (94-97) % Carbon Dioxide 39 H (22-30) mmol/L BUN 48 H (9-20) mg/dL Glucose 173 H (74-99) mg/dL POC Glucose (mg/dL) (70-110) mg/dL Calcium 8.2 L (8.4-10.2) mg/dL Alkaline Phosphatase 132 H (38-126) U/L Total Protein 5.7 L (6.3-8.2) g/dL Albumin 2.8 L (3.5-5.0) g/dL Assessment and Plan Assessment: Acute hypoxemic respiratory failure secondary to an acute exacerbation of suspected congestive heart failure, moderate to severe mitral regurgitation, 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 Initial pro-calcitonin 0.07. Follow-up pro-calcitonin 05/16/2022 remains negative at 0.06. Broke BNP 2420. No fever. No leukocytosis. Influenza screen negative. CoVID screen negative. RSV screen negative. Acute hypercapnic/hypoxemic respiratory failure with altered mental status and obtundation requiring intubation mechanical ventilatory support early in the morning of 05/19/2022 Acute pulmonary edema, diuresed over 2 L per day on 05/12 through 05/14/2022. Currently off Lasix. Remains on Diamox. History of paroxysmal atrial fibrillation maintained on amiodarone at 400 mg twice a day for approximately 2 months History of recent coronary artery bypass grafting at [facility] History of underlying coronary disease Hyperlipidemia Hypothyroidism History of gastroesophageal reflux disease without esophagitis Former smoker Plan: The patient was seen and evaluated Now intubated on mechanical ventilator Chest x-ray, ABGs, labs and medications reviewed Titrate down the FiO2 to 50% Continue IV Solu-Medrol 60 mg every 6 hours Duo Neb inhalations every 4 hours Check a pro-calcitonin Dietary consultation for tube feeding recommendations Central line and arterial lines placed We will continue to follow Critical care time greater than 30 minutes, not including procedures I have personally seen and examined the patient, performed the documentation and the assessment and plan as written. Number of minutes spent on the visit: 15.
[2022-05-19] MEDS ORDERED: DEXTROSE 50% SYRINGE 50 ML IVP PRN ×2 (13:49)
--- NOTE | 2022-05-19 14:24 | PCN ---
PROCEDURE NOTE PULMONARY CRITICAL CARE PROCEDURE: PROCEDURE PERFORMED: Left internal jugular triple-lumen catheter. PREOPERATIVE DIAGNOSIS: Hypotension, administration of Levophed. POSTOPERATIVE DIAGNOSIS: Hypotension, administration of Levophed. ASSISTANTS: Dr. Peralta and Marino Gray NP. INDICATION: Hemodynamic monitoring/Intravenous access DESCRIPTION OF PROCEDURE: There was informed consent and universal timeout. A time-out was completed verifying correct patient, procedure, site, positioning, and implant(s) or special equipment if applicable. The patient was placed in a dependent position appropriate for triple lumen catheter placement based on the vein to be cannulated. The patient's left neck was prepped and draped in sterile fashion via the posterior approach. 1% Lidocaine was used to anesthetize the surrounding skin area. A triple lumen 9F Cordis catheter was introduced into the left internal jugular using Seldinger technique. The catheter was threaded smoothly over the guide wire and appropriate blood return was obtained. Each lumen of the catheter was evacuated of air and flushed with sterile saline. The catheter was then sutured in place to the skin and a sterile dressing applied. Perfusion to the extremity distal to the point of catheter insertion was checked and found to be adequate. There was no immediate complication. There was good blood return from all 3 ports. The patient tolerated the procedure well. The chest x-ray was ordered to check placement of the catheter. The tip of the catheter was seen in the area of the superior vena cava right atrium. The catheter was sutured in place and sterile dressings applied by the nurse. There was no immediate complication. MMODL / IJN: [id number] /
[2022-05-19] MEDS: IPRATROPIUM-ALBUTEROL 3 ML NEB INHALATION SCH ×2 (15:35→19:39)
--- NOTE | 2022-05-19 15:40 | CDI ---
Documentation Clarification Form Date: 05/16/2022 02:06:00 PM From: Mirela Manriquez CCS, CCDS Admit Date: 05/09/2022 10:41:00 AM Patient Name: Derek Sanchez Visit Number: [id number] Discharge Date: ATTENTION: The Clinical Documentation Specialists (CDI) and [facility] Coding Staff appreciate your assistance in clarifying documentation. Please respond to the clarification below the line at the bottom and electronically sign. The CDI & [facility] Coding staff will review the response and follow-up if needed. Please note: Queries are made part of the Legal Health Record. If you have any questions, please contact the author of this message via ITS. Dr. Migdalia Arellano: Conflicting documentation regarding CHF is found in the medical record: Exacerbation of CHF without further specificity is documented beginning with the 05/10 Attending Progress Note. Per the 05/09 History & Physical: CHF probably systolic dysfunction, acute exacerbation, started on IV Lasix. Per the 05/09 Pulmonary Consult: Acute Hypoxic Respiratory Failure secondary to Acute CHF not clear whether this is Systolic or Diastolic in nature. Echo pending. Per the 05/11 Attending Progress Note: CHF with systolic dysfunction, acute on chronic exacerbation. Per the 05/15 Cardiology Progress Note: Respiratory failure, probably primarily from an underlying interstitial lung disease either related to COVID pneumonia or from Amiodarone toxicity. The patient is not in CHF. Additional information regarding the diagnosis of CHF including the Type & Acuity if present. History/Risk Factors per the 05/09 History & Physical: CHF, Atrial Fibrillation probably Paroxysmal, CAD status post CABG month ago, GERD, Hyperlipidemia, BPH, Hypothyroidism, COVID, Respiratory Failure, hypotension. Former smoker. Clinical Indicators: Presented to the ED via EMS with SOB, transferred from outside facility. Hypoxic, PO 57%, elevated cardiac enzymes and elevated peptide suggestive heart failure, put on antibiotics & BiPAP. Admit with Respiratory Failure. 05/09 VS: T 98.3, P 79, R 18 (sob), BP 113/68, PO 96 60% BiPAP, BMI: 24.7 05/09 LAB: WBC 12.6, RBC 3.45, Hgb 10.3, Hct 33.2, Neutrophils 11.9, Lymphocytes 0.2; APTT 21.9; CO2 38, Glucose 171, Lactic Acid 4.0, 3.6, 3.0; Alk Phos 140, Albumin 3.3. BNP 3790 05/09 CXR: Diffuse bilateral airspace infiltrates may reflect pulmonary edema or pneumonia. 05/10 ECHO: Low normal left ventricular systolic function was EF around 50%. Moderate to severe MR. Treatment 05/09: Telemetry, Pneumatic Compression socks, Cardiology & Pulmonary consults, Heart Healthy Diet, O2: BiPAP, IV Na Chl 1,000 mls @ 20 mls/hr q24H, INH Duoneb 3ml q4H/prn, IV Lasix 60 mg q12H. In your professional opinion, can you please clarify the Acuity & Type of CHF if known? [ ] Acute on Chronic Systolic Heart Failure [ ] Acute on Chronic Diastolic Heart Failure [ ] Acute on Chronic Heart Failure Systolic & Diastolic Heart Failure [ ] Other, please specify: [ ] Unable to determine (Template Last Revised: June 2020) Acute on Chronic Diastolic Heart Failure MTDD
[2022-05-19 17:48] LABS: Glucose,Whole Blood 201 mg/dL (70-110)
[2022-05-19] MEDS: INSULIN ASPART (NovoLOG) 100 UNIT/ML VIAL SQ SCH ×2 (18:00→23:29)
--- NOTE | 2022-05-19 19:37 | PN ---
PROGRESS NOTE SUBJECTIVE: Mr. Derek Sanchez is an 82-year-old gentleman, who is here with worsening pulmonary status. He has just been intubated. His chest x-ray looks much worse. There are much more bilateral opacities suggestive more of lung injury or probable pneumonia. He was quite hypotensive also. Yesterday, urine output was low. Overall prognosis for this gentleman is poor. He is, however, maintaining sinus rhythm. He has paroxysmal atrial fibrillation by history and recent bypass surgery at [place]. Overall prognosis is poor. He was placed on BiPAP, but the blood gases did not improve; therefore, he has been intubated. BUN and creatinine are still reasonably good. White count is elevated. I am concerned about infection or could be a steroid effect. Modest elevation of BNP is also noted. The patient has also been placed on some Levophed. Overall prognosis appears poor. PHYSICAL EXAMINATION: GENERAL: Reveals the patient is on a vent. VITAL SIGNS: Blood pressure is about 80 systolic. Heart rate is in the 60s, sinus. NECK: JVD evident. HEART: S1 and S2 heard normally. Short systolic murmur. LUNGS: Reveal bilateral diffuse rhonchi and rales. ABDOMEN: Unremarkable. LOWER EXTREMITIES: Unremarkable. CENTRAL NERVOUS SYSTEM: Assessment not performed. RECOMMENDATIONS: Further management deferred to Pulmonary. The patient probably has a lung injury or pneumonia. His heart failure is also a contributing factor, but not significant. Prognosis remains guarded. MMODL / IJN: [id number] /
[2022-05-19] MEDS: ATORVASTATIN 20 MG TAB PO SCH (21:17)
[2022-05-19 23:21] LABS: Glucose,Whole Blood 195 mg/dL (70-110)
[2022-05-20] MEDS: IPRATROPIUM-ALBUTEROL 3 ML NEB INHALATION SCH ×7 (00:02→23:15)
[2022-05-20] MEDS: NOREPINEPHRINE 4 MG in SODIUM CHLORIDE 0.9% 250 ML IV SCH ×2 (00:11→22:33)
[2022-05-20 05:54] LABS: ABG Base Excess 8.9 mmol/L; ABG HCO3 34 mmol/L (21-25); ABG Oxygen Saturation 97.8 % (94-97); ABG PCO2 54 mmHg (35-45); ABG PO2 87 mmHg (83-108); ABG TCO2 35 mmol/L (19-24); Allen Test Performed? Yes
[2022-05-20 06:26] LABS: Glucose,Whole Blood 225 mg/dL (70-110)
[2022-05-20] MEDS: methylPREDNISolone SOD SUCCI 125 MG/2 ML VIAL IV SCH ×4 (06:40→23:30)
[2022-05-20] MEDS: INSULIN ASPART (NovoLOG) 100 UNIT/ML VIAL SQ SCH ×4 (06:40→23:30)
[2022-05-20] MEDS: LEVOTHYROXINE 125 MCG TAB PO SCH (06:41)
[2022-05-20 06:52] LABS: ALT 16 U/L (4-49); AST 15 U/L (17-59); African American GFR (CKD) >90 (>60 ml/min/1.73 sqM); Albumin 2.2 g/dL (3.5-5.0); Alkaline Phosphatase 106 U/L (38-126); Anion Gap 2 mmol/L; Blood Urea Nitrogen 43 mg/dL (9-20); Calcium 7.5 mg/dL (8.4-10.2); Carbon Dioxide 32 mmol/L (22-30); Chloride 105 mmol/L (98-107); Glucose 221 mg/dL (74-99); Non-African American GFR(CKD) 80 (>60 ml/min/1.73 sqM); Potassium 3.3 mmol/L (3.5-5.1); Sodium 139 mmol/L (137-145); Total Bilirubin 0.5 mg/dL (0.2-1.3); Total Protein 4.7 g/dL (6.3-8.2)
[2022-05-20 06:56] LABS: Basophils % (A) 0 %; Eosinophils % (A) 0 %; HCT 30.9 % (39.0-53.0); Hypochromasia Marked; Lymphocytes # (A) 0.1 k/uL (1.0-4.8); Lymphocytes % (A) 1 %; MCH 28.9 pg (25.0-35.0); MCHC 30.1 g/dL (31.0-37.0); Mean Platelet Volume 10.6; Monocytes # (A) 0.5 k/uL (0-1.0); Monocytes % (A) 3 %; Neutrophils # (A) 15.3 k/uL (1.3-7.7); Neutrophils % (A) 96 %; Platelet Count 230 k/uL (150-450); RBC 3.21 m/uL (4.30-5.90)
[2022-05-20 07:03] LABS: HGB 9.3 gm/dL (13.0-17.5)
[2022-05-20 07:04] LABS: MCV 96.1 fL (80.0-100.0)
--- NOTE | 2022-05-20 07:05 | XR ---
EXAMINATION TYPE: XR chest 1V portable DATE OF EXAM: 05/20/2022 5:28 AM COMPARISON: Chest radiograph from one day prior. TECHNIQUE: XR chest 1V portable Portable AP radiograph of the chest. CLINICAL INDICATION:Male, 82 years old with history of Tube placement; FINDINGS: Lungs/Pleura: Similar multifocal airspace opacities. No evidence of pneumothorax or pleural effusion. Pulmonary vascularity: Unremarkable. Heart/mediastinum: Cardiomediastinal silhouette is unremarkable. Left atrial appendage occlusion clover ce is present. Musculoskeletal: No acute osseous pathology. Midline sternotomy wires are noted. Other findings: None Lines/Tubes: Endotracheal tube with distal tip 2.8 cm above the [place]. Nasogastric tube with its distal tip and side-port projecting under the diaphragm. Left internal jugular central venous catheter with distal tip at the cavoatrial junction. IMPRESSION: 1. Similar multifocal airspace opacities. 2. Stable support line and tubes.
[2022-05-20] MEDS: APIXABAN 2.5 MG TABLET PO SCH ×2 (08:46→20:27)
[2022-05-20] MEDS: PANTOPRAZOLE 40 MG/10 ML VIAL IVP SCH (08:46)
[2022-05-20] MEDS: MAGNESIUM OXIDE 400 MG TAB PO SCH (08:46)
[2022-05-20] MEDS: CHLORHEXIDINE GLUCONATE 15 ML CUP MUCOUS MEM SCH ×2 (08:46→20:28)
[2022-05-20] MEDS: ASPIRIN 81 MG PO SCH (08:46)
[2022-05-20] MEDS: SODIUM CHLORIDE 0.9% 1,000 ML IV SCH ×2 (08:47→08:50)
[2022-05-20] MEDS: POTASSIUM BICARBONATE/CIT AC 20 MEQ TABLET.EFF NG-TUBE SCH ×4 (09:29→16:25)
--- NOTE | 2022-05-20 10:00 | P.PN ---
Subjective Progress Note Date: 05/20/22 Principal diagnosis: Acute hypoxic respiratory failure The patient is a pleasant 82-year-old gentleman with a past medical history significant for CAD and status post CABG was performed 2 months ago recently as well as hypertension and dyslipidemia and paroxysmal atrial fibrillation who was admitted to the hospital was acute hypoxic respiratory failure felt to be related to a component of heart failure versus amiodarone toxicity. The patient was intubated and subsequently started on mechanical ventilation. Also he was hypotensive for a small dose of norepinephrine. The patient underwent an echo which showed normal left ventricle systolic function May 202021 The patient was seen this morning. He remains intubated. He remains in stable for a small dose of norepinephrine in process to be weaned from it. He has been maintaining normal sinus mechanism with sinus bradycardia. He is on oral anticoagulation at this point. Objective - Vital Signs Vital signs: Vital Signs Temp 97.9 F 05/20/22 08:00 Pulse 57 L 05/20/22 09:15 Resp 25 H 05/20/22 09:15 BP 113/59 05/20/22 09:15 Pulse Ox 99 05/20/22 09:15 FiO2 40 05/20/22 08:12 Intake & Output 05/19/22 05/20/22 05/20/22 18:59 06:59 18:59 Intake Total 4093.362 1885.863 426.089 Output Total 355 465 115 Balance 3738.362 1420.863 311.089 Weight 80.7 kg 86.5 kg Intake: IV 2515 636 212 NS Pressure Bag 15 36 12 Sodium Chloride 0.9% 1, 500 600 200 000 ml @ 50 mls/hr IV . Q20H [facility] Rx#:[id number] Sodium Chloride 0.9% 2, 2000 000 ml @ 999 mls/hr IV . Q2H1M [facility] Rx#:[id number] Intake, IV Titration 1388.362 799.863 24.089 Amount Lactated Ringers 1,000 ml 1000 @ 999 mls/hr IV .Q1H1M [facility] Rx#:[id number] Norepinephrine 4 mg In 217.226 459.902 Sodium Chloride 0.9% 250 ml @ 0.03 MCG/KG/MIN 9. 224 mls/hr IV .Q24H [facility] Rx#:[id number] propofoL 1,000 mg In 171.136 339.961 24.089 Empty Bag 1 bag @ 15 MCG/ KG/MIN 7.263 mls/hr IV . [id number] [facility] Rx#:[id number] Tube Feeding 80 330 160 Other 110 120 30 Output: Urine 355 465 115 Other: Voiding Method Indwelling Catheter Indwelling Catheter Indwelling Catheter ABP, PAP, CO, CI - Last Documented Arterial Blood Pressure 120/48 - Constitutional General appearance: Present: no acute distress - Respiratory Respiratory: bilateral: diminished - Cardiovascular Rhythm: regular - Labs CBC & Chem 7: 05/20/22 06:27 05/20/22 06:27 Labs: Abnormal Lab Results - Last 24 Hours (Table) 05/19/22 05/19/22 05/20/22 Range/Units 17:46 23:20 05:48 WBC (3.8-10.6) k/uL RBC (4.30-5.90) m/uL Hgb (13.0-17.5) gm/dL Hct (39.0-53.0) % MCHC (31.0-37.0) g/dL Neutrophils # (1.3-7.7) k/uL Lymphocytes # (1.0-4.8) k/uL ABG pCO2 54 H (35-45) mmHg ABG HCO3 34 H (21-25) mmol/L ABG Total CO2 35 H (19-24) mmol/L ABG O2 Saturation 97.8 H (94-97) % Potassium (3.5-5.1) mmol/L Carbon Dioxide (22-30) mmol/L BUN (9-20) mg/dL Glucose (74-99) mg/dL POC Glucose (mg/dL) 201 H 195 H (70-110) mg/dL Calcium (8.4-10.2) mg/dL AST (17-59) U/L Total Protein (6.3-8.2) g/dL Albumin (3.5-5.0) g/dL 05/20/22 05/20/22 05/20/22 Range/Units 06:24 06:27 06:27 WBC 16.0 H (3.8-10.6) k/uL RBC 3.21 L (4.30-5.90) m/uL Hgb 9.3 L D (13.0-17.5) gm/dL Hct 30.9 L (39.0-53.0) % MCHC 30.1 L (31.0-37.0) g/dL Neutrophils # 15.3 H (1.3-7.7) k/uL Lymphocytes # 0.1 L (1.0-4.8) k/uL ABG pCO2 (35-45) mmHg ABG HCO3 (21-25) mmol/L ABG Total CO2 (19-24) mmol/L ABG O2 Saturation (94-97) % Potassium 3.3 L (3.5-5.1) mmol/L Carbon Dioxide 32 H (22-30) mmol/L BUN 43 H (9-20) mg/dL Glucose 221 H (74-99) mg/dL POC Glucose (mg/dL) 225 H (70-110) mg/dL Calcium 7.5 L (8.4-10.2) mg/dL AST 15 L (17-59) U/L Total Protein 4.7 L (6.3-8.2) g/dL Albumin 2.2 L (3.5-5.0) g/dL Assessment and Plan Assessment: Assessment CAD status post CABG Acute hypoxic respiratory failure Paroxysmal atrial fibrillation Multiple comorbid conditions Plan The right wean the patient from norepinephrine Continue oral anticoagulation Follow-up with the patient
--- NOTE | 2022-05-20 11:03 | P.PN ---
Subjective Progress Note Date: 05/20/22 This is an 82-year-old white male with history of coronary artery disease, recent CABG about 2 months ago, this was done at [facility]. Patient presented to [facility] with a few days' history of increased shortness of breath, and his shortness of breath, much worse today. In addition to shortness of breath, the patient is coughing, the cough is productive with whitish phlegm, no fever no chills, no hemoptysis, no chest pain. workup in [place] showed evidence of pulmonary edema, he also had elevated BNP level, and elevated troponin level. Patient was transferred to [facility], I saw him down in the ER. Patient is on BiPAP, 12/5/55%, O2 saturation is in the low 90s. Patient was already given Lasix by the admitting physician and he is now on Lasix at 60 mg IV push twice a day. Some improvement clinically noted according to the patient. Patient has no previous history of COPD, and no previous history of smoking. His WBC count is 12.6 hemoglobin is 1 0.3, basic metabolic profile is normal renal profile is normal bicarb is 38 lactic acid 4.6. ProBNP level is 3790. Chest x-ray is consistent with interstitial edema however underlying pneumonia is not entirely ruled out but felt to be less likely. EKG showed sinus rhythm, and incomplete right bundle branch block pattern otherwise unremarkable, nonspecific ST and T-wave changes noted. The patient is seen today 05/10/2022 in follow-up on the selective care unit. He is currently resting in bed. Awake and alert in no acute distress. He is still on BiPAP 12/5 and 55%. white count 11.0. Hemoglobin 9.6. Platelets 275. Sodium 142. Potassium 3.8. Bicarb 42. BUN 40. Creatinine 0.82. Glucose 109. He is continued on Lasix 60 mg every 12 hours. No accurate I&O recorded. Current weight 83.5 kg. today's chest x-ray is essentially unchanged. Pro- calcitoninn level 0.07. I'm evaluating this patient today on 05/11/2022. His work of breathing has obviously increased overnight. He is requiring BiPAP titrations and is currently 14/5 and 70%. He is tachypneic breathing about 30-40 breaths per minute with accessory muscle use. Recent echocardiogram was performed on 05/10/2022 which showed a normal ejection fraction of 50% and some moderate to severe mitral regurgitation. He is receiving furosemide 80 mg twice a day. A urinary catheter was inserted yesterday for accurate intake and output. Fluid balance is -1 L. Normal saline is using KVO. CT of the chest with contrast was also performed yesterday on 05/10/2022 which showed diffuse airspace opacities and consolidation changes, some small bilateral pleural effusions, evidence of pulmonary hypertension, and cardiomegaly. Likely representing a combination of atypical pneumonia versus inflammatory process. There is also some superimposed pulmonary vascular congestion. Chest x-ray from today 05/11/2022 continues to show diffuse interstitial and alveolar infiltrates bilaterally. He continues to receive by mouth amiodarone. And his heart rhythm is currently normal sinus. Patient remains afebrile. CBC did not show any leukocytosis with a WBC of 7.8, hemoglobin 9.4, hematocrit 30.9, platelet count 280,000. BMP from today shows sodium 140, potassium of 3.9, chloride of 94, serum CO2 of 42 to, UN 45, creatinine 1.04, glucose 139. Remains on Lovenox for DVT prophylaxis. We'll transfer this patient in ICU for closer monitoring. Reevaluated today on 05/12/2022, patient is basically about the same. Remains on BiPAP, he is on IPAP of 14 EPAP of 5 and FiO2 70%, chest x-ray continues to show diffuse interstitial process bilaterally, it is difficult to tell how much of this is true pulmonary edema and how much of it is acute lung injury, induced by amiodarone. Not to mention the patient is not a candidate to perform or even think of lung biopsy. Patient is receiving diuretics and he is a -2 L in the last 24 hours, he is now on Lasix and Diamox, not seeing much improvement in his overall pulmonary status in spite of aggressive diuresis as a matter of fact I have a strong feeling that the patient will require eventually intubation and mechanical ventilation if he continues to do poorly. He is basically marginal at best at this point. CBC is relatively normal electrolytes are normal except bicarb is up to 44, patient is sleepy developing a bit of metabolic contraction alkalosis. Hence Diamox was added. Patient remains on steroids for his presumptive amiodarone induced lung injury although this is not definitive Patient was reevaluated today on 05/09/22, remains in the ICU, his overall pu lmonary status is marginal at best. Continues to have abnormal chest x-ray, continues to be relatively hypoxic, patient is now on high flow oxygen via airvo, FiO2 90% and 60 L flow, seems to be tolerating this better than the BiPAP, yesterday he was on BiPAP 14/6/80%. Remains on diuretics, remains on steroids, patient tells me that he feels a bit better today, although his chest x-ray is basically about the same, and his oxygenation seems to be marginal/the same.CBC is unremarkable, basic metabolic profile is normal bicarb is 46 BUN is 57 creatinine 1.72, hence I will start cutting down on his diuretics, we will continue Diamox continue Diamox, continue Lasix but quit ahead and stop again I am quite concerned about the rapid increase in his creatinine, not to mention the patient has been in a negative balance over the last 48 hours.since admission, the patient is almost -7 L. And he is becoming quite dehydrated. Reevaluated today on 05/14/22, patient remains in the ICU, remains on BiPAP with IPAP of 14/EPAP of 6, FiO2 is 70%. Patient is becoming more and more alkalotic, hence I'm stopping his Lasix. We will continue the patient on Diamox. He is also off Zaroxolyn. Patient has been in a significant negative balance over the last few days. Last night he became quite agitated and we had to place him on Precedex, he is on 0.4 mcg/kg/h of Precedex today. Seems to be calm, chest x- ray continues to show evidence of interstitial infiltrates bilaterally. Again it is not clear how much of it is really congestive heart failure and how much of an acute lung injury.WBC count today is 9 hemoglobin is 10.3, bicarb is elevated at 52 BUN is 50 creatinine 1.61 slightly better than yesterday. Reevaluated today on 05/15/22, patient remains in the ICU, pulmonary status remains marginal at best. However his chest x-ray is probably showing slight improvement, and his FiO2 requirement is less, patient is now on airvo at 60% FiO2 and 60 L flow, O2 sats ration is in the mid 90s. He was on BiPAP earlier today with IPAP of 14 EPAP of 6 and FiO2 of 60%. Remains on Precedex at 0.4 mcg/kg/h. IV fluids at KVO, diuretics have been cut down significantly, remains on Diamox only. CBC is basically unremarkable bicarb is down to 45 and 52 BUN is down to 46 creatinine is down to 1.160. Patient is comfortable on airvo, does not seem to be in distress The patient is seen today 05/16/2022 in follow-up in the intensive care unit. He is currently resting fairly comfortably in bed. Awake and alert. He is still requiring quite a bit of oxygen he was wearing BiPAP 14/60-60% FiO2. Currently more comfortable on the AirVo high flow oxygen at 60 L and 65% FiO2. He has Precedex running at 0.3 mg/kg/h. Normal saline at 20 ML's per hour. Chest x-ray continues to show small bilateral pleural effusions with slightly increased diffuse bilateral multifocal patchy airspace disease. White count 10.2. Hemoglobin 9.8. Platelets 287. Sodium 135. Potassium 3.9. Bicarb 41. BUN 42. Creatinine 1.02. Glucose 145. Arterial blood gases revealed a PaO2 of 66, pCO2 63, pH 7.4-65% FiO2. He is continued on DuoNeb inhalations, IV Solu- Medrol. Lovenox for DVT prophylaxis. He remains off diuretics. Currently in a -500 mL balance. The patient is seen today 05/17/2022 in follow-up in the intensive. He is currently sitting up in a chair at the bedside. Awake and alert in no acute distress. He is feeling better today compared to yesterday. He is still requiring AirVo high flow oxygen and 60 L and 65% FiO2. BiPAP has been discontinued. No IV fluids currently. Chest x-ray continues to show diffuse increased lung markings bilaterally. ProBNP 2420. Pro-calcitonin was 0.06. Today's labs are pending. He remains off diuretics. Continued on Diamox. Continued on DuoNeb inhalations, IV Solu-Medrol. Anticoagulated with Eliquis. Remains off amiodarone. Continued in sinus rhythm. The patient seen today 05/18/2022 in follow-up in the intensive care unit. He is currently resting comfortably in bed. Awake and alert in no acute distress. He is still requiring AirVo high flow oxygen at 60 L/m and 65% FiO2. Normal saline at KVO. White count 16.8. Hemoglobin 11.7. Platelets 279. Sodium 140. Potassium 3.9. Bicarb 40. The 144. Creatinine 1.06. He is continued on DuoNeb inhalations, IV site Medrol. Anticoagulated with Eliquis. The patient is seen today 05/19/2022 in follow-up in the intensive care unit. Throughout the day and into the evening last night patient had become more obtunded and less responsive. He was initiated on AirVo 60 L and 65% with O2 saturations are 96%. He became hypercapnic with a CO2 of 81 and was placed on BiPAP 14/6 and 60% FiO2. He was eventually intubated approximately 6:00 this morning the patient required intubation and mechanical ventilatory support. He is currently an assist-control mode at a rate of 20, tidal by 450, FiO2 50% and a PEEP of 5. Blood gases revealed a PaO2 of 316, pCO2 65 and a pH of 7.35 100% FiO2. FiO2 titrated down appropriately. He is sedated on propofol at 40 mcg/kg/m. Maintained on norepinephrine at 0.06 mcg/kg/m. Normal saline at 50 MLS per hour. Follow-up chest x-ray revealed satisfactory intubation, nasogastric tube in place. Persistent bilateral interstitial edema versus pneumonia. Tiny effusions. White count 18.5. Hemoglobin 11.3. Platelets 223. Sodium 142. Potassium 4.0. BUN 48. Creatinine 1.06. Glucose 173. AST 18. ALT 18. ProBNP 5440. Cortisol 14. He is continued on DuoNeb inhalations, IV Solu-Medrol. Anticoagulated with Eliquis. The patient is seen today 05/20/2022 in follow-up in the intensive care unit. He remains intubated and on the mechanical ventilator. Current settings are assist-control mode at a rate of 20, tight up in 450, FiO2 40% and a PEEP of 5. Morning blood gases reveal pO2 of 87, pCO2 54, pH 7.40. He is receiving normal saline at 50 ML's per hour. Sedated with propofol at 40 mcg/kg/m. Still requiring norepinephrine at 8.6 mg/m. He is receiving nutrition via NG tube with vital HP at 40 ML's per hour with a goal of 45. Chest x-ray reveals similar multifocal airspace opacities. Endotracheal and nasogastric tube secured in place. Left internal jugular central line in place. White count 16.0. Hemoglobin 9.3. Sodium 139. Potassium 3.3. Bicarb 32. BUN 43. Creatinine 0.86. Glucose 221. AST 15. ALT 16. He is currently in a +5 L balance. Remains on DuoNeb inhalations, IV Solu-Medrol, anticoagulated with Eliquis. Initial pro-calcitonin 0.06. Follow-up pro-calcitonin 0.08. ProBNP 5440. Objective - Vital Signs Vital signs: Vital Signs Temp 97.9 F 05/20/22 08:00 Pulse 57 L 05/20/22 09:15 Resp 25 H 05/20/22 09:15 BP 113/59 05/20/22 09:15 Pulse Ox 99 05/20/22 09:15 FiO2 40 05/20/22 08:12 Intake & Output 05/19/22 05/20/22 05/20/22 18:59 06:59 18:59 Intake Total 4093.362 1885.863 471.164 Output Total 355 465 115 Balance 3738.362 1420.863 356.164 Weight 80.7 kg 86.5 kg Intake: IV 2515 636 212 NS Pressure Bag 15 36 12 Sodium Chloride 0.9% 1, 500 600 200 000 ml @ 50 mls/hr IV . Q20H [facility] Rx#:[id number] Sodium Chloride 0.9% 2, 2000 000 ml @ 999 mls/hr IV . Q2H1M [facility] Rx#:[id number] Intake, IV Titration 1388.362 799.863 69.164 Amount Lactated Ringers 1,000 ml 1000 @ 999 mls/hr IV .Q1H1M [facility] Rx#:[id number] Norepinephrine 4 mg In 217.226 459.902 13.118 Sodium Chloride 0.9% 250 ml @ 0.03 MCG/KG/MIN 9. 224 mls/hr IV .Q24H [facility] Rx#:[id number] propofoL 1,000 mg In 171.136 339.961 56.046 Empty Bag 1 bag @ 15 MCG/ KG/MIN 7.263 mls/hr IV . [id number] [facility] Rx#:[id number] Tube Feeding 80 330 160 Other 110 120 30 Output: Urine 355 465 115 Other: Voiding Method Indwelling Catheter Indwelling Catheter Indwelling Catheter ABP, PAP, CO, CI - Last Documented Arterial Blood Pressure 120/48 - Exam GENERAL EXAM: Intubated, sedated 82-year-old male, currently on the ventilator with 50% FiO2 and a PEEP of 5, comfortable in no apparent distress. HEAD: Normocephalic. EYES: Sluggish reaction of pupils, equal size. NOSE: Clear with pink turbinates. THROAT: Oral endotracheal and gastric tube secured in place. No erythema or exudates. NECK: No masses, no JVD. CHEST: No chest wall deformity. LUNGS: Equal air entry with bibasilar crackles. CVS: S1 and S2 normal with an audible murmur, regular rhythm. ABDOMEN: No hepatosplenomegaly, normal bowel sounds, no guarding or rigidity. SPINE: No scoliosis or deformity SKIN: No rashes CENTRAL NERVOUS SYSTEM: No focal deficits, tone is normal in all 4 extremities. EXTREMITIES: There is 2+ peripheral edema. No clubbing, no cyanosis. Peripheral pulses are intact. - Labs CBC & Chem 7: 05/20/22 06:27 05/20/22 06:27 Labs: Abnormal Lab Results - Last 24 Hours (Table) 05/19/22 05/19/22 05/20/22 Range/Units 17:46 23:20 05:48 WBC (3.8-10.6) k/uL RBC (4.30-5.90) m/uL Hgb (13.0-17.5) gm/dL Hct (39.0-53.0) % MCHC (31.0-37.0) g/dL Neutrophils # (1.3-7.7) k/uL Lymphocytes # (1.0-4.8) k/uL ABG pCO2 54 H (35-45) mmHg ABG HCO3 34 H (21-25) mmol/L ABG Total CO2 35 H (19-24) mmol/L ABG O2 Saturation 97.8 H (94-97) % Potassium (3.5-5.1) mmol/L Carbon Dioxide (22-30) mmol/L BUN (9-20) mg/dL Glucose (74-99) mg/dL POC Glucose (mg/dL) 201 H 195 H (70-110) mg/dL Calcium (8.4-10.2) mg/dL AST (17-59) U/L Total Protein (6.3-8.2) g/dL Albumin (3.5-5.0) g/dL 05/20/22 05/20/22 05/20/22 Range/Units 06:24 06:27 06:27 WBC 16.0 H (3.8-10.6) k/uL RBC 3.21 L (4.30-5.90) m/uL Hgb 9.3 L D (13.0-17.5) gm/dL Hct 30.9 L (39.0-53.0) % MCHC 30.1 L (31.0-37.0) g/dL Neutrophils # 15.3 H (1.3-7.7) k/uL Lymphocytes # 0.1 L (1.0-4.8) k/uL ABG pCO2 (35-45) mmHg ABG HCO3 (21-25) mmol/L ABG Total CO2 (19-24) mmol/L ABG O2 Saturation (94-97) % Potassium 3.3 L (3.5-5.1) mmol/L Carbon Dioxide 32 H (22-30) mmol/L BUN 43 H (9-20) mg/dL Glucose 221 H (74-99) mg/dL POC Glucose (mg/dL) 225 H (70-110) mg/dL Calcium 7.5 L (8.4-10.2) mg/dL AST 15 L (17-59) U/L Total Protein 4.7 L (6.3-8.2) g/dL Albumin 2.2 L (3.5-5.0) g/dL Assessment and Plan Assessment: Acute hypoxemic respiratory failure secondary to an acute exacerbation of suspected congestive heart failure, moderate to severe mitral regurgitation, cannot rule out amiodarone toxicity fibrosis. Initial pro-calcitonin 0.07. Follow-up pro-calcitonin 05/19/2022 remains negative at 0.08. BNP 5440. No fever. No leukocytosis. Influenza screen negative. CoVID screen negative. RSV screen negative. Acute hypercapnic/hypoxemic respiratory failure with altered mental status and obtundation requiring intubation mechanical ventilatory support early in the morning of 05/19/2022 Acute pulmonary edema, diuresed over 2 L per day on 05/12 through 05/14/2022. Currently off Lasix and Diamox History of paroxysmal atrial fibrillation maintained on amiodarone at 400 mg twice a day for approximately 2 months History of recent coronary artery bypass grafting at [facility] History of underlying coronary disease Hyperlipidemia Hypothyroidism History of gastroesophageal reflux disease without esophagitis Former smoker Plan: The patient was seen and evaluated Chest x-ray, ABGs, labs and medications reviewed Continue the current vent settings Daily interruption of sedation to assess his neuro status Continue IV Solu-Medrol and bronchodilators Procalcitonin remains negative We will continue to follow Critical care time greater than 30 minutes, not including procedures I have personally seen and examined the patient, performed the documentation and the assessment and plan as written. Number of minutes spent on the visit: 15.
[2022-05-20 11:12] LABS: Glucose,Whole Blood 220 mg/dL (70-110)
--- NOTE | 2022-05-20 13:54 | P.PN ---
Subjective This is a pleasant 82 years old male with multiple medical problems as below including history of atrial fibrillation on amiodarone at home and not on a blood thinner, history of coronary artery disease status post recent CABG, heart failure, mitral valve disease, GERD, hyperlipidemia and hypothyroidism Presents with respiratory distress and hypoxia currently he is in the ICU very lethargic, easily arousable and answers questions and follows commands but very tired and go back to sleep. History requiring high flow nasal cannula at 60 L/m with FiO2 of 64-65%. Also he is kept on liquids 2.5 by potato grader for A. fib, he is on diuretic aceta zolamide, no Lasix currently but also his place on some gentle hydration by potato grader for possible dehydration, renal function is improving. Today down to 1.0. Also there is suspected pulmonary fibrosis per pulmonary team, home dose of amiodarone as healthy bowel. Echocardiogram showing ejection fraction 50% with mild to moderate to severe mitral regurgitation There is some evidence of COPD exacerbation and reactive airway disease and he is kept on Solu-Medrol 40 mg. WBC 16.8 while on steroids, hemoglobin 11.1 05/19/2022 Patient that more respiratory distress overnight and he got intubated and placed on mechanical ventilation with sedation, with deep 05 and FiO2 of 100%. Patient also blood pressure on the low side 81/51, he is getting 2 units of blood transfusion and possible he'll need pressors per critical care team Urine output was 25-30 mL/h, currently lowered to 10 mL/h, Higginbotham catheter in place we'll keep monitoring Patient is also an Olympus 2.5, Solu-Medrol 60 mg. And acetazolamide 05/20/2022 Patient remains intubated and sedated in the ICU, with pulmonary/critical care team followed closely and plan to do sedation holiday. Patient Vitas looks stable, afebrile WBC down to 16,000, hemoglobin down to 9.3, creatinine improved to 0.8. Patient remains on liquids 2.5 mg added for his paroxysmal A. fib, Solu-Medrol 60 mg, normal saline 50 mg. And was discontinued and patient started on pressors levophed Objective - Vital Signs Vital signs: Vital Signs Temp 97.6 F 05/20/22 12:00 Pulse 58 L 05/20/22 13:30 Resp 20 05/20/22 13:30 BP 114/55 05/20/22 13:00 Pulse Ox 100 05/20/22 13:30 FiO2 40 05/20/22 11:03 Intake & Output 05/19/22 05/20/22 05/20/22 18:59 06:59 18:59 Intake Total 4093.362 1885.863 674.400 Output Total 355 465 255 Balance 3738.362 1420.863 419.400 Weight 80.7 kg 86.5 kg Intake: IV 2515 636 371 NS Pressure Bag 15 36 21 Sodium Chloride 0.9% 1, 500 600 350 000 ml @ 50 mls/hr IV . Q20H [facility] Rx#:[id number] Sodium Chloride 0.9% 2, 2000 000 ml @ 999 mls/hr IV . Q2H1M [facility] Rx#:[id number] Intake, IV Titration 1388.362 799.863 73.400 Amount Lactated Ringers 1,000 ml 1000 @ 999 mls/hr IV .Q1H1M [facility] Rx#:[id number] Norepinephrine 4 mg In 217.226 459.902 13.118 Sodium Chloride 0.9% 250 ml @ 0.03 MCG/KG/MIN 9. 224 mls/hr IV .Q24H [facility] Rx#:[id number] propofoL 1,000 mg In 171.136 339.961 60.282 Empty Bag 1 bag @ 15 MCG/ KG/MIN 7.263 mls/hr IV . [id number] [facility] Rx#:[id number] Tube Feeding 80 330 200 Other 110 120 30 Output: Urine 355 465 255 Other: Voiding Method Indwelling Catheter Indwelling Catheter Indwelling Catheter ABP, PAP, CO, CI - Last Documented Arterial Blood Pressure 122/50 - Exam -GENERAL: The patient is intubated and sedated. HEENT: Pupils are round and equally reacting to light. EOMI. No scleral icterus. No conjunctival pallor. Normocephalic, atraumatic. No pharyngeal erythema. No thyromegaly. CARDIOVASCULAR: S1 and S2 present. No murmurs, rubs, or gallops. -PULMONARY: Chest is clear to auscultation, no wheezing bilateral crackles. ABDOMEN: Soft, nontender, nondistended, normoactive bowel sounds. No palpable organomegaly. MUSCULOSKELETAL: No joint swelling or deformity. -EXTREMITIES: No cyanosis, clubbing, Bilateral pitting leg edema. NEUROLOGICAL: Gross neurological examination did not reveal any focal deficits. SKIN: No rashes. no petechiae. - Labs CBC & Chem 7: 05/20/22 06:27 05/20/22 12:55 Labs: Abnormal Lab Results - Last 24 Hours (Table) 05/19/22 05/19/22 05/20/22 Range/Units 17:46 23:20 05:48 WBC (3.8-10.6) k/uL RBC (4.30-5.90) m/uL Hgb (13.0-17.5) gm/dL Hct (39.0-53.0) % MCHC (31.0-37.0) g/dL Neutrophils # (1.3-7.7) k/uL Lymphocytes # (1.0-4.8) k/uL ABG pCO2 54 H (35-45) mmHg ABG HCO3 34 H (21-25) mmol/L ABG Total CO2 35 H (19-24) mmol/L ABG O2 Saturation 97.8 H (94-97) % Potassium (3.5-5.1) mmol/L Carbon Dioxide (22-30) mmol/L BUN (9-20) mg/dL Glucose (74-99) mg/dL POC Glucose (mg/dL) 201 H 195 H (70-110) mg/dL Calcium (8.4-10.2) mg/dL AST (17-59) U/L Total Protein (6.3-8.2) g/dL Albumin (3.5-5.0) g/dL 05/20/22 05/20/22 05/20/22 Range/Units 06:24 06:27 06:27 WBC 16.0 H (3.8-10.6) k/uL RBC 3.21 L (4.30-5.90) m/uL Hgb 9.3 L D (13.0-17.5) gm/dL Hct 30.9 L (39.0-53.0) % MCHC 30.1 L (31.0-37.0) g/dL Neutrophils # 15.3 H (1.3-7.7) k/uL Lymphocytes # 0.1 L (1.0-4.8) k/uL ABG pCO2 (35-45) mmHg ABG HCO3 (21-25) mmol/L ABG Total CO2 (19-24) mmol/L ABG O2 Saturation (94-97) % Potassium 3.3 L (3.5-5.1) mmol/L Carbon Dioxide 32 H (22-30) mmol/L BUN 43 H (9-20) mg/dL Glucose 221 H (74-99) mg/dL POC Glucose (mg/dL) 225 H (70-110) mg/dL Calcium 7.5 L (8.4-10.2) mg/dL AST 15 L (17-59) U/L Total Protein 4.7 L (6.3-8.2) g/dL Albumin 2.2 L (3.5-5.0) g/dL 05/20/22 05/20/22 Range/Units 11:11 12:55 WBC (3.8-10.6) k/uL RBC (4.30-5.90) m/uL Hgb (13.0-17.5) gm/dL Hct (39.0-53.0) % MCHC (31.0-37.0) g/dL Neutrophils # (1.3-7.7) k/uL Lymphocytes # (1.0-4.8) k/uL ABG pCO2 (35-45) mmHg ABG HCO3 (21-25) mmol/L ABG Total CO2 (19-24) mmol/L ABG O2 Saturation (94-97) % Potassium 3.4 L (3.5-5.1) mmol/L Carbon Dioxide (22-30) mmol/L BUN (9-20) mg/dL Glucose (74-99) mg/dL POC Glucose (mg/dL) 220 H (70-110) mg/dL Calcium (8.4-10.2) mg/dL AST (17-59) U/L Total Protein (6.3-8.2) g/dL Albumin (3.5-5.0) g/dL Microbiology - Last 24 Hours (Table) 05/20/22 00:13 Sputum Culture - Preliminary Sputum Assessment and Plan Assessment: Acute CHF exacerbation Possible reactive airway disease versus acute COPD exacerbation Acute hypoxic respiratory failure, status post intubation on 05/19 Moderate to severe mitral regurgitation Paroxysmal atrial fibrillation Recent history of bypass surgery Possible pulmonary fibrosis Plan: Patient is being multiple IV fluids Continue with current management with the pulmonary/critical care team consult Continue with Eliquis Continue with Solu-Medrol Keep holding amiodarone with cardiology team recommendation Continue with acetazolamide Continue with home dose of aspirin Cardiology and pulmonary team of the case investigator blood pressure, a pressors when necessary for hypotension monitor urine output Labs and medication were reviewed.. Continue same treatment. Continue with symptomatic treatment. Resume home medication. Monitor lytes and vitals. DVT and GI prophylaxis. Further recommendations as per clinical course of the patient DVT prophylaxis: Eliquis GI Prophylaxis: Ppi PT/OT: Deferred Prognosis is guarded
[2022-05-20 17:51] LABS: Glucose,Whole Blood 212 mg/dL (70-110)
[2022-05-20] MEDS ORDERED: POTASSIUM BICARBONATE/CIT AC 20 MEQ TABLET.EFF NG-TUBE SCH (20:00)
[2022-05-20] MEDS: ATORVASTATIN 20 MG TAB PO SCH (20:28)
[2022-05-20 23:24] LABS: Glucose,Whole Blood 219 mg/dL (70-110)
[2022-05-21] MEDS: IPRATROPIUM-ALBUTEROL 3 ML NEB INHALATION SCH ×5 (03:35→19:52)
[2022-05-21 05:04] LABS: Basophils % (A) 0 %; Eosinophils % (A) 0 %; HCT 31.6 % (39.0-53.0); HGB 9.7 gm/dL (13.0-17.5); Hypochromasia Marked; Lymphocytes # (A) 0.1 k/uL (1.0-4.8); Lymphocytes % (A) 1 %; MCH 29.2 pg (25.0-35.0); MCHC 30.7 g/dL (31.0-37.0); MCV 95.2 fL (80.0-100.0); Mean Platelet Volume 10.6; Monocytes # (A) 0.5 k/uL (0-1.0); Monocytes % (A) 3 %; Neutrophils # (A) 17.3 k/uL (1.3-7.7); Neutrophils % (A) 96 %; Platelet Count 226 k/uL (150-450); RBC 3.32 m/uL (4.30-5.90); RDW 14.1 % (11.5-15.5)
[2022-05-21 05:20] LABS: African American GFR (CKD) >90 (>60 ml/min/1.73 sqM); Anion Gap 0 mmol/L; Blood Urea Nitrogen 42 mg/dL (9-20); Calcium 7.6 mg/dL (8.4-10.2); Carbon Dioxide 35 mmol/L (22-30); Chloride 105 mmol/L (98-107); Glucose 236 mg/dL (74-99); Non-African American GFR(CKD) 82 (>60 ml/min/1.73 sqM); Sodium 140 mmol/L (137-145)
[2022-05-21 05:31] LABS: ABG HCO3 34 mmol/L (21-25); ABG Oxygen Saturation 92.2 % (94-97); ABG PCO2 55 mmHg (35-45); ABG PO2 61 mmHg (83-108); ABG TCO2 36 mmol/L (19-24); Allen Test Performed? Yes
[2022-05-21] MEDS: NOREPINEPHRINE 4 MG in SODIUM CHLORIDE 0.9% 250 ML IV SCH ×2 (05:36→14:09)
[2022-05-21 05:43] LABS: Glucose,Whole Blood 268 mg/dL (70-110)
[2022-05-21] MEDS: INSULIN ASPART (NovoLOG) 100 UNIT/ML VIAL SQ SCH ×4 (05:54→23:10)
[2022-05-21] MEDS: methylPREDNISolone SOD SUCCI 125 MG/2 ML VIAL IV SCH (05:54)
[2022-05-21] MEDS: LEVOTHYROXINE 125 MCG TAB PO SCH (06:53)
--- NOTE | 2022-05-21 07:29 | XR ---
EXAMINATION TYPE: XR chest 1V portable DATE OF EXAM: 05/21/2022 5:08 AM COMPARISON: Chest radiograph from one day prior. TECHNIQUE: XR chest 1V portable Frontal view of the chest. CLINICAL INDICATION:Male, 82 years old with history of Tube placement; FINDINGS: Lungs/Pleura: Similar multifocal airspace opacities. No evidence of pneumothorax or pleural effusion. Pulmonary vascularity: Unremarkable. Heart/mediastinum: Cardiomediastinal silhouette is unremarkable. Left atrial appendage occlusion clover ce is present. Musculoskeletal: No acute osseous pathology. Midline sternotomy wires are noted. Other findings: None Lines/Tubes: Endotracheal tube with distal tip 3.6 cm above the [place]. Nasogastric tube with its distal tip and side-port projecting under the diaphragm. [id number] projecting over the right hemithorax with distal tip at the cavoatrial junction. IMPRESSION: 1. Similar multifocal airspace opacities. 2. Stable support lines and tubes.
[2022-05-21] MEDS: SODIUM CHLORIDE 0.9% 1,000 ML IV SCH (07:39)
[2022-05-21] MEDS: PANTOPRAZOLE 40 MG/10 ML VIAL IVP SCH (08:09)
[2022-05-21] MEDS: APIXABAN 2.5 MG TABLET PO SCH ×2 (08:09→20:46)
[2022-05-21] MEDS: CHLORHEXIDINE GLUCONATE 15 ML CUP MUCOUS MEM SCH ×2 (08:09→20:46)
[2022-05-21] MEDS: MAGNESIUM OXIDE 400 MG TAB PO SCH (08:09)
[2022-05-21] MEDS: ASPIRIN 81 MG PO SCH (08:09)
--- NOTE | 2022-05-21 10:21 | P.PN ---
Subjective Progress Note Date: 05/21/22 This is an 82-year-old white male with history of coronary artery disease, recent CABG about 2 months ago, this was done at [facility]. Patient presented to [facility] with a few days' history of increased shortness of breath, and his shortness of breath, much worse today. In addition to shortness of breath, the patient is coughing, the cough is productive with whitish phlegm, no fever no chills, no hemoptysis, no chest pain. workup in [place] showed evidence of pulmonary edema, he also had elevated BNP level, and elevated troponin level. Patient was transferred to [facility], I saw him down in the ER. Patient is on BiPAP, 12/5/55%, O2 saturation is in the low 90s. Patient was already given Lasix by the admitting physician and he is now on Lasix at 60 mg IV push twice a day. Some improvement clinically noted according to the patient. Patient has no previous history of COPD, and no previous history of smoking. His WBC count is 12.6 hemoglobin is 1 0.3, basic metabolic profile is normal renal profile is normal bicarb is 38 lactic acid 4.6. ProBNP level is 3790. Chest x-ray is consistent with interstitial edema however underlying pneumonia is not entirely ruled out but felt to be less likely. EKG showed sinus rhythm, and incomplete right bundle branch block pattern otherwise unremarkable, nonspecific ST and T-wave changes noted. The patient is seen today 05/10/2022 in follow-up on the selective care unit. He is currently resting in bed. Awake and alert in no acute distress. He is still on BiPAP 12/5 and 55%. white count 11.0. Hemoglobin 9.6. Platelets 275. Sodium 142. Potassium 3.8. Bicarb 42. BUN 40. Creatinine 0.82. Glucose 109. He is continued on Lasix 60 mg every 12 hours. No accurate I&O recorded. Current weight 83.5 kg. today's chest x-ray is essentially unchanged. Pro- calcitoninn level 0.07. I'm evaluating this patient today on 05/11/2022. His work of breathing has obviously increased overnight. He is requiring BiPAP titrations and is currently 14/5 and 70%. He is tachypneic breathing about 30-40 breaths per minute with accessory muscle use. Recent echocardiogram was performed on 05/10/2022 which showed a normal ejection fraction of 50% and some moderate to severe mitral regurgitation. He is receiving furosemide 80 mg twice a day. A urinary catheter was inserted yesterday for accurate intake and output. Fluid balance is -1 L. Normal saline is using KVO. CT of the chest with contrast was also performed yesterday on 05/10/2022 which showed diffuse airspace opacities and consolidation changes, some small bilateral pleural effusions, evidence of pulmonary hypertension, and cardiomegaly. Likely representing a combination of atypical pneumonia versus inflammatory process. There is also some superimposed pulmonary vascular congestion. Chest x-ray from today 05/11/2022 continues to show diffuse interstitial and alveolar infiltrates bilaterally. He continues to receive by mouth amiodarone. And his heart rhythm is currently normal sinus. Patient remains afebrile. CBC did not show any leukocytosis with a WBC of 7.8, hemoglobin 9.4, hematocrit 30.9, platelet count 280,000. BMP from today shows sodium 140, potassium of 3.9, chloride of 94, serum CO2 of 42 to, UN 45, creatinine 1.04, glucose 139. Remains on Lovenox for DVT prophylaxis. We'll transfer this patient in ICU for closer monitoring. Reevaluated today on 05/12/2022, patient is basically about the same. Remains on BiPAP, he is on IPAP of 14 EPAP of 5 and FiO2 70%, chest x-ray continues to show diffuse interstitial process bilaterally, it is difficult to tell how much of this is true pulmonary edema and how much of it is acute lung injury, induced by amiodarone. Not to mention the patient is not a candidate to perform or even think of lung biopsy. Patient is receiving diuretics and he is a -2 L in the last 24 hours, he is now on Lasix and Diamox, not seeing much improvement in his overall pulmonary status in spite of aggressive diuresis as a matter of fact I have a strong feeling that the patient will require eventually intubation and mechanical ventilation if he continues to do poorly. He is basically marginal at best at this point. CBC is relatively normal electrolytes are normal except bicarb is up to 44, patient is sleepy developing a bit of metabolic contraction alkalosis. Hence Diamox was added. Patient remains on steroids for his presumptive amiodarone induced lung injury although this is not definitive Patient was reevaluated today on 05/09/22, remains in the ICU, his overall pu lmonary status is marginal at best. Continues to have abnormal chest x-ray, continues to be relatively hypoxic, patient is now on high flow oxygen via airvo, FiO2 90% and 60 L flow, seems to be tolerating this better than the BiPAP, yesterday he was on BiPAP 14/6/80%. Remains on diuretics, remains on steroids, patient tells me that he feels a bit better today, although his chest x-ray is basically about the same, and his oxygenation seems to be marginal/the same.CBC is unremarkable, basic metabolic profile is normal bicarb is 46 BUN is 57 creatinine 1.72, hence I will start cutting down on his diuretics, we will continue Diamox continue Diamox, continue Lasix but quit ahead and stop again I am quite concerned about the rapid increase in his creatinine, not to mention the patient has been in a negative balance over the last 48 hours.since admission, the patient is almost -7 L. And he is becoming quite dehydrated. Reevaluated today on 05/14/22, patient remains in the ICU, remains on BiPAP with IPAP of 14/EPAP of 6, FiO2 is 70%. Patient is becoming more and more alkalotic, hence I'm stopping his Lasix. We will continue the patient on Diamox. He is also off Zaroxolyn. Patient has been in a significant negative balance over the last few days. Last night he became quite agitated and we had to place him on Precedex, he is on 0.4 mcg/kg/h of Precedex today. Seems to be calm, chest x- ray continues to show evidence of interstitial infiltrates bilaterally. Again it is not clear how much of it is really congestive heart failure and how much of an acute lung injury.WBC count today is 9 hemoglobin is 10.3, bicarb is elevated at 52 BUN is 50 creatinine 1.61 slightly better than yesterday. Reevaluated today on 05/15/22, patient remains in the ICU, pulmonary status remains marginal at best. However his chest x-ray is probably showing slight improvement, and his FiO2 requirement is less, patient is now on airvo at 60% FiO2 and 60 L flow, O2 sats ration is in the mid 90s. He was on BiPAP earlier today with IPAP of 14 EPAP of 6 and FiO2 of 60%. Remains on Precedex at 0.4 mcg/kg/h. IV fluids at KVO, diuretics have been cut down significantly, remains on Diamox only. CBC is basically unremarkable bicarb is down to 45 and 52 BUN is down to 46 creatinine is down to 1.160. Patient is comfortable on airvo, does not seem to be in distress The patient is seen today 05/16/2022 in follow-up in the intensive care unit. He is currently resting fairly comfortably in bed. Awake and alert. He is still requiring quite a bit of oxygen he was wearing BiPAP 14/60-60% FiO2. Currently more comfortable on the AirVo high flow oxygen at 60 L and 65% FiO2. He has Precedex running at 0.3 mg/kg/h. Normal saline at 20 ML's per hour. Chest x-ray continues to show small bilateral pleural effusions with slightly increased diffuse bilateral multifocal patchy airspace disease. White count 10.2. Hemoglobin 9.8. Platelets 287. Sodium 135. Potassium 3.9. Bicarb 41. BUN 42. Creatinine 1.02. Glucose 145. Arterial blood gases revealed a PaO2 of 66, pCO2 63, pH 7.4-65% FiO2. He is continued on DuoNeb inhalations, IV Solu- Medrol. Lovenox for DVT prophylaxis. He remains off diuretics. Currently in a -500 mL balance. The patient is seen today 05/17/2022 in follow-up in the intensive. He is currently sitting up in a chair at the bedside. Awake and alert in no acute distress. He is feeling better today compared to yesterday. He is still requiring AirVo high flow oxygen and 60 L and 65% FiO2. BiPAP has been discontinued. No IV fluids currently. Chest x-ray continues to show diffuse increased lung markings bilaterally. ProBNP 2420. Pro-calcitonin was 0.06. Today's labs are pending. He remains off diuretics. Continued on Diamox. Continued on DuoNeb inhalations, IV Solu-Medrol. Anticoagulated with Eliquis. Remains off amiodarone. Continued in sinus rhythm. The patient seen today 05/18/2022 in follow-up in the intensive care unit. He is currently resting comfortably in bed. Awake and alert in no acute distress. He is still requiring AirVo high flow oxygen at 60 L/m and 65% FiO2. Normal saline at KVO. White count 16.8. Hemoglobin 11.7. Platelets 279. Sodium 140. Potassium 3.9. Bicarb 40. The 144. Creatinine 1.06. He is continued on DuoNeb inhalations, IV site Medrol. Anticoagulated with Eliquis. The patient is seen today 05/19/2022 in follow-up in the intensive care unit. Throughout the day and into the evening last night patient had become more obtunded and less responsive. He was initiated on AirVo 60 L and 65% with O2 saturations are 96%. He became hypercapnic with a CO2 of 81 and was placed on BiPAP 14/6 and 60% FiO2. He was eventually intubated approximately 6:00 this morning the patient required intubation and mechanical ventilatory support. He is currently an assist-control mode at a rate of 20, tidal by 450, FiO2 50% and a PEEP of 5. Blood gases revealed a PaO2 of 316, pCO2 65 and a pH of 7.35 100% FiO2. FiO2 titrated down appropriately. He is sedated on propofol at 40 mcg/kg/m. Maintained on norepinephrine at 0.06 mcg/kg/m. Normal saline at 50 MLS per hour. Follow-up chest x-ray revealed satisfactory intubation, nasogastric tube in place. Persistent bilateral interstitial edema versus pneumonia. Tiny effusions. White count 18.5. Hemoglobin 11.3. Platelets 223. Sodium 142. Potassium 4.0. BUN 48. Creatinine 1.06. Glucose 173. AST 18. ALT 18. ProBNP 5440. Cortisol 14. He is continued on DuoNeb inhalations, IV Solu-Medrol. Anticoagulated with Eliquis. The patient is seen today 05/20/2022 in follow-up in the intensive care unit. He remains intubated and on the mechanical ventilator. Current settings are assist-control mode at a rate of 20, tight up in 450, FiO2 40% and a PEEP of 5. Morning blood gases reveal pO2 of 87, pCO2 54, pH 7.40. He is receiving normal saline at 50 ML's per hour. Sedated with propofol at 40 mcg/kg/m. Still requiring norepinephrine at 8.6 mg/m. He is receiving nutrition via NG tube with vital HP at 40 ML's per hour with a goal of 45. Chest x-ray reveals similar multifocal airspace opacities. Endotracheal and nasogastric tube secured in place. Left internal jugular central line in place. White count 16.0. Hemoglobin 9.3. Sodium 139. Potassium 3.3. Bicarb 32. BUN 43. Creatinine 0.86. Glucose 221. AST 15. ALT 16. He is currently in a +5 L balance. Remains on DuoNeb inhalations, IV Solu-Medrol, anticoagulated with Eliquis. Initial pro-calcitonin 0.06. Follow-up pro-calcitonin 0.08. ProBNP 5440. The patient is seen today 05/21/2022 in follow-up in the intensive care unit. He remains intubated on the mechanical ventilator in assist control mode with a rate of 20, tidal volume 450, FiO2 30% and a PEEP of 5. Morning blood gases reveal pO2 of 61, pCO2 55, pH 7.4. Remains sedated on propofol at 35 mcg/kg/m. He remains on norepinephrine at 9 mcg/m. Normal saline at 50 MLS per hour. He is being nourished with vital AF at 45 ML's per hour which is goal. He has received daily interruption of sedation. He gets quite tachycardic and tachypneic. Not following commands. He is continued on DuoNeb inhalations, IV Solu-Medrol. Anticoagulated with Eliquis. Chest x-ray continues to show lisbet lar multifocal airspace opacities. Sputum culture pending. White count 18.0. Hemoglobin 9.7. Sodium 140. Potassium 4.0. Bicarb 35. BUN 42. Creatinine 0.80. Glucose 236. Objective - Vital Signs Vital signs: Vital Signs Temp 98.9 F 05/21/22 08:00 Pulse 76 05/21/22 10:00 Resp 32 H 05/21/22 10:00 BP 116/60 05/21/22 10:00 Pulse Ox 88 L 05/21/22 10:00 FiO2 30 05/21/22 10:00 Intake & Output 05/20/22 05/21/22 05/21/22 18:59 06:59 18:59 Intake Total 0427.171 3454.753 561.275 Output Total 515 490 110 Balance 978.477 574.753 451.275 Weight 90.7 kg Intake: IV 689 583 212 NS Pressure Bag 39 33 12 Sodium Chloride 0.9% 1, 650 550 200 000 ml @ 50 mls/hr IV . Q20H [facility] Rx#:[id number] Intake, IV Titration 159.477 481.753 184.275 Amount Norepinephrine 4 mg In 48.098 303.810 93.367 Sodium Chloride 0.9% 250 ml @ 0.03 MCG/KG/MIN 9. 224 mls/hr IV .Q24H [facility] Rx#:[id number] propofoL 1,000 mg In 111.379 177.943 90.908 Empty Bag 1 bag @ 15 MCG/ KG/MIN 7.263 mls/hr IV . [id number] [facility] Rx#:[id number] Tube Feeding 555 135 Other 90 30 Output: Urine 515 490 110 Other: Voiding Method Indwelling Catheter Indwelling Catheter Indwelling Catheter ABP, PAP, CO, CI - Last Documented Arterial Blood Pressure 141/56 - Exam GENERAL EXAM: Intubated, sedated 82-year-old male, currently on the ventilator with 30% FiO2 and a PEEP of 5, comfortable in no apparent distress. HEAD: Normocephalic. EYES: Sluggish reaction of pupils, equal size. NOSE: Clear with pink turbinates. THROAT: Oral endotracheal and gastric tube secured in place. No erythema or exudates. NECK: No masses, no JVD. CHEST: No chest wall deformity. LUNGS: Equal air entry with bibasilar crackles. CVS: S1 and S2 normal with an audible murmur, regular rhythm. ABDOMEN: No hepatosplenomegaly, normal bowel sounds, no guarding or rigidity. SPINE: No scoliosis or deformity SKIN: No rashes CENTRAL NERVOUS SYSTEM: No focal deficits, tone is normal in all 4 extremities. EXTREMITIES: There is 2+ peripheral edema. No clubbing, no cyanosis. Peripheral pulses are intact. - Labs CBC & Chem 7: 05/21/22 04:49 05/21/22 04:49 Labs: Abnormal Lab Results - Last 24 Hours (Table) 05/20/22 05/20/22 05/20/22 Range/Units 11:11 12:55 17:48 WBC (3.8-10.6) k/uL RBC (4.30-5.90) m/uL Hgb (13.0-17.5) gm/dL Hct (39.0-53.0) % MCHC (31.0-37.0) g/dL Neutrophils # (1.3-7.7) k/uL Lymphocytes # (1.0-4.8) k/uL ABG pCO2 (35-45) mmHg ABG pO2 (83-108) mmHg ABG HCO3 (21-25) mmol/L ABG Total CO2 (19-24) mmol/L ABG O2 Saturation (94-97) % Potassium 3.4 L (3.5-5.1) mmol/L Carbon Dioxide (22-30) mmol/L BUN (9-20) mg/dL Glucose (74-99) mg/dL POC Glucose (mg/dL) 220 H 212 H (70-110) mg/dL Calcium (8.4-10.2) mg/dL 05/20/22 05/21/22 05/21/22 Range/Units 23:23 04:49 04:49 WBC 18.0 H (3.8-10.6) k/uL RBC 3.32 L (4.30-5.90) m/uL Hgb 9.7 L (13.0-17.5) gm/dL Hct 31.6 L (39.0-53.0) % MCHC 30.7 L (31.0-37.0) g/dL Neutrophils # 17.3 H (1.3-7.7) k/uL Lymphocytes # 0.1 L (1.0-4.8) k/uL ABG pCO2 (35-45) mmHg ABG pO2 (83-108) mmHg ABG HCO3 (21-25) mmol/L ABG Total CO2 (19-24) mmol/L ABG O2 Saturation (94-97) % Potassium (3.5-5.1) mmol/L Carbon Dioxide 35 H (22-30) mmol/L BUN 42 H (9-20) mg/dL Glucose 236 H (74-99) mg/dL POC Glucose (mg/dL) 219 H (70-110) mg/dL Calcium 7.6 L (8.4-10.2) mg/dL 05/21/22 05/21/22 Range/Units 05:28 05:41 WBC (3.8-10.6) k/uL RBC (4.30-5.90) m/uL Hgb (13.0-17.5) gm/dL Hct (39.0-53.0) % MCHC (31.0-37.0) g/dL Neutrophils # (1.3-7.7) k/uL Lymphocytes # (1.0-4.8) k/uL ABG pCO2 55 H (35-45) mmHg ABG pO2 61 L (83-108) mmHg ABG HCO3 34 H (21-25) mmol/L ABG Total CO2 36 H (19-24) mmol/L ABG O2 Saturation 92.2 L (94-97) % Potassium (3.5-5.1) mmol/L Carbon Dioxide (22-30) mmol/L BUN (9-20) mg/dL Glucose (74-99) mg/dL POC Glucose (mg/dL) 268 H (70-110) mg/dL Calcium (8.4-10.2) mg/dL Microbiology - Last 24 Hours (Table) 05/20/22 00:13 Gram Stain - Preliminary Sputum Sputum Culture - Preliminary Assessment and Plan Assessment: Acute hypoxemic respiratory failure secondary to an acute exacerbation of suspected congestive heart failure, moderate to severe mitral regurgitation, 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 Initial pro-calcitonin 0.07. Follow-up pro-calcitonin 05/19/2022 remains negative at 0.08. BNP 5440. No fever. No leukocytosis. Influenza screen negative. CoVID screen negative. RSV screen negative. Acute hypercapnic/hypoxemic respiratory failure with altered mental status and obtundation requiring intubation mechanical ventilatory support early in the morning of 05/19/2022 Acute pulmonary edema, diuresed over 2 L per day on 05/12 through 05/14/2022. Currently off Lasix and Diamox History of paroxysmal atrial fibrillation maintained on amiodarone at 400 mg twice a day for approximately 2 months. Anticoagulated with Eliquis History of recent coronary artery bypass grafting at [facility] History of underlying coronary disease Hyperlipidemia Hypothyroidism History of gastroesophageal reflux disease without esophagitis Former smoker Plan: The patient was seen and evaluated Chest x-ray, ABGs, labs and medications reviewed Continue current vent setting Continue the current treatment plan Nourished with vital AF Daily interruption of sedation to assess his neuro status May need to consider trach and PEG We will continue to follow Critical care time greater than 30 minutes, not including procedures I have personally seen and examined the patient, performed the documentation and the assessment and plan as written. Number of minutes spent on the visit: 15.
--- NOTE | 2022-05-21 11:20 | P.PN ---
Subjective Progress Note Date: 05/21/22 Principal diagnosis: Acute hypoxic respiratory failure The patient is a pleasant 82-year-old gentleman with a past medical history significant for CAD and status post CABG was performed 2 months ago recently as well as hypertension and dyslipidemia and paroxysmal atrial fibrillation who was admitted to the hospital was acute hypoxic respiratory failure felt to be related to a component of heart failure versus amiodarone toxicity. The patient was intubated and subsequently started on mechanical ventilation. Also he was hypotensive for a small dose of norepinephrine. The patient underwent an echo which showed normal left ventricle systolic function May 202021 The patient was seen this morning. He remains intubated. He remains in stable for a small dose of norepinephrine in process to be weaned from it. He has been maintaining normal sinus mechanism with sinus bradycardia. He is on oral anticoagulation at this point. May 212022 The patient was seen and evaluated this morning. He continues to be intubated on mechanical ventilation. He continues to be hemodynamically stable and requiring small dose of norepinephrine which is in process to be weaned. He is in sinus rhythm and sinus bradycardia. At this point I would continue the current medical regimen and Vicodin the patient from norepinephrine. The chest x-ray was reviewed and seems to be stable Objective - Vital Signs Vital signs: Vital Signs Temp 98.9 F 05/21/22 08:00 Pulse 72 05/21/22 11:07 Resp 32 H 05/21/22 10:00 BP 116/60 05/21/22 10:00 Pulse Ox 88 L 05/21/22 10:00 FiO2 30 05/21/22 10:54 Intake & Output 05/20/22 05/21/22 05/21/22 18:59 06:59 18:59 Intake Total 9826.485 8401.753 561.275 Output Total 515 490 110 Balance 978.477 574.753 451.275 Weight 90.7 kg Intake: IV 689 583 212 NS Pressure Bag 39 33 12 Sodium Chloride 0.9% 1, 650 550 200 000 ml @ 50 mls/hr IV . Q20H [facility] Rx#:[id number] Intake, IV Titration 159.477 481.753 184.275 Amount Norepinephrine 4 mg In 48.098 303.810 93.367 Sodium Chloride 0.9% 250 ml @ 0.03 MCG/KG/MIN 9. 224 mls/hr IV .Q24H [facility] Rx#:[id number] propofoL 1,000 mg In 111.379 177.943 90.908 Empty Bag 1 bag @ 15 MCG/ KG/MIN 7.263 mls/hr IV . [id number] [facility] Rx#:[id number] Tube Feeding 555 135 Other 90 30 Output: Urine 515 490 110 Other: Voiding Method Indwelling Catheter Indwelling Catheter Indwelling Catheter ABP, PAP, CO, CI - Last Documented Arterial Blood Pressure 141/56 - Constitutional General appearance: Present: no acute distress - Respiratory Respiratory: bilateral: CTA - Cardiovascular Rhythm: regular Heart sounds: normal: S1, S2 - Labs CBC & Chem 7: 05/21/22 04:49 05/21/22 04:49 Labs: Abnormal Lab Results - Last 24 Hours (Table) 05/20/22 05/20/22 05/20/22 Range/Units 12:55 17:48 23:23 WBC (3.8-10.6) k/uL RBC (4.30-5.90) m/uL Hgb (13.0-17.5) gm/dL Hct (39.0-53.0) % MCHC (31.0-37.0) g/dL Neutrophils # (1.3-7.7) k/uL Lymphocytes # (1.0-4.8) k/uL ABG pCO2 (35-45) mmHg ABG pO2 (83-108) mmHg ABG HCO3 (21-25) mmol/L ABG Total CO2 (19-24) mmol/L ABG O2 Saturation (94-97) % Potassium 3.4 L (3.5-5.1) mmol/L Carbon Dioxide (22-30) mmol/L BUN (9-20) mg/dL Glucose (74-99) mg/dL POC Glucose (mg/dL) 212 H 219 H (70-110) mg/dL Calcium (8.4-10.2) mg/dL 05/21/22 05/21/22 05/21/22 Range/Units 04:49 04:49 05:28 WBC 18.0 H (3.8-10.6) k/uL RBC 3.32 L (4.30-5.90) m/uL Hgb 9.7 L (13.0-17.5) gm/dL Hct 31.6 L (39.0-53.0) % MCHC 30.7 L (31.0-37.0) g/dL Neutrophils # 17.3 H (1.3-7.7) k/uL Lymphocytes # 0.1 L (1.0-4.8) k/uL ABG pCO2 55 H (35-45) mmHg ABG pO2 61 L (83-108) mmHg ABG HCO3 34 H (21-25) mmol/L ABG Total CO2 36 H (19-24) mmol/L ABG O2 Saturation 92.2 L (94-97) % Potassium (3.5-5.1) mmol/L Carbon Dioxide 35 H (22-30) mmol/L BUN 42 H (9-20) mg/dL Glucose 236 H (74-99) mg/dL POC Glucose (mg/dL) (70-110) mg/dL Calcium 7.6 L (8.4-10.2) mg/dL 05/21/22 Range/Units 05:41 WBC (3.8-10.6) k/uL RBC (4.30-5.90) m/uL Hgb (13.0-17.5) gm/dL Hct (39.0-53.0) % MCHC (31.0-37.0) g/dL Neutrophils # (1.3-7.7) k/uL Lymphocytes # (1.0-4.8) k/uL ABG pCO2 (35-45) mmHg ABG pO2 (83-108) mmHg ABG HCO3 (21-25) mmol/L ABG Total CO2 (19-24) mmol/L ABG O2 Saturation (94-97) % Potassium (3.5-5.1) mmol/L Carbon Dioxide (22-30) mmol/L BUN (9-20) mg/dL Glucose (74-99) mg/dL POC Glucose (mg/dL) 268 H (70-110) mg/dL Calcium (8.4-10.2) mg/dL Microbiology - Last 24 Hours (Table) 05/20/22 00:13 Gram Stain - Preliminary Sputum Sputum Culture - Preliminary Assessment and Plan Assessment: Assessment CAD status post CABG Acute hypoxic respiratory failure Paroxysmal atrial fibrillation Multiple comorbid conditions Plan The right wean the patient from norepinephrine Continue oral anticoagulation Follow-up with the patient
[2022-05-21 11:26] LABS: Glucose,Whole Blood 260 mg/dL (70-110)
[2022-05-21] MEDS: methylPREDNISolone SOD SUCCI 40 MG/ML 1 ML VIAL IV SCH ×3 (11:35→23:11)
[2022-05-21 17:43] LABS: Glucose,Whole Blood 228 mg/dL (70-110)
[2022-05-21] MEDS: ATORVASTATIN 20 MG TAB PO SCH (20:46)
[2022-05-21 23:05] LABS: Glucose,Whole Blood 202 mg/dL (70-110)
[2022-05-21 23:29] LABS: Glucose,Whole Blood 211 mg/dL (70-110)
[2022-05-22] MEDS: IPRATROPIUM-ALBUTEROL 3 ML NEB INHALATION SCH ×7 (00:06→23:49)
--- NOTE | 2022-05-22 02:37 | P.PN ---
Subjective This is a pleasant 82 years old male with multiple medical problems as below including history of atrial fibrillation on amiodarone at home and not on a blood thinner, history of coronary artery disease status post recent CABG, heart failure, mitral valve disease, GERD, hyperlipidemia and hypothyroidism Presents with respiratory distress and hypoxia currently he is in the ICU very lethargic, easily arousable and answers questions and follows commands but very tired and go back to sleep. History requiring high flow nasal cannula at 60 L/m with FiO2 of 64-65%. Also he is kept on liquids 2.5 by order administrator for A. fib, he is on diuretic aceta zolamide, no Lasix currently but also his place on some gentle hydration by order administrator for possible dehydration, renal function is improving. Today down to 1.0. Also there is suspected pulmonary fibrosis per pulmonary team, home dose of amiodarone as healthy bowel. Echocardiogram showing ejection fraction 50% with mild to moderate to severe mitral regurgitation There is some evidence of COPD exacerbation and reactive airway disease and he is kept on Solu-Medrol 40 mg. WBC 16.8 while on steroids, hemoglobin 11.1 05/19/2022 Patient that more respiratory distress overnight and he got intubated and placed on mechanical ventilation with sedation, with deep 05 and FiO2 of 100%. Patient also blood pressure on the low side 81/51, he is getting 2 units of blood transfusion and possible he'll need pressors per critical care team Urine output was 25-30 mL/h, currently lowered to 10 mL/h, Higginbotham catheter in place we'll keep monitoring Patient is also an Olympus 2.5, Solu-Medrol 60 mg. And acetazolamide 05/20/2022 Patient remains intubated and sedated in the ICU, with pulmonary/critical care team followed closely and plan to do sedation holiday. Patient Vitas looks stable, afebrile WBC down to 16,000, hemoglobin down to 9.3, creatinine improved to 0.8. Patient remains on liquids 2.5 mg added for his paroxysmal A. fib, Solu-Medrol 60 mg, normal saline 50 mg. And was discontinued and patient started on pressors levophed 05/21/2022 Patient remains intubated and sedated in the ICU with pulmonary/critical care team followed closely. Patient is undergoing sedation trial, he is requiring small doses of levophed, also elicits sinus rhythm, WBC is 18,000, hemoglobin 9.7, creatinine normal. Ejection fraction 50%. Patient remains on liquids, Solu-Medrol dose lowered to 40 mg also reasonable slowing of 50. Objective - Vital Signs Vital signs: Vital Signs Temp 98.9 F 05/21/22 04:00 Pulse 74 05/21/22 07:25 Resp 23 05/21/22 07:00 BP 123/64 05/21/22 07:00 Pulse Ox 94 L 05/21/22 07:00 FiO2 30 05/21/22 07:10 Intake & Output 05/20/22 05/21/22 05/21/22 18:59 06:59 18:59 Intake Total 1883.318 6117.753 174.191 Output Total 515 490 25 Balance 978.477 574.753 149.191 Weight 90.7 kg Intake: IV 689 583 53 NS Pressure Bag 39 33 3 Sodium Chloride 0.9% 1, 650 550 50 000 ml @ 50 mls/hr IV . Q20H [facility] Rx#:[id number] Intake, IV Titration 159.477 481.753 121.191 Amount Norepinephrine 4 mg In 48.098 303.810 50.014 Sodium Chloride 0.9% 250 ml @ 0.03 MCG/KG/MIN 9. 224 mls/hr IV .Q24H [facility] Rx#:[id number] propofoL 1,000 mg In 111.379 177.943 71.177 Empty Bag 1 bag @ 15 MCG/ KG/MIN 7.263 mls/hr IV . [id number] [facility] Rx#:[id number] Tube Feeding 555 Other 90 Output: Urine 515 490 25 Other: Voiding Method Indwelling Catheter Indwelling Catheter ABP, PAP, CO, CI - Last Documented Arterial Blood Pressure 137/57 - Exam -GENERAL: The patient is intubated and sedated. HEENT: Pupils are round and equally reacting to light. EOMI. No scleral icterus. No conjunctival pallor. Normocephalic, atraumatic. No pharyngeal erythema. No thyromegaly. CARDIOVASCULAR: S1 and S2 present. No murmurs, rubs, or gallops. -PULMONARY: Chest is clear to auscultation, no wheezing bilateral crackles. ABDOMEN: Soft, nontender, nondistended, normoactive bowel sounds. No palpable organomegaly. MUSCULOSKELETAL: No joint swelling or deformity. -EXTREMITIES: No cyanosis, clubbing, Bilateral pitting leg edema. NEUROLOGICAL: Gross neurological examination did not reveal any focal deficits. SKIN: No rashes. no petechiae. - Labs CBC & Chem 7: 05/21/22 04:49 05/21/22 04:49 Labs: Abnormal Lab Results - Last 24 Hours (Table) 05/20/22 05/20/22 05/20/22 Range/Units 11:11 12:55 17:48 WBC (3.8-10.6) k/uL RBC (4.30-5.90) m/uL Hgb (13.0-17.5) gm/dL Hct (39.0-53.0) % MCHC (31.0-37.0) g/dL Neutrophils # (1.3-7.7) k/uL Lymphocytes # (1.0-4.8) k/uL ABG pCO2 (35-45) mmHg ABG pO2 (83-108) mmHg ABG HCO3 (21-25) mmol/L ABG Total CO2 (19-24) mmol/L ABG O2 Saturation (94-97) % Potassium 3.4 L (3.5-5.1) mmol/L Carbon Dioxide (22-30) mmol/L BUN (9-20) mg/dL Glucose (74-99) mg/dL POC Glucose (mg/dL) 220 H 212 H (70-110) mg/dL Calcium (8.4-10.2) mg/dL 05/20/22 05/21/22 05/21/22 Range/Units 23:23 04:49 04:49 WBC 18.0 H (3.8-10.6) k/uL RBC 3.32 L (4.30-5.90) m/uL Hgb 9.7 L (13.0-17.5) gm/dL Hct 31.6 L (39.0-53.0) % MCHC 30.7 L (31.0-37.0) g/dL Neutrophils # 17.3 H (1.3-7.7) k/uL Lymphocytes # 0.1 L (1.0-4.8) k/uL ABG pCO2 (35-45) mmHg ABG pO2 (83-108) mmHg ABG HCO3 (21-25) mmol/L ABG Total CO2 (19-24) mmol/L ABG O2 Saturation (94-97) % Potassium (3.5-5.1) mmol/L Carbon Dioxide 35 H (22-30) mmol/L BUN 42 H (9-20) mg/dL Glucose 236 H (74-99) mg/dL POC Glucose (mg/dL) 219 H (70-110) mg/dL Calcium 7.6 L (8.4-10.2) mg/dL 05/21/22 05/21/22 Range/Units 05:28 05:41 WBC (3.8-10.6) k/uL RBC (4.30-5.90) m/uL Hgb (13.0-17.5) gm/dL Hct (39.0-53.0) % MCHC (31.0-37.0) g/dL Neutrophils # (1.3-7.7) k/uL Lymphocytes # (1.0-4.8) k/uL ABG pCO2 55 H (35-45) mmHg ABG pO2 61 L (83-108) mmHg ABG HCO3 34 H (21-25) mmol/L ABG Total CO2 36 H (19-24) mmol/L ABG O2 Saturation 92.2 L (94-97) % Potassium (3.5-5.1) mmol/L Carbon Dioxide (22-30) mmol/L BUN (9-20) mg/dL Glucose (74-99) mg/dL POC Glucose (mg/dL) 268 H (70-110) mg/dL Calcium (8.4-10.2) mg/dL Microbiology - Last 24 Hours (Table) 05/20/22 00:13 Gram Stain - Preliminary Sputum Sputum Culture - Preliminary Assessment and Plan Assessment: Acute CHF exacerbation Possible reactive airway disease versus acute COPD exacerbation Acute hypoxic respiratory failure, status post intubation on 05/19 Moderate to severe mitral regurgitation Paroxysmal atrial fibrillation Recent history of bypass surgery Possible pulmonary fibrosis Plan: Patient is being multiple IV fluids Continue with current management with the pulmonary/critical care team consult Continue with Eliquis Continue with Solu-Medrol Keep holding amiodarone with cardiology team recommendation Continue with acetazolamide Continue with home dose of aspirin Cardiology and pulmonary team of the outsole caser blood pressure, a pressors when necessary for hypotension monitor urine output Labs and medication were reviewed.. Continue same treatment. Continue with symptomatic treatment. Resume home medication. Monitor lytes and vitals. DVT and GI prophylaxis. Further recommendations as per clinical course of the patient DVT prophylaxis: Eliquis GI Prophylaxis: Ppi PT/OT: Deferred Prognosis is guarded
[2022-05-22] MEDS: SODIUM CHLORIDE 0.9% 1,000 ML IV SCH ×2 (04:46→23:49)
[2022-05-22 05:49] LABS: Glucose,Whole Blood 240 mg/dL (70-110)
[2022-05-22] MEDS: INSULIN ASPART (NovoLOG) 100 UNIT/ML VIAL SQ SCH ×4 (05:57→23:48)
[2022-05-22] MEDS: methylPREDNISolone SOD SUCCI 40 MG/ML 1 ML VIAL IV SCH ×4 (05:58→23:48)
[2022-05-22] MEDS: NOREPINEPHRINE 4 MG in SODIUM CHLORIDE 0.9% 250 ML IV SCH ×2 (05:59→22:31)
[2022-05-22 06:03] LABS: ABG Base Excess 9.6 mmol/L; ABG HCO3 34 mmol/L (21-25); ABG Oxygen Saturation 97.7 % (94-97); ABG PCO2 51 mmHg (35-45); ABG PH 7.43 (7.35-7.45); ABG PO2 83 mmHg (83-108); ABG TCO2 35 mmol/L (19-24); Allen Test Performed? Yes
[2022-05-22] MEDS: LEVOTHYROXINE 125 MCG TAB PO SCH (06:03)
[2022-05-22 06:14] LABS: Basophils % (A) 0 %; Eosinophils % (A) 0 %; HCT 28.2 % (39.0-53.0); HGB 8.6 gm/dL (13.0-17.5); Hypochromasia Marked; Lymphocytes # (A) 0.1 k/uL (1.0-4.8); Lymphocytes % (A) 1 %; MCHC 30.7 g/dL (31.0-37.0); MCV 94.4 fL (80.0-100.0); Mean Platelet Volume 10.4; Monocytes # (A) 0.5 k/uL (0-1.0); Monocytes % (A) 3 %; Neutrophils % (A) 96 %; Platelet Count 176 k/uL (150-450); RBC 2.98 m/uL (4.30-5.90); RDW 14.2 % (11.5-15.5); WBC 15.7 k/uL (3.8-10.6)
[2022-05-22 06:26] LABS: ALT 16 U/L (4-49); AST 16 U/L (17-59); African American GFR (CKD) >90 (>60 ml/min/1.73 sqM); Albumin 2.1 g/dL (3.5-5.0); Alkaline Phosphatase 125 U/L (38-126); Anion Gap 1 mmol/L; Blood Urea Nitrogen 45 mg/dL (9-20); Calcium 7.3 mg/dL (8.4-10.2); Carbon Dioxide 34 mmol/L (22-30); Chloride 105 mmol/L (98-107); Glucose 211 mg/dL (74-99); Non-African American GFR(CKD) 85 (>60 ml/min/1.73 sqM); Potassium 4.1 mmol/L (3.5-5.1); Sodium 140 mmol/L (137-145); Total Bilirubin 0.3 mg/dL (0.2-1.3); Total Protein 4.4 g/dL (6.3-8.2)
--- NOTE | 2022-05-22 07:55 | XR ---
EXAMINATION TYPE: XR chest 1V portable DATE OF EXAM: 05/22/2022 CLINICAL HISTORY: Difficulty breathing progress study. TECHNIQUE: Single AP portable semiupright view of the chest is obtained. COMPARISON: Chest x-ray from one day earlier and older studies. FINDINGS: Stable endotracheal and orogastric tubes. Stable left internal jugular central venous cath eter. Overlying sternal wires and mediastinal clips redemonstrated. Left atrial appendage clip redemonstrat ed. Persistent mild cardiomegaly with bilateral multifocal increased opacities more prominent from one da y earlier. No pneumothorax is evident. Scoliotic curvature with multilevel spurring in the spine is a gain seen. IMPRESSION: Slight worsening bilateral multifocal edema and/or infiltrates from one day earlier.
[2022-05-22] MEDS: ASPIRIN 81 MG PO SCH (08:44)
[2022-05-22] MEDS: CHLORHEXIDINE GLUCONATE 15 ML CUP MUCOUS MEM SCH ×2 (08:44→20:47)
[2022-05-22] MEDS: MAGNESIUM OXIDE 400 MG TAB PO SCH (08:44)
[2022-05-22] MEDS: PANTOPRAZOLE 40 MG/10 ML VIAL IVP SCH (08:44)
[2022-05-22] MEDS: APIXABAN 2.5 MG TABLET PO SCH ×2 (08:44→20:46)
[2022-05-22] MEDS ORDERED: FUROSEMIDE 10 MG/ML 2 ML VIAL IV STA (10:09)
--- NOTE | 2022-05-22 10:36 | P.PN ---
Subjective Progress Note Date: 05/22/22 Principal diagnosis: Acute hypoxic respiratory failure The patient is a pleasant 82-year-old gentleman with a past medical history significant for CAD and status post CABG was performed 2 months ago recently as well as hypertension and dyslipidemia and paroxysmal atrial fibrillation who was admitted to the hospital was acute hypoxic respiratory failure felt to be related to a component of heart failure versus amiodarone toxicity. The patient was intubated and subsequently started on mechanical ventilation. Also he was hypotensive for a small dose of norepinephrine. The patient underwent an echo which showed normal left ventricle systolic function May 202021 The patient was seen this morning. He remains intubated. He remains in stable for a small dose of norepinephrine in process to be weaned from it. He has been maintaining normal sinus mechanism with sinus bradycardia. He is on oral anticoagulation at this point. May 212022 The patient was seen and evaluated this morning. He continues to be intubated on mechanical ventilation. He continues to be hemodynamically stable and requiring small dose of norepinephrine which is in process to be weaned. He is in sinus rhythm and sinus bradycardia. At this point I would continue the current medical regimen and Vicodin the patient from norepinephrine. The chest x-ray was reviewed and seems to be stable May 222022 The patient was seen this morning. He remains intubated on mechanical ventilation mid unfortunately he remains hemodynamically unstable requiring lower dose of norepinephrine. On examination he seems to be in the mattress mailing edema in the lower extremities. I am going to the patient 20 mg of Lasix IV only once. Continue monitor the kidney function and electrolytes and continue monitor the hemoglobin. He remains in sinus bradycardia with heart rate about 50. Pulmonary/critical care team is on the case. Objective - Vital Signs Vital signs: Vital Signs Temp 99.0 F 05/22/22 08:00 Pulse 75 05/22/22 09:00 Resp 25 H 05/22/22 09:00 BP 111/57 05/22/22 09:00 Pulse Ox 97 05/22/22 09:00 FiO2 40 05/22/22 08:00 Intake & Output 05/21/22 05/22/22 05/22/22 18:59 06:59 18:59 Intake Total 1418.532 2285.758 348.803 Output Total 520 595 125 Balance 8771.330 5214.758 223.803 Weight 93.9 kg Intake: IV 636 636 159 NS Pressure Bag 36 36 9 Sodium Chloride 0.9% 1, 600 600 150 000 ml @ 50 mls/hr IV . Q20H [facility] Rx#:[id number] Intake, IV Titration 464.703 399.758 24.803 Amount Norepinephrine 4 mg In 233.982 207.438 24.803 Sodium Chloride 0.9% 250 ml @ 0.03 MCG/KG/MIN 9. 224 mls/hr IV .Q24H [facility] Rx#:[id number] propofoL 1,000 mg In 230.721 192.320 Empty Bag 1 bag @ 15 MCG/ KG/MIN 7.263 mls/hr IV . [id number] [facility] Rx#:[id number] Tube Feeding 360 540 135 Other 60 120 30 Output: Urine 520 595 125 Other: Voiding Method Indwelling Catheter Indwelling Catheter ABP, PAP, CO, CI - Last Documented Arterial Blood Pressure 121/48 - Constitutional General appearance: Present: no acute distress - Respiratory Respiratory: bilateral: diminished - Cardiovascular Rhythm: regular Heart sounds: normal: S1, S2 - Labs CBC & Chem 7: 05/22/22 05:08 05/22/22 05:08 Labs: Abnormal Lab Results - Last 24 Hours (Table) 05/21/22 05/21/22 05/21/22 Range/Units 11:24 17:42 23:02 WBC (3.8-10.6) k/uL RBC (4.30-5.90) m/uL Hgb (13.0-17.5) gm/dL Hct (39.0-53.0) % MCHC (31.0-37.0) g/dL Neutrophils # (1.3-7.7) k/uL Lymphocytes # (1.0-4.8) k/uL ABG pCO2 (35-45) mmHg ABG HCO3 (21-25) mmol/L ABG Total CO2 (19-24) mmol/L ABG O2 Saturation (94-97) % Carbon Dioxide (22-30) mmol/L BUN (9-20) mg/dL Glucose (74-99) mg/dL POC Glucose (mg/dL) 260 H 228 H 202 H (70-110) mg/dL Calcium (8.4-10.2) mg/dL AST (17-59) U/L Total Protein (6.3-8.2) g/dL Albumin (3.5-5.0) g/dL 05/21/22 05/22/22 05/22/22 Range/Units 23:27 05:08 05:08 WBC 15.7 H (3.8-10.6) k/uL RBC 2.98 L (4.30-5.90) m/uL Hgb 8.6 L (13.0-17.5) gm/dL Hct 28.2 L (39.0-53.0) % MCHC 30.7 L (31.0-37.0) g/dL Neutrophils # 15.0 H (1.3-7.7) k/uL Lymphocytes # 0.1 L (1.0-4.8) k/uL ABG pCO2 (35-45) mmHg ABG HCO3 (21-25) mmol/L ABG Total CO2 (19-24) mmol/L ABG O2 Saturation (94-97) % Carbon Dioxide 34 H (22-30) mmol/L BUN 45 H (9-20) mg/dL Glucose 211 H (74-99) mg/dL POC Glucose (mg/dL) 211 H (70-110) mg/dL Calcium 7.3 L (8.4-10.2) mg/dL AST 16 L (17-59) U/L Total Protein 4.4 L (6.3-8.2) g/dL Albumin 2.1 L (3.5-5.0) g/dL 05/22/22 05/22/22 Range/Units 05:48 05:58 WBC (3.8-10.6) k/uL RBC (4.30-5.90) m/uL Hgb (13.0-17.5) gm/dL Hct (39.0-53.0) % MCHC (31.0-37.0) g/dL Neutrophils # (1.3-7.7) k/uL Lymphocytes # (1.0-4.8) k/uL ABG pCO2 51 H (35-45) mmHg ABG HCO3 34 H (21-25) mmol/L ABG Total CO2 35 H (19-24) mmol/L ABG O2 Saturation 97.7 H (94-97) % Carbon Dioxide (22-30) mmol/L BUN (9-20) mg/dL Glucose (74-99) mg/dL POC Glucose (mg/dL) 240 H (70-110) mg/dL Calcium (8.4-10.2) mg/dL AST (17-59) U/L Total Protein (6.3-8.2) g/dL Albumin (3.5-5.0) g/dL Microbiology - Last 24 Hours (Table) 05/20/22 00:13 Gram Stain - Preliminary Sputum Sputum Culture - Preliminary Assessment and Plan Assessment: Assessment CAD status post CABG Acute hypoxic respiratory failure Paroxysmal atrial fibrillation Multiple comorbid conditions Plan Wean the patient from norepinephrine Continue oral anticoagulation Follow-up with the patient
--- NOTE | 2022-05-22 12:26 | P.PN ---
Subjective Progress Note Date: 05/22/22 This is an 82-year-old white male with history of coronary artery disease, recent CABG about 2 months ago, this was done at [facility]. Patient presented to [facility] with a few days' history of increased shortness of breath, and his shortness of breath, much worse today. In addition to shortness of breath, the patient is coughing, the cough is productive with whitish phlegm, no fever no chills, no hemoptysis, no chest pain. workup in [place] showed evidence of pulmonary edema, he also had elevated BNP level, and elevated troponin level. Patient was transferred to [facility], I saw him down in the ER. Patient is on BiPAP, 12/5/55%, O2 saturation is in the low 90s. Patient was already given Lasix by the admitting physician and he is now on Lasix at 60 mg IV push twice a day. Some improvement clinically noted according to the patient. Patient has no previous history of COPD, and no previous history of smoking. His WBC count is 12.6 hemoglobin is 1 0.3, basic metabolic profile is normal renal profile is normal bicarb is 38 lactic acid 4.6. ProBNP level is 3790. Chest x-ray is consistent with interstitial edema however underlying pneumonia is not entirely ruled out but felt to be less likely. EKG showed sinus rhythm, and incomplete right bundle branch block pattern otherwise unremarkable, nonspecific ST and T-wave changes noted. The patient is seen today 05/10/2022 in follow-up on the selective care unit. He is currently resting in bed. Awake and alert in no acute distress. He is still on BiPAP 12/5 and 55%. white count 11.0. Hemoglobin 9.6. Platelets 275. Sodium 142. Potassium 3.8. Bicarb 42. BUN 40. Creatinine 0.82. Glucose 109. He is continued on Lasix 60 mg every 12 hours. No accurate I&O recorded. Current weight 83.5 kg. today's chest x-ray is essentially unchanged. Pro- calcitoninn level 0.07. I'm evaluating this patient today on 05/11/2022. His work of breathing has obviously increased overnight. He is requiring BiPAP titrations and is currently 14/5 and 70%. He is tachypneic breathing about 30-40 breaths per minute with accessory muscle use. Recent echocardiogram was performed on 05/10/2022 which showed a normal ejection fraction of 50% and some moderate to severe mitral regurgitation. He is receiving furosemide 80 mg twice a day. A urinary catheter was inserted yesterday for accurate intake and output. Fluid balance is -1 L. Normal saline is using KVO. CT of the chest with contrast was also performed yesterday on 05/10/2022 which showed diffuse airspace opacities and consolidation changes, some small bilateral pleural effusions, evidence of pulmonary hypertension, and cardiomegaly. Likely representing a combination of atypical pneumonia versus inflammatory process. There is also some superimposed pulmonary vascular congestion. Chest x-ray from today 05/11/2022 continues to show diffuse interstitial and alveolar infiltrates bilaterally. He continues to receive by mouth amiodarone. And his heart rhythm is currently normal sinus. Patient remains afebrile. CBC did not show any leukocytosis with a WBC of 7.8, hemoglobin 9.4, hematocrit 30.9, platelet count 280,000. BMP from today shows sodium 140, potassium of 3.9, chloride of 94, serum CO2 of 42 to, UN 45, creatinine 1.04, glucose 139. Remains on Lovenox for DVT prophylaxis. We'll transfer this patient in ICU for closer monitoring. Reevaluated today on 05/12/2022, patient is basically about the same. Remains on BiPAP, he is on IPAP of 14 EPAP of 5 and FiO2 70%, chest x-ray continues to show diffuse interstitial process bilaterally, it is difficult to tell how much of this is true pulmonary edema and how much of it is acute lung injury, induced by amiodarone. Not to mention the patient is not a candidate to perform or even think of lung biopsy. Patient is receiving diuretics and he is a -2 L in the last 24 hours, he is now on Lasix and Diamox, not seeing much improvement in his overall pulmonary status in spite of aggressive diuresis as a matter of fact I have a strong feeling that the patient will require eventually intubation and mechanical ventilation if he continues to do poorly. He is basically marginal at best at this point. CBC is relatively normal electrolytes are normal except bicarb is up to 44, patient is sleepy developing a bit of metabolic contraction alkalosis. Hence Diamox was added. Patient remains on steroids for his presumptive amiodarone induced lung injury although this is not definitive Patient was reevaluated today on 05/09/22, remains in the ICU, his overall pu lmonary status is marginal at best. Continues to have abnormal chest x-ray, continues to be relatively hypoxic, patient is now on high flow oxygen via airvo, FiO2 90% and 60 L flow, seems to be tolerating this better than the BiPAP, yesterday he was on BiPAP 14/6/80%. Remains on diuretics, remains on steroids, patient tells me that he feels a bit better today, although his chest x-ray is basically about the same, and his oxygenation seems to be marginal/the same.CBC is unremarkable, basic metabolic profile is normal bicarb is 46 BUN is 57 creatinine 1.72, hence I will start cutting down on his diuretics, we will continue Diamox continue Diamox, continue Lasix but quit ahead and stop again I am quite concerned about the rapid increase in his creatinine, not to mention the patient has been in a negative balance over the last 48 hours.since admission, the patient is almost -7 L. And he is becoming quite dehydrated. Reevaluated today on 05/14/22, patient remains in the ICU, remains on BiPAP with IPAP of 14/EPAP of 6, FiO2 is 70%. Patient is becoming more and more alkalotic, hence I'm stopping his Lasix. We will continue the patient on Diamox. He is also off Zaroxolyn. Patient has been in a significant negative balance over the last few days. Last night he became quite agitated and we had to place him on Precedex, he is on 0.4 mcg/kg/h of Precedex today. Seems to be calm, chest x- ray continues to show evidence of interstitial infiltrates bilaterally. Again it is not clear how much of it is really congestive heart failure and how much of an acute lung injury.WBC count today is 9 hemoglobin is 10.3, bicarb is elevated at 52 BUN is 50 creatinine 1.61 slightly better than yesterday. Reevaluated today on 05/15/22, patient remains in the ICU, pulmonary status remains marginal at best. However his chest x-ray is probably showing slight improvement, and his FiO2 requirement is less, patient is now on airvo at 60% FiO2 and 60 L flow, O2 sats ration is in the mid 90s. He was on BiPAP earlier today with IPAP of 14 EPAP of 6 and FiO2 of 60%. Remains on Precedex at 0.4 mcg/kg/h. IV fluids at KVO, diuretics have been cut down significantly, remains on Diamox only. CBC is basically unremarkable bicarb is down to 45 and 52 BUN is down to 46 creatinine is down to 1.160. Patient is comfortable on airvo, does not seem to be in distress The patient is seen today 05/16/2022 in follow-up in the intensive care unit. He is currently resting fairly comfortably in bed. Awake and alert. He is still requiring quite a bit of oxygen he was wearing BiPAP 14/60-60% FiO2. Currently more comfortable on the AirVo high flow oxygen at 60 L and 65% FiO2. He has Precedex running at 0.3 mg/kg/h. Normal saline at 20 ML's per hour. Chest x-ray continues to show small bilateral pleural effusions with slightly increased diffuse bilateral multifocal patchy airspace disease. White count 10.2. Hemoglobin 9.8. Platelets 287. Sodium 135. Potassium 3.9. Bicarb 41. BUN 42. Creatinine 1.02. Glucose 145. Arterial blood gases revealed a PaO2 of 66, pCO2 63, pH 7.4-65% FiO2. He is continued on DuoNeb inhalations, IV Solu- Medrol. Lovenox for DVT prophylaxis. He remains off diuretics. Currently in a -500 mL balance. The patient is seen today 05/17/2022 in follow-up in the intensive. He is currently sitting up in a chair at the bedside. Awake and alert in no acute distress. He is feeling better today compared to yesterday. He is still requiring AirVo high flow oxygen and 60 L and 65% FiO2. BiPAP has been discontinued. No IV fluids currently. Chest x-ray continues to show diffuse increased lung markings bilaterally. ProBNP 2420. Pro-calcitonin was 0.06. Today's labs are pending. He remains off diuretics. Continued on Diamox. Continued on DuoNeb inhalations, IV Solu-Medrol. Anticoagulated with Eliquis. Remains off amiodarone. Continued in sinus rhythm. The patient seen today 05/18/2022 in follow-up in the intensive care unit. He is currently resting comfortably in bed. Awake and alert in no acute distress. He is still requiring AirVo high flow oxygen at 60 L/m and 65% FiO2. Normal saline at KVO. White count 16.8. Hemoglobin 11.7. Platelets 279. Sodium 140. Potassium 3.9. Bicarb 40. The 144. Creatinine 1.06. He is continued on DuoNeb inhalations, IV site Medrol. Anticoagulated with Eliquis. The patient is seen today 05/19/2022 in follow-up in the intensive care unit. Throughout the day and into the evening last night patient had become more obtunded and less responsive. He was initiated on AirVo 60 L and 65% with O2 saturations are 96%. He became hypercapnic with a CO2 of 81 and was placed on BiPAP 14/6 and 60% FiO2. He was eventually intubated approximately 6:00 this morning the patient required intubation and mechanical ventilatory support. He is currently an assist-control mode at a rate of 20, tidal by 450, FiO2 50% and a PEEP of 5. Blood gases revealed a PaO2 of 316, pCO2 65 and a pH of 7.35 100% FiO2. FiO2 titrated down appropriately. He is sedated on propofol at 40 mcg/kg/m. Maintained on norepinephrine at 0.06 mcg/kg/m. Normal saline at 50 MLS per hour. Follow-up chest x-ray revealed satisfactory intubation, nasogastric tube in place. Persistent bilateral interstitial edema versus pneumonia. Tiny effusions. White count 18.5. Hemoglobin 11.3. Platelets 223. Sodium 142. Potassium 4.0. BUN 48. Creatinine 1.06. Glucose 173. AST 18. ALT 18. ProBNP 5440. Cortisol 14. He is continued on DuoNeb inhalations, IV Solu-Medrol. Anticoagulated with Eliquis. The patient is seen today 05/20/2022 in follow-up in the intensive care unit. He remains intubated and on the mechanical ventilator. Current settings are assist-control mode at a rate of 20, tight up in 450, FiO2 40% and a PEEP of 5. Morning blood gases reveal pO2 of 87, pCO2 54, pH 7.40. He is receiving normal saline at 50 ML's per hour. Sedated with propofol at 40 mcg/kg/m. Still requiring norepinephrine at 8.6 mg/m. He is receiving nutrition via NG tube with vital HP at 40 ML's per hour with a goal of 45. Chest x-ray reveals similar multifocal airspace opacities. Endotracheal and nasogastric tube secured in place. Left internal jugular central line in place. White count 16.0. Hemoglobin 9.3. Sodium 139. Potassium 3.3. Bicarb 32. BUN 43. Creatinine 0.86. Glucose 221. AST 15. ALT 16. He is currently in a +5 L balance. Remains on DuoNeb inhalations, IV Solu-Medrol, anticoagulated with Eliquis. Initial pro-calcitonin 0.06. Follow-up pro-calcitonin 0.08. ProBNP 5440. The patient is seen today 05/21/2022 in follow-up in the intensive care unit. He remains intubated on the mechanical ventilator in assist control mode with a rate of 20, tidal volume 450, FiO2 30% and a PEEP of 5. Morning blood gases reveal pO2 of 61, pCO2 55, pH 7.4. Remains sedated on propofol at 35 mcg/kg/m. He remains on norepinephrine at 9 mcg/m. Normal saline at 50 MLS per hour. He is being nourished with vital AF at 45 ML's per hour which is goal. He has received daily interruption of sedation. He gets quite tachycardic and tachypneic. Not following commands. He is continued on DuoNeb inhalations, IV Solu-Medrol. Anticoagulated with Eliquis. Chest x-ray continues to show lisbet lar multifocal airspace opacities. Sputum culture pending. White count 18.0. Hemoglobin 9.7. Sodium 140. Potassium 4.0. Bicarb 35. BUN 42. Creatinine 0.80. Glucose 236. The patient is seen today 05/22/2022 in follow-up in the intensive care unit. He is intubated and on mechanical ventilator and assist control mode at a rate of 20, tidal on 450, FiO2 40% and a PEEP of 5. Morning blood gases revealed a pO2 of 83, pCO2 51, pH 7.43. He is sedated on propofol at 30 mcg/kg/m. On norepinephrine at 4 mcg/m. Normal saline at 50 MLS per hour. He is being nourished with vital AF at 45 mL per hour which is goal. Chest x-ray reveals slight worsening bilateral multifocal edema and/or infiltrates. Sputum culture reveals no growth. White count 15.7. Hemoglobin 8.6. Platelets 176. Sodium 140. Potassium 4.1. Bicarb 34. BUN 45. Creatinine 0.74. Glucose 211. He is continued on DuoNeb inhalations, IV Solu-Medrol. Anticoagulated with Eliquis. Objective - Vital Signs Vital signs: Vital Signs Temp 99.0 F 05/22/22 08:00 Pulse 70 05/22/22 10:55 Resp 25 H 05/22/22 09:00 BP 111/57 05/22/22 09:00 Pulse Ox 97 05/22/22 09:00 FiO2 40 05/22/22 10:37 Intake & Output 05/21/22 05/22/22 05/22/22 18:59 06:59 18:59 Intake Total 5984.381 9290.758 348.803 Output Total 520 595 125 Balance 6453.409 7224.758 223.803 Weight 93.9 kg 93.9 kg Intake: IV 636 636 159 NS Pressure Bag 36 36 9 Sodium Chloride 0.9% 1, 600 600 150 000 ml @ 50 mls/hr IV . Q20H [facility] Rx#:[id number] Intake, IV Titration 464.703 399.758 24.803 Amount Norepinephrine 4 mg In 233.982 207.438 24.803 Sodium Chloride 0.9% 250 ml @ 0.03 MCG/KG/MIN 9. 224 mls/hr IV .Q24H [facility] Rx#:[id number] propofoL 1,000 mg In 230.721 192.320 Empty Bag 1 bag @ 15 MCG/ KG/MIN 7.263 mls/hr IV . [id number] [facility] Rx#:[id number] Tube Feeding 360 540 135 Other 60 120 30 Output: Urine 520 595 125 Other: Voiding Method Indwelling Catheter Indwelling Catheter Indwelling Catheter ABP, PAP, CO, CI - Last Documented Arterial Blood Pressure 121/48 - Exam GENERAL EXAM: Intubated, sedated 82-year-old male patient, currently on the ventilator with 40% FiO2 and a PEEP of 5, in no apparent distress. HEAD: Normocephalic. EYES: Sluggish reaction of pupils, equal size. NOSE: Clear with pink turbinates. THROAT: Oral endotracheal and gastric tube secured in place. No erythema or exudates. NECK: No masses, no JVD. CHEST: No chest wall deformity. LUNGS: Equal air entry with bibasilar crackles. CVS: S1 and S2 normal with an audible murmur, regular rhythm. ABDOMEN: No hepatosplenomegaly, normal bowel sounds, no guarding or rigidity. SPINE: No scoliosis or deformity SKIN: No rashes CENTRAL NERVOUS SYSTEM: No focal deficits, tone is normal in all 4 extremities. EXTREMITIES: There is 2+ peripheral edema. No clubbing, no cyanosis. Peripheral pulses are intact. - Labs CBC & Chem 7: 05/22/22 05:08 05/22/22 05:08 Labs: Abnormal Lab Results - Last 24 Hours (Table) 05/21/22 05/21/22 05/21/22 Range/Units 17:42 23:02 23:27 WBC (3.8-10.6) k/uL RBC (4.30-5.90) m/uL Hgb (13.0-17.5) gm/dL Hct (39.0-53.0) % MCHC (31.0-37.0) g/dL Neutrophils # (1.3-7.7) k/uL Lymphocytes # (1.0-4.8) k/uL ABG pCO2 (35-45) mmHg ABG HCO3 (21-25) mmol/L ABG Total CO2 (19-24) mmol/L ABG O2 Saturation (94-97) % Carbon Dioxide (22-30) mmol/L BUN (9-20) mg/dL Glucose (74-99) mg/dL POC Glucose (mg/dL) 228 H 202 H 211 H (70-110) mg/dL Calcium (8.4-10.2) mg/dL AST (17-59) U/L Total Protein (6.3-8.2) g/dL Albumin (3.5-5.0) g/dL 05/22/22 05/22/22 05/22/22 Range/Units 05:08 05:08 05:48 WBC 15.7 H (3.8-10.6) k/uL RBC 2.98 L (4.30-5.90) m/uL Hgb 8.6 L (13.0-17.5) gm/dL Hct 28.2 L (39.0-53.0) % MCHC 30.7 L (31.0-37.0) g/dL Neutrophils # 15.0 H (1.3-7.7) k/uL Lymphocytes # 0.1 L (1.0-4.8) k/uL ABG pCO2 (35-45) mmHg ABG HCO3 (21-25) mmol/L ABG Total CO2 (19-24) mmol/L ABG O2 Saturation (94-97) % Carbon Dioxide 34 H (22-30) mmol/L BUN 45 H (9-20) mg/dL Glucose 211 H (74-99) mg/dL POC Glucose (mg/dL) 240 H (70-110) mg/dL Calcium 7.3 L (8.4-10.2) mg/dL AST 16 L (17-59) U/L Total Protein 4.4 L (6.3-8.2) g/dL Albumin 2.1 L (3.5-5.0) g/dL 05/22/22 Range/Units 05:58 WBC (3.8-10.6) k/uL RBC (4.30-5.90) m/uL Hgb (13.0-17.5) gm/dL Hct (39.0-53.0) % MCHC (31.0-37.0) g/dL Neutrophils # (1.3-7.7) k/uL Lymphocytes # (1.0-4.8) k/uL ABG pCO2 51 H (35-45) mmHg ABG HCO3 34 H (21-25) mmol/L ABG Total CO2 35 H (19-24) mmol/L ABG O2 Saturation 97.7 H (94-97) % Carbon Dioxide (22-30) mmol/L BUN (9-20) mg/dL Glucose (74-99) mg/dL POC Glucose (mg/dL) (70-110) mg/dL Calcium (8.4-10.2) mg/dL AST (17-59) U/L Total Protein (6.3-8.2) g/dL Albumin (3.5-5.0) g/dL Microbiology - Last 24 Hours (Table) 05/20/22 00:13 Gram Stain - Final Sputum Sputum Culture - Final Assessment and Plan Assessment: Acute hypoxemic respiratory failure secondary to an acute exacerbation of suspected congestive heart failure, moderate to severe mitral regurgitation, cannot rule out amiodarone toxicity fibrosis. Initial pro-calcitonin 0.07. Follow-up pro-calcitonin 05/19/2022 remains negative at 0.08. BNP 5440. No fever. No leukocytosis. Influenza screen negative. CoVID screen negative. RSV screen negative. Acute hypercapnic/hypoxemic respiratory failure with altered mental status and obtundation requiring intubation mechanical ventilatory support early in the morning of 05/19/2022 Acute pulmonary edema, diuresed over 2 L per day on 05/12 through 05/14/2022. Currently off Lasix and Diamox History of paroxysmal atrial fibrillation maintained on amiodarone at 400 mg twice a day for approximately 2 months. Anticoagulated with Eliquis History of recent coronary artery bypass grafting at [facility] History of underlying coronary disease Hyperlipidemia Hypothyroidism History of gastroesophageal reflux disease without esophagitis Former smoker Plan: The patient was seen and evaluated Chest x-ray, ABGs, labs and medications reviewed Given Lasix 20 mg IVP 1 today Continue the current treatment plan Nourished with vital AF Daily interruption of sedation to assess his neuro status He has been slow to progress May need to consider trach and PEG We will continue to follow Critical care time greater than 30 minutes, not including procedures I have personally seen and examined the patient, performed the documentation and the assessment and plan as written. Number of minutes spent on the visit: 15.
[2022-05-22 13:11] LABS: Glucose,Whole Blood 206 mg/dL (70-110)
--- NOTE | 2022-05-22 15:27 | P.PN ---
Subjective Progress Note Date: 05/22/22 82 years old male with multiple medical problems as below including history of atrial fibrillation on amiodarone at home and not on a blood thinner, history of coronary artery disease status post recent CABG, heart failure, mitral valve disease, GERD, hyperlipidemia and hypothyroidism Presents with respiratory distress and hypoxia currently he is in the ICU very lethargic, easily arousable and answers questions and follows commands but very tired and go back to sleep. History requiring high flow nasal cannula at 60 L/m with FiO2 of 64-65%. Also he is kept on liquids 2.5 by customer assistant for A. fib, he is on diuretic acetazolamide, no Lasix currently but also his place on some gentle hydration by customer assistant for possible dehydration, renal function is improving. Today down to 1.0. Also there is suspected pulmonary fibrosis per pulmonary team, home dose of amiodarone as healthy bowel. Echocardiogram showing ejection fraction 50% with mild to moderate to severe mitral regurgitation There is some evidence of COPD exacerbation and reactive airway disease and he is kept on Solu-Medrol 40 mg. WBC 16.8 while on steroids, hemoglobin 11.1 Objective - Vital Signs Vital signs: Vital Signs Temp 97.9 F 05/22/22 00:00 Pulse 65 05/22/22 00:00 Resp 22 05/22/22 00:00 BP 108/59 05/22/22 00:00 Pulse Ox 91 L 05/22/22 00:00 FiO2 30 05/22/22 00:00 Intake & Output 05/21/22 05/21/22 05/22/22 06:59 18:59 06:59 Intake Total 4778.194 4689.703 898.732 Output Total 490 520 290 Balance 494.073 2599.703 608.732 Weight 90.7 kg Intake: IV 583 636 318 NS Pressure Bag 33 36 18 Sodium Chloride 0.9% 1, 550 600 300 000 ml @ 50 mls/hr IV . Q20H [facility] Rx#:[id number] Intake, IV Titration 481.753 464.703 220.732 Amount Norepinephrine 4 mg In 303.810 233.982 120.732 Sodium Chloride 0.9% 250 ml @ 0.03 MCG/KG/MIN 9. 224 mls/hr IV .Q24H [facility] Rx#:[id number] propofoL 1,000 mg In 177.943 230.721 100 Empty Bag 1 bag @ 15 MCG/ KG/MIN 7.263 mls/hr IV . [id number] [facility] Rx#:[id number] Tube Feeding 360 270 Other 60 90 Output: Urine 490 520 290 Other: Voiding Method Indwelling Catheter Indwelling Catheter Indwelling Catheter ABP, PAP, CO, CI - Last Documented Arterial Blood Pressure 126/49 - Exam -GENERAL: The patient is intubated and sedated. HEENT: Pupils are round and equally reacting to light. EOMI. No scleral icterus. No conjunctival pallor. Normocephalic, atraumatic. No pharyngeal erythema. No thyromegaly. CARDIOVASCULAR: S1 and S2 present. No murmurs, rubs, or gallops. -PULMONARY: Chest is clear to auscultation, no wheezing bilateral crackles. ABDOMEN: Soft, nontender, nondistended, normoactive bowel sounds. No palpable organomegaly. MUSCULOSKELETAL: No joint swelling or deformity. -EXTREMITIES: No cyanosis, clubbing, Bilateral pitting leg edema. NEUROLOGICAL: Gross neurological examination did not reveal any focal deficits. SKIN: No rashes. no petechiae. - Labs CBC & Chem 7: 05/22/22 05:08 05/22/22 05:08 Labs: Abnormal Lab Results - Last 24 Hours (Table) 05/21/22 05/21/22 05/21/22 Range/Units 04:49 04:49 05:28 WBC 18.0 H (3.8-10.6) k/uL RBC 3.32 L (4.30-5.90) m/uL Hgb 9.7 L (13.0-17.5) gm/dL Hct 31.6 L (39.0-53.0) % MCHC 30.7 L (31.0-37.0) g/dL Neutrophils # 17.3 H (1.3-7.7) k/uL Lymphocytes # 0.1 L (1.0-4.8) k/uL ABG pCO2 55 H (35-45) mmHg ABG pO2 61 L (83-108) mmHg ABG HCO3 34 H (21-25) mmol/L ABG Total CO2 36 H (19-24) mmol/L ABG O2 Saturation 92.2 L (94-97) % Carbon Dioxide 35 H (22-30) mmol/L BUN 42 H (9-20) mg/dL Glucose 236 H (74-99) mg/dL POC Glucose (mg/dL) (70-110) mg/dL Calcium 7.6 L (8.4-10.2) mg/dL 05/21/22 05/21/22 05/21/22 Range/Units 05:41 11:24 17:42 WBC (3.8-10.6) k/uL RBC (4.30-5.90) m/uL Hgb (13.0-17.5) gm/dL Hct (39.0-53.0) % MCHC (31.0-37.0) g/dL Neutrophils # (1.3-7.7) k/uL Lymphocytes # (1.0-4.8) k/uL ABG pCO2 (35-45) mmHg ABG pO2 (83-108) mmHg ABG HCO3 (21-25) mmol/L ABG Total CO2 (19-24) mmol/L ABG O2 Saturation (94-97) % Carbon Dioxide (22-30) mmol/L BUN (9-20) mg/dL Glucose (74-99) mg/dL POC Glucose (mg/dL) 268 H 260 H 228 H (70-110) mg/dL Calcium (8.4-10.2) mg/dL 05/21/22 05/21/22 Range/Units 23:02 23:27 WBC (3.8-10.6) k/uL RBC (4.30-5.90) m/uL Hgb (13.0-17.5) gm/dL Hct (39.0-53.0) % MCHC (31.0-37.0) g/dL Neutrophils # (1.3-7.7) k/uL Lymphocytes # (1.0-4.8) k/uL ABG pCO2 (35-45) mmHg ABG pO2 (83-108) mmHg ABG HCO3 (21-25) mmol/L ABG Total CO2 (19-24) mmol/L ABG O2 Saturation (94-97) % Carbon Dioxide (22-30) mmol/L BUN (9-20) mg/dL Glucose (74-99) mg/dL POC Glucose (mg/dL) 202 H 211 H (70-110) mg/dL Calcium (8.4-10.2) mg/dL Microbiology - Last 24 Hours (Table) 05/20/22 00:13 Gram Stain - Preliminary Sputum Sputum Culture - Preliminary Assessment and Plan Assessment: Acute CHF exacerbation Possible reactive airway disease versus acute COPD exacerbation Acute hypoxic respiratory failure, status post intubation on 05/19 Moderate to severe mitral regurgitation Paroxysmal atrial fibrillation Recent history of bypass surgery Possible pulmonary fibrosis Plan: Patient is being multiple IV fluids Continue with current management with the pulmonary/critical care team consult Continue with Eliquis Continue with Solu-Medrol Keep holding amiodarone with cardiology team recommendation Continue with acetazolamide Continue with home dose of aspirin Cardiology and pulmonary team of the rn field case manager blood pressure, a pressors when necessary for hypotension monitor urine output Labs and medication were reviewed.. Continue same treatment. Continue with symptomatic treatment. Resume home medication. Monitor lytes and vitals. DVT and GI prophylaxis. Further recommendations as per clinical course of the patient DVT prophylaxis: Eliquis GI Prophylaxis: Ppi
[2022-05-22 17:19] LABS: Glucose,Whole Blood 189 mg/dL (70-110)
[2022-05-22] MEDS: ATORVASTATIN 20 MG TAB PO SCH (20:47)
[2022-05-22 23:30] LABS: Glucose,Whole Blood 231 mg/dL (70-110)
[2022-05-23] MEDS: IPRATROPIUM-ALBUTEROL 3 ML NEB INHALATION SCH ×6 (03:32→23:44)
[2022-05-23 05:56] LABS: Glucose,Whole Blood 148 mg/dL (70-110)
[2022-05-23] MEDS: INSULIN ASPART (NovoLOG) 100 UNIT/ML VIAL SQ SCH ×4 (06:00→23:57)
[2022-05-23 06:05] LABS: Basophils % (A) 0 %; Eosinophils % (A) 0 %; HCT 30.9 % (39.0-53.0); HGB 9.4 gm/dL (13.0-17.5); Hypochromasia Marked; Lymphocytes # (A) 0.1 k/uL (1.0-4.8); Lymphocytes % (A) 1 %; MCH 28.7 pg (25.0-35.0); MCHC 30.4 g/dL (31.0-37.0); MCV 94.2 fL (80.0-100.0); Mean Platelet Volume 11.2; Monocytes # (A) 0.5 k/uL (0-1.0); Monocytes % (A) 3 %; Neutrophils # (A) 16.1 k/uL (1.3-7.7); Neutrophils % (A) 96 %; Platelet Count 195 k/uL (150-450); RBC 3.28 m/uL (4.30-5.90); RDW 14.2 % (11.5-15.5); WBC 16.8 k/uL (3.8-10.6)
[2022-05-23] MEDS: LEVOTHYROXINE 125 MCG TAB PO SCH (06:08)
[2022-05-23] MEDS: methylPREDNISolone SOD SUCCI 40 MG/ML 1 ML VIAL IV SCH ×4 (06:08→23:57)
[2022-05-23 06:10] LABS: ABG Base Excess 10.8 mmol/L; ABG HCO3 35 mmol/L (21-25); ABG PCO2 51 mmHg (35-45); ABG PH 7.44 (7.35-7.45); ABG PO2 103 mmHg (83-108); ABG TCO2 37 mmol/L (19-24); Allen Test Performed? Yes
[2022-05-23 06:16] LABS: ALT 18 U/L (4-49); AST 15 U/L (17-59); African American GFR (CKD) >90 (>60 ml/min/1.73 sqM); Albumin 2.1 g/dL (3.5-5.0); Alkaline Phosphatase 108 U/L (38-126); Anion Gap -2 mmol/L; Blood Urea Nitrogen 45 mg/dL (9-20); Calcium 7.2 mg/dL (8.4-10.2); Carbon Dioxide 35 mmol/L (22-30); Chloride 106 mmol/L (98-107); Glucose 159 mg/dL (74-99); Non-African American GFR(CKD) 87 (>60 ml/min/1.73 sqM); Potassium 4.3 mmol/L (3.5-5.1); Sodium 139 mmol/L (137-145); Total Bilirubin 0.4 mg/dL (0.2-1.3); Total Protein 4.4 g/dL (6.3-8.2)
--- NOTE | 2022-05-23 08:07 | XR ---
EXAMINATION TYPE: XR chest 1V portable DATE OF EXAM: 05/23/2022 5:54 AM COMPARISON: Chest radiograph from one day prior. TECHNIQUE: XR chest 1V portable Portable AP radiograph of the chest. CLINICAL INDICATION:Male, 82 years old with history of Tube placement; FINDINGS: Lungs/Pleura: Small patchy hazy airspace opacity throughout the lungs. There is no evidence of or pn eumothorax. Blunting of the costophrenic angles. Pulmonary vascularity: Pulmonary vascular congestion. Heart/mediastinum: Cardiomediastinal silhouette is prominent in size. A loop recorder projects over t he left thorax over the heart. Musculoskeletal: No acute osseous pathology. Lines/Tubes: Endotracheal tube with distal tip 3.0 cm above the [place]. Nasogastric tube with its distal tip and side-port projecting under the diaphragm. Left internal jugular central venous catheter with distal tip at the cavoatrial junction. IMPRESSION: 1. Similar multifocal airspace opacities. 2. Stable support lines and tubes.
[2022-05-23] MEDS: ASPIRIN 81 MG PO SCH (08:13)
[2022-05-23] MEDS: MAGNESIUM OXIDE 400 MG TAB PO SCH (08:13)
[2022-05-23] MEDS: APIXABAN 2.5 MG TABLET PO SCH ×2 (08:13→19:59)
[2022-05-23] MEDS: PANTOPRAZOLE 40 MG/10 ML VIAL IVP SCH (08:13)
[2022-05-23] MEDS: CHLORHEXIDINE GLUCONATE 15 ML CUP MUCOUS MEM SCH ×2 (08:13→19:59)
--- NOTE | 2022-05-23 09:51 | P.PN ---
Subjective Progress Note Date: 05/23/22 The patient is an 82-year-old male who is currently admitted to the hospital with acute hypoxic respiratory failure. He has a known history of coronary artery disease with recent CABG as well as paroxysmal atrial fibrillation. The patient remains mechanically ventilated. No further episodes of atrial fi brillation according to nursing staff. Chest x-ray shows multifocal airspace opacities. GENERAL: Well-appearing, well-nourished and in no acute distress. Currently ventilated NECK: Supple without JVD or thyromegaly. LUNGS: Breath sounds diminished to auscultation bilaterally. Respiration equal and unlabored. No wheezes, rales or rhonchi. HEART: Regular rate and rhythm without murmurs, rubs or gallops. S1 and S2 heard. EXTREMITIES: Normal range of motion, +2 generalized edema. No clubbing or cyanosis. No palpable pedal pulses. Doppler signals present per nursing documentation. VITALS: Blood pressure 129/50, respiratory rate 21, pulse 67, SpO2 95% on ventilator TELEMETRY: Sinus rhythm overnight. Occasional bradycardia in the 50s. 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 Objective - Vital Signs Vital signs: Vital Signs Temp 98 F 05/23/22 08:00 Pulse 67 05/23/22 09:00 Resp 21 05/23/22 09:00 BP 129/73 05/23/22 08:00 Pulse Ox 95 05/23/22 09:00 FiO2 40 05/23/22 08:00 Intake & Output 05/22/22 05/23/22 05/23/22 18:59 06:59 18:59 Intake Total 1294.151 866.796 487.226 Output Total 1095 630 130 Balance 199.151 236.796 357.226 Weight 93.9 kg 91.7 kg Intake: IV 636 636 159 NS Pressure Bag 36 36 9 Sodium Chloride 0.9% 1, 600 600 150 000 ml @ 50 mls/hr IV . Q20H [facility] Rx#:[id number] Intake, IV Titration 283.151 230.796 220.226 Amount Norepinephrine 4 mg In 159.317 94.683 200.212 Sodium Chloride 0.9% 250 ml @ 0.03 MCG/KG/MIN 9. 224 mls/hr IV .Q24H [facility] Rx#:[id number] propofoL 1,000 mg In 123.834 136.113 20.014 Empty Bag 1 bag @ 15 MCG/ KG/MIN 7.263 mls/hr IV . [id number] [facility] Rx#:[id number] Tube Feeding 315 48 Other 60 60 Output: Urine 1095 630 130 Other: Voiding Method Indwelling Catheter Indwelling Catheter Indwelling Catheter ABP, PAP, CO, CI - Last Documented Arterial Blood Pressure 129/50 - Labs CBC & Chem 7: 05/23/22 05:55 05/23/22 05:55 Labs: Abnormal Lab Results - Last 24 Hours (Table) 05/22/22 05/22/22 05/22/22 Range/Units 13:08 17:17 23:28 WBC (3.8-10.6) k/uL RBC (4.30-5.90) m/uL Hgb (13.0-17.5) gm/dL Hct (39.0-53.0) % MCHC (31.0-37.0) g/dL Neutrophils # (1.3-7.7) k/uL Lymphocytes # (1.0-4.8) k/uL ABG pCO2 (35-45) mmHg ABG HCO3 (21-25) mmol/L ABG Total CO2 (19-24) mmol/L ABG O2 Saturation (94-97) % Carbon Dioxide (22-30) mmol/L BUN (9-20) mg/dL Glucose (74-99) mg/dL POC Glucose (mg/dL) 206 H 189 H 231 H (70-110) mg/dL Calcium (8.4-10.2) mg/dL AST (17-59) U/L Total Protein (6.3-8.2) g/dL Albumin (3.5-5.0) g/dL 05/23/22 05/23/22 05/23/22 Range/Units 05:54 05:55 05:55 WBC 16.8 H (3.8-10.6) k/uL RBC 3.28 L (4.30-5.90) m/uL Hgb 9.4 L (13.0-17.5) gm/dL Hct 30.9 L (39.0-53.0) % MCHC 30.4 L (31.0-37.0) g/dL Neutrophils # 16.1 H (1.3-7.7) k/uL Lymphocytes # 0.1 L (1.0-4.8) k/uL ABG pCO2 (35-45) mmHg ABG HCO3 (21-25) mmol/L ABG Total CO2 (19-24) mmol/L ABG O2 Saturation (94-97) % Carbon Dioxide 35 H (22-30) mmol/L BUN 45 H (9-20) mg/dL Glucose 159 H (74-99) mg/dL POC Glucose (mg/dL) 148 H (70-110) mg/dL Calcium 7.2 L (8.4-10.2) mg/dL AST 15 L (17-59) U/L Total Protein 4.4 L (6.3-8.2) g/dL Albumin 2.1 L (3.5-5.0) g/dL 05/23/22 Range/Units 06:04 WBC (3.8-10.6) k/uL RBC (4.30-5.90) m/uL Hgb (13.0-17.5) gm/dL Hct (39.0-53.0) % MCHC (31.0-37.0) g/dL Neutrophils # (1.3-7.7) k/uL Lymphocytes # (1.0-4.8) k/uL ABG pCO2 51 H (35-45) mmHg ABG HCO3 35 H (21-25) mmol/L ABG Total CO2 37 H (19-24) mmol/L ABG O2 Saturation 99.0 H (94-97) % Carbon Dioxide (22-30) mmol/L BUN (9-20) mg/dL Glucose (74-99) mg/dL POC Glucose (mg/dL) (70-110) mg/dL Calcium (8.4-10.2) mg/dL AST (17-59) U/L Total Protein (6.3-8.2) g/dL Albumin (3.5-5.0) g/dL Microbiology - Last 24 Hours (Table) 05/20/22 00:13 Gram Stain - Final Sputum Sputum Culture - Final
[2022-05-23] MEDS ORDERED: FUROSEMIDE 10 MG/ML 4 ML VIAL IV STA (10:10)
[2022-05-23 11:19] LABS: ABG Base Excess 9.4 mmol/L; ABG HCO3 35 mmol/L (21-25); ABG Oxygen Saturation 95.5 % (94-97); ABG PCO2 63 mmHg (35-45); ABG PH 7.35 (7.35-7.45); ABG PO2 77 mmHg (83-108); ABG TCO2 37 mmol/L (19-24)
[2022-05-23 11:20] LABS: Allen Test Performed? no
--- NOTE | 2022-05-23 11:51 | CDI ---
Documentation Clarification Form Date: 05/23/2022 11:27:51 AM From: Mirela Manriquez CCS, CCDS Admit Date: 05/09/2022 10:41:00 AM Patient Name: Derek Sanchez Visit Number: [id number] Discharge Date: ATTENTION: The Clinical Documentation Specialists (CDI) and [facility] Coding Staff appreciate your assistance in clarifying documentation. Please respond to the clarification below the line at the bottom and electronically sign. The CDI & [facility] Coding staff will review the response and follow-up if needed. Please note: Queries are made part of the Legal Health Record. If you have any questions, please contact the author of this message via ITS. Dr. Regan Maradiaga: The following is documented in the 05/21 Pulmonary/Critical Care Progress Note: The patient was intubated and subsequently started on mechanical ventilation. Also he was hypotensive for a small dose of norepinephrine. Additional clarification regarding the above documentation is requested. Patient history/risk factors per the 05/09 H/P: CABG at [facility] recently. CHF, probably systolic, ECHO not available. Atrial Fibrillation, CAD, CHF, Hypotension, Anemia, COVID, Previous respiratory failure, GERD, Hyperlipidemia, BPH, Hypothyroidism, Insomnia, Smoker. Clinical Indicators: Presented to the ED via EMS, transferred from outside hospital with SOB in Respiratory Failure. PO 57%, elevated cardiac enzymes, elevated BNP suggesting heart failure. Admit with Respiratory Failure 05/19: Pulmonary/Critical Care Progress Note: Patient had more respiratory distress overnight, was intubated and on ventilation w/sedation, low BP 81/51, receiving 2 units PRBCs and will need pressors. Urine output 10 mL/h, [place] catheter continued. NGT placed, Triple Lumen & A Line. 05/19 VS: T 97.7, P 51, 49; R 20 on vent, BP 71/41, PO 97 100% vent. 05/19 LAB: WBC 18.5, RBC 3.95, Hgb 11.3, Neutrophils 17.7, Lymphocytes 0.1; CO2 40, Calcium 8.1, Magnesium 2.5 Blood Gases: ABG pH 7.30, pCO2 81, pO2 69, HCO3 40, total CO2 42. 05/19 CXR: Intubated, NGT, Persistent bilateral interstitial edema or pneumonia. Suspect tiny effusions. Treatment 05/09: BiPAP, I&Os, Dietitian consult for Enteral Tube Feeding, IV Propofol 7.263 mls/hr q13H, IVF Na Chl 2,000 mls @ 999 mls/hr q2H, IV Levophed 254 mls @ 9.224 mls/hr q2H, IV Nimbex 10 mg x1, IV Lactated Ringers 1,000 mls @ 999 mls/hr q1H, IV Dextrose 25 ml prn. Please clarify if the following is present: [ ] Hypovolemic Shock [ ] Cardiogenic Shock [X ] Other, please specify: __Sepsis [ ] Unable to determine (Template Last Revised: July 2020) MTDD
[2022-05-23 12:02] LABS: Glucose,Whole Blood 278 mg/dL (70-110)
[2022-05-23] MEDS: NOREPINEPHRINE 4 MG in SODIUM CHLORIDE 0.9% 250 ML IV SCH (12:22)
--- NOTE | 2022-05-23 12:44 | P.PN ---
Subjective Progress Note Date: 05/23/22 This is an 82-year-old white male with history of coronary artery disease, recent CABG about 2 months ago, this was done at [facility]. Patient presented to [facility] with a few days' history of increased shortness of breath, and his shortness of breath, much worse today. In addition to shortness of breath, the patient is coughing, the cough is productive with whitish phlegm, no fever no chills, no hemoptysis, no chest pain. workup in [place] showed evidence of pulmonary edema, he also had elevated BNP level, and elevated troponin level. Patient was transferred to [facility], I saw him down in the ER. Patient is on BiPAP, 12/5/55%, O2 saturation is in the low 90s. Patient was already given Lasix by the admitting physician and he is now on Lasix at 60 mg IV push twice a day. Some improvement clinically noted according to the patient. Patient has no previous history of COPD, and no previous history of smoking. His WBC count is 12.6 hemoglobin is 1 0.3, basic metabolic profile is normal renal profile is normal bicarb is 38 lactic acid 4.6. ProBNP level is 3790. Chest x-ray is consistent with interstitial edema however underlying pneumonia is not entirely ruled out but felt to be less likely. EKG showed sinus rhythm, and incomplete right bundle branch block pattern otherwise unremarkable, nonspecific ST and T-wave changes noted. The patient is seen today 05/10/2022 in follow-up on the selective care unit. He is currently resting in bed. Awake and alert in no acute distress. He is still on BiPAP 12/5 and 55%. white count 11.0. Hemoglobin 9.6. Platelets 275. Sodium 142. Potassium 3.8. Bicarb 42. BUN 40. Creatinine 0.82. Glucose 109. He is continued on Lasix 60 mg every 12 hours. No accurate I&O recorded. Current weight 83.5 kg. today's chest x-ray is essentially unchanged. Pro- calcitoninn level 0.07. I'm evaluating this patient today on 05/11/2022. His work of breathing has obviously increased overnight. He is requiring BiPAP titrations and is currently 14/5 and 70%. He is tachypneic breathing about 30-40 breaths per minute with accessory muscle use. Recent echocardiogram was performed on 05/10/2022 which showed a normal ejection fraction of 50% and some moderate to severe mitral regurgitation. He is receiving furosemide 80 mg twice a day. A urinary catheter was inserted yesterday for accurate intake and output. Fluid balance is -1 L. Normal saline is using KVO. CT of the chest with contrast was also performed yesterday on 05/10/2022 which showed diffuse airspace opacities and consolidation changes, some small bilateral pleural effusions, evidence of pulmonary hypertension, and cardiomegaly. Likely representing a combination of atypical pneumonia versus inflammatory process. There is also some superimposed pulmonary vascular congestion. Chest x-ray from today 05/11/2022 continues to show diffuse interstitial and alveolar infiltrates bilaterally. He continues to receive by mouth amiodarone. And his heart rhythm is currently normal sinus. Patient remains afebrile. CBC did not show any leukocytosis with a WBC of 7.8, hemoglobin 9.4, hematocrit 30.9, platelet count 280,000. BMP from today shows sodium 140, potassium of 3.9, chloride of 94, serum CO2 of 42 to, UN 45, creatinine 1.04, glucose 139. Remains on Lovenox for DVT prophylaxis. We'll transfer this patient in ICU for closer monitoring. Reevaluated today on 05/12/2022, patient is basically about the same. Remains on BiPAP, he is on IPAP of 14 EPAP of 5 and FiO2 70%, chest x-ray continues to show diffuse interstitial process bilaterally, it is difficult to tell how much of this is true pulmonary edema and how much of it is acute lung injury, induced by amiodarone. Not to mention the patient is not a candidate to perform or even think of lung biopsy. Patient is receiving diuretics and he is a -2 L in the last 24 hours, he is now on Lasix and Diamox, not seeing much improvement in his overall pulmonary status in spite of aggressive diuresis as a matter of fact I have a strong feeling that the patient will require eventually intubation and mechanical ventilation if he continues to do poorly. He is basically marginal at best at this point. CBC is relatively normal electrolytes are normal except bicarb is up to 44, patient is sleepy developing a bit of metabolic contraction alkalosis. Hence Diamox was added. Patient remains on steroids for his presumptive amiodarone induced lung injury although this is not definitive Patient was reevaluated today on 05/09/22, remains in the ICU, his overall pu lmonary status is marginal at best. Continues to have abnormal chest x-ray, continues to be relatively hypoxic, patient is now on high flow oxygen via airvo, FiO2 90% and 60 L flow, seems to be tolerating this better than the BiPAP, yesterday he was on BiPAP 14/6/80%. Remains on diuretics, remains on steroids, patient tells me that he feels a bit better today, although his chest x-ray is basically about the same, and his oxygenation seems to be marginal/the same.CBC is unremarkable, basic metabolic profile is normal bicarb is 46 BUN is 57 creatinine 1.72, hence I will start cutting down on his diuretics, we will continue Diamox continue Diamox, continue Lasix but quit ahead and stop again I am quite concerned about the rapid increase in his creatinine, not to mention the patient has been in a negative balance over the last 48 hours.since admission, the patient is almost -7 L. And he is becoming quite dehydrated. Reevaluated today on 05/14/22, patient remains in the ICU, remains on BiPAP with IPAP of 14/EPAP of 6, FiO2 is 70%. Patient is becoming more and more alkalotic, hence I'm stopping his Lasix. We will continue the patient on Diamox. He is also off Zaroxolyn. Patient has been in a significant negative balance over the last few days. Last night he became quite agitated and we had to place him on Precedex, he is on 0.4 mcg/kg/h of Precedex today. Seems to be calm, chest x- ray continues to show evidence of interstitial infiltrates bilaterally. Again it is not clear how much of it is really congestive heart failure and how much of an acute lung injury.WBC count today is 9 hemoglobin is 10.3, bicarb is elevated at 52 BUN is 50 creatinine 1.61 slightly better than yesterday. Reevaluated today on 05/15/22, patient remains in the ICU, pulmonary status remains marginal at best. However his chest x-ray is probably showing slight improvement, and his FiO2 requirement is less, patient is now on airvo at 60% FiO2 and 60 L flow, O2 sats ration is in the mid 90s. He was on BiPAP earlier today with IPAP of 14 EPAP of 6 and FiO2 of 60%. Remains on Precedex at 0.4 mcg/kg/h. IV fluids at KVO, diuretics have been cut down significantly, remains on Diamox only. CBC is basically unremarkable bicarb is down to 45 and 52 BUN is down to 46 creatinine is down to 1.160. Patient is comfortable on airvo, does not seem to be in distress The patient is seen today 05/16/2022 in follow-up in the intensive care unit. He is currently resting fairly comfortably in bed. Awake and alert. He is still requiring quite a bit of oxygen he was wearing BiPAP 14/60-60% FiO2. Currently more comfortable on the AirVo high flow oxygen at 60 L and 65% FiO2. He has Precedex running at 0.3 mg/kg/h. Normal saline at 20 ML's per hour. Chest x-ray continues to show small bilateral pleural effusions with slightly increased diffuse bilateral multifocal patchy airspace disease. White count 10.2. Hemoglobin 9.8. Platelets 287. Sodium 135. Potassium 3.9. Bicarb 41. BUN 42. Creatinine 1.02. Glucose 145. Arterial blood gases revealed a PaO2 of 66, pCO2 63, pH 7.4-65% FiO2. He is continued on DuoNeb inhalations, IV Solu- Medrol. Lovenox for DVT prophylaxis. He remains off diuretics. Currently in a -500 mL balance. The patient is seen today 05/17/2022 in follow-up in the intensive. He is currently sitting up in a chair at the bedside. Awake and alert in no acute distress. He is feeling better today compared to yesterday. He is still requiring AirVo high flow oxygen and 60 L and 65% FiO2. BiPAP has been discontinued. No IV fluids currently. Chest x-ray continues to show diffuse increased lung markings bilaterally. ProBNP 2420. Pro-calcitonin was 0.06. Today's labs are pending. He remains off diuretics. Continued on Diamox. Continued on DuoNeb inhalations, IV Solu-Medrol. Anticoagulated with Eliquis. Remains off amiodarone. Continued in sinus rhythm. The patient seen today 05/18/2022 in follow-up in the intensive care unit. He is currently resting comfortably in bed. Awake and alert in no acute distress. He is still requiring AirVo high flow oxygen at 60 L/m and 65% FiO2. Normal saline at KVO. White count 16.8. Hemoglobin 11.7. Platelets 279. Sodium 140. Potassium 3.9. Bicarb 40. The 144. Creatinine 1.06. He is continued on DuoNeb inhalations, IV site Medrol. Anticoagulated with Eliquis. The patient is seen today 05/19/2022 in follow-up in the intensive care unit. Throughout the day and into the evening last night patient had become more obtunded and less responsive. He was initiated on AirVo 60 L and 65% with O2 saturations are 96%. He became hypercapnic with a CO2 of 81 and was placed on BiPAP 14/6 and 60% FiO2. He was eventually intubated approximately 6:00 this morning the patient required intubation and mechanical ventilatory support. He is currently an assist-control mode at a rate of 20, tidal by 450, FiO2 50% and a PEEP of 5. Blood gases revealed a PaO2 of 316, pCO2 65 and a pH of 7.35 100% FiO2. FiO2 titrated down appropriately. He is sedated on propofol at 40 mcg/kg/m. Maintained on norepinephrine at 0.06 mcg/kg/m. Normal saline at 50 MLS per hour. Follow-up chest x-ray revealed satisfactory intubation, nasogastric tube in place. Persistent bilateral interstitial edema versus pneumonia. Tiny effusions. White count 18.5. Hemoglobin 11.3. Platelets 223. Sodium 142. Potassium 4.0. BUN 48. Creatinine 1.06. Glucose 173. AST 18. ALT 18. ProBNP 5440. Cortisol 14. He is continued on DuoNeb inhalations, IV Solu-Medrol. Anticoagulated with Eliquis. The patient is seen today 05/20/2022 in follow-up in the intensive care unit. He remains intubated and on the mechanical ventilator. Current settings are assist-control mode at a rate of 20, tight up in 450, FiO2 40% and a PEEP of 5. Morning blood gases reveal pO2 of 87, pCO2 54, pH 7.40. He is receiving normal saline at 50 ML's per hour. Sedated with propofol at 40 mcg/kg/m. Still requiring norepinephrine at 8.6 mg/m. He is receiving nutrition via NG tube with vital HP at 40 ML's per hour with a goal of 45. Chest x-ray reveals similar multifocal airspace opacities. Endotracheal and nasogastric tube secured in place. Left internal jugular central line in place. White count 16.0. Hemoglobin 9.3. Sodium 139. Potassium 3.3. Bicarb 32. BUN 43. Creatinine 0.86. Glucose 221. AST 15. ALT 16. He is currently in a +5 L balance. Remains on DuoNeb inhalations, IV Solu-Medrol, anticoagulated with Eliquis. Initial pro-calcitonin 0.06. Follow-up pro-calcitonin 0.08. ProBNP 5440. The patient is seen today 05/21/2022 in follow-up in the intensive care unit. He remains intubated on the mechanical ventilator in assist control mode with a rate of 20, tidal volume 450, FiO2 30% and a PEEP of 5. Morning blood gases reveal pO2 of 61, pCO2 55, pH 7.4. Remains sedated on propofol at 35 mcg/kg/m. He remains on norepinephrine at 9 mcg/m. Normal saline at 50 MLS per hour. He is being nourished with vital AF at 45 ML's per hour which is goal. He has received daily interruption of sedation. He gets quite tachycardic and tachypneic. Not following commands. He is continued on DuoNeb inhalations, IV Solu-Medrol. Anticoagulated with Eliquis. Chest x-ray continues to show lisbet lar multifocal airspace opacities. Sputum culture pending. White count 18.0. Hemoglobin 9.7. Sodium 140. Potassium 4.0. Bicarb 35. BUN 42. Creatinine 0.80. Glucose 236. The patient is seen today 05/22/2022 in follow-up in the intensive care unit. He is intubated and on mechanical ventilator and assist control mode at a rate of 20, tidal on 450, FiO2 40% and a PEEP of 5. Morning blood gases revealed a pO2 of 83, pCO2 51, pH 7.43. He is sedated on propofol at 30 mcg/kg/m. On norepinephrine at 4 mcg/m. Normal saline at 50 MLS per hour. He is being nourished with vital AF at 45 mL per hour which is goal. Chest x-ray reveals slight worsening bilateral multifocal edema and/or infiltrates. Sputum culture reveals no growth. White count 15.7. Hemoglobin 8.6. Platelets 176. Sodium 140. Potassium 4.1. Bicarb 34. BUN 45. Creatinine 0.74. Glucose 211. He is continued on DuoNeb inhalations, IV Solu-Medrol. Anticoagulated with Eliquis. The patient is seen today 05/23/2022 in follow-up in the intensive care unit. He continues to remain intubated and on the mechanical ventilator at assist control mode at a rate of 20, tidal on 450, FiO2 40% and a PEEP of 5. Arterial blood gases reveal pO2 103, pCO2 51, pH 7.44. Chest x-ray reveals similar multifocal airspace opacities. He is sedated on propofol at 20 mcg/kg/m. He remains on norepinephrine at 3.2 mcg/m. Normal saline at 50 MLS per hour. White count 16.8. Hemoglobin 9.4. Platelets 195. Sodium 139. Potassium 4.3. Bicarb 35. BUN 45. Creatinine 0.71 glucose 159. He is continued on IV Solu- Medrol, bronchodilators, anticoagulated with Eliquis. Objective - Vital Signs Vital signs: Vital Signs Temp 98 F 05/23/22 08:00 Pulse 90 05/23/22 11:00 Resp 28 H 05/23/22 11:00 BP 129/73 05/23/22 08:00 Pulse Ox 95 05/23/22 11:00 FiO2 40 05/23/22 11:29 Intake & Output 05/22/22 05/23/22 05/23/22 18:59 06:59 18:59 Intake Total 1294.151 866.796 662.289 Output Total 1095 630 230 Balance 199.151 236.796 432.289 Weight 93.9 kg 91.7 kg Intake: IV 636 636 265 NS Pressure Bag 36 36 15 Sodium Chloride 0.9% 1, 600 600 250 000 ml @ 50 mls/hr IV . Q20H [facility] Rx#:[id number] Intake, IV Titration 283.151 230.796 241.289 Amount Norepinephrine 4 mg In 159.317 94.683 200.212 Sodium Chloride 0.9% 250 ml @ 0.03 MCG/KG/MIN 9. 224 mls/hr IV .Q24H [facility] Rx#:[id number] propofoL 1,000 mg In 123.834 136.113 41.077 Empty Bag 1 bag @ 15 MCG/ KG/MIN 7.263 mls/hr IV . [id number] [facility] Rx#:[id number] Tube Feeding 315 96 Other 60 60 Output: Urine 1095 630 230 Other: Voiding Method Indwelling Catheter Indwelling Catheter Indwelling Catheter ABP, PAP, CO, CI - Last Documented Arterial Blood Pressure 136/65 - Exam GENERAL EXAM: Intubated, sedated 82-year-old gentleman, currently on the ventilator with 40% FiO2 and a PEEP of 5, in no apparent distress. HEAD: Normocephalic. EYES: Sluggish reaction of pupils, equal size. NOSE: Clear with pink turbinates. THROAT: Oral endotracheal and gastric tube secured in place. No erythema or exudates. NECK: No masses, no JVD. CHEST: No chest wall deformity. LUNGS: Equal air entry with bibasilar crackles. CVS: S1 and S2 normal with an audible murmur, regular rhythm. ABDOMEN: No hepatosplenomegaly, normal bowel sounds, no guarding or rigidity. SPINE: No scoliosis or deformity SKIN: No rashes CENTRAL NERVOUS SYSTEM: No focal deficits, tone is normal in all 4 extremities. EXTREMITIES: There is 2+ peripheral edema. No clubbing, no cyanosis. Peripheral pulses are intact. - Labs CBC & Chem 7: 05/23/22 05:55 05/23/22 05:55 Labs: Abnormal Lab Results - Last 24 Hours (Table) 05/22/22 05/22/22 05/22/22 Range/Units 13:08 17:17 23:28 WBC (3.8-10.6) k/uL RBC (4.30-5.90) m/uL Hgb (13.0-17.5) gm/dL Hct (39.0-53.0) % MCHC (31.0-37.0) g/dL Neutrophils # (1.3-7.7) k/uL Lymphocytes # (1.0-4.8) k/uL ABG pCO2 (35-45) mmHg ABG pO2 (83-108) mmHg ABG HCO3 (21-25) mmol/L ABG Total CO2 (19-24) mmol/L ABG O2 Saturation (94-97) % Carbon Dioxide (22-30) mmol/L BUN (9-20) mg/dL Glucose (74-99) mg/dL POC Glucose (mg/dL) 206 H 189 H 231 H (70-110) mg/dL Calcium (8.4-10.2) mg/dL AST (17-59) U/L Total Protein (6.3-8.2) g/dL Albumin (3.5-5.0) g/dL 05/23/22 05/23/22 05/23/22 Range/Units 05:54 05:55 05:55 WBC 16.8 H (3.8-10.6) k/uL RBC 3.28 L (4.30-5.90) m/uL Hgb 9.4 L (13.0-17.5) gm/dL Hct 30.9 L (39.0-53.0) % MCHC 30.4 L (31.0-37.0) g/dL Neutrophils # 16.1 H (1.3-7.7) k/uL Lymphocytes # 0.1 L (1.0-4.8) k/uL ABG pCO2 (35-45) mmHg ABG pO2 (83-108) mmHg ABG HCO3 (21-25) mmol/L ABG Total CO2 (19-24) mmol/L ABG O2 Saturation (94-97) % Carbon Dioxide 35 H (22-30) mmol/L BUN 45 H (9-20) mg/dL Glucose 159 H (74-99) mg/dL POC Glucose (mg/dL) 148 H (70-110) mg/dL Calcium 7.2 L (8.4-10.2) mg/dL AST 15 L (17-59) U/L Total Protein 4.4 L (6.3-8.2) g/dL Albumin 2.1 L (3.5-5.0) g/dL 05/23/22 05/23/22 05/23/22 Range/Units 06:04 11:17 12:00 WBC (3.8-10.6) k/uL RBC (4.30-5.90) m/uL Hgb (13.0-17.5) gm/dL Hct (39.0-53.0) % MCHC (31.0-37.0) g/dL Neutrophils # (1.3-7.7) k/uL Lymphocytes # (1.0-4.8) k/uL ABG pCO2 51 H 63 H (35-45) mmHg ABG pO2 77 L (83-108) mmHg ABG HCO3 35 H 35 H (21-25) mmol/L ABG Total CO2 37 H 37 H (19-24) mmol/L ABG O2 Saturation 99.0 H (94-97) % Carbon Dioxide (22-30) mmol/L BUN (9-20) mg/dL Glucose (74-99) mg/dL POC Glucose (mg/dL) 278 H (70-110) mg/dL Calcium (8.4-10.2) mg/dL AST (17-59) U/L Total Protein (6.3-8.2) g/dL Albumin (3.5-5.0) g/dL Microbiology - Last 24 Hours (Table) 05/20/22 00:13 Gram Stain - Final Sputum Sputum Culture - Final Assessment and Plan Assessment: Acute hypoxemic respiratory failure secondary to an acute exacerbation of suspected congestive heart failure, moderate to severe mitral regurgitation, 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 Initial pro-calcitonin 0.07. Follow-up pro-calcitonin 05/19/2022 remains negative at 0.08. BNP 5440. No fever. No leukocytosis. Influenza screen negative. CoVID screen negative. RSV screen negative. Acute hypercapnic/hypoxemic respiratory failure with altered mental status and obtundation requiring intubation mechanical ventilatory support early in the morning of 05/19/2022 Acute pulmonary edema, dizziness to require diuretic Acute hypotension secondary to septic shock requiring pressors, recovered History of paroxysmal atrial fibrillation maintained on amiodarone at 400 mg twice a day for approximately 2 months. Anticoagulated with Eliquis History of recent coronary artery bypass grafting at [facility] History of underlying coronary disease Hyperlipidemia Hypothyroidism History of gastroesophageal reflux disease without esophagitis Former smoker Plan: The patient was seen and evaluated Chest x-ray, ABGs, labs and medications reviewed Continue the current treatment plan Give Lasix 40 mg IVP 1 today Daily interruption of sedation to assess his neuro status He has been slow to progress May need to consider trach and PEG We will continue to follow Critical care time greater than 30 minutes, not including procedures I have personally seen and examined the patient, performed the documentation and the assessment and plan as written. Number of minutes spent on the visit: 15.
[2022-05-23 17:52] LABS: Glucose,Whole Blood 149 mg/dL (70-110)
--- NOTE | 2022-05-23 18:36 | P.PN ---
Subjective Progress Note Date: 05/23/22 82 years old male with multiple medical problems as below including history of atrial fibrillation on amiodarone at home and not on a blood thinner, history of coronary artery disease status post recent CABG, heart failure, mitral valve disease, GERD, hyperlipidemia and hypothyroidism Presents with respiratory distress and hypoxia currently he is in the ICU very lethargic, easily arousable and answers questions and follows commands but very tired and go back to sleep. History requiring high flow nasal cannula at 60 L/m with FiO2 of 64-65%. Also he is kept on liquids 2.5 by protective services case worker for A. fib, he is on diuretic acetazolamide, no Lasix currently but also his place on some gentle hydration by protective services case worker for possible dehydration, renal function is improving. Today down to 1.0. Also there is suspected pulmonary fibrosis per pulmonary team, home dose of amiodarone as healthy bowel. Echocardiogram showing ejection fraction 50% with mild to moderate to severe mitral regurgitation There is some evidence of COPD exacerbation and reactive airway disease and he is kept on Solu-Medrol 40 mg. WBC 16.8 while on steroids, hemoglobin 11.1 05/23/2022 Patient is seen and evaluated in follow-up in the intensive care unit; remain intubated and on the mechanical ventilator at assist control mode at a rate. Arterial blood gases reveal pO2 103, pCO2 51, pH 7.44. Chest x-ray reveals similar multifocal airspace opacities. He is sedated on propofol at 20 mcg/kg/m. He remains on norepinephrine at 3.2 mcg/m. Normal saline at 50 MLS per hour. White count 16.8. Hemoglobin 9.4. Platelets 195. Sodium 139. Potassium 4.3. Bicarb 35. BUN 45. Creatinine 0.71 glucose 159. He is continued on IV Solu- Medrol, bronchodilators, anticoagulated with Eliquis. -- Continue the current treatment plan Give Lasix 40 mg IVP 1 today He has been slow to progress May need to consider trach and PEG Objective - Vital Signs Vital signs: Vital Signs Temp 98 F 05/23/22 08:00 Pulse 90 05/23/22 11:00 Resp 28 H 05/23/22 11:00 BP 129/73 05/23/22 08:00 Pulse Ox 95 05/23/22 11:00 FiO2 40 05/23/22 11:29 Intake & Output 05/22/22 05/23/22 05/23/22 18:59 06:59 18:59 Intake Total 1294.151 866.796 662.289 Output Total 1095 630 230 Balance 199.151 236.796 432.289 Weight 93.9 kg 91.7 kg Intake: IV 636 636 265 NS Pressure Bag 36 36 15 Sodium Chloride 0.9% 1, 600 600 250 000 ml @ 50 mls/hr IV . Q20H [facility] Rx#:[id number] Intake, IV Titration 283.151 230.796 241.289 Amount Norepinephrine 4 mg In 159.317 94.683 200.212 Sodium Chloride 0.9% 250 ml @ 0.03 MCG/KG/MIN 9. 224 mls/hr IV .Q24H [facility] Rx#:[id number] propofoL 1,000 mg In 123.834 136.113 41.077 Empty Bag 1 bag @ 15 MCG/ KG/MIN 7.263 mls/hr IV . [id number] [facility] Rx#:[id number] Tube Feeding 315 96 Other 60 60 Output: Urine 1095 630 230 Other: Voiding Method Indwelling Catheter Indwelling Catheter Indwelling Catheter ABP, PAP, CO, CI - Last Documented Arterial Blood Pressure 136/65 - Exam -GENERAL: The patient is intubated and sedated. HEENT: Pupils are round and equally reacting to light. EOMI. No scleral icterus. No conjunctival pallor. Normocephalic, atraumatic. No pharyngeal erythema. No thyromegaly. CARDIOVASCULAR: S1 and S2 present. No murmurs, rubs, or gallops. -PULMONARY: Chest is clear to auscultation, no wheezing bilateral crackles. ABDOMEN: Soft, nontender, nondistended, normoactive bowel sounds. No palpable organomegaly. MUSCULOSKELETAL: No joint swelling or deformity. -EXTREMITIES: No cyanosis, clubbing, Bilateral pitting leg edema. NEUROLOGICAL: Gross neurological examination did not reveal any focal deficits. SKIN: No rashes. no petechiae. - Labs CBC & Chem 7: 05/23/22 05:55 05/23/22 05:55 Labs: Abnormal Lab Results - Last 24 Hours (Table) 05/22/22 05/22/22 05/22/22 Range/Units 13:08 17:17 23:28 WBC (3.8-10.6) k/uL RBC (4.30-5.90) m/uL Hgb (13.0-17.5) gm/dL Hct (39.0-53.0) % MCHC (31.0-37.0) g/dL Neutrophils # (1.3-7.7) k/uL Lymphocytes # (1.0-4.8) k/uL ABG pCO2 (35-45) mmHg ABG pO2 (83-108) mmHg ABG HCO3 (21-25) mmol/L ABG Total CO2 (19-24) mmol/L ABG O2 Saturation (94-97) % Carbon Dioxide (22-30) mmol/L BUN (9-20) mg/dL Glucose (74-99) mg/dL POC Glucose (mg/dL) 206 H 189 H 231 H (70-110) mg/dL Calcium (8.4-10.2) mg/dL AST (17-59) U/L Total Protein (6.3-8.2) g/dL Albumin (3.5-5.0) g/dL 05/23/22 05/23/22 05/23/22 Range/Units 05:54 05:55 05:55 WBC 16.8 H (3.8-10.6) k/uL RBC 3.28 L (4.30-5.90) m/uL Hgb 9.4 L (13.0-17.5) gm/dL Hct 30.9 L (39.0-53.0) % MCHC 30.4 L (31.0-37.0) g/dL Neutrophils # 16.1 H (1.3-7.7) k/uL Lymphocytes # 0.1 L (1.0-4.8) k/uL ABG pCO2 (35-45) mmHg ABG pO2 (83-108) mmHg ABG HCO3 (21-25) mmol/L ABG Total CO2 (19-24) mmol/L ABG O2 Saturation (94-97) % Carbon Dioxide 35 H (22-30) mmol/L BUN 45 H (9-20) mg/dL Glucose 159 H (74-99) mg/dL POC Glucose (mg/dL) 148 H (70-110) mg/dL Calcium 7.2 L (8.4-10.2) mg/dL AST 15 L (17-59) U/L Total Protein 4.4 L (6.3-8.2) g/dL Albumin 2.1 L (3.5-5.0) g/dL 05/23/22 05/23/22 Range/Units 06:04 11:17 WBC (3.8-10.6) k/uL RBC (4.30-5.90) m/uL Hgb (13.0-17.5) gm/dL Hct (39.0-53.0) % MCHC (31.0-37.0) g/dL Neutrophils # (1.3-7.7) k/uL Lymphocytes # (1.0-4.8) k/uL ABG pCO2 51 H 63 H (35-45) mmHg ABG pO2 77 L (83-108) mmHg ABG HCO3 35 H 35 H (21-25) mmol/L ABG Total CO2 37 H 37 H (19-24) mmol/L ABG O2 Saturation 99.0 H (94-97) % Carbon Dioxide (22-30) mmol/L BUN (9-20) mg/dL Glucose (74-99) mg/dL POC Glucose (mg/dL) (70-110) mg/dL Calcium (8.4-10.2) mg/dL AST (17-59) U/L Total Protein (6.3-8.2) g/dL Albumin (3.5-5.0) g/dL Microbiology - Last 24 Hours (Table) 05/20/22 00:13 Gram Stain - Final Sputum Sputum Culture - Final
[2022-05-23] MEDS: SODIUM CHLORIDE 0.9% 1,000 ML IV SCH (19:59)
[2022-05-23] MEDS: ATORVASTATIN 20 MG TAB PO SCH (19:59)
[2022-05-23 23:52] LABS: Glucose,Whole Blood 281 mg/dL (70-110)
[2022-05-24] MEDS: IPRATROPIUM-ALBUTEROL 3 ML NEB INHALATION SCH ×6 (03:16→23:02)
[2022-05-24] MEDS: NOREPINEPHRINE 4 MG in SODIUM CHLORIDE 0.9% 250 ML IV SCH ×2 (04:14→14:07)
[2022-05-24 04:33] LABS: HCT 31.4 % (39.0-53.0); HGB 9.7 gm/dL (13.0-17.5); Hypochromasia Marked; MCH 29.1 pg (25.0-35.0); MCHC 30.9 g/dL (31.0-37.0); MCV 94.1 fL (80.0-100.0); Mean Platelet Volume 10.8; Platelet Count 201 k/uL (150-450); RBC 3.34 m/uL (4.30-5.90); RDW 14.2 % (11.5-15.5); WBC 18.5 k/uL (3.8-10.6)
[2022-05-24 04:48] LABS: African American GFR (CKD) >90 (>60 ml/min/1.73 sqM); Anion Gap -1 mmol/L; Blood Urea Nitrogen 49 mg/dL (9-20); Calcium 7.3 mg/dL (8.4-10.2); Carbon Dioxide 35 mmol/L (22-30); Chloride 106 mmol/L (98-107); Glucose 180 mg/dL (74-99); Magnesium 2.3 mg/dL (1.6-2.3); Non-African American GFR(CKD) 86 (>60 ml/min/1.73 sqM); Potassium 4.1 mmol/L (3.5-5.1); Sodium 140 mmol/L (137-145)
[2022-05-24 06:06] LABS: ABG Base Excess 11.9 mmol/L; ABG HCO3 36 mmol/L (21-25); ABG Oxygen Saturation 98.9 % (94-97); ABG PCO2 52 mmHg (35-45); ABG PH 7.45 (7.35-7.45); ABG PO2 100 mmHg (83-108); ABG TCO2 38 mmol/L (19-24); Allen Test Performed? Yes
[2022-05-24 06:30] LABS: Glucose,Whole Blood 205 mg/dL (70-110)
[2022-05-24] MEDS: LEVOTHYROXINE 125 MCG TAB PO SCH (06:36)
[2022-05-24] MEDS: methylPREDNISolone SOD SUCCI 40 MG/ML 1 ML VIAL IV SCH ×4 (06:36→23:13)
[2022-05-24] MEDS: INSULIN ASPART (NovoLOG) 100 UNIT/ML VIAL SQ SCH ×4 (06:36→23:14)
--- NOTE | 2022-05-24 08:16 | XR ---
EXAMINATION TYPE: XR chest 1V portable DATE OF EXAM: 05/24/2022 Comparison: 05/23/2022 Clinical History: 82-year-old male Tube placement Findings: ET tube and NG tube are satisfactory. Retained epicardial pacer leads. Patient is obliqued and rotate d towards the left. Left CVC tip at the cavoatrial junction. Median sternotomy wires and post-CABG cl ips. Heart remains borderline enlarged. Diffuse interstitial and hazy bilateral opacities are similar to slightly worsening in the interval. Impression: Slight progression in mild diffuse bilateral airspace disease.
[2022-05-24] MEDS: FUROSEMIDE 100 MG in SODIUM CHLORIDE 0.9% 90 ML IV SCH ×2 (08:30→15:18)
[2022-05-24] MEDS: MAGNESIUM OXIDE 400 MG TAB PO SCH (08:30)
[2022-05-24] MEDS: CHLORHEXIDINE GLUCONATE 15 ML CUP MUCOUS MEM SCH ×2 (08:30→20:02)
[2022-05-24] MEDS: PANTOPRAZOLE 40 MG/10 ML VIAL IVP SCH (08:30)
--- NOTE | 2022-05-24 09:00 | P.PN ---
Subjective Progress Note Date: 05/24/22 The patient is an 82-year-old male who is currently admitted to the hospital with acute hypoxic respiratory failure. He has a known history of coronary artery disease with recent CABG as well as paroxysmal atrial fibrillation. The patient remains mechanically ventilated. No further episodes of atrial fi brillation according to nursing staff. Chest x-ray shows multifocal airspace opacities. Initial echocardiogram shows LV function AT 50% with moderate to severe mitral regurge and moderate pulmonary hypertension with RVSP at 50mmhg. Records reviewed from [facility]. Patient was initially admitted with congestive heart failure and shortness of breath. Initial echo showed EF of 40- 45% with severe pulmonary hypertension. He was found to have multivessel coronary artery disease where he underwent CABG 4. Mitral valve at that time had mild regurgitation with mild to moderate aortic sclerosis. He also became COVID-19 positive postoperatively. GENERAL: Well-appearing, well-nourished and in no acute distress. Currently ventilated NECK: Supple without JVD or thyromegaly. LUNGS: Breath sounds diminished to auscultation bilaterally. Respiration equal and unlabored. Crackles in the posterior bases. HEART: Regular rate and rhythm. Systolic murmur. No rubs or gallops. S1 and S2 heard. EXTREMITIES: Normal range of motion, +2 generalized edema. No clubbing or cyanosis. No palpable pedal pulses. Doppler signals present per nursing documentation. VITALS: Blood pressure 90/47, pulse 57, SpO2 96% on 40% FiO2 afebrile TELEMETRY: Sinus rhythm-sinus bradycardia overnight LABS: WBC 18.5, hemoglobin 9.7, hematocrit 31.4, platelet 201, sodium 140, potassium 4.1, BUN 49, creatinine 0.72, magnesium 2.3 IMPRESSION: Acute hypoxic respiratory failure, possibly secondary to amiodarone toxicity Multivessel coronary artery disease, s/p recent CABG Mitral regurgitation, moderate to severe Pulmonary hypertension Recent COVID 19 infection PLAN: Limited echo to revaluate mitral valve Agree with [place] placement to assess fluid status Further recommendations to be based on clinical course I am dictating on behalf of Dr Chaka Larson's history/physical and assessment/plan. Objective - Vital Signs Vital signs: Vital Signs Temp 98.4 F 05/24/22 04:00 Pulse 60 05/24/22 07:34 Resp 20 05/24/22 07:00 BP 119/67 05/24/22 04:30 Pulse Ox 96 05/24/22 07:00 FiO2 40 05/24/22 07:09 Intake & Output 05/23/22 05/24/22 05/24/22 18:59 06:59 18:59 Intake Total 5655.727 8127.753 6.149 Output Total 1560 830 Balance 43.203 911.753 6.149 Weight 90.4 kg Intake: IV 636 689 NS Pressure Bag 36 39 Sodium Chloride 0.9% 1, 600 650 000 ml @ 50 mls/hr IV . Q20H [facility] Rx#:[id number] Intake, IV Titration 352.203 377.753 6.149 Amount Norepinephrine 4 mg In 232.189 268.674 6.149 Sodium Chloride 0.9% 250 ml @ 0.03 MCG/KG/MIN 9. 224 mls/hr IV .Q24H [facility] Rx#:[id number] propofoL 1,000 mg In 120.014 109.079 Empty Bag 1 bag @ 15 MCG/ KG/MIN 7.263 mls/hr IV . [id number] [facility] Rx#:[id number] Tube Feeding 495 585 Other 120 90 Output: Urine 1560 830 Other: Voiding Method Indwelling Catheter Indwelling Catheter ABP, PAP, CO, CI - Last Documented Arterial Blood Pressure 90/47 - Labs CBC & Chem 7: 05/24/22 04:00 05/24/22 04:00 Labs: Abnormal Lab Results - Last 24 Hours (Table) 05/23/22 05/23/22 05/23/22 Range/Units 11:17 12:00 17:51 WBC (3.8-10.6) k/uL RBC (4.30-5.90) m/uL Hgb (13.0-17.5) gm/dL Hct (39.0-53.0) % MCHC (31.0-37.0) g/dL ABG pCO2 63 H (35-45) mmHg ABG pO2 77 L (83-108) mmHg ABG HCO3 35 H (21-25) mmol/L ABG Total CO2 37 H (19-24) mmol/L ABG O2 Saturation (94-97) % Carbon Dioxide (22-30) mmol/L BUN (9-20) mg/dL Glucose (74-99) mg/dL POC Glucose (mg/dL) 278 H 149 H (70-110) mg/dL Calcium (8.4-10.2) mg/dL 05/23/22 05/24/22 05/24/22 Range/Units 23:50 04:00 04:00 WBC 18.5 H (3.8-10.6) k/uL RBC 3.34 L (4.30-5.90) m/uL Hgb 9.7 L (13.0-17.5) gm/dL Hct 31.4 L (39.0-53.0) % MCHC 30.9 L (31.0-37.0) g/dL ABG pCO2 (35-45) mmHg ABG pO2 (83-108) mmHg ABG HCO3 (21-25) mmol/L ABG Total CO2 (19-24) mmol/L ABG O2 Saturation (94-97) % Carbon Dioxide 35 H (22-30) mmol/L BUN 49 H (9-20) mg/dL Glucose 180 H (74-99) mg/dL POC Glucose (mg/dL) 281 H (70-110) mg/dL Calcium 7.3 L (8.4-10.2) mg/dL 05/24/22 05/24/22 Range/Units 06:01 06:28 WBC (3.8-10.6) k/uL RBC (4.30-5.90) m/uL Hgb (13.0-17.5) gm/dL Hct (39.0-53.0) % MCHC (31.0-37.0) g/dL ABG pCO2 52 H (35-45) mmHg ABG pO2 (83-108) mmHg ABG HCO3 36 H (21-25) mmol/L ABG Total CO2 38 H (19-24) mmol/L ABG O2 Saturation 98.9 H (94-97) % Carbon Dioxide (22-30) mmol/L BUN (9-20) mg/dL Glucose (74-99) mg/dL POC Glucose (mg/dL) 205 H (70-110) mg/dL Calcium (8.4-10.2) mg/dL
[2022-05-24] MEDS: ASPIRIN 81 MG PO SCH (10:07)
[2022-05-24] MEDS: APIXABAN 2.5 MG TABLET PO SCH ×2 (10:07→20:02)
[2022-05-24 11:21] LABS: Glucose,Whole Blood 155 mg/dL (70-110)
[2022-05-24] MEDS: SODIUM CHLORIDE 0.9% 1,000 ML IV SCH (14:08)
--- NOTE | 2022-05-24 15:08 | P.PN ---
Subjective Progress Note Date: 05/24/22 Principal diagnosis: Acute hypoxic respiratory failure; multifactorial Acute exacerbation CHF Acute exacerbation COPD 82 years old male with multiple medical problems as below including history of atrial fibrillation on amiodarone at home and not on a blood thinner, history of coronary artery disease status post recent CABG, heart failure, mitral valve disease, GERD, hyperlipidemia and hypothyroidism Presents with respiratory distress and hypoxia currently he is in the ICU very lethargic, easily arousable and answers questions and follows commands but very tired and go back to sleep. History requiring high flow nasal cannula at 60 L/m with FiO2 of 64-65%. Also he is kept on liquids 2.5 by connie scratcher for A. fib, he is on diuretic acetazolamide, no Lasix currently but also his place on some gentle hydration by connie scratcher for possible dehydration, renal function is improving. Today down to 1.0. Also there is suspected pulmonary fibrosis per pulmonary team, home dose of amiodarone as healthy bowel. Echocardiogram showing ejection fraction 50% with mild to moderate to severe mitral regurgitation There is some evidence of COPD exacerbation and reactive airway disease and he is kept on Solu-Medrol 40 mg. WBC 16.8 while on steroids, hemoglobin 11.1 05/24/2022 Patient is seen and evaluated in follow-up in the intensive care unit; remain intubated and on the mechanical ventilator at assist control mode at a rate. Blood pressure 90/47, pulse 57, SpO2 96% on 40% FiO2 afebrile Chest x-ray reveals similar multifocal airspace opacities. He is sedated on propofol at 20 mcg/kg/m. He remains on norepinephrine at 3.2 mcg/m. Normal saline at 50 MLS per hour. LABS: WBC 18.5, hemoglobin 9.7, hematocrit 31.4, platelet 201, sodium 140, potassium 4.1, BUN 49, creatinine 0.72, magnesium 2.3 -- Continue the current treatment plan Give Lasix 40 mg IVP 1 today He has been slow to progress May need to consider trach and PEG Objective - Vital Signs Vital signs: Vital Signs Temp 98.5 F 05/24/22 08:00 Pulse 75 05/24/22 09:00 Resp 23 05/24/22 09:00 BP 115/70 05/24/22 09:00 Pulse Ox 96 05/24/22 09:00 FiO2 40 05/24/22 07:09 Intake & Output 05/23/22 05/24/22 05/24/22 18:59 06:59 18:59 Intake Total 8912.296 6148.753 272.149 Output Total 1560 830 125 Balance 43.203 911.753 147.149 Weight 90.4 kg Intake: IV 636 689 106 NS Pressure Bag 36 39 6 Sodium Chloride 0.9% 1, 600 650 100 000 ml @ 50 mls/hr IV . Q20H [facility] Rx#:[id number] Intake, IV Titration 352.203 377.753 16.149 Amount Furosemide 100 mg In 10 Sodium Chloride 0.9% 90 ml @ 10 MG/HR 10 mls/hr IV .Q10H [facility] Rx#: [id number] Norepinephrine 4 mg In 232.189 268.674 6.149 Sodium Chloride 0.9% 250 ml @ 0.03 MCG/KG/MIN 9. 224 mls/hr IV .Q24H [facility] Rx#:[id number] propofoL 1,000 mg In 120.014 109.079 Empty Bag 1 bag @ 15 MCG/ KG/MIN 7.263 mls/hr IV . [id number] [facility] Rx#:[id number] Tube Feeding 495 585 90 Other 120 90 60 Output: Urine 1560 830 125 Other: Voiding Method Indwelling Catheter Indwelling Catheter ABP, PAP, CO, CI - Last Documented Arterial Blood Pressure 100/57 - Exam -GENERAL: The patient is intubated and sedated. HEENT: Pupils are round and equally reacting to light. EOMI. No scleral icterus. No conjunctival pallor. Normocephalic, atraumatic. No pharyngeal erythema. No thyromegaly. CARDIOVASCULAR: S1 and S2 present. No murmurs, rubs, or gallops. -PULMONARY: Chest is clear to auscultation, no wheezing bilateral crackles. ABDOMEN: Soft, nontender, nondistended, normoactive bowel sounds. No palpable organomegaly. MUSCULOSKELETAL: No joint swelling or deformity. -EXTREMITIES: No cyanosis, clubbing, Bilateral pitting leg edema. NEUROLOGICAL: Gross neurological examination did not reveal any focal deficits. SKIN: No rashes. no petechiae. - Labs CBC & Chem 7: 05/24/22 04:00 05/24/22 04:00 Labs: Abnormal Lab Results - Last 24 Hours (Table) 05/23/22 05/23/22 05/23/22 Range/Units 11:17 12:00 17:51 WBC (3.8-10.6) k/uL RBC (4.30-5.90) m/uL Hgb (13.0-17.5) gm/dL Hct (39.0-53.0) % MCHC (31.0-37.0) g/dL ABG pCO2 63 H (35-45) mmHg ABG pO2 77 L (83-108) mmHg ABG HCO3 35 H (21-25) mmol/L ABG Total CO2 37 H (19-24) mmol/L ABG O2 Saturation (94-97) % Carbon Dioxide (22-30) mmol/L BUN (9-20) mg/dL Glucose (74-99) mg/dL POC Glucose (mg/dL) 278 H 149 H (70-110) mg/dL Calcium (8.4-10.2) mg/dL 05/23/22 05/24/22 05/24/22 Range/Units 23:50 04:00 04:00 WBC 18.5 H (3.8-10.6) k/uL RBC 3.34 L (4.30-5.90) m/uL Hgb 9.7 L (13.0-17.5) gm/dL Hct 31.4 L (39.0-53.0) % MCHC 30.9 L (31.0-37.0) g/dL ABG pCO2 (35-45) mmHg ABG pO2 (83-108) mmHg ABG HCO3 (21-25) mmol/L ABG Total CO2 (19-24) mmol/L ABG O2 Saturation (94-97) % Carbon Dioxide 35 H (22-30) mmol/L BUN 49 H (9-20) mg/dL Glucose 180 H (74-99) mg/dL POC Glucose (mg/dL) 281 H (70-110) mg/dL Calcium 7.3 L (8.4-10.2) mg/dL 05/24/22 05/24/22 Range/Units 06:01 06:28 WBC (3.8-10.6) k/uL RBC (4.30-5.90) m/uL Hgb (13.0-17.5) gm/dL Hct (39.0-53.0) % MCHC (31.0-37.0) g/dL ABG pCO2 52 H (35-45) mmHg ABG pO2 (83-108) mmHg ABG HCO3 36 H (21-25) mmol/L ABG Total CO2 38 H (19-24) mmol/L ABG O2 Saturation 98.9 H (94-97) % Carbon Dioxide (22-30) mmol/L BUN (9-20) mg/dL Glucose (74-99) mg/dL POC Glucose (mg/dL) 205 H (70-110) mg/dL Calcium (8.4-10.2) mg/dL Assessment and Plan Assessment: Acute CHF exacerbation Possible reactive airway disease versus acute COPD exacerbation Acute hypoxic respiratory failure, status post intubation on 05/19 Moderate to severe mitral regurgitation Paroxysmal atrial fibrillation Recent history of bypass surgery Possible pulmonary fibrosis Plan: Patient is being multiple IV fluids Continue with current management with the pulmonary/critical care team consult Continue with Eliquis Continue with Solu-Medrol Keep holding amiodarone with cardiology team recommendation Continue with acetazolamide Continue with home dose of aspirin Cardiology and pulmonary team of the clinical case manager blood pressure, a pressors when necessary for hypotension monitor urine output Labs and medication were reviewed.. Continue same treatment. Continue with symptomatic treatment. Resume home medication. Monitor lytes and vitals. DVT and GI prophylaxis. Further recommendations as per clinical course of the patient DVT prophylaxis: Eliquis GI Prophylaxis: Ppi
--- NOTE | 2022-05-24 15:44 | P.PN ---
Subjective Progress Note Date: 05/24/22 This is an 82-year-old white male with history of coronary artery disease, recent CABG about 2 months ago, this was done at [facility]. Patient presented to [facility] with a few days' history of increased shortness of breath, and his shortness of breath, much worse today. In addition to shortness of breath, the patient is coughing, the cough is productive with whitish phlegm, no fever no chills, no hemoptysis, no chest pain. workup in [place] showed evidence of pulmonary edema, he also had elevated BNP level, and elevated troponin level. Patient was transferred to [facility], I saw him down in the ER. Patient is on BiPAP, 12/5/55%, O2 saturation is in the low 90s. Patient was already given Lasix by the admitting physician and he is now on Lasix at 60 mg IV push twice a day. Some improvement clinically noted according to the patient. Patient has no previous history of COPD, and no previous history of smoking. His WBC count is 12.6 hemoglobin is 10.3, basic metabolic profile is normal renal profile is normal bicarb is 38 lactic acid 4.6. ProBNP level is 3790. Chest x-ray is consistent with interstitial edema however underlying pneumonia is not entirely ruled out but felt to be less likely. EKG showed sinus rhythm, and incomplete right bundle branch block pattern otherwise unremarkable, nonspecific ST and T-wave changes noted. The patient is seen today 05/10/2022 in follow-up on the selective care unit. He is currently resting in bed. Awake and alert in no acute distress. He is still on BiPAP 12/5 and 55%. white count 11.0. Hemoglobin 9.6. Platelets 275. Sodium 142. Potassium 3.8. Bicarb 42. BUN 40. Creatinine 0.82. Glucose 109. He is continued on Lasix 60 mg every 12 hours. No accurate I&O recorded. Current weight 83.5 kg. today's chest x-ray is essentially unchanged. Pro- calcitoninn level 0.07. I'm evaluating this patient today on 05/11/2022. His work of breathing has obviously increased overnight. He is requiring BiPAP titrations and is currently 14/5 and 70%. He is tachypneic breathing about 30-40 breaths per minute with accessory muscle use. Recent echocardiogram was performed on 05/10/2022 which showed a normal ejection fraction of 50% and some moderate to severe mitral regurgitation. He is receiving furosemide 80 mg twice a day. A urinary catheter was inserted yesterday for accurate intake and output. Fluid balance is -1 L. Normal saline is using KVO. CT of the chest with contrast was also performed yesterday on 05/10/2022 which showed diffuse airspace opacities and consolidation changes, some small bilateral pleural effusions, evidence of pulmonary hypertension, and cardiomegaly. Likely representing a combination of atypical pneumonia versus inflammatory process. There is also some superimposed pulmonary vascular congestion. Chest x-ray from today 05/11/2022 continues to show diffuse interstitial and alveolar infiltrates bilaterally. He continues to receive by mouth amiodarone. And his heart rhythm is currently normal sinus. Patient remains afebrile. CBC did not show any leukocytosis with a WBC of 7.8, hemoglobin 9.4, hematocrit 30.9, platelet count 280,000. BMP from today shows sodium 140, potassium of 3.9, chloride of 94, serum CO2 of 42 to, UN 45, creatinine 1.04, glucose 139. Remains on Lovenox for DVT prophylaxis. We'll transfer this patient in ICU for closer monitoring. Reevaluated today on 05/12/2022, patient is basically about the same. Remains o n BiPAP, he is on IPAP of 14 EPAP of 5 and FiO2 70%, chest x-ray continues to show diffuse interstitial process bilaterally, it is difficult to tell how much of this is true pulmonary edema and how much of it is acute lung injury, induced by amiodarone. Not to mention the patient is not a candidate to perform or even think of lung biopsy. Patient is receiving diuretics and he is a -[address] 24 hours, he is now on Lasix and Diamox, not seeing much improvement in his overall pulmonary status in spite of aggressive diuresis as a matter of fact I have a strong feeling that the patient will require eventually intubation and mechanical ventilation if he continues to do poorly. He is basically marginal at best at this point. CBC is relatively normal electrolytes are normal except bicarb is up to 44, patient is sleepy developing a bit of metabolic contraction alkalosis. Hence Diamox was added. Patient remains on steroids for his presumptive amiodarone induced lung injury although this is not definitive Patient was reevaluated today on 05/09/22, remains in the ICU, his overall p ulmonary status is marginal at best. Continues to have abnormal chest x-ray, continues to be relatively hypoxic, patient is now on high flow oxygen via airvo, FiO2 90% and 60 L flow, seems to be tolerating this better than the BiPAP, yesterday he was on BiPAP 14/6/80%. Remains on diuretics, remains on steroids, patient tells me that he feels a bit better today, although his chest x-ray is basically about the same, and his oxygenation seems to be marginal/the same.CBC is unremarkable, basic metabolic profile is normal bicarb is 46 BUN is 57 creatinine 1.72, hence I will start cutting down on his diuretics, we will continue Diamox continue Diamox, continue Lasix but quit ahead and stop again I am quite concerned about the rapid increase in his creatinine, not to mention the patient has been in a negative balance over the last 48 hours.since admission, the patient is almost -7 L. And he is becoming quite dehydrated. Reevaluated today on 05/14/22, patient remains in the ICU, remains on BiPAP with IPAP of 14/EPAP of 6, FiO2 is 70%. Patient is becoming more and more alkalotic, hence I'm stopping his Lasix. We will continue the patient on Diamox. He is also off Zaroxolyn. Patient has been in a significant negative balance over the last few days. Last night he became quite agitated and we had to place him on Precedex, he is on 0.4 mcg/kg/h of Precedex today. Seems to be calm, chest x- ray continues to show evidence of interstitial infiltrates bilaterally. Again it is not clear how much of it is really congestive heart failure and how much of an acute lung injury.WBC count today is 9 hemoglobin is 10.3, bicarb is elevated at 52 BUN is 50 creatinine 1.61 slightly better than yesterday. Reevaluated today on 05/15/22, patient remains in the ICU, pulmonary status remains marginal at best. However his chest x-ray is probably showing slight improvement, and his FiO2 requirement is less, patient is now on airvo at 60% FiO2 and 60 L flow, O2 sats ration is in the mid 90s. He was on BiPAP earlier today with IPAP of 14 EPAP of 6 and FiO2 of 60%. Remains on Precedex at 0.4 mcg/kg/h. IV fluids at KVO, diuretics have been cut down significantly, remains on Diamox only. CBC is basically unremarkable bicarb is down to 45 and 52 BUN is down to 46 creatinine is down to 1.160. Patient is comfortable on airvo, does not seem to be in distress The patient is seen today 05/16/2022 in follow-up in the intensive care unit. He is currently resting fairly comfortably in bed. Awake and alert. He is still requiring quite a bit of oxygen he was wearing BiPAP 14/60-60% FiO2. Currently more comfortable on the AirVo high flow oxygen at 60 L and 65% FiO2. He has Precedex running at 0.3 mg/kg/h. Normal saline at 20 ML's per hour. Chest x-ray continues to show small bilateral pleural effusions with slightly increased diffuse bilateral multifocal patchy airspace disease. White count 10.2. Hemoglobin 9.8. Platelets 287. Sodium 135. Potassium 3.9. Bicarb 41. BUN 42. Creatinine 1.02. Glucose 145. Arterial blood gases revealed a PaO2 of 66, pCO2 63, pH 7.4-65% FiO2. He is continued on DuoNeb inhalations, IV Solu- Medrol. Lovenox for DVT prophylaxis. He remains off diuretics. Currently in a -500 mL balance. The patient is seen today 05/17/2022 in follow-up in the intensive. He is currently sitting up in a chair at the bedside. Awake and alert in no acute distress. He is feeling better today compared to yesterday. He is still requiring AirVo high flow oxygen and 60 L and 65% FiO2. BiPAP has been discontinued. No IV fluids currently. Chest x-ray continues to show diffuse increased lung markings bilaterally. ProBNP 2420. Pro-calcitonin was 0.06. Today's labs are pending. He remains off diuretics. Continued on Diamox. Continued on DuoNeb inhalations, IV Solu-Medrol. Anticoagulated with Eliquis. Remains off amiodarone. Continued in sinus rhythm. The patient seen today 05/18/2022 in follow-up in the intensive care unit. He is currently resting comfortably in bed. Awake and alert in no acute distress. He is still requiring AirVo high flow oxygen at 60 L/m and 65% FiO2. Normal saline at KVO. White count 16.8. Hemoglobin 11.7. Platelets 279. Sodium 140. Potassium 3.9. Bicarb 40. The 144. Creatinine 1.06. He is continued on DuoNeb inhalations, IV site Medrol. Anticoagulated with Eliquis. The patient is seen today 05/19/2022 in follow-up in the intensive care unit. Throughout the day and into the evening last night patient had become more obtunded and less responsive. He was initiated on AirVo 60 L and 65% with O2 saturations are 96%. He became hypercapnic with a CO2 of 81 and was placed on BiPAP 14/6 and 60% FiO2. He was eventually intubated approximately 6:00 this morning the patient required intubation and mechanical ventilatory support. He is currently an assist-control mode at a rate of 20, tidal by 450, FiO2 50% and a PEEP of 5. Blood gases revealed a PaO2 of 316, pCO2 65 and a pH of 7.35 100% FiO2. FiO2 titrated down appropriately. He is sedated on propofol at 40 mcg/kg/m. Maintained on norepinephrine at 0.06 mcg/kg/m. Normal saline at 50 MLS per hour. Follow-up chest x-ray revealed satisfactory intubation, nasogastric tube in place. Persistent bilateral interstitial edema versus pneumonia. Tiny effusions. White count 18.5. Hemoglobin 11.3. Platelets 223. Sodium 142. Potassium 4.0. BUN 48. Creatinine 1.06. Glucose 173. AST 18. ALT 18. ProBNP 5440. Cortisol 14. He is continued on DuoNeb inhalations, IV Solu-Medrol. Anticoagulated with Eliquis. The patient is seen today 05/20/2022 in follow-up in the intensive care unit. He remains intubated and on the mechanical ventilator. Current settings are assist-control mode at a rate of 20, tight up in 450, FiO2 40% and a PEEP of 5. Morning blood gases reveal pO2 of 87, pCO2 54, pH 7.40. He is receiving normal saline at 50 ML's per hour. Sedated with propofol at 40 mcg/kg/m. Still requiring norepinephrine at 8.6 mg/m. He is receiving nutrition via NG tube with vital HP at 40 ML's per hour with a goal of 45. Chest x-ray reveals similar multifocal airspace opacities. Endotracheal and nasogastric tube secured in place. Left internal jugular central line in place. White count 16.0. Hemoglobin 9.3. Sodium 139. Potassium 3.3. Bicarb 32. BUN 43. Creatinine 0.86. Glucose 221. AST 15. ALT 16. He is currently in a +5 L balance. Remains on DuoNeb inhalations, IV Solu-Medrol, anticoagulated with Eliquis. Initial pro-calcitonin 0.06. Follow-up pro-calcitonin 0.08. ProBNP 5440. The patient is seen today 05/21/2022 in follow-up in the intensive care unit. He remains intubated on the mechanical ventilator in assist control mode with a rate of 20, tidal volume 450, FiO2 30% and a PEEP of 5. Morning blood gases reveal pO2 of 61, pCO2 55, pH 7.4. Remains sedated on propofol at 35 mcg/kg/m. He remains on norepinephrine at 9 mcg/m. Normal saline at 50 MLS per hour. He is being nourished with vital AF at 45 ML's per hour which is goal. He has received daily interruption of sedation. He gets quite tachycardic and tachypneic. Not following commands. He is continued on DuoNeb inhalations, IV Solu-Medrol. Anticoagulated with Eliquis. Chest x-ray continues to show sim ilar multifocal airspace opacities. Sputum culture pending. White count 18.0. Hemoglobin 9.7. Sodium 140. Potassium 4.0. Bicarb 35. BUN 42. Creatinine 0.80. Glucose 236. The patient is seen today 05/22/2022 in follow-up in the intensive care unit. He is intubated and on mechanical ventilator and assist control mode at a rate of 20, tidal on 450, FiO2 40% and a PEEP of 5. Morning blood gases revealed a pO2 of 83, pCO2 51, pH 7.43. He is sedated on propofol at 30 mcg/kg/m. On norepinephrine at 4 mcg/m. Normal saline at 50 MLS per hour. He is being nourished with vital AF at 45 mL per hour which is goal. Chest x-ray reveals slight worsening bilateral multifocal edema and/or infiltrates. Sputum culture reveals no growth. White count 15.7. Hemoglobin 8.6. Platelets 176. Sodium 140. Potassium 4.1. Bicarb 34. BUN 45. Creatinine 0.74. Glucose 211. He is continued on DuoNeb inhalations, IV Solu-Medrol. Anticoagulated with Eliquis. The patient is seen today 05/23/2022 in follow-up in the intensive care unit. He continues to remain intubated and on the mechanical ventilator at assist control mode at a rate of 20, tidal on 450, FiO2 40% and a PEEP of 5. Arterial blood gases reveal pO2 103, pCO2 51, pH 7.44. Chest x-ray reveals similar multifocal airspace opacities. He is sedated on propofol at 20 mcg/kg/m. He remains on norepinephrine at 3.2 mcg/m. Normal saline at 50 MLS per hour. White count 16.8. Hemoglobin 9.4. Platelets 195. Sodium 139. Potassium 4.3. Bicarb 35. BUN 45. Creatinine 0.71 glucose 159. He is continued on IV Solu- Medrol, bronchodilators, anticoagulated with Eliquis. On 05/24/2022, I'm seeing the patient for a follow-up. The patient is currently intubated on a mechanical ventilator. The patient has been on a mechanical ventilator since 05/19/2022. Noted the patient is post coronary artery bypass surgery. There is some concern of an underlying interstitial lung disease as the patient was receiving higher dose of amiodarone. At the same time, the echocardiogram here in our hospital showed a moderate to severe mitral regurgitation and the patient has significant cardiac murmur, systolic ejection consistent with mitral regurgitation. No signs of any infection. The viral screen that was done at the time of admission came back negative. The patient was initially subjective the diuretics. Lymphoma was limited at this point and a chest x-ray from today is still showing diffuse bilateral pulmonary infiltrate s. Furthermore, this morning, the patient remains sedated on propofol at 30 microvascular kilogram per minute. The patient on normal saline at rate of 50 mL an hour and the patient is receiving vital AF at the rate of 45 mL an hour. The patient is on a low-dose of norepinephrine running at 0.07 microvascular kilogram per minutes. The patient is on assist-control mechanical ventilation at the rate of 20 with a tidal volume of 450 and FiO2 of 40% with a PEEP of 5. The blood gas from today shows a pH of 7.45 with a pCO2 of 54 and pO2 of 100. Peak airway pressure was around 34. The static airway pressure was 32.. No fever. No chills. Limited because of 18.5 with a hemoglobin 11.7 and a platelet count of 201. BUN is at 49 with a creatinine of 0.7 and a sodium level is at 140. Glucose at 155. The sputum culture has been negative. The patient is currently on IV Solu-Medrol 40 mg every 6 hours. Objective - Vital Signs Vital signs: Vital Signs Temp 98.4 F 05/24/22 04:00 Pulse 60 05/24/22 07:34 Resp 20 05/24/22 07:00 BP 119/67 05/24/22 04:30 Pulse Ox 96 05/24/22 07:00 FiO2 40 05/24/22 07:09 Intake & Output 05/23/22 05/24/22 05/24/22 18:59 06:59 18:59 Intake Total 3546.756 5972.753 6.149 Output Total 1560 830 Balance 43.203 911.753 6.149 Weight 90.4 kg Intake: IV 636 689 NS Pressure Bag 36 39 Sodium Chloride 0.9% 1, 600 650 000 ml @ 50 mls/hr IV . Q20H [facility] Rx#:[id number] Intake, IV Titration 352.203 377.753 6.149 Amount Norepinephrine 4 mg In 232.189 268.674 6.149 Sodium Chloride 0.9% 250 ml @ 0.03 MCG/KG/MIN 9. 224 mls/hr IV .Q24H [facility] Rx#:[id number] propofoL 1,000 mg In 120.014 109.079 Empty Bag 1 bag @ 15 MCG/ KG/MIN 7.263 mls/hr IV . [id number] [facility] Rx#:[id number] Tube Feeding 495 585 Other 120 90 Output: Urine 1560 830 Other: Voiding Method Indwelling Catheter Indwelling Catheter ABP, PAP, CO, CI - Last Documented Arterial Blood Pressure 90/47 - Exam GENERAL EXAM: Intubated, sedated 82-year-old gentleman, currently on the ventilator with 40% FiO2 and a PEEP of 5, in no apparent distress. HEAD: Normocephalic. EYES: Sluggish reaction of pupils, equal size. NOSE: Clear with pink turbinates. THROAT: Oral endotracheal and gastric tube secured in place. No erythema or exudates. NECK: No masses, no JVD. CHEST: No chest wall deformity. LUNGS: Equal air entry with bibasilar crackles. CVS: S1 and S2 normal with an audible murmur, systolic ejection murmur heard throughout the precordium 4 over 6, regular rhythm. ABDOMEN: No hepatosplenomegaly, normal bowel sounds, no guarding or rigidity. SPINE: No scoliosis or deformity SKIN: No rashes CENTRAL NERVOUS SYSTEM: No focal deficits, tone is normal in all 4 extremities. EXTREMITIES: There is 2+ peripheral edema. No clubbing, no cyanosis. Peripheral pulses are intact. - Labs CBC & Chem 7: 05/24/22 04:00 05/24/22 04:00 Labs: Abnormal Lab Results - Last 24 Hours (Table) 05/23/22 05/23/22 05/23/22 Range/Units 11:17 12:00 17:51 WBC (3.8-10.6) k/uL RBC (4.30-5.90) m/uL Hgb (13.0-17.5) gm/dL Hct (39.0-53.0) % MCHC (31.0-37.0) g/dL ABG pCO2 63 H (35-45) mmHg ABG pO2 77 L (83-108) mmHg ABG HCO3 35 H (21-25) mmol/L ABG Total CO2 37 H (19-24) mmol/L ABG O2 Saturation (94-97) % Carbon Dioxide (22-30) mmol/L BUN (9-20) mg/dL Glucose (74-99) mg/dL POC Glucose (mg/dL) 278 H 149 H (70-110) mg/dL Calcium (8.4-10.2) mg/dL 05/23/22 05/24/22 05/24/22 Range/Units 23:50 04:00 04:00 WBC 18.5 H (3.8-10.6) k/uL RBC 3.34 L (4.30-5.90) m/uL Hgb 9.7 L (13.0-17.5) gm/dL Hct 31.4 L (39.0-53.0) % MCHC 30.9 L (31.0-37.0) g/dL ABG pCO2 (35-45) mmHg ABG pO2 (83-108) mmHg ABG HCO3 (21-25) mmol/L ABG Total CO2 (19-24) mmol/L ABG O2 Saturation (94-97) % Carbon Dioxide 35 H (22-30) mmol/L BUN 49 H (9-20) mg/dL Glucose 180 H (74-99) mg/dL POC Glucose (mg/dL) 281 H (70-110) mg/dL Calcium 7.3 L (8.4-10.2) mg/dL 05/24/22 05/24/22 Range/Units 06:01 06:28 WBC (3.8-10.6) k/uL RBC (4.30-5.90) m/uL Hgb (13.0-17.5) gm/dL Hct (39.0-53.0) % MCHC (31.0-37.0) g/dL ABG pCO2 52 H (35-45) mmHg ABG pO2 (83-108) mmHg ABG HCO3 36 H (21-25) mmol/L ABG Total CO2 38 H (19-24) mmol/L ABG O2 Saturation 98.9 H (94-97) % Carbon Dioxide (22-30) mmol/L BUN (9-20) mg/dL Glucose (74-99) mg/dL POC Glucose (mg/dL) 205 H (70-110) mg/dL Calcium (8.4-10.2) mg/dL Assessment and Plan Plan: Acute hypoxemic respiratory failure secondary to an acute exacerbation of suspected congestive heart failure, moderate to severe mitral regurgitation, 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 Initial pro-calcitonin 0.07. Follow-up pro-calcitonin 05/19/2022 remains negative at 0.08. BNP 5440. No fever. No leukocytosis. Influenza screen negative. CoVID screen negative. RSV screen negative. The exact origin of this diffuse but the pulmonary infiltrates is not clear. This could be related to an acute lung injury/interstitial pneumonitis related to higher dose of amiodarone. Viral infections have been ruled out. Bacterial infection and felt to be less likely. Possibility of mitral regurgitation with secondary pulmonary edema cannot be completely ruled out. Acute hypercapnic/hypoxemic respiratory failure with altered mental status and obtundation requiring intubation mechanical ventilatory support early in the morning of 05/19/2022 Acute pulmonary edema, nonresponsive to diuretic Acute hypotension secondary to septic shock requiring pressors, recovered History of paroxysmal atrial fibrillation maintained on amiodarone at 400 mg twice a day for approximately 2 months. Anticoagulated with Eliquis, post cardioversion and he is in NSR Severe MR and preserved LV function History of recent coronary artery bypass grafting at [facility] History of underlying coronary artery disease COVID 19 infection in Mar 2022 Hyperlipidemia Hypothyroidism History of gastroesophageal reflux disease without esophagitis Former smoker Plan: Continue ventilator support Dropped a tidal volume to 400 and dropped a respiratory rate down to 14 Repeat a blood gas Keep the patient on sedation Start The patient on Lasix drip at 10 mg an hour in addition to Diamox 250 mg IV every 12 hours Discussed the case with cardiology. The patient will likely need a [place] catheter for measurement of the filling pressures and the pressures and a cardiac output Patient is currently in normal sinus rhythm Continue anticoagulation with Eliquis Surgical one-sided from previous bypass surgery is currently dry clean and intact Continue supportive care with enteral feeding for nutritional support Low-dose norepinephrine infusion for blood pressure support Condition is critical and we'll continue to follow and make further recommendations based on her progress. Case was discussed with cardiology. Critical care evaluation that was done in more than 30 minutes Time with Patient: Greater than 30
[2022-05-24 18:04] LABS: Glucose,Whole Blood 272 mg/dL (70-110)
[2022-05-24 18:06] LABS: Glucose,Whole Blood 244 mg/dL (70-110)
[2022-05-24] MEDS: ATORVASTATIN 20 MG TAB PO SCH (20:02)
[2022-05-24 23:10] LABS: Glucose,Whole Blood 248 mg/dL (70-110)
[2022-05-24 23:18] LABS: Magnesium 2.2 mg/dL (1.6-2.3); Potassium 3.8 mmol/L (3.5-5.1)
[2022-05-25] MEDS ORDERED: POTASSIUM BICARBONATE/CIT AC 20 MEQ TABLET.EFF NG-TUBE SCH
[2022-05-25] MEDS: FUROSEMIDE 100 MG in SODIUM CHLORIDE 0.9% 90 ML IV SCH ×3 (01:16→20:48)
[2022-05-25] MEDS: IPRATROPIUM-ALBUTEROL 3 ML NEB INHALATION SCH ×6 (02:56→23:37)
[2022-05-25] MEDS: NOREPINEPHRINE 4 MG in SODIUM CHLORIDE 0.9% 250 ML IV SCH ×2 (03:51→13:35)
[2022-05-25 04:20] LABS: HCT 33.3 % (39.0-53.0); HGB 10.2 gm/dL (13.0-17.5); Hypochromasia Marked; MCH 29.1 pg (25.0-35.0); MCHC 30.5 g/dL (31.0-37.0); MCV 95.3 fL (80.0-100.0); Mean Platelet Volume 10.7; Platelet Count 206 k/uL (150-450); RBC 3.49 m/uL (4.30-5.90); RDW 14.3 % (11.5-15.5); WBC 18.8 k/uL (3.8-10.6)
[2022-05-25 04:57] LABS: Calcium 7.1 mg/dL (8.4-10.2); Magnesium 2.2 mg/dL (1.6-2.3)
[2022-05-25 06:09] LABS: Glucose,Whole Blood 226 mg/dL (70-110)
[2022-05-25 06:12] LABS: ABG Base Excess 14.9 mmol/L; ABG Oxygen Saturation 97.6 % (94-97); ABG PCO2 67 mmHg (35-45); ABG PH 7.38 (7.35-7.45); ABG PO2 91 mmHg (83-108); ABG TCO2 42 mmol/L (19-24)
[2022-05-25] MEDS: methylPREDNISolone SOD SUCCI 40 MG/ML 1 ML VIAL IV SCH ×3 (06:13→18:24)
[2022-05-25] MEDS: INSULIN ASPART (NovoLOG) 100 UNIT/ML VIAL SQ SCH ×3 (06:13→18:24)
[2022-05-25] MEDS: LEVOTHYROXINE 125 MCG TAB PO SCH (06:13)
[2022-05-25 06:27] LABS: ABG HCO3 40 mmol/L (21-25); Allen Test Performed? no
--- NOTE | 2022-05-25 06:33 | P.PN ---
Subjective Progress Note Date: 05/25/22 This is an 82-year-old white male with history of coronary artery disease, recent CABG about 2 months ago, this was done at [facility]. Patient presented to [facility] with a few days' history of increased shortness of breath, and his shortness of breath, much worse today. In addition to shortness of breath, the patient is coughing, the cough is productive with whitish phlegm, no fever no chills, no hemoptysis, no chest pain. workup in [place] showed evidence of pulmonary edema, he also had elevated BNP level, and elevated troponin level. Patient was transferred to [facility], I saw him down in the ER. Patient is on BiPAP, 12/5/55%, O2 saturation is in the low 90s. Patient was already given Lasix by the admitting physician and he is now on Lasix at 60 mg IV push twice a day. Some improvement clinically noted according to the patient. Patient has no previous history of COPD, and no previous history of smoking. His WBC count is 12.6 hemoglobin is 10.3, basic metabolic profile is normal renal profile is normal bicarb is 38 lactic acid 4.6. ProBNP level is 3790. Chest x-ray is consistent with interstitial edema however underlying pneumonia is not entirely ruled out but felt to be less likely. EKG showed sinus rhythm, and incomplete right bundle branch block pattern otherwise unremarkable, nonspecific ST and T-wave changes noted. The patient is seen today 05/10/2022 in follow-up on the selective care unit. He is currently resting in bed. Awake and alert in no acute distress. He is still on BiPAP 12/5 and 55%. white count 11.0. Hemoglobin 9.6. Platelets 275. Sodium 142. Potassium 3.8. Bicarb 42. BUN 40. Creatinine 0.82. Glucose 109. He is continued on Lasix 60 mg every 12 hours. No accurate I&O recorded. Current weight 83.5 kg. today's chest x-ray is essentially unchanged. Pro- calcitoninn level 0.07. I'm evaluating this patient today on 05/11/2022. His work of breathing has obviously increased overnight. He is requiring BiPAP titrations and is currently 14/5 and 70%. He is tachypneic breathing about 30-40 breaths per minute with accessory muscle use. Recent echocardiogram was performed on 05/10/2022 which showed a normal ejection fraction of 50% and some moderate to severe mitral regurgitation. He is receiving furosemide 80 mg twice a day. A urinary catheter was inserted yesterday for accurate intake and output. Fluid balance is -1 L. Normal saline is using KVO. CT of the chest with contrast was also performed yesterday on 05/10/2022 which showed diffuse airspace opacities and consolidation changes, some small bilateral pleural effusions, evidence of pulmonary hypertension, and cardiomegaly. Likely representing a combination of atypical pneumonia versus inflammatory process. There is also some superimposed pulmonary vascular congestion. Chest x-ray from today 05/11/2022 continues to show diffuse interstitial and alveolar infiltrates bilaterally. He continues to receive by mouth amiodarone. And his heart rhythm is currently normal sinus. Patient remains afebrile. CBC did not show any leukocytosis with a WBC of 7.8, hemoglobin 9.4, hematocrit 30.9, platelet count 280,000. BMP from today shows sodium 140, potassium of 3.9, chloride of 94, serum CO2 of 42 to, UN 45, creatinine 1.04, glucose 139. Remains on Lovenox for DVT prophylaxis. We'll transfer this patient in ICU for closer monitoring. Reevaluated today on 05/12/2022, patient is basically about the same. Remains o n BiPAP, he is on IPAP of 14 EPAP of 5 and FiO2 70%, chest x-ray continues to show diffuse interstitial process bilaterally, it is difficult to tell how much of this is true pulmonary edema and how much of it is acute lung injury, induced by amiodarone. Not to mention the patient is not a candidate to perform or even think of lung biopsy. Patient is receiving diuretics and he is a -[address] 24 hours, he is now on Lasix and Diamox, not seeing much improvement in his overall pulmonary status in spite of aggressive diuresis as a matter of fact I have a strong feeling that the patient will require eventually intubation and mechanical ventilation if he continues to do poorly. He is basically marginal at best at this point. CBC is relatively normal electrolytes are normal except bicarb is up to 44, patient is sleepy developing a bit of metabolic contraction alkalosis. Hence Diamox was added. Patient remains on steroids for his presumptive amiodarone induced lung injury although this is not definitive Patient was reevaluated today on 05/09/22, remains in the ICU, his overall p ulmonary status is marginal at best. Continues to have abnormal chest x-ray, continues to be relatively hypoxic, patient is now on high flow oxygen via airvo, FiO2 90% and 60 L flow, seems to be tolerating this better than the BiPAP, yesterday he was on BiPAP 14/6/80%. Remains on diuretics, remains on steroids, patient tells me that he feels a bit better today, although his chest x-ray is basically about the same, and his oxygenation seems to be marginal/the same.CBC is unremarkable, basic metabolic profile is normal bicarb is 46 BUN is 57 creatinine 1.72, hence I will start cutting down on his diuretics, we will continue Diamox continue Diamox, continue Lasix but quit ahead and stop again I am quite concerned about the rapid increase in his creatinine, not to mention the patient has been in a negative balance over the last 48 hours.since admission, the patient is almost -7 L. And he is becoming quite dehydrated. Reevaluated today on 05/14/22, patient remains in the ICU, remains on BiPAP with IPAP of 14/EPAP of 6, FiO2 is 70%. Patient is becoming more and more alkalotic, hence I'm stopping his Lasix. We will continue the patient on Diamox. He is also off Zaroxolyn. Patient has been in a significant negative balance over the last few days. Last night he became quite agitated and we had to place him on Precedex, he is on 0.4 mcg/kg/h of Precedex today. Seems to be calm, chest x- ray continues to show evidence of interstitial infiltrates bilaterally. Again it is not clear how much of it is really congestive heart failure and how much of an acute lung injury.WBC count today is 9 hemoglobin is 10.3, bicarb is elevated at 52 BUN is 50 creatinine 1.61 slightly better than yesterday. Reevaluated today on 05/15/22, patient remains in the ICU, pulmonary status remains marginal at best. However his chest x-ray is probably showing slight improvement, and his FiO2 requirement is less, patient is now on airvo at 60% FiO2 and 60 L flow, O2 sats ration is in the mid 90s. He was on BiPAP earlier today with IPAP of 14 EPAP of 6 and FiO2 of 60%. Remains on Precedex at 0.4 mcg/kg/h. IV fluids at KVO, diuretics have been cut down significantly, remains on Diamox only. CBC is basically unremarkable bicarb is down to 45 and 52 BUN is down to 46 creatinine is down to 1.160. Patient is comfortable on airvo, does not seem to be in distress The patient is seen today 05/16/2022 in follow-up in the intensive care unit. He is currently resting fairly comfortably in bed. Awake and alert. He is still requiring quite a bit of oxygen he was wearing BiPAP 14/60-60% FiO2. Currently more comfortable on the AirVo high flow oxygen at 60 L and 65% FiO2. He has Precedex running at 0.3 mg/kg/h. Normal saline at 20 ML's per hour. Chest x-ray continues to show small bilateral pleural effusions with slightly increased diffuse bilateral multifocal patchy airspace disease. White count 10.2. Hemoglobin 9.8. Platelets 287. Sodium 135. Potassium 3.9. Bicarb 41. BUN 42. Creatinine 1.02. Glucose 145. Arterial blood gases revealed a PaO2 of 66, pCO2 63, pH 7.4-65% FiO2. He is continued on DuoNeb inhalations, IV Solu- Medrol. Lovenox for DVT prophylaxis. He remains off diuretics. Currently in a -500 mL balance. The patient is seen today 05/17/2022 in follow-up in the intensive. He is currently sitting up in a chair at the bedside. Awake and alert in no acute distress. He is feeling better today compared to yesterday. He is still requiring AirVo high flow oxygen and 60 L and 65% FiO2. BiPAP has been discontinued. No IV fluids currently. Chest x-ray continues to show diffuse increased lung markings bilaterally. ProBNP 2420. Pro-calcitonin was 0.06. Today's labs are pending. He remains off diuretics. Continued on Diamox. Continued on DuoNeb inhalations, IV Solu-Medrol. Anticoagulated with Eliquis. Remains off amiodarone. Continued in sinus rhythm. The patient seen today 05/18/2022 in follow-up in the intensive care unit. He is currently resting comfortably in bed. Awake and alert in no acute distress. He is still requiring AirVo high flow oxygen at 60 L/m and 65% FiO2. Normal saline at KVO. White count 16.8. Hemoglobin 11.7. Platelets 279. Sodium 140. Potassium 3.9. Bicarb 40. The 144. Creatinine 1.06. He is continued on DuoNeb inhalations, IV site Medrol. Anticoagulated with Eliquis. The patient is seen today 05/19/2022 in follow-up in the intensive care unit. Throughout the day and into the evening last night patient had become more obtunded and less responsive. He was initiated on AirVo 60 L and 65% with O2 saturations are 96%. He became hypercapnic with a CO2 of 81 and was placed on BiPAP 14/6 and 60% FiO2. He was eventually intubated approximately 6:00 this morning the patient required intubation and mechanical ventilatory support. He is currently an assist-control mode at a rate of 20, tidal by 450, FiO2 50% and a PEEP of 5. Blood gases revealed a PaO2 of 316, pCO2 65 and a pH of 7.35 100% FiO2. FiO2 titrated down appropriately. He is sedated on propofol at 40 mcg/kg/m. Maintained on norepinephrine at 0.06 mcg/kg/m. Normal saline at 50 MLS per hour. Follow-up chest x-ray revealed satisfactory intubation, nasogastric tube in place. Persistent bilateral interstitial edema versus pneumonia. Tiny effusions. White count 18.5. Hemoglobin 11.3. Platelets 223. Sodium 142. Potassium 4.0. BUN 48. Creatinine 1.06. Glucose 173. AST 18. ALT 18. ProBNP 5440. Cortisol 14. He is continued on DuoNeb inhalations, IV Solu-Medrol. Anticoagulated with Eliquis. The patient is seen today 05/20/2022 in follow-up in the intensive care unit. He remains intubated and on the mechanical ventilator. Current settings are assist-control mode at a rate of 20, tight up in 450, FiO2 40% and a PEEP of 5. Morning blood gases reveal pO2 of 87, pCO2 54, pH 7.40. He is receiving normal saline at 50 ML's per hour. Sedated with propofol at 40 mcg/kg/m. Still requiring norepinephrine at 8.6 mg/m. He is receiving nutrition via NG tube with vital HP at 40 ML's per hour with a goal of 45. Chest x-ray reveals similar multifocal airspace opacities. Endotracheal and nasogastric tube secured in place. Left internal jugular central line in place. White count 16.0. Hemoglobin 9.3. Sodium 139. Potassium 3.3. Bicarb 32. BUN 43. Creatinine 0.86. Glucose 221. AST 15. ALT 16. He is currently in a +5 L balance. Remains on DuoNeb inhalations, IV Solu-Medrol, anticoagulated with Eliquis. Initial pro-calcitonin 0.06. Follow-up pro-calcitonin 0.08. ProBNP 5440. The patient is seen today 05/21/2022 in follow-up in the intensive care unit. He remains intubated on the mechanical ventilator in assist control mode with a rate of 20, tidal volume 450, FiO2 30% and a PEEP of 5. Morning blood gases reveal pO2 of 61, pCO2 55, pH 7.4. Remains sedated on propofol at 35 mcg/kg/m. He remains on norepinephrine at 9 mcg/m. Normal saline at 50 MLS per hour. He is being nourished with vital AF at 45 ML's per hour which is goal. He has received daily interruption of sedation. He gets quite tachycardic and tachypneic. Not following commands. He is continued on DuoNeb inhalations, IV Solu-Medrol. Anticoagulated with Eliquis. Chest x-ray continues to show sim ilar multifocal airspace opacities. Sputum culture pending. White count 18.0. Hemoglobin 9.7. Sodium 140. Potassium 4.0. Bicarb 35. BUN 42. Creatinine 0.80. Glucose 236. The patient is seen today 05/22/2022 in follow-up in the intensive care unit. He is intubated and on mechanical ventilator and assist control mode at a rate of 20, tidal on 450, FiO2 40% and a PEEP of 5. Morning blood gases revealed a pO2 of 83, pCO2 51, pH 7.43. He is sedated on propofol at 30 mcg/kg/m. On norepinephrine at 4 mcg/m. Normal saline at 50 MLS per hour. He is being nourished with vital AF at 45 mL per hour which is goal. Chest x-ray reveals slight worsening bilateral multifocal edema and/or infiltrates. Sputum culture reveals no growth. White count 15.7. Hemoglobin 8.6. Platelets 176. Sodium 140. Potassium 4.1. Bicarb 34. BUN 45. Creatinine 0.74. Glucose 211. He is continued on DuoNeb inhalations, IV Solu-Medrol. Anticoagulated with Eliquis. The patient is seen today 05/23/2022 in follow-up in the intensive care unit. He continues to remain intubated and on the mechanical ventilator at assist control mode at a rate of 20, tidal on 450, FiO2 40% and a PEEP of 5. Arterial blood gases reveal pO2 103, pCO2 51, pH 7.44. Chest x-ray reveals similar multifocal airspace opacities. He is sedated on propofol at 20 mcg/kg/m. He remains on norepinephrine at 3.2 mcg/m. Normal saline at 50 MLS per hour. White count 16.8. Hemoglobin 9.4. Platelets 195. Sodium 139. Potassium 4.3. Bicarb 35. BUN 45. Creatinine 0.71 glucose 159. He is continued on IV Solu- Medrol, bronchodilators, anticoagulated with Eliquis. On 05/24/2022, I'm seeing the patient for a follow-up. The patient is currently intubated on a mechanical ventilator. The patient has been on a mechanical ventilator since 05/19/2022. Noted the patient is post coronary artery bypass surgery. There is some concern of an underlying interstitial lung disease as the patient was receiving higher dose of amiodarone. At the same time, the echocardiogram here in our hospital showed a moderate to severe mitral regurgitation and the patient has significant cardiac murmur, systolic ejection consistent with mitral regurgitation. No signs of any infection. The viral screen that was done at the time of admission came back negative. The patient was initially subjective the diuretics. Lymphoma was limited at this point and a chest x-ray from today is still showing diffuse bilateral pulmonary infiltrate s. Furthermore, this morning, the patient remains sedated on propofol at 30 microvascular kilogram per minute. The patient on normal saline at rate of 50 mL an hour and the patient is receiving vital AF at the rate of 45 mL an hour. The patient is on a low-dose of norepinephrine running at 0.07 microvascular kilogram per minutes. The patient is on assist-control mechanical ventilation at the rate of 20 with a tidal volume of 450 and FiO2 of 40% with a PEEP of 5. The blood gas from today shows a pH of 7.45 with a pCO2 of 54 and pO2 of 100. Peak airway pressure was around 34. The static airway pressure was 32.. No fever. No chills. Limited because of 18.5 with a hemoglobin 11.7 and a platelet count of 201. BUN is at 49 with a creatinine of 0.7 and a sodium level is at 140. Glucose at 155. The sputum culture has been negative. The patient is currently on IV Solu-Medrol 40 mg every 6 hours. On 05/25/2022, the patient is being seen for a follow-up. The patient is currently intubated on a mechanical ventilator. This morning she is on propofol which is running at 30 microvascular kilogram per minute and the patient is adequately sedated and his 60s with a mechanical ventilator. He is on assist- control mode and currently is on the rate of 14 with a tidal volume of 400 and FiO2 of 40% and a PEEP of 5. Noted marked improvement in his peak airway pressure which was as high as 35 yesterday and this morning it is down to 25. Blood gas from today shows a pH of 7.38 with a pCO2 of 67 and pO2 of 91. Note that his chest x-ray is still pending from this morning. Meanwhile, the patient has diabetes adequately and over the past 24 hours has been negative balance of 2.3 L. He is on a Lasix drip at 10 mg an hour and is also on Diamox to 50 mg IV every 12 hours. His blood work from today shows a BUN of 50 with a creatinine of 0.9. Serum bicarb is 40 and the sodium is at 140. He has a valgus count of 18.8 with a hemoglobin of 10.2 and a platelet count of 206. Blood gases were also noted. He is still on low-dose of norepinephrine which is running at a dose of 0.09 mcg/kg/m. He is on vital AF running at the rate of 49 mL an hour which is at goal and there is no significant residuals and the patient is able to tolerate the enteral feeding without any major issues. The patient is afebrile. He remains on anticoagulation with Eliquis at a dose of 2.5 mg twice a day and is also on aspirin. He remains on IV Solu-Medrol. Cardiac rhythm is NSS Objective - Vital Signs Vital signs: Vital Signs Temp 98.6 F 05/25/22 04:00 Pulse 69 05/25/22 06:00 Resp 19 05/25/22 06:00 BP 111/62 05/25/22 06:00 Pulse Ox 95 05/25/22 06:00 FiO2 40 05/25/22 04:00 Intake & Output 05/24/22 05/24/22 05/25/22 06:59 18:59 06:59 Intake Total 3760.238 9652.301 1594.754 Output Total 830 2745 3040 Balance 911.753 -892.699 -1445.246 Weight 90.4 kg 90.4 kg 89.8 kg Intake: IV 689 592 522 NS Pressure Bag 39 42 72 Sodium Chloride 0.9% 1, 650 550 450 000 ml @ 50 mls/hr IV . Q20H [facility] Rx#:[id number] Intake, IV Titration 377.753 583.301 394.754 Amount Furosemide 100 mg In 138 99.667 Sodium Chloride 0.9% 90 ml @ 10 MG/HR 10 mls/hr IV .Q10H [facility] Rx#: [id number] Norepinephrine 4 mg In 268.674 254.380 118.477 Sodium Chloride 0.9% 250 ml @ 0.03 MCG/KG/MIN 9. 224 mls/hr IV .Q24H [facility] Rx#:[id number] propofoL 1,000 mg In 109.079 190.921 176.610 Empty Bag 1 bag @ 15 MCG/ KG/MIN 7.263 mls/hr IV . [id number] [facility] Rx#:[id number] Tube Feeding 585 527 588 Other 90 150 90 Output: Urine 830 2745 3040 Other: Voiding Method Indwelling Catheter Indwelling Catheter Indwelling Catheter ABP, PAP, CO, CI - Last Documented Arterial Blood Pressure 106/48 - Exam GENERAL EXAM: Intubated, sedated 82-year-old gentleman, currently on the ventilator with 40% FiO2 and a PEEP of 5, in no apparent distress. HEAD: Normocephalic. EYES: Sluggish reaction of pupils, equal size. NOSE: Clear with pink turbinates. THROAT: Oral endotracheal and gastric tube secured in place. No erythema or exudates. NECK: No masses, no JVD. CHEST: No chest wall deformity. LUNGS: Equal air entry with bibasilar crackles. CVS: S1 and S2 normal with an audible murmur, systolic ejection murmur heard th roughout the precordium 4 over 6, regular rhythm. ABDOMEN: No hepatosplenomegaly, normal bowel sounds, no guarding or rigidity. SPINE: No scoliosis or deformity SKIN: No rashes CENTRAL NERVOUS SYSTEM: No focal deficits, tone is normal in all 4 extremities. EXTREMITIES: There is 2+ peripheral edema. No clubbing, no cyanosis. Peripheral pulses are intact. - Labs CBC & Chem 7: 05/25/22 03:55 05/25/22 03:55 Labs: Abnormal Lab Results - Last 24 Hours (Table) 05/24/22 05/24/22 05/24/22 Range/Units 06:28 11:18 18:02 WBC (3.8-10.6) k/uL RBC (4.30-5.90) m/uL Hgb (13.0-17.5) gm/dL Hct (39.0-53.0) % MCHC (31.0-37.0) g/dL Carbon Dioxide (22-30) mmol/L BUN (9-20) mg/dL Glucose (74-99) mg/dL POC Glucose (mg/dL) 205 H 155 H 272 H (70-110) mg/dL Calcium (8.4-10.2) mg/dL 05/24/22 05/24/22 05/25/22 Range/Units 18:04 23:08 03:55 WBC 18.8 H (3.8-10.6) k/uL RBC 3.49 L (4.30-5.90) m/uL Hgb 10.2 L (13.0-17.5) gm/dL Hct 33.3 L (39.0-53.0) % MCHC 30.5 L (31.0-37.0) g/dL Carbon Dioxide (22-30) mmol/L BUN (9-20) mg/dL Glucose (74-99) mg/dL POC Glucose (mg/dL) 244 H 248 H (70-110) mg/dL Calcium (8.4-10.2) mg/dL 05/25/22 05/25/22 Range/Units 03:55 06:07 WBC (3.8-10.6) k/uL RBC (4.30-5.90) m/uL Hgb (13.0-17.5) gm/dL Hct (39.0-53.0) % MCHC (31.0-37.0) g/dL Carbon Dioxide 40 H (22-30) mmol/L BUN 50 H (9-20) mg/dL Glucose 157 H (74-99) mg/dL POC Glucose (mg/dL) 226 H (70-110) mg/dL Calcium 7.1 L (8.4-10.2) mg/dL Assessment and Plan Plan: Acute hypoxemic respiratory failure secondary to an acute exacerbation of suspected congestive heart failure, moderate to severe mitral regurgitation, 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 Initial pro-calcitonin 0.07. Follow-up pro-calcitonin 05/19/2022 remains negative at 0.08. BNP 5440. No fever. No leukocytosis. Influenza screen negative. CoVID screen negative. RSV screen negative. The exact origin of this diffuse but the pulmonary infiltrates is not clear. This could be related to an acute lung injury/interstitial pneumonitis related to higher dose of amiodarone. Viral infections have been ruled out. Bacterial infection and felt to be less likely. Possibility of mitral regurgitation with secondary pulmonary edema cannot be completely ruled out. For now, the patient is on a Lasix drip and Diamox with excellent urine output. His peak and static pressures of improved. Awaiting follow-up chest x-ray in the blood gases were noted. Acute hypercapnic/hypoxemic respiratory failure with altered mental status and obtundation requiring intubation mechanical ventilatory support early in the morning of 05/19/2022 Acute pulmonary edema, could be cardiogenic in nature, currently on diuretics Acute hypotension secondary to septic shock requiring pressors, currently on low-dose pressors History of paroxysmal atrial fibrillation maintained on amiodarone at 400 mg twice a day for approximately 2 months. Anticoagulated with Eliquis, post cardioversion and he is in NSR Severe MR and preserved LV function History of recent coronary artery bypass grafting at [facility] History of underlying coronary artery disease COVID 19 infection in Mar 2022 Hyperlipidemia Hypothyroidism History of gastroesophageal reflux disease without esophagitis Former smoker Plan: Continue ventilator support, normal changes for today Continue Lasix drip IV fluids to KVO Increase Diamox to 500 every 12 hours We'll hold off doing a [employer] catheter as long as the patient is responding to the current diuretic treatment Patient is currently in normal sinus rhythm Continue anticoagulation with Eliquis Surgical one-sided from previous bypass surgery is currently dry clean and intact Continue supportive care with enteral feeding for nutritional support Low-dose norepinephrine infusion for blood pressure support Condition is critical and we'll continue to follow and make further recommendations based on her progress. Case was discussed with cardiology. We'll give her a sedation holiday later stage today Critical care evaluation that was done in more than 30 minutes Time with Patient: Greater than 30
--- NOTE | 2022-05-25 07:33 | XR ---
EXAMINATION TYPE: XR chest 1V portable DATE OF EXAM: 05/25/2022 Comparison: 05/24/2022 Clinical History: 82-year-old male Pleural effusions; ET tube Findings: Patient is rotated and obliqued towards the left. Median sternotomy wires and post-CABG clips in the mediastinum. Left CVC tip lower SVC. His bilateral airspace opacity persists. There may be trace pleu ral effusions. Impression: Limited portable, rotated and obliqued exam. Diffuse bilateral airspace disease persists.
--- NOTE | 2022-05-25 09:06 | P.PN ---
Subjective Progress Note Date: 05/25/22 The patient is an 82-year-old male who is currently admitted to the hospital with acute hypoxic respiratory failure. He has a known history of coronary artery disease with recent CABG as well as paroxysmal atrial fibrillation. The patient remains mechanically ventilated. No further episodes of atrial fi brillation according to nursing staff. Chest x-ray shows multifocal airspace opacities. Initial echocardiogram shows LV function AT 50% with moderate to severe mitral regurge and moderate pulmonary hypertension with RVSP at 50mmhg. Records reviewed from [facility]. Patient was initially admitted with congestive heart failure and shortness of breath. Initial echo showed EF of 40- 45% with severe pulmonary hypertension. He was found to have multivessel coronary artery disease where he underwent CABG 4. Mitral valve at that time had mild regurgitation with mild to moderate aortic sclerosis. He also became COVID-19 positive postoperatively. 05/24/2021 patient was started on furosemide drip 05/25/2021 no change in chest x-ray. Diffuse bilateral airspace disease. GENERAL: Well-appearing, well-nourished and in no acute distress. Currently ventilated NECK: Supple without JVD or thyromegaly. LUNGS: Breath sounds diminished to auscultation bilaterally. Respiration equal and unlabored. Crackles in the posterior bases. HEART: Regular rate and rhythm. Systolic murmur. No rubs or gallops. S1 and S2 heard. EXTREMITIES: Normal range of motion, +2 generalized edema. No clubbing or cyanosis. No palpable pedal pulses. Doppler signals present per nursing documentation. VITALS: Blood pressure 115/65, heart rate 84, respiratory rate 19, SpO2 94% on 40% FiO2. Patient is currently on Levophed. TELEMETRY: Sinus rhythm-sinus bradycardia overnight LABS: WBC 18.8, hemoglobin 10.2, hematocrit 33.3, platelet 206, sodium 140, potassium 4.0, BUN 50, creatinine 0.99, mag 2.2 IMPRESSION: Acute hypoxic respiratory failure, possibly secondary to amiodarone toxicity Multivessel coronary artery disease, s/p recent CABG Mitral regurgitation, moderate to severe Pulmonary hypertension Recent COVID 19 infection PLAN: Awaiting limited echo results Futher recommendations based on clinical course I am dictating on behalf of Dr Chaka Larson's history/physical and assessment/plan. Objective - Vital Signs Vital signs: Vital Signs Temp 98.6 F 05/25/22 04:00 Pulse 84 05/25/22 08:49 Resp 20 05/25/22 08:49 BP 115/65 05/25/22 07:30 Pulse Ox 94 L 05/25/22 07:30 FiO2 40 05/25/22 08:20 Intake & Output 05/24/22 05/25/22 05/25/22 18:59 06:59 18:59 Intake Total 9742.298 2226.754 Output Total 2745 3290 Balance -892.699 -1630.246 Weight 90.4 kg 89.8 kg Intake: IV 592 538 NS Pressure Bag 42 78 Sodium Chloride 0.9% 1, 550 460 000 ml @ 5 mls/hr IV . Q24H [facility] Rx#:[id number] Intake, IV Titration 583.301 394.754 Amount Furosemide 100 mg In 138 99.667 Sodium Chloride 0.9% 90 ml @ 10 MG/HR 10 mls/hr IV .Q10H [facility] Rx#: [id number] Norepinephrine 4 mg In 254.380 118.477 Sodium Chloride 0.9% 250 ml @ 0.03 MCG/KG/MIN 9. 224 mls/hr IV .Q24H [facility] Rx#:[id number] propofoL 1,000 mg In 190.921 176.610 Empty Bag 1 bag @ 15 MCG/ KG/MIN 7.263 mls/hr IV . [id number] [facility] Rx#:[id number] Tube Feeding 527 637 Other 150 90 Output: Urine 2745 3290 Other: Voiding Method Indwelling Catheter Indwelling Catheter ABP, PAP, CO, CI - Last Documented Arterial Blood Pressure 114/48 - Labs CBC & Chem 7: 05/25/22 03:55 05/25/22 03:55 Labs: Abnormal Lab Results - Last 24 Hours (Table) 05/24/22 05/24/22 05/24/22 Range/Units 11:18 18:02 18:04 WBC (3.8-10.6) k/uL RBC (4.30-5.90) m/uL Hgb (13.0-17.5) gm/dL Hct (39.0-53.0) % MCHC (31.0-37.0) g/dL ABG pCO2 (35-45) mmHg ABG HCO3 (21-25) mmol/L ABG Total CO2 (19-24) mmol/L ABG O2 Saturation (94-97) % Carbon Dioxide (22-30) mmol/L BUN (9-20) mg/dL Glucose (74-99) mg/dL POC Glucose (mg/dL) 155 H 272 H 244 H (70-110) mg/dL Calcium (8.4-10.2) mg/dL 05/24/22 05/25/22 05/25/22 Range/Units 23:08 03:55 03:55 WBC 18.8 H (3.8-10.6) k/uL RBC 3.49 L (4.30-5.90) m/uL Hgb 10.2 L (13.0-17.5) gm/dL Hct 33.3 L (39.0-53.0) % MCHC 30.5 L (31.0-37.0) g/dL ABG pCO2 (35-45) mmHg ABG HCO3 (21-25) mmol/L ABG Total CO2 (19-24) mmol/L ABG O2 Saturation (94-97) % Carbon Dioxide 40 H (22-30) mmol/L BUN 50 H (9-20) mg/dL Glucose 157 H (74-99) mg/dL POC Glucose (mg/dL) 248 H (70-110) mg/dL Calcium 7.1 L (8.4-10.2) mg/dL 05/25/22 05/25/22 Range/Units 06:07 06:10 WBC (3.8-10.6) k/uL RBC (4.30-5.90) m/uL Hgb (13.0-17.5) gm/dL Hct (39.0-53.0) % MCHC (31.0-37.0) g/dL ABG pCO2 67 H (35-45) mmHg ABG HCO3 40 H* (21-25) mmol/L ABG Total CO2 42 H (19-24) mmol/L ABG O2 Saturation 97.6 H (94-97) % Carbon Dioxide (22-30) mmol/L BUN (9-20) mg/dL Glucose (74-99) mg/dL POC Glucose (mg/dL) 226 H (70-110) mg/dL Calcium (8.4-10.2) mg/dL
[2022-05-25] MEDS: PANTOPRAZOLE 40 MG/10 ML VIAL IVP SCH (09:40)
[2022-05-25] MEDS: ASPIRIN 81 MG PO SCH (09:40)
[2022-05-25] MEDS: APIXABAN 2.5 MG TABLET PO SCH ×2 (09:40→20:54)
[2022-05-25] MEDS: MAGNESIUM OXIDE 400 MG TAB PO SCH (09:40)
[2022-05-25] MEDS: CHLORHEXIDINE GLUCONATE 15 ML CUP MUCOUS MEM SCH ×2 (09:41→20:54)
[2022-05-25 11:44] LABS: Glucose,Whole Blood 198 mg/dL (70-110)
--- NOTE | 2022-05-25 13:10 | CA ---
Transthoracic Echo Report Name: Derek Sanchez Age: 82 Gender: M : 1940 Exam Date: 05/24/2022 11:12 Exam Location: [place] [facility] Ht (in): 70 Wt (lb): 199 Ordering Physician: Irene Alva Attending/Referring Phys: [id number], Artie Psychology Department Chair Yue Deluna RDCS Procedure CPT: Indications: mitral regurgitation Cardiac Hx: Technical Quality: Fair Contrast 1: Total Dose (mL): Contrast 2: Total Dose (mL): MEASUREMENTS (Male / Female) Normal Values 2D ECHO LV Diastolic Diameter PLAX 4.0 cm 4.2 - 5.9 / 3.9 - 5.3 cm LV Systolic Diameter PLAX 3.4 cm IVS Diastolic Thickness 1.3 cm 0.6 - 1.0 / 0.6 - 0.9 cm LVPW Diastolic Thickness 1.3 cm 0.6 - 1.0 / 0.6 - 0.9 cm LV Relative Wall Thickness 0.6 LA Volume 88.1 cm??? 18 - 58 / 22 - 52 cm??? DOPPLER MR Peak Velocity 600.4 cm/s MR Peak Gradient 144.2 mmHg FINDINGS Left Ventricle Mildly increased septal wall thickness. Left ventricular ejection fraction is estimated at 50-55 %. Abnormal (paradoxical) septal motion consistent with postoperative state. Right Ventricle Right Atrium Left Atrium Severely increased left atrial volume. Severe left atrial dilatation. Mitral Valve [id number] mitral regurgitation. Posteriorly directed mitral regurgitation jet. Aortic Valve Tricuspid Valve Pulmonic Valve Pericardium No pericardial effusion. Aorta CONCLUSIONS Left ventricular ejection fraction 50-55% Moderate to severe mitral regurgitation with highly eccentric posterior directed jet. Consider SHAWN if clinical consideration of severe mitral regurgitation. Previewed by: Dr. Humble Vences DO (Electronically Signed) Final Date: 25 May 2022 13:09
[2022-05-25 18:07] LABS: Glucose,Whole Blood 340 mg/dL (70-110)
[2022-05-25] MEDS: SODIUM CHLORIDE 0.9% 1,000 ML IV SCH (20:50)
[2022-05-25] MEDS: ATORVASTATIN 20 MG TAB PO SCH (20:54)
--- NOTE | 2022-05-25 22:36 | P.PN ---
Subjective This is a pleasant 82 years old male with multiple medical problems as below including history of atrial fibrillation on amiodarone at home and not on a blood thinner, history of coronary artery disease status post recent CABG, heart failure, mitral valve disease, GERD, hyperlipidemia and hypothyroidism Presents with respiratory distress and hypoxia currently he is in the ICU very lethargic, easily arousable and answers questions and follows commands but very tired and go back to sleep. History requiring high flow nasal cannula at 60 L/m with FiO2 of 64-65%. Also he is kept on liquids 2.5 by c d still operator for A. fib, he is on diuretic aceta zolamide, no Lasix currently but also his place on some gentle hydration by c d still operator for possible dehydration, renal function is improving. Today down to 1.0. Also there is suspected pulmonary fibrosis per pulmonary team, home dose of amiodarone as healthy bowel. Echocardiogram showing ejection fraction 50% with mild to moderate to severe mitral regurgitation There is some evidence of COPD exacerbation and reactive airway disease and he is kept on Solu-Medrol 40 mg. WBC 16.8 while on steroids, hemoglobin 11.1 05/19/2022 Patient that more respiratory distress overnight and he got intubated and placed on mechanical ventilation with sedation, with deep 05 and FiO2 of 100%. Patient also blood pressure on the low side 81/51, he is getting 2 units of blood transfusion and possible he'll need pressors per critical care team Urine output was 25-30 mL/h, currently lowered to 10 mL/h, Higginbotham catheter in place we'll keep monitoring Patient is also an Olympus 2.5, Solu-Medrol 60 mg. And acetazolamide 05/20/2022 Patient remains intubated and sedated in the ICU, with pulmonary/critical care team followed closely and plan to do sedation holiday. Patient Vitas looks stable, afebrile WBC down to 16,000, hemoglobin down to 9.3, creatinine improved to 0.8. Patient remains on liquids 2.5 mg added for his paroxysmal A. fib, Solu-Medrol 60 mg, normal saline 50 mg. And was discontinued and patient started on pressors levophed 05/21/2022 Patient remains intubated and sedated in the ICU with pulmonary/critical care team followed closely. Patient is undergoing sedation trial, he is requiring small doses of levophed, also elicits sinus rhythm, WBC is 18,000, hemoglobin 9.7, creatinine normal. Ejection fraction 50%. Patient remains on liquids, Solu-Medrol dose lowered to 40 mg also reasonable slowing of 50. Resume of the care of the patient 05/25/2022 patient remains in the ICU intubated and sedated with pulmonary/critical care team followed closely His on FiO2 of 40%, P5, his breathing quietly. His labs showing WBC 18,000, hemoglobin 10, Blood pressure is a acceptable but patient is on pressors, with levophed Remains also a Lasix drip and other medication including Solu-Medrol 40 mg, aspirin 81 mg, Eliquis on Protonix. Patient condition most likely secondary to fluid overload with chest x-ray showing diffuse bilateral airspace disease which persistent Objective - Vital Signs Vital signs: Vital Signs Temp 98.6 F 05/25/22 04:00 Pulse 84 05/25/22 08:49 Resp 20 05/25/22 08:49 BP 115/65 05/25/22 07:30 Pulse Ox 94 L 05/25/22 07:30 FiO2 40 05/25/22 08:20 Intake & Output 05/24/22 05/25/22 05/25/22 18:59 06:59 18:59 Intake Total 5996.045 5846.754 Output Total 2745 3290 Balance -892.699 -1630.246 Weight 90.4 kg 89.8 kg Intake: IV 592 538 NS Pressure Bag 42 78 Sodium Chloride 0.9% 1, 550 460 000 ml @ 5 mls/hr IV . Q24H [facility] Rx#:[id number] Intake, IV Titration 583.301 394.754 Amount Furosemide 100 mg In 138 99.667 Sodium Chloride 0.9% 90 ml @ 10 MG/HR 10 mls/hr IV .Q10H [facility] Rx#: [id number] Norepinephrine 4 mg In 254.380 118.477 Sodium Chloride 0.9% 250 ml @ 0.03 MCG/KG/MIN 9. 224 mls/hr IV .Q24H [facility] Rx#:[id number] propofoL 1,000 mg In 190.921 176.610 Empty Bag 1 bag @ 15 MCG/ KG/MIN 7.263 mls/hr IV . [id number] [facility] Rx#:[id number] Tube Feeding 527 637 Other 150 90 Output: Urine 2430 1890 Other: Voiding Method Indwelling Catheter Indwelling Catheter ABP, PAP, CO, CI - Last Documented Arterial Blood Pressure 114/48 - Exam -GENERAL: The patient is intubated and sedated. HEENT: Pupils are round and equally reacting to light. EOMI. No scleral icterus. No conjunctival pallor. Normocephalic, atraumatic. No pharyngeal erythema. No thyromegaly. CARDIOVASCULAR: S1 and S2 present. No murmurs, rubs, or gallops. -PULMONARY: Chest is clear to auscultation, no wheezing bilateral crackles. ABDOMEN: Soft, nontender, nondistended, normoactive bowel sounds. No palpable organomegaly. MUSCULOSKELETAL: No joint swelling or deformity. -EXTREMITIES: No cyanosis, clubbing, Bilateral pitting leg edema. NEUROLOGICAL: Gross neurological examination did not reveal any focal deficits. SKIN: No rashes. no petechiae. - Labs CBC & Chem 7: 05/25/22 03:55 05/25/22 03:55 Labs: Abnormal Lab Results - Last 24 Hours (Table) 05/24/22 05/24/22 05/24/22 Range/Units 11:18 18:02 18:04 WBC (3.8-10.6) k/uL RBC (4.30-5.90) m/uL Hgb (13.0-17.5) gm/dL Hct (39.0-53.0) % MCHC (31.0-37.0) g/dL ABG pCO2 (35-45) mmHg ABG HCO3 (21-25) mmol/L ABG Total CO2 (19-24) mmol/L ABG O2 Saturation (94-97) % Carbon Dioxide (22-30) mmol/L BUN (9-20) mg/dL Glucose (74-99) mg/dL POC Glucose (mg/dL) 155 H 272 H 244 H (70-110) mg/dL Calcium (8.4-10.2) mg/dL 05/24/22 05/25/22 05/25/22 Range/Units 23:08 03:55 03:55 WBC 18.8 H (3.8-10.6) k/uL RBC 3.49 L (4.30-5.90) m/uL Hgb 10.2 L (13.0-17.5) gm/dL Hct 33.3 L (39.0-53.0) % MCHC 30.5 L (31.0-37.0) g/dL ABG pCO2 (35-45) mmHg ABG HCO3 (21-25) mmol/L ABG Total CO2 (19-24) mmol/L ABG O2 Saturation (94-97) % Carbon Dioxide 40 H (22-30) mmol/L BUN 50 H (9-20) mg/dL Glucose 157 H (74-99) mg/dL POC Glucose (mg/dL) 248 H (70-110) mg/dL Calcium 7.1 L (8.4-10.2) mg/dL 05/25/22 05/25/22 Range/Units 06:07 06:10 WBC (3.8-10.6) k/uL RBC (4.30-5.90) m/uL Hgb (13.0-17.5) gm/dL Hct (39.0-53.0) % MCHC (31.0-37.0) g/dL ABG pCO2 67 H (35-45) mmHg ABG HCO3 40 H* (21-25) mmol/L ABG Total CO2 42 H (19-24) mmol/L ABG O2 Saturation 97.6 H (94-97) % Carbon Dioxide (22-30) mmol/L BUN (9-20) mg/dL Glucose (74-99) mg/dL POC Glucose (mg/dL) 226 H (70-110) mg/dL Calcium (8.4-10.2) mg/dL Assessment and Plan Assessment: Acute CHF exacerbation Possible reactive airway disease versus acute COPD exacerbation Acute hypoxic respiratory failure, status post intubation on 05/19 Moderate to severe mitral regurgitation Paroxysmal atrial fibrillation Recent history of bypass surgery Possible pulmonary fibrosis Plan: Patient is being on IV Lasix drip Continue with current management with the pulmonary/critical care team consult Continue with Eliquis Continue with Solu-Medrol Keep holding amiodarone with cardiology team recommendation Continue with acetazolamide Continue with home dose of aspirin Cardiology and pulmonary team of the family caseworker blood pressure, a pressors when necessary for hypotension monitor urine output Labs and medication were reviewed.. Continue same treatment. Continue with symptomatic treatment. Resume home medication. Monitor lytes and vitals. DVT and GI prophylaxis. Further recommendations as per clinical course of the patient DVT prophylaxis: Eliquis GI Prophylaxis: Ppi PT/OT: Deferred Prognosis is guarded
[2022-05-25 23:52] LABS: Glucose,Whole Blood 183 mg/dL (70-110)
[2022-05-26] MEDS: INSULIN ASPART (NovoLOG) 100 UNIT/ML VIAL SQ SCH ×4 (00:49→18:03)
[2022-05-26] MEDS: methylPREDNISolone SOD SUCCI 40 MG/ML 1 ML VIAL IV SCH ×4 (00:49→18:20)
[2022-05-26] MEDS: NOREPINEPHRINE 4 MG in SODIUM CHLORIDE 0.9% 250 ML IV SCH (01:36)
[2022-05-26] MEDS: IPRATROPIUM-ALBUTEROL 3 ML NEB INHALATION SCH ×6 (03:32→23:30)
[2022-05-26] MEDS: FUROSEMIDE 100 MG in SODIUM CHLORIDE 0.9% 90 ML IV SCH ×3 (03:49→23:33)
[2022-05-26 05:20] LABS: ABG Base Excess 18.3 mmol/L; ABG Oxygen Saturation 98.4 % (94-97); ABG PCO2 68 mmHg (35-45); ABG PH 7.41 (7.35-7.45); ABG PO2 97 mmHg (83-108); ABG TCO2 45 mmol/L (19-24)
[2022-05-26 05:29] LABS: Glucose,Whole Blood 134 mg/dL (70-110)
[2022-05-26 05:31] LABS: ABG HCO3 43 mmol/L (21-25); Allen Test Performed? no
[2022-05-26 05:36] LABS: Basophils % (A) 0 %; Eosinophils % (A) 0 %; HCT 32.4 % (39.0-53.0); Hypochromasia Marked; Lymphocytes # (A) 0.1 k/uL (1.0-4.8); Lymphocytes % (A) 1 %; MCH 28.9 pg (25.0-35.0); MCHC 30.7 g/dL (31.0-37.0); MCV 93.9 fL (80.0-100.0); Mean Platelet Volume 10.4; Monocytes # (A) 0.6 k/uL (0-1.0); Monocytes % (A) 3 %; Neutrophils # (A) 18.6 k/uL (1.3-7.7); Neutrophils % (A) 96 %; Platelet Count 211 k/uL (150-450); RBC 3.45 m/uL (4.30-5.90); RDW 14.8 % (11.5-15.5); WBC 19.4 k/uL (3.8-10.6)
[2022-05-26 05:48] LABS: Calcium 7.2 mg/dL (8.4-10.2); Potassium 3.4 mmol/L (3.5-5.1)
--- NOTE | 2022-05-26 06:37 | P.PN ---
Subjective Progress Note Date: 05/26/22 This is an 82-year-old white male with history of coronary artery disease, recent CABG about 2 months ago, this was done at [facility]. Patient presented to [facility] with a few days' history of increased shortness of breath, and his shortness of breath, much worse today. In addition to shortness of breath, the patient is coughing, the cough is productive with whitish phlegm, no fever no chills, no hemoptysis, no chest pain. workup in [place] showed evidence of pulmonary edema, he also had elevated BNP level, and elevated troponin level. Patient was transferred to [facility], I saw him down in the ER. Patient is on BiPAP, 12/5/55%, O2 saturation is in the low 90s. Patient was already given Lasix by the admitting physician and he is now on Lasix at 60 mg IV push twice a day. Some improvement clinically noted according to the patient. Patient has no previous history of COPD, and no previous history of smoking. His WBC count is 12.6 hemoglobin is 10.3, basic metabolic profile is normal renal profile is normal bicarb is 38 lactic acid 4.6. ProBNP level is 3790. Chest x-ray is consistent with interstitial edema however underlying pneumonia is not entirely ruled out but felt to be less likely. EKG showed sinus rhythm, and incomplete right bundle branch block pattern otherwise unremarkable, nonspecific ST and T-wave changes noted. The patient is seen today 05/10/2022 in follow-up on the selective care unit. He is currently resting in bed. Awake and alert in no acute distress. He is still on BiPAP 12/5 and 55%. white count 11.0. Hemoglobin 9.6. Platelets 275. Sodium 142. Potassium 3.8. Bicarb 42. BUN 40. Creatinine 0.82. Glucose 109. He is continued on Lasix 60 mg every 12 hours. No accurate I&O recorded. Current weight 83.5 kg. today's chest x-ray is essentially unchanged. Pro- calcitoninn level 0.07. I'm evaluating this patient today on 05/11/2022. His work of breathing has obviously increased overnight. He is requiring BiPAP titrations and is currently 14/5 and 70%. He is tachypneic breathing about 30-40 breaths per minute with accessory muscle use. Recent echocardiogram was performed on 05/10/2022 which showed a normal ejection fraction of 50% and some moderate to severe mitral regurgitation. He is receiving furosemide 80 mg twice a day. A urinary catheter was inserted yesterday for accurate intake and output. Fluid balance is -1 L. Normal saline is using KVO. CT of the chest with contrast was also performed yesterday on 05/10/2022 which showed diffuse airspace opacities and consolidation changes, some small bilateral pleural effusions, evidence of pulmonary hypertension, and cardiomegaly. Likely representing a combination of atypical pneumonia versus inflammatory process. There is also some superimposed pulmonary vascular congestion. Chest x-ray from today 05/11/2022 continues to show diffuse interstitial and alveolar infiltrates bilaterally. He continues to receive by mouth amiodarone. And his heart rhythm is currently normal sinus. Patient remains afebrile. CBC did not show any leukocytosis with a WBC of 7.8, hemoglobin 9.4, hematocrit 30.9, platelet count 280,000. BMP from today shows sodium 140, potassium of 3.9, chloride of 94, serum CO2 of 42 to, UN 45, creatinine 1.04, glucose 139. Remains on Lovenox for DVT prophylaxis. We'll transfer this patient in ICU for closer monitoring. Reevaluated today on 05/12/2022, patient is basically about the same. Remains o n BiPAP, he is on IPAP of 14 EPAP of 5 and FiO2 70%, chest x-ray continues to show diffuse interstitial process bilaterally, it is difficult to tell how much of this is true pulmonary edema and how much of it is acute lung injury, induced by amiodarone. Not to mention the patient is not a candidate to perform or even think of lung biopsy. Patient is receiving diuretics and he is a -[address] 24 hours, he is now on Lasix and Diamox, not seeing much improvement in his overall pulmonary status in spite of aggressive diuresis as a matter of fact I have a strong feeling that the patient will require eventually intubation and mechanical ventilation if he continues to do poorly. He is basically marginal at best at this point. CBC is relatively normal electrolytes are normal except bicarb is up to 44, patient is sleepy developing a bit of metabolic contraction alkalosis. Hence Diamox was added. Patient remains on steroids for his presumptive amiodarone induced lung injury although this is not definitive Patient was reevaluated today on 05/09/22, remains in the ICU, his overall p ulmonary status is marginal at best. Continues to have abnormal chest x-ray, continues to be relatively hypoxic, patient is now on high flow oxygen via airvo, FiO2 90% and 60 L flow, seems to be tolerating this better than the BiPAP, yesterday he was on BiPAP 14/6/80%. Remains on diuretics, remains on steroids, patient tells me that he feels a bit better today, although his chest x-ray is basically about the same, and his oxygenation seems to be marginal/the same.CBC is unremarkable, basic metabolic profile is normal bicarb is 46 BUN is 57 creatinine 1.72, hence I will start cutting down on his diuretics, we will continue Diamox continue Diamox, continue Lasix but quit ahead and stop again I am quite concerned about the rapid increase in his creatinine, not to mention the patient has been in a negative balance over the last 48 hours.since admission, the patient is almost -7 L. And he is becoming quite dehydrated. Reevaluated today on 05/14/22, patient remains in the ICU, remains on BiPAP with IPAP of 14/EPAP of 6, FiO2 is 70%. Patient is becoming more and more alkalotic, hence I'm stopping his Lasix. We will continue the patient on Diamox. He is also off Zaroxolyn. Patient has been in a significant negative balance over the last few days. Last night he became quite agitated and we had to place him on Precedex, he is on 0.4 mcg/kg/h of Precedex today. Seems to be calm, chest x- ray continues to show evidence of interstitial infiltrates bilaterally. Again it is not clear how much of it is really congestive heart failure and how much of an acute lung injury.WBC count today is 9 hemoglobin is 10.3, bicarb is elevated at 52 BUN is 50 creatinine 1.61 slightly better than yesterday. Reevaluated today on 05/15/22, patient remains in the ICU, pulmonary status remains marginal at best. However his chest x-ray is probably showing slight improvement, and his FiO2 requirement is less, patient is now on airvo at 60% FiO2 and 60 L flow, O2 sats ration is in the mid 90s. He was on BiPAP earlier today with IPAP of 14 EPAP of 6 and FiO2 of 60%. Remains on Precedex at 0.4 mcg/kg/h. IV fluids at KVO, diuretics have been cut down significantly, remains on Diamox only. CBC is basically unremarkable bicarb is down to 45 and 52 BUN is down to 46 creatinine is down to 1.160. Patient is comfortable on airvo, does not seem to be in distress The patient is seen today 05/16/2022 in follow-up in the intensive care unit. He is currently resting fairly comfortably in bed. Awake and alert. He is still requiring quite a bit of oxygen he was wearing BiPAP 14/60-60% FiO2. Currently more comfortable on the AirVo high flow oxygen at 60 L and 65% FiO2. He has Precedex running at 0.3 mg/kg/h. Normal saline at 20 ML's per hour. Chest x-ray continues to show small bilateral pleural effusions with slightly increased diffuse bilateral multifocal patchy airspace disease. White count 10.2. Hemoglobin 9.8. Platelets 287. Sodium 135. Potassium 3.9. Bicarb 41. BUN 42. Creatinine 1.02. Glucose 145. Arterial blood gases revealed a PaO2 of 66, pCO2 63, pH 7.4-65% FiO2. He is continued on DuoNeb inhalations, IV Solu- Medrol. Lovenox for DVT prophylaxis. He remains off diuretics. Currently in a -500 mL balance. The patient is seen today 05/17/2022 in follow-up in the intensive. He is currently sitting up in a chair at the bedside. Awake and alert in no acute distress. He is feeling better today compared to yesterday. He is still requiring AirVo high flow oxygen and 60 L and 65% FiO2. BiPAP has been discontinued. No IV fluids currently. Chest x-ray continues to show diffuse increased lung markings bilaterally. ProBNP 2420. Pro-calcitonin was 0.06. Today's labs are pending. He remains off diuretics. Continued on Diamox. Continued on DuoNeb inhalations, IV Solu-Medrol. Anticoagulated with Eliquis. Remains off amiodarone. Continued in sinus rhythm. The patient seen today 05/18/2022 in follow-up in the intensive care unit. He is currently resting comfortably in bed. Awake and alert in no acute distress. He is still requiring AirVo high flow oxygen at 60 L/m and 65% FiO2. Normal saline at KVO. White count 16.8. Hemoglobin 11.7. Platelets 279. Sodium 140. Potassium 3.9. Bicarb 40. The 144. Creatinine 1.06. He is continued on DuoNeb inhalations, IV site Medrol. Anticoagulated with Eliquis. The patient is seen today 05/19/2022 in follow-up in the intensive care unit. Throughout the day and into the evening last night patient had become more obtunded and less responsive. He was initiated on AirVo 60 L and 65% with O2 saturations are 96%. He became hypercapnic with a CO2 of 81 and was placed on BiPAP 14/6 and 60% FiO2. He was eventually intubated approximately 6:00 this morning the patient required intubation and mechanical ventilatory support. He is currently an assist-control mode at a rate of 20, tidal by 450, FiO2 50% and a PEEP of 5. Blood gases revealed a PaO2 of 316, pCO2 65 and a pH of 7.35 100% FiO2. FiO2 titrated down appropriately. He is sedated on propofol at 40 mcg/kg/m. Maintained on norepinephrine at 0.06 mcg/kg/m. Normal saline at 50 MLS per hour. Follow-up chest x-ray revealed satisfactory intubation, nasogastric tube in place. Persistent bilateral interstitial edema versus pneumonia. Tiny effusions. White count 18.5. Hemoglobin 11.3. Platelets 223. Sodium 142. Potassium 4.0. BUN 48. Creatinine 1.06. Glucose 173. AST 18. ALT 18. ProBNP 5440. Cortisol 14. He is continued on DuoNeb inhalations, IV Solu-Medrol. Anticoagulated with Eliquis. The patient is seen today 05/20/2022 in follow-up in the intensive care unit. He remains intubated and on the mechanical ventilator. Current settings are assist-control mode at a rate of 20, tight up in 450, FiO2 40% and a PEEP of 5. Morning blood gases reveal pO2 of 87, pCO2 54, pH 7.40. He is receiving normal saline at 50 ML's per hour. Sedated with propofol at 40 mcg/kg/m. Still requiring norepinephrine at 8.6 mg/m. He is receiving nutrition via NG tube with vital HP at 40 ML's per hour with a goal of 45. Chest x-ray reveals similar multifocal airspace opacities. Endotracheal and nasogastric tube secured in place. Left internal jugular central line in place. White count 16.0. Hemoglobin 9.3. Sodium 139. Potassium 3.3. Bicarb 32. BUN 43. Creatinine 0.86. Glucose 221. AST 15. ALT 16. He is currently in a +5 L balance. Remains on DuoNeb inhalations, IV Solu-Medrol, anticoagulated with Eliquis. Initial pro-calcitonin 0.06. Follow-up pro-calcitonin 0.08. ProBNP 5440. The patient is seen today 05/21/2022 in follow-up in the intensive care unit. He remains intubated on the mechanical ventilator in assist control mode with a rate of 20, tidal volume 450, FiO2 30% and a PEEP of 5. Morning blood gases reveal pO2 of 61, pCO2 55, pH 7.4. Remains sedated on propofol at 35 mcg/kg/m. He remains on norepinephrine at 9 mcg/m. Normal saline at 50 MLS per hour. He is being nourished with vital AF at 45 ML's per hour which is goal. He has received daily interruption of sedation. He gets quite tachycardic and tachypneic. Not following commands. He is continued on DuoNeb inhalations, IV Solu-Medrol. Anticoagulated with Eliquis. Chest x-ray continues to show sim ilar multifocal airspace opacities. Sputum culture pending. White count 18.0. Hemoglobin 9.7. Sodium 140. Potassium 4.0. Bicarb 35. BUN 42. Creatinine 0.80. Glucose 236. The patient is seen today 05/22/2022 in follow-up in the intensive care unit. He is intubated and on mechanical ventilator and assist control mode at a rate of 20, tidal on 450, FiO2 40% and a PEEP of 5. Morning blood gases revealed a pO2 of 83, pCO2 51, pH 7.43. He is sedated on propofol at 30 mcg/kg/m. On norepinephrine at 4 mcg/m. Normal saline at 50 MLS per hour. He is being nourished with vital AF at 45 mL per hour which is goal. Chest x-ray reveals slight worsening bilateral multifocal edema and/or infiltrates. Sputum culture reveals no growth. White count 15.7. Hemoglobin 8.6. Platelets 176. Sodium 140. Potassium 4.1. Bicarb 34. BUN 45. Creatinine 0.74. Glucose 211. He is continued on DuoNeb inhalations, IV Solu-Medrol. Anticoagulated with Eliquis. The patient is seen today 05/23/2022 in follow-up in the intensive care unit. He continues to remain intubated and on the mechanical ventilator at assist control mode at a rate of 20, tidal on 450, FiO2 40% and a PEEP of 5. Arterial blood gases reveal pO2 103, pCO2 51, pH 7.44. Chest x-ray reveals similar multifocal airspace opacities. He is sedated on propofol at 20 mcg/kg/m. He remains on norepinephrine at 3.2 mcg/m. Normal saline at 50 MLS per hour. White count 16.8. Hemoglobin 9.4. Platelets 195. Sodium 139. Potassium 4.3. Bicarb 35. BUN 45. Creatinine 0.71 glucose 159. He is continued on IV Solu- Medrol, bronchodilators, anticoagulated with Eliquis. On 05/24/2022, I'm seeing the patient for a follow-up. The patient is currently intubated on a mechanical ventilator. The patient has been on a mechanical ventilator since 05/19/2022. Noted the patient is post coronary artery bypass surgery. There is some concern of an underlying interstitial lung disease as the patient was receiving higher dose of amiodarone. At the same time, the echocardiogram here in our hospital showed a moderate to severe mitral regurgitation and the patient has significant cardiac murmur, systolic ejection consistent with mitral regurgitation. No signs of any infection. The viral screen that was done at the time of admission came back negative. The patient was initially subjective the diuretics. Lymphoma was limited at this point and a chest x-ray from today is still showing diffuse bilateral pulmonary infiltrate s. Furthermore, this morning, the patient remains sedated on propofol at 30 microvascular kilogram per minute. The patient on normal saline at rate of 50 mL an hour and the patient is receiving vital AF at the rate of 45 mL an hour. The patient is on a low-dose of norepinephrine running at 0.07 microvascular kilogram per minutes. The patient is on assist-control mechanical ventilation at the rate of 20 with a tidal volume of 450 and FiO2 of 40% with a PEEP of 5. The blood gas from today shows a pH of 7.45 with a pCO2 of 54 and pO2 of 100. Peak airway pressure was around 34. The static airway pressure was 32.. No fever. No chills. Limited because of 18.5 with a hemoglobin 11.7 and a platelet count of 201. BUN is at 49 with a creatinine of 0.7 and a sodium level is at 140. Glucose at 155. The sputum culture has been negative. The patient is currently on IV Solu-Medrol 40 mg every 6 hours. On 05/25/2022, the patient is being seen for a follow-up. The patient is currently intubated on a mechanical ventilator. This morning she is on propofol which is running at 30 microvascular kilogram per minute and the patient is adequately sedated and his 60s with a mechanical ventilator. He is on assist- control mode and currently is on the rate of 14 with a tidal volume of 400 and FiO2 of 40% and a PEEP of 5. Noted marked improvement in his peak airway pressure which was as high as 35 yesterday and this morning it is down to 25. Blood gas from today shows a pH of 7.38 with a pCO2 of 67 and pO2 of 91. Note that his chest x-ray is still pending from this morning. Meanwhile, the patient has diabetes adequately and over the past 24 hours has been negative balance of 2.3 L. He is on a Lasix drip at 10 mg an hour and is also on Diamox to 50 mg IV every 12 hours. His blood work from today shows a BUN of 50 with a creatinine of 0.9. Serum bicarb is 40 and the sodium is at 140. He has a valgus count of 18.8 with a hemoglobin of 10.2 and a platelet count of 206. Blood gases were also noted. He is still on low-dose of norepinephrine which is running at a dose of 0.09 mcg/kg/m. He is on vital AF running at the rate of 49 mL an hour which is at goal and there is no significant residuals and the patient is able to tolerate the enteral feeding without any major issues. The patient is afebrile. He remains on anticoagulation with Eliquis at a dose of 2.5 mg twice a day and is also on aspirin. He remains on IV Solu-Medrol. Cardiac rhythm is NSS 05/26/2022, patient is being seen for a follow-up. The patient remains sedated on propofol and this morning he is on 35 microvascular kilogram per minute. He was given of a sedation holiday he was able to arouse and follow simple commands yesterday. He remains quite lethargic. On today's evaluation, he is on assist- control mode of mechanical ventilation. The rate of 14 with a tidal volume 400 and FiO2 of 40% with a PEEP of 5. The patient is being diuresed with Lasix drip at 10 mg an hour and the patient is also on Diamox. He is in a negative fluid balance. Note that over the past 48 hours is at least 5 L negative fluid balance and there is improvement in volume status. Nevertheless, the chest x- ray is still showing diffuse bilateral pulmonary infiltrates and no major interval change on today's chest x-ray findings. He remains in a good location. Meanwhile, his blood gas shows a pH of 7.41 with a pCO2 of 68 and pO2 of 97. Rest of the blood work and electrolytes show a sodium of 143, serum bicarb of 43, BUN is 54 with a creatinine of 1.1. The WBC count is at 19.4 with a hemoglobin of 10.. The patient is currently on KVO IV fluids. He is receiving enteral feeding for nutritional support and he remains on vital AF at the rate of 49 mL an hour. He remains on IV steroids. No fever. Remains on anticoagulation. Cardiac rhythm is sinus. Otherwise, no significant issues over the past 24 hours. Blood sugars are managed and the patient did have a component of steroid-induced hyperglycemia and he is on a sliding scale insulin coverage. Family opted for a DNR CODE STATUS. Note that the patient as being diabetes, is requiring low-dose pressors and the patient is on low-dose n orepinephrine infusion running at 0.09 microvascular kilogram per minutes. Objective - Vital Signs Vital signs: Vital Signs Temp 97.1 F L 05/26/22 00:00 Pulse 70 05/26/22 05:30 Resp 20 05/26/22 05:30 BP 106/57 05/26/22 05:30 Pulse Ox 96 05/26/22 05:30 FiO2 40 05/26/22 04:00 Intake & Output 05/25/22 05/25/22 05/26/22 06:59 18:59 06:59 Intake Total 4958.476 7199.513 1330.479 Output Total 3290 3010 1875 Balance -1630.246 -1618.487 -544.521 Weight 89.8 kg 88 kg Intake: IV 538 176 176 NS Pressure Bag 78 66 66 Sodium Chloride 0.9% 1, 460 110 110 000 ml @ 5 mls/hr IV . Q24H [facility] Rx#:[id number] Intake, IV Titration 394.754 586.513 525.479 Amount Furosemide 100 mg In 99.667 84.167 170.167 Sodium Chloride 0.9% 90 ml @ 10 MG/HR 10 mls/hr IV .Q10H [facility] Rx#: [id number] Norepinephrine 4 mg In 118.477 327.537 180.463 Sodium Chloride 0.9% 250 ml @ 0.03 MCG/KG/MIN 9. 224 mls/hr IV .Q24H [facility] Rx#:[id number] propofoL 1,000 mg In 176.610 174.809 174.849 Empty Bag 1 bag @ 15 MCG/ KG/MIN 7.263 mls/hr IV . [id number] [facility] Rx#:[id number] Tube Feeding 637 539 539 Other 90 90 90 Output: Urine 3290 3010 1875 Other: Voiding Method Indwelling Catheter Indwelling Catheter Indwelling Catheter ABP, PAP, CO, CI - Last Documented Arterial Blood Pressure 108/49 - Exam GENERAL EXAM: Intubated, sedated 82-year-old gentleman, currently on the ventilator with 40% FiO2 and a PEEP of 5, in no apparent distress. HEAD: Normocephalic. EYES: Sluggish reaction of pupils, equal size. NOSE: Clear with pink turbinates. THROAT: Oral endotracheal and gastric tube secured in place. No erythema or ex udates. NECK: No masses, no JVD. CHEST: No chest wall deformity. LUNGS: Equal air entry with bibasilar crackles. CVS: S1 and S2 normal with an audible murmur, systolic ejection murmur heard throughout the precordium 4 over 6, regular rhythm. ABDOMEN: No hepatosplenomegaly, normal bowel sounds, no guarding or rigidity. SPINE: No scoliosis or deformity SKIN: No rashes CENTRAL NERVOUS SYSTEM: No focal deficits, tone is normal in all 4 extremities. EXTREMITIES: There is 2+ peripheral edema. No clubbing, no cyanosis. Peripheral pulses are intact. - Labs CBC & Chem 7: 05/26/22 05:20 05/26/22 05:20 Labs: Abnormal Lab Results - Last 24 Hours (Table) 05/25/22 05/25/22 05/25/22 Range/Units 11:43 18:05 23:50 WBC (3.8-10.6) k/uL RBC (4.30-5.90) m/uL Hgb (13.0-17.5) gm/dL Hct (39.0-53.0) % MCHC (31.0-37.0) g/dL Neutrophils # (1.3-7.7) k/uL Lymphocytes # (1.0-4.8) k/uL ABG pCO2 (35-45) mmHg ABG HCO3 (21-25) mmol/L ABG Total CO2 (19-24) mmol/L ABG O2 Saturation (94-97) % Potassium (3.5-5.1) mmol/L Carbon Dioxide (22-30) mmol/L BUN (9-20) mg/dL Glucose (74-99) mg/dL POC Glucose (mg/dL) 198 H 340 H 183 H (70-110) mg/dL Calcium (8.4-10.2) mg/dL 05/26/22 05/26/22 05/26/22 Range/Units 05:13 05:20 05:20 WBC 19.4 H (3.8-10.6) k/uL RBC 3.45 L (4.30-5.90) m/uL Hgb 10.0 L (13.0-17.5) gm/dL Hct 32.4 L (39.0-53.0) % MCHC 30.7 L (31.0-37.0) g/dL Neutrophils # 18.6 H (1.3-7.7) k/uL Lymphocytes # 0.1 L (1.0-4.8) k/uL ABG pCO2 68 H (35-45) mmHg ABG HCO3 43 H* (21-25) mmol/L ABG Total CO2 45 H (19-24) mmol/L ABG O2 Saturation 98.4 H (94-97) % Potassium 3.4 L (3.5-5.1) mmol/L Carbon Dioxide 43 H* (22-30) mmol/L BUN 54 H (9-20) mg/dL Glucose 123 H (74-99) mg/dL POC Glucose (mg/dL) (70-110) mg/dL Calcium 7.2 L (8.4-10.2) mg/dL 05/26/22 Range/Units 05:27 WBC (3.8-10.6) k/uL RBC (4.30-5.90) m/uL Hgb (13.0-17.5) gm/dL Hct (39.0-53.0) % MCHC (31.0-37.0) g/dL Neutrophils # (1.3-7.7) k/uL Lymphocytes # (1.0-4.8) k/uL ABG pCO2 (35-45) mmHg ABG HCO3 (21-25) mmol/L ABG Total CO2 (19-24) mmol/L ABG O2 Saturation (94-97) % Potassium (3.5-5.1) mmol/L Carbon Dioxide (22-30) mmol/L BUN (9-20) mg/dL Glucose (74-99) mg/dL POC Glucose (mg/dL) 134 H (70-110) mg/dL Calcium (8.4-10.2) mg/dL Assessment and Plan Plan: Acute hypoxemic respiratory failure secondary to an acute exacerbation of suspected congestive heart failure, moderate to severe mitral regurgitation, 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 Initial pro-calcitonin 0.07. Follow-up pro-calcitonin 05/19/2022 remains negative at 0.08. BNP 5440. No fever. No leukocytosis. Influenza screen negative. CoVID screen negative. RSV screen negative. The exact origin of this diffuse but the pulmonary infiltrates is not clear. This could be related to an acute lung injury/interstitial pneumonitis related to higher dose of amiodarone. Viral infections have been ruled out. Bacterial infection and felt to be less likely. Possibility of mitral regurgitation with secondary pulmonary edema cannot be completely ruled out. For now, the patient is on a Lasix drip and Diamox with excellent urine output. His peak and static pressures of improved. The patient is in negative fluid balance of at least 5 L and the patient has responded to diuresis. Nevertheless, the chest x-ray findings are still unchanged. Occupation is stable and there is a component of metabolic alkalosis developing and the patient is currently on Diamox. Acute hypercapnic/hypoxemic respiratory failure with altered mental status and obtundation requiring intubation mechanical ventilatory support early in the morning of 05/19/2022 Acute pulmonary edema, could be cardiogenic in nature, currently on diuretics Acute hypotension secondary to septic shock requiring pressors, currently on low-dose pressors History of paroxysmal atrial fibrillation maintained on amiodarone at 400 mg twice a day for approximately 2 months. Anticoagulated with Eliquis, post cardioversion and he is in NSR Severe MR and preserved LV function History of recent coronary artery bypass grafting at [facility] History of underlying coronary artery disease COVID 19 infection in Mar 2022 Hyperlipidemia Hypothyroidism History of gastroesophageal reflux disease without esophagitis Former smoker Plan: Continue ventilator support, normal changes for today Continue Lasix drip IV fluids to KVO Increase Diamox to 500 every 12 hours Stop sedation and assess the patient's weaning parameters and assess his ca ndidacy for further weaning Patient is currently in normal sinus rhythm Continue anticoagulation with Eliquis Surgical one-sided from previous bypass surgery is currently dry clean and intact Continue supportive care with enteral feeding for nutritional support Low-dose norepinephrine infusion for blood pressure support Condition is critical and we'll continue to follow and make further recommenda tions based on her progress. Case was discussed with cardiology. Condition of ascites critical. The family opted for DO NOT RESUSCITATE CODE STATUS. They declined long-term mechanical ventilation or tracheostomy tube insertion. Critical care evaluation that was done in more than 30 minutes Time with Patient: Greater than 30
[2022-05-26] MEDS: LEVOTHYROXINE 125 MCG TAB PO SCH (07:16)
[2022-05-26] MEDS: PANTOPRAZOLE 40 MG/10 ML VIAL IVP SCH (08:03)
[2022-05-26] MEDS: acetaZOLAMIDE 250 MG TAB PO SCH (08:03)
[2022-05-26] MEDS: MAGNESIUM OXIDE 400 MG TAB PO SCH (08:03)
[2022-05-26] MEDS: ASPIRIN 81 MG PO SCH (08:03)
[2022-05-26] MEDS: POTASSIUM CHLORIDE 20 MEQ in WATER FOR INJECTION 1 100ML.BAG IVPB SCH ×3 (08:03→12:16)
[2022-05-26] MEDS: CHLORHEXIDINE GLUCONATE 15 ML CUP MUCOUS MEM SCH (08:03)
[2022-05-26] MEDS: APIXABAN 2.5 MG TABLET PO SCH (08:03)
--- NOTE | 2022-05-26 08:10 | XR ---
EXAMINATION TYPE: XR chest 1V DATE OF EXAM: 05/26/2022 COMPARISON: 05/25/2022 INDICATION: Intubation difficulty breathing TECHNIQUE: Single frontal view of the chest is obtained. FINDINGS: The heart size is normal. The pulmonary vasculature is prominent. Diffuse increased lung markings are present bilaterally. Small left pleural effusion may be present. Minimal right pleural effusion is not excluded. Endotracheal tube tip is above the [place]. Nasogastric tube transverses the thorax. Left central veno us catheter has a tip in the superior vena cava right atrial junction. IMPRESSION: 1. Diffuse increased lung markings. Correlate for pulmonary edema. 2. Suggestion of minimal left pleural effusion. 3. Multiple lines and catheters discussed above.
[2022-05-26] MEDS: MAGNESIUM HYDROXIDE 2,400 MG/10 ML CUP PO PRN (08:29)
[2022-05-26 10:57] VITALS: BMI 27.8
[2022-05-26 12:12] LABS: Glucose,Whole Blood 215 mg/dL (70-110)
--- NOTE | 2022-05-26 17:23 | P.PN ---
Subjective Progress Note Date: 05/26/22 Principal diagnosis: Acute hypoxic respiratory failure; multifactorial Acute exacerbation CHF Acute exacerbation COPD 82 years old male with multiple medical problems as below including history of atrial fibrillation on amiodarone at home and not on a blood thinner, history of coronary artery disease status post recent CABG, heart failure, mitral valve disease, GERD, hyperlipidemia and hypothyroidism Presents with respiratory distress and hypoxia currently he is in the ICU very lethargic, easily arousable and answers questions and follows commands but very tired and go back to sleep. History requiring high flow nasal cannula at 60 L/m with FiO2 of 64-65%. Also he is kept on liquids 2.5 by part time flexible clerk for A. fib, he is on diuretic acetazolamide, no Lasix currently but also his place on some gentle hydration by part time flexible clerk for possible dehydration, renal function is improving. Today down to 1.0. Also there is suspected pulmonary fibrosis per pulmonary team, home dose of amiodarone as healthy bowel. Echocardiogram showing ejection fraction 50% with mild to moderate to severe mitral regurgitation There is some evidence of COPD exacerbation and reactive airway disease and he is kept on Solu-Medrol 40 mg. WBC 16.8 while on steroids, hemoglobin 11.1 24 hour interval change 05/26/2022 patient is seen and evaluated in room at bedside; remains sedated on propofol. Patient was given of a sedation holiday; he was able to arouse and follow simple commands yesterday. Patient is currently on assist-control mode of mechanical ventilation. -- The patient is being diuresed with Lasix drip at 10 mg an hour and the patient is also on Diamox. Patient is requiring low-dose pressors and the patient is on low-dose norepinephrine infusion -- Chest x-ray is still showing diffuse bilateral pulmonary infiltrates and no major interval change on today's chest x-ray findings. --Blood gas shows a pH of 7.41 with a pCO2 of 68 and pO2 of 97; sodium of 143, serum bicarb of 43, BUN is 54 with a creatinine of 1.1. The WBC count is at 19.4 with a hemoglobin of 10. Patient is receiving enteral feeding for nutritional support. Patient remains on IV steroids. Remains on anticoagulation. Cardiac rhythm is sinus. Otherwise, no significant issues over the past 24 hours. Blood sugars are managed and the patient did have a component of steroid-induced hyperglycemia and he is on a sliding scale insulin coverage. Family opted for a DNR CODE STATUS. Objective - Vital Signs Vital signs: Vital Signs Temp 97.7 F 05/26/22 08:00 Pulse 90 05/26/22 11:24 Resp 28 H 05/26/22 11:00 BP 114/65 05/26/22 10:30 Pulse Ox 95 05/26/22 11:00 FiO2 40 05/26/22 09:22 Intake & Output 05/25/22 05/26/22 05/26/22 18:59 06:59 18:59 Intake Total 3404.473 6730.392 762.939 Output Total 3010 1999 975 Balance -1618.487 -577.608 -212.061 Weight 88 kg 88 kg Intake: IV 176 192 280 Furosemide 100 mg In 0 Sodium Chloride 0.9% 90 ml @ 10 MG/HR 10 mls/hr IV .Q10H [facility] Rx#: [id number] NS Pressure Bag 66 72 30 Potassium Chloride 20 meq 200 In Water For Injection 1 100ml.bag @ 50 mls/hr IVPB Q2H [facility] Rx#: [id number] Sodium Chloride 0.9% 1, 110 120 50 000 ml @ 5 mls/hr IV . Q24H [facility] Rx#:[id number] Intake, IV Titration 586.513 552.392 204.939 Amount Furosemide 100 mg In 84.167 170.167 Sodium Chloride 0.9% 90 ml @ 10 MG/HR 10 mls/hr IV .Q10H [facility] Rx#: [id number] Norepinephrine 4 mg In 327.537 180.463 192.833 Sodium Chloride 0.9% 250 ml @ 0.03 MCG/KG/MIN 9. 224 mls/hr IV .Q24H [facility] Rx#:[id number] propofoL 1,000 mg In 174.809 201.762 12.106 Empty Bag 1 bag @ 15 MCG/ KG/MIN 7.263 mls/hr IV . [id number] [facility] Rx#:[id number] Tube Feeding 539 588 128 Other 90 90 150 Output: Urine 3010 1999 975 Other: Voiding Method Indwelling Catheter Indwelling Catheter Indwelling Catheter ABP, PAP, CO, CI - Last Documented Arterial Blood Pressure 119/52 - Exam -GENERAL: The patient is intubated and sedated. HEENT: Pupils are round and equally reacting to light. EOMI. No scleral icterus. No conjunctival pallor. Normocephalic, atraumatic. No pharyngeal erythema. No th yromegaly. CARDIOVASCULAR: S1 and S2 present. No murmurs, rubs, or gallops. -PULMONARY: Chest is clear to auscultation, no wheezing bilateral crackles. ABDOMEN: Soft, nontender, nondistended, normoactive bowel sounds. No palpable organomegaly. MUSCULOSKELETAL: No joint swelling or deformity. -EXTREMITIES: No cyanosis, clubbing, Bilateral pitting leg edema. NEUROLOGICAL: Gross neurological examination did not reveal any focal deficits. SKIN: No rashes. no petechiae. - Labs CBC & Chem 7: 05/26/22 05:20 05/26/22 05:20 Labs: Abnormal Lab Results - Last 24 Hours (Table) 05/25/22 05/25/22 05/25/22 Range/Units 11:43 18:05 23:50 WBC (3.8-10.6) k/uL RBC (4.30-5.90) m/uL Hgb (13.0-17.5) gm/dL Hct (39.0-53.0) % MCHC (31.0-37.0) g/dL Neutrophils # (1.3-7.7) k/uL Lymphocytes # (1.0-4.8) k/uL ABG pCO2 (35-45) mmHg ABG HCO3 (21-25) mmol/L ABG Total CO2 (19-24) mmol/L ABG O2 Saturation (94-97) % Potassium (3.5-5.1) mmol/L Carbon Dioxide (22-30) mmol/L BUN (9-20) mg/dL Glucose (74-99) mg/dL POC Glucose (mg/dL) 198 H 340 H 183 H (70-110) mg/dL Calcium (8.4-10.2) mg/dL 05/26/22 05/26/22 05/26/22 Range/Units 05:13 05:20 05:20 WBC 19.4 H (3.8-10.6) k/uL RBC 3.45 L (4.30-5.90) m/uL Hgb 10.0 L (13.0-17.5) gm/dL Hct 32.4 L (39.0-53.0) % MCHC 30.7 L (31.0-37.0) g/dL Neutrophils # 18.6 H (1.3-7.7) k/uL Lymphocytes # 0.1 L (1.0-4.8) k/uL ABG pCO2 68 H (35-45) mmHg ABG HCO3 43 H* (21-25) mmol/L ABG Total CO2 45 H (19-24) mmol/L ABG O2 Saturation 98.4 H (94-97) % Potassium 3.4 L (3.5-5.1) mmol/L Carbon Dioxide 43 H* (22-30) mmol/L BUN 54 H (9-20) mg/dL Glucose 123 H (74-99) mg/dL POC Glucose (mg/dL) (70-110) mg/dL Calcium 7.2 L (8.4-10.2) mg/dL 05/26/22 Range/Units 05:27 WBC (3.8-10.6) k/uL RBC (4.30-5.90) m/uL Hgb (13.0-17.5) gm/dL Hct (39.0-53.0) % MCHC (31.0-37.0) g/dL Neutrophils # (1.3-7.7) k/uL Lymphocytes # (1.0-4.8) k/uL ABG pCO2 (35-45) mmHg ABG HCO3 (21-25) mmol/L ABG Total CO2 (19-24) mmol/L ABG O2 Saturation (94-97) % Potassium (3.5-5.1) mmol/L Carbon Dioxide (22-30) mmol/L BUN (9-20) mg/dL Glucose (74-99) mg/dL POC Glucose (mg/dL) 134 H (70-110) mg/dL Calcium (8.4-10.2) mg/dL Assessment and Plan Assessment: Acute CHF exacerbation Possible reactive airway disease versus acute COPD exacerbation Acute hypoxic respiratory failure, status post intubation on 05/19 Moderate to severe mitral regurgitation Paroxysmal atrial fibrillation Recent history of bypass surgery Possible pulmonary fibrosis Plan: Patient is being multiple IV fluids Continue with current management with the pulmonary/critical care team consult Continue with Eliquis Continue with Solu-Medrol Keep holding amiodarone with cardiology team recommendation Continue with acetazolamide Continue with home dose of aspirin Cardiology and pulmonary team of the case repairer blood pressure, a pressors when necessary for hypotension monitor urine output Labs and medication were reviewed.. Continue same treatment. Continue with symptomatic treatment. Resume home medication. Monitor lytes and vitals. DVT and GI prophylaxis. Further recommendations as per clinical course of the patient DVT prophylaxis: Eliquis GI Prophylaxis: Ppi
[2022-05-26 17:53] LABS: Glucose,Whole Blood 102 mg/dL (70-110)
[2022-05-26] MEDS: POTASSIUM CHLORIDE 10 MEQ in WATER FOR INJECTION 1 100ML.BAG IVPB SCH ×2 (18:20→19:16)
[2022-05-26] MEDS: SODIUM CHLORIDE 0.9% 1,000 ML IV SCH (23:31)
[2022-05-27] MEDS: ATORVASTATIN 20 MG TAB PO SCH ×2 (00:19→22:32)
[2022-05-27] MEDS: acetaZOLAMIDE 250 MG TAB PO SCH ×3 (00:19→22:32)
[2022-05-27] MEDS: APIXABAN 2.5 MG TABLET PO SCH ×3 (00:19→22:32)
[2022-05-27 00:24] LABS: Glucose,Whole Blood 158 mg/dL (70-110)
[2022-05-27] MEDS: INSULIN ASPART (NovoLOG) 100 UNIT/ML VIAL SQ SCH ×4 (00:27→19:55)
[2022-05-27] MEDS: methylPREDNISolone SOD SUCCI 40 MG/ML 1 ML VIAL IV SCH ×4 (00:27→19:55)
[2022-05-27] MEDS: IPRATROPIUM-ALBUTEROL 3 ML NEB INHALATION SCH ×5 (03:45→19:47)
[2022-05-27 05:25] LABS: Basophils % (A) 0 %; Eosinophils % (A) 0 %; HCT 33.8 % (39.0-53.0); HGB 10.1 gm/dL (13.0-17.5); Hypochromasia Marked; Lymphocytes # (A) 0.1 k/uL (1.0-4.8); Lymphocytes % (A) 1 %; MCH 28.1 pg (25.0-35.0); MCHC 29.8 g/dL (31.0-37.0); MCV 94.4 fL (80.0-100.0); Mean Platelet Volume 10.5; Monocytes # (A) 0.3 k/uL (0-1.0); Monocytes % (A) 2 %; Neutrophils # (A) 16.5 k/uL (1.3-7.7); Neutrophils % (A) 97 %; Platelet Count 166 k/uL (150-450); RBC 3.57 m/uL (4.30-5.90); RDW 14.8 % (11.5-15.5)
[2022-05-27 05:41] LABS: African American GFR (CKD) >90 (>60 ml/min/1.73 sqM); Blood Urea Nitrogen 69 mg/dL (9-20); Calcium 7.6 mg/dL (8.4-10.2); Chloride 98 mmol/L (98-107); Glucose 124 mg/dL (74-99); Non-African American GFR(CKD) 79 (>60 ml/min/1.73 sqM); Sodium 145 mmol/L (137-145)
[2022-05-27 05:48] LABS: Anion Gap -1 mmol/L
[2022-05-27 05:52] LABS: Glucose,Whole Blood 125 mg/dL (70-110)
[2022-05-27] MEDS: LEVOTHYROXINE 125 MCG TAB PO SCH (06:05)
[2022-05-27 06:08] LABS: Carbon Dioxide 48 mmol/L (22-30)
[2022-05-27 06:09] LABS: Potassium 4.6 mmol/L (3.5-5.1)
[2022-05-27] MEDS: FUROSEMIDE 100 MG in SODIUM CHLORIDE 0.9% 90 ML IV SCH (06:51)
[2022-05-27] MEDS ORDERED: FUROSEMIDE 100 MG in SODIUM CHLORIDE 0.9% 90 ML IV SCH (07:15)
--- NOTE | 2022-05-27 07:15 | P.PN ---
Subjective Progress Note Date: 05/27/22 This is an 82-year-old white male with history of coronary artery disease, recent CABG about 2 months ago, this was done at [facility]. Patient presented to [facility] with a few days' history of increased shortness of breath, and his shortness of breath, much worse today. In addition to shortness of breath, the patient is coughing, the cough is productive with whitish phlegm, no fever no chills, no hemoptysis, no chest pain. workup in [place] showed evidence of pulmonary edema, he also had elevated BNP level, and elevated troponin level. Patient was transferred to [facility], I saw him down in the ER. Patient is on BiPAP, 12/5/55%, O2 saturation is in the low 90s. Patient was already given Lasix by the admitting physician and he is now on Lasix at 60 mg IV push twice a day. Some improvement clinically noted according to the patient. Patient has no previous history of COPD, and no previous history of smoking. His WBC count is 12.6 hemoglobin is 10.3, basic metabolic profile is normal renal profile is normal bicarb is 38 lactic acid 4.6. ProBNP level is 3790. Chest x-ray is consistent with interstitial edema however underlying pneumonia is not entirely ruled out but felt to be less likely. EKG showed sinus rhythm, and incomplete right bundle branch block pattern otherwise unremarkable, nonspecific ST and T-wave changes noted. The patient is seen today 05/10/2022 in follow-up on the selective care unit. He is currently resting in bed. Awake and alert in no acute distress. He is still on BiPAP 12/5 and 55%. white count 11.0. Hemoglobin 9.6. Platelets 275. Sodium 142. Potassium 3.8. Bicarb 42. BUN 40. Creatinine 0.82. Glucose 109. He is continued on Lasix 60 mg every 12 hours. No accurate I&O recorded. Current weight 83.5 kg. today's chest x-ray is essentially unchanged. Pro- calcitoninn level 0.07. I'm evaluating this patient today on 05/11/2022. His work of breathing has obviously increased overnight. He is requiring BiPAP titrations and is currently 14/5 and 70%. He is tachypneic breathing about 30-40 breaths per minute with accessory muscle use. Recent echocardiogram was performed on 05/10/2022 which showed a normal ejection fraction of 50% and some moderate to severe mitral regurgitation. He is receiving furosemide 80 mg twice a day. A urinary catheter was inserted yesterday for accurate intake and output. Fluid balance is -1 L. Normal saline is using KVO. CT of the chest with contrast was also performed yesterday on 05/10/2022 which showed diffuse airspace opacities and consolidation changes, some small bilateral pleural effusions, evidence of pulmonary hypertension, and cardiomegaly. Likely representing a combination of atypical pneumonia versus inflammatory process. There is also some superimposed pulmonary vascular congestion. Chest x-ray from today 05/11/2022 continues to show diffuse interstitial and alveolar infiltrates bilaterally. He continues to receive by mouth amiodarone. And his heart rhythm is currently normal sinus. Patient remains afebrile. CBC did not show any leukocytosis with a WBC of 7.8, hemoglobin 9.4, hematocrit 30.9, platelet count 280,000. BMP from today shows sodium 140, potassium of 3.9, chloride of 94, serum CO2 of 42 to, UN 45, creatinine 1.04, glucose 139. Remains on Lovenox for DVT prophylaxis. We'll transfer this patient in ICU for closer monitoring. Reevaluated today on 05/12/2022, patient is basically about the same. Remains o n BiPAP, he is on IPAP of 14 EPAP of 5 and FiO2 70%, chest x-ray continues to show diffuse interstitial process bilaterally, it is difficult to tell how much of this is true pulmonary edema and how much of it is acute lung injury, induced by amiodarone. Not to mention the patient is not a candidate to perform or even think of lung biopsy. Patient is receiving diuretics and he is a -[address] 24 hours, he is now on Lasix and Diamox, not seeing much improvement in his overall pulmonary status in spite of aggressive diuresis as a matter of fact I have a strong feeling that the patient will require eventually intubation and mechanical ventilation if he continues to do poorly. He is basically marginal at best at this point. CBC is relatively normal electrolytes are normal except bicarb is up to 44, patient is sleepy developing a bit of metabolic contraction alkalosis. Hence Diamox was added. Patient remains on steroids for his presumptive amiodarone induced lung injury although this is not definitive Patient was reevaluated today on 05/09/22, remains in the ICU, his overall p ulmonary status is marginal at best. Continues to have abnormal chest x-ray, continues to be relatively hypoxic, patient is now on high flow oxygen via airvo, FiO2 90% and 60 L flow, seems to be tolerating this better than the BiPAP, yesterday he was on BiPAP 14/6/80%. Remains on diuretics, remains on steroids, patient tells me that he feels a bit better today, although his chest x-ray is basically about the same, and his oxygenation seems to be marginal/the same.CBC is unremarkable, basic metabolic profile is normal bicarb is 46 BUN is 57 creatinine 1.72, hence I will start cutting down on his diuretics, we will continue Diamox continue Diamox, continue Lasix but quit ahead and stop again I am quite concerned about the rapid increase in his creatinine, not to mention the patient has been in a negative balance over the last 48 hours.since admission, the patient is almost -7 L. And he is becoming quite dehydrated. Reevaluated today on 05/14/22, patient remains in the ICU, remains on BiPAP with IPAP of 14/EPAP of 6, FiO2 is 70%. Patient is becoming more and more alkalotic, hence I'm stopping his Lasix. We will continue the patient on Diamox. He is also off Zaroxolyn. Patient has been in a significant negative balance over the last few days. Last night he became quite agitated and we had to place him on Precedex, he is on 0.4 mcg/kg/h of Precedex today. Seems to be calm, chest x- ray continues to show evidence of interstitial infiltrates bilaterally. Again it is not clear how much of it is really congestive heart failure and how much of an acute lung injury.WBC count today is 9 hemoglobin is 10.3, bicarb is elevated at 52 BUN is 50 creatinine 1.61 slightly better than yesterday. Reevaluated today on 05/15/22, patient remains in the ICU, pulmonary status remains marginal at best. However his chest x-ray is probably showing slight improvement, and his FiO2 requirement is less, patient is now on airvo at 60% FiO2 and 60 L flow, O2 sats ration is in the mid 90s. He was on BiPAP earlier today with IPAP of 14 EPAP of 6 and FiO2 of 60%. Remains on Precedex at 0.4 mcg/kg/h. IV fluids at KVO, diuretics have been cut down significantly, remains on Diamox only. CBC is basically unremarkable bicarb is down to 45 and 52 BUN is down to 46 creatinine is down to 1.160. Patient is comfortable on airvo, does not seem to be in distress The patient is seen today 05/16/2022 in follow-up in the intensive care unit. He is currently resting fairly comfortably in bed. Awake and alert. He is still requiring quite a bit of oxygen he was wearing BiPAP 14/60-60% FiO2. Currently more comfortable on the AirVo high flow oxygen at 60 L and 65% FiO2. He has Precedex running at 0.3 mg/kg/h. Normal saline at 20 ML's per hour. Chest x-ray continues to show small bilateral pleural effusions with slightly increased diffuse bilateral multifocal patchy airspace disease. White count 10.2. Hemoglobin 9.8. Platelets 287. Sodium 135. Potassium 3.9. Bicarb 41. BUN 42. Creatinine 1.02. Glucose 145. Arterial blood gases revealed a PaO2 of 66, pCO2 63, pH 7.4-65% FiO2. He is continued on DuoNeb inhalations, IV Solu- Medrol. Lovenox for DVT prophylaxis. He remains off diuretics. Currently in a -500 mL balance. The patient is seen today 05/17/2022 in follow-up in the intensive. He is currently sitting up in a chair at the bedside. Awake and alert in no acute distress. He is feeling better today compared to yesterday. He is still requiring AirVo high flow oxygen and 60 L and 65% FiO2. BiPAP has been discontinued. No IV fluids currently. Chest x-ray continues to show diffuse increased lung markings bilaterally. ProBNP 2420. Pro-calcitonin was 0.06. Today's labs are pending. He remains off diuretics. Continued on Diamox. Continued on DuoNeb inhalations, IV Solu-Medrol. Anticoagulated with Eliquis. Remains off amiodarone. Continued in sinus rhythm. The patient seen today 05/18/2022 in follow-up in the intensive care unit. He is currently resting comfortably in bed. Awake and alert in no acute distress. He is still requiring AirVo high flow oxygen at 60 L/m and 65% FiO2. Normal saline at KVO. White count 16.8. Hemoglobin 11.7. Platelets 279. Sodium 140. Potassium 3.9. Bicarb 40. The 144. Creatinine 1.06. He is continued on DuoNeb inhalations, IV site Medrol. Anticoagulated with Eliquis. The patient is seen today 05/19/2022 in follow-up in the intensive care unit. Throughout the day and into the evening last night patient had become more obtunded and less responsive. He was initiated on AirVo 60 L and 65% with O2 saturations are 96%. He became hypercapnic with a CO2 of 81 and was placed on BiPAP 14/6 and 60% FiO2. He was eventually intubated approximately 6:00 this morning the patient required intubation and mechanical ventilatory support. He is currently an assist-control mode at a rate of 20, tidal by 450, FiO2 50% and a PEEP of 5. Blood gases revealed a PaO2 of 316, pCO2 65 and a pH of 7.35 100% FiO2. FiO2 titrated down appropriately. He is sedated on propofol at 40 mcg/kg/m. Maintained on norepinephrine at 0.06 mcg/kg/m. Normal saline at 50 MLS per hour. Follow-up chest x-ray revealed satisfactory intubation, nasogastric tube in place. Persistent bilateral interstitial edema versus pneumonia. Tiny effusions. White count 18.5. Hemoglobin 11.3. Platelets 223. Sodium 142. Potassium 4.0. BUN 48. Creatinine 1.06. Glucose 173. AST 18. ALT 18. ProBNP 5440. Cortisol 14. He is continued on DuoNeb inhalations, IV Solu-Medrol. Anticoagulated with Eliquis. The patient is seen today 05/20/2022 in follow-up in the intensive care unit. He remains intubated and on the mechanical ventilator. Current settings are assist-control mode at a rate of 20, tight up in 450, FiO2 40% and a PEEP of 5. Morning blood gases reveal pO2 of 87, pCO2 54, pH 7.40. He is receiving normal saline at 50 ML's per hour. Sedated with propofol at 40 mcg/kg/m. Still requiring norepinephrine at 8.6 mg/m. He is receiving nutrition via NG tube with vital HP at 40 ML's per hour with a goal of 45. Chest x-ray reveals similar multifocal airspace opacities. Endotracheal and nasogastric tube secured in place. Left internal jugular central line in place. White count 16.0. Hemoglobin 9.3. Sodium 139. Potassium 3.3. Bicarb 32. BUN 43. Creatinine 0.86. Glucose 221. AST 15. ALT 16. He is currently in a +5 L balance. Remains on DuoNeb inhalations, IV Solu-Medrol, anticoagulated with Eliquis. Initial pro-calcitonin 0.06. Follow-up pro-calcitonin 0.08. ProBNP 5440. The patient is seen today 05/21/2022 in follow-up in the intensive care unit. He remains intubated on the mechanical ventilator in assist control mode with a rate of 20, tidal volume 450, FiO2 30% and a PEEP of 5. Morning blood gases reveal pO2 of 61, pCO2 55, pH 7.4. Remains sedated on propofol at 35 mcg/kg/m. He remains on norepinephrine at 9 mcg/m. Normal saline at 50 MLS per hour. He is being nourished with vital AF at 45 ML's per hour which is goal. He has received daily interruption of sedation. He gets quite tachycardic and tachypneic. Not following commands. He is continued on DuoNeb inhalations, IV Solu-Medrol. Anticoagulated with Eliquis. Chest x-ray continues to show sim ilar multifocal airspace opacities. Sputum culture pending. White count 18.0. Hemoglobin 9.7. Sodium 140. Potassium 4.0. Bicarb 35. BUN 42. Creatinine 0.80. Glucose 236. The patient is seen today 05/22/2022 in follow-up in the intensive care unit. He is intubated and on mechanical ventilator and assist control mode at a rate of 20, tidal on 450, FiO2 40% and a PEEP of 5. Morning blood gases revealed a pO2 of 83, pCO2 51, pH 7.43. He is sedated on propofol at 30 mcg/kg/m. On norepinephrine at 4 mcg/m. Normal saline at 50 MLS per hour. He is being nourished with vital AF at 45 mL per hour which is goal. Chest x-ray reveals slight worsening bilateral multifocal edema and/or infiltrates. Sputum culture reveals no growth. White count 15.7. Hemoglobin 8.6. Platelets 176. Sodium 140. Potassium 4.1. Bicarb 34. BUN 45. Creatinine 0.74. Glucose 211. He is continued on DuoNeb inhalations, IV Solu-Medrol. Anticoagulated with Eliquis. The patient is seen today 05/23/2022 in follow-up in the intensive care unit. He continues to remain intubated and on the mechanical ventilator at assist control mode at a rate of 20, tidal on 450, FiO2 40% and a PEEP of 5. Arterial blood gases reveal pO2 103, pCO2 51, pH 7.44. Chest x-ray reveals similar multifocal airspace opacities. He is sedated on propofol at 20 mcg/kg/m. He remains on norepinephrine at 3.2 mcg/m. Normal saline at 50 MLS per hour. White count 16.8. Hemoglobin 9.4. Platelets 195. Sodium 139. Potassium 4.3. Bicarb 35. BUN 45. Creatinine 0.71 glucose 159. He is continued on IV Solu- Medrol, bronchodilators, anticoagulated with Eliquis. On 05/24/2022, I'm seeing the patient for a follow-up. The patient is currently intubated on a mechanical ventilator. The patient has been on a mechanical ventilator since 05/19/2022. Noted the patient is post coronary artery bypass surgery. There is some concern of an underlying interstitial lung disease as the patient was receiving higher dose of amiodarone. At the same time, the echocardiogram here in our hospital showed a moderate to severe mitral regurgitation and the patient has significant cardiac murmur, systolic ejection consistent with mitral regurgitation. No signs of any infection. The viral screen that was done at the time of admission came back negative. The patient was initially subjective the diuretics. Lymphoma was limited at this point and a chest x-ray from today is still showing diffuse bilateral pulmonary infiltrate s. Furthermore, this morning, the patient remains sedated on propofol at 30 microvascular kilogram per minute. The patient on normal saline at rate of 50 mL an hour and the patient is receiving vital AF at the rate of 45 mL an hour. The patient is on a low-dose of norepinephrine running at 0.07 microvascular kilogram per minutes. The patient is on assist-control mechanical ventilation at the rate of 20 with a tidal volume of 450 and FiO2 of 40% with a PEEP of 5. The blood gas from today shows a pH of 7.45 with a pCO2 of 54 and pO2 of 100. Peak airway pressure was around 34. The static airway pressure was 32.. No fever. No chills. Limited because of 18.5 with a hemoglobin 11.7 and a platelet count of 201. BUN is at 49 with a creatinine of 0.7 and a sodium level is at 140. Glucose at 155. The sputum culture has been negative. The patient is currently on IV Solu-Medrol 40 mg every 6 hours. On 05/25/2022, the patient is being seen for a follow-up. The patient is currently intubated on a mechanical ventilator. This morning she is on propofol which is running at 30 microvascular kilogram per minute and the patient is adequately sedated and his 60s with a mechanical ventilator. He is on assist- control mode and currently is on the rate of 14 with a tidal volume of 400 and FiO2 of 40% and a PEEP of 5. Noted marked improvement in his peak airway pressure which was as high as 35 yesterday and this morning it is down to 25. Blood gas from today shows a pH of 7.38 with a pCO2 of 67 and pO2 of 91. Note that his chest x-ray is still pending from this morning. Meanwhile, the patient has diabetes adequately and over the past 24 hours has been negative balance of 2.3 L. He is on a Lasix drip at 10 mg an hour and is also on Diamox to 50 mg IV every 12 hours. His blood work from today shows a BUN of 50 with a creatinine of 0.9. Serum bicarb is 40 and the sodium is at 140. He has a valgus count of 18.8 with a hemoglobin of 10.2 and a platelet count of 206. Blood gases were also noted. He is still on low-dose of norepinephrine which is running at a dose of 0.09 mcg/kg/m. He is on vital AF running at the rate of 49 mL an hour which is at goal and there is no significant residuals and the patient is able to tolerate the enteral feeding without any major issues. The patient is afebrile. He remains on anticoagulation with Eliquis at a dose of 2.5 mg twice a day and is also on aspirin. He remains on IV Solu-Medrol. Cardiac rhythm is NSS 05/26/2022, patient is being seen for a follow-up. The patient remains sedated on propofol and this morning he is on 35 microvascular kilogram per minute. He was given of a sedation holiday he was able to arouse and follow simple commands yesterday. He remains quite lethargic. On today's evaluation, he is on assist- control mode of mechanical ventilation. The rate of 14 with a tidal volume 400 and FiO2 of 40% with a PEEP of 5. The patient is being diuresed with Lasix drip at 10 mg an hour and the patient is also on Diamox. He is in a negative fluid balance. Note that over the past 48 hours is at least 5 L negative fluid balance and there is improvement in volume status. Nevertheless, the chest x- ray is still showing diffuse bilateral pulmonary infiltrates and no major interval change on today's chest x-ray findings. He remains in a good location. Meanwhile, his blood gas shows a pH of 7.41 with a pCO2 of 68 and pO2 of 97. Rest of the blood work and electrolytes show a sodium of 143, serum bicarb of 43, BUN is 54 with a creatinine of 1.1. The WBC count is at 19.4 with a hemoglobin of 10.. The patient is currently on KVO IV fluids. He is receiving enteral feeding for nutritional support and he remains on vital AF at the rate of 49 mL an hour. He remains on IV steroids. No fever. Remains on anticoagulation. Cardiac rhythm is sinus. Otherwise, no significant issues over the past 24 hours. Blood sugars are managed and the patient did have a component of steroid-induced hyperglycemia and he is on a sliding scale insulin coverage. Family opted for a DNR CODE STATUS. Note that the patient as being diabetes, is requiring low-dose pressors and the patient is on low-dose n orepinephrine infusion running at 0.09 microvascular kilogram per minutes. On 05/27/2022, I'm seeing the patient for a follow-up. Note that after an extensive effort yesterday, the patient was extubated successfully and the patient is currently extubated on oxygen at 5 L nasal cannula with a pulse ox of 95%. His breathing is extremely comfortable. He remains on a Lasix drip which is running at 10 mg an hour. Postextubation, he was unable to get by mouth Diamox. There is a national shortage of IV Diamox. In enervates, with aggressive diuresis, the patient has achieved another 2.6 L negative fluid balance and his net fluid balance over the past 3 days has been at least 8 L. Meanwhile, his electrolytes show development of metabolic alkalosis with a serum bicarb of 48, sodium is at 145, WBC count is at 70 with a hemoglobin of 10.1. He is calm and comfortable. He is weak. He failed a bedside swallow evaluation yesterday and the same is to be done today. IV fluids are currently at KVO. He is on no pressors. Cardiac rhythm is sinus. He is moving extremities symmetrically. Nevertheless, he is profoundly weak. He is awake, he follows commands and answers simple questions. He remains still on IV Solu-Medrol for any potential amiodarone related lung toxicity that was anticipated at that time of his admission. Rest of the medications remain unchanged. Objective - Vital Signs Vital signs: Vital Signs Temp 97.6 F 05/27/22 04:00 Pulse 78 05/27/22 06:00 Resp 19 05/27/22 06:00 BP 98/54 05/27/22 06:00 Pulse Ox 98 05/27/22 06:00 FiO2 40 05/26/22 09:22 Intake & Output 05/26/22 05/27/22 05/27/22 18:59 06:59 18:59 Intake Total 1093.745 376.5 Output Total 2475 1635 Balance -1381.255 -1258.5 Weight 88 kg 88.6 kg Intake: IV 492 208 Furosemide 100 mg In 0 Sodium Chloride 0.9% 90 ml @ 10 MG/HR 10 mls/hr IV .Q10H [facility] Rx#: [id number] NS Pressure Bag 72 78 Potassium Chloride 20 meq 300 In Water For Injection 1 100ml.bag @ 50 mls/hr IVPB Q2H [facility] Rx#: [id number] Sodium Chloride 0.9% 1, 120 130 000 ml @ 5 mls/hr IV . Q24H [facility] Rx#:[id number] Intake, IV Titration 323.745 168.5 Amount Furosemide 100 mg In 100 168.5 Sodium Chloride 0.9% 90 ml @ 10 MG/HR 10 mls/hr IV .Q10H [facility] Rx#: [id number] Norepinephrine 4 mg In 211.639 Sodium Chloride 0.9% 250 ml @ 0.03 MCG/KG/MIN 9. 224 mls/hr IV .Q24H [facility] Rx#:[id number] propofoL 1,000 mg In 12.106 Empty Bag 1 bag @ 15 MCG/ KG/MIN 7.263 mls/hr IV . [id number] [facility] Rx#:[id number] Tube Feeding 128 Other 150 Output: Urine 2475 1635 Other: Voiding Method Indwelling Catheter Indwelling Catheter ABP, PAP, CO, CI - Last Documented Arterial Blood Pressure 114/53 - Exam GENERAL EXAM: sedated 82-year-old gentleman, currently on 5 l/min NC HEAD: Normocephalic. EYES: Sluggish reaction of pupils, equal size. NOSE: Clear with pink turbinates. THROAT: Oral endotracheal and gastric tube secured in place. No erythema or exudates. NECK: No masses, no JVD. CHEST: No chest wall deformity. LUNGS: Equal air entry with bibasilar crackles. CVS: S1 and S2 normal with an audible murmur, systolic ejection murmur heard throughout the precordium 4 over 6, regular rhythm. ABDOMEN: No hepatosplenomegaly, normal bowel sounds, no guarding or rigidity. SPINE: No scoliosis or deformity SKIN: No rashes CENTRAL NERVOUS SYSTEM: No focal deficits, tone is normal in all 4 extremities. The patient is profoundly weak in all 4 extremities. Is awake and alert and is following commands and answering questions appropriately. EXTREMITIES: There is 2+ peripheral edema. No clubbing, no cyanosis. Peripheral pulses are intact. - Labs CBC & Chem 7: 05/27/22 04:52 05/27/22 04:52 Labs: Abnormal Lab Results - Last 24 Hours (Table) 05/26/22 05/27/22 05/27/22 Range/Units 12:11 00:22 04:52 WBC 17.0 H (3.8-10.6) k/uL RBC 3.57 L (4.30-5.90) m/uL Hgb 10.1 L (13.0-17.5) gm/dL Hct 33.8 L (39.0-53.0) % MCHC 29.8 L (31.0-37.0) g/dL Neutrophils # 16.5 H (1.3-7.7) k/uL Lymphocytes # 0.1 L (1.0-4.8) k/uL Carbon Dioxide (22-30) mmol/L BUN (9-20) mg/dL Glucose (74-99) mg/dL POC Glucose (mg/dL) 215 H 158 H (70-110) mg/dL Calcium (8.4-10.2) mg/dL 05/27/22 05/27/22 Range/Units 04:52 05:50 WBC (3.8-10.6) k/uL RBC (4.30-5.90) m/uL Hgb (13.0-17.5) gm/dL Hct (39.0-53.0) % MCHC (31.0-37.0) g/dL Neutrophils # (1.3-7.7) k/uL Lymphocytes # (1.0-4.8) k/uL Carbon Dioxide 48 H* (22-30) mmol/L BUN 69 H (9-20) mg/dL Glucose 124 H (74-99) mg/dL POC Glucose (mg/dL) 125 H (70-110) mg/dL Calcium 7.6 L (8.4-10.2) mg/dL Assessment and Plan Plan: Acute hypoxemic respiratory failure secondary to an acute exacerbation of suspected congestive heart failure, moderate to severe mitral regurgitation, 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 Initial pro-calcitonin 0.07. Follow-up pro-calcitonin 05/19/2022 remains negative at 0.08. BNP 5440. No fever. No leukocytosis. Influenza screen negative. CoVID screen negative. RSV screen negative. The exact origin of this diffuse but the pulmonary infiltrates is not clear. This could be related to an acute lung injury/interstitial pneumonitis related to higher dose of amiodarone. Viral infections have been ruled out. Bacterial infection and felt to be less likely. Possibility of mitral regurgitation with secondary pulmonary edema cannot be completely ruled out. For now, the patient is on a Lasix drip and Diamox with excellent urine output. . Over the past 72 hours, the patient was diabetes aggressively with a negative fluid balance of 8 L and the patient is currently extubated to 5 L of oxygen by nasal cannula. Breathing is quite comfortable at this point in time. Acute hypercapnic/hypoxemic respiratory failure with altered mental status and obtundation , recovered and the patient is alert and awake and extubated Acute pulmonary edema, could be cardiogenic in nature, currently on diuretics, possibility of amiodarone lung toxicity cannot be ruled out. The patient remains on IV steroids. Acute hypotension , recovered History of paroxysmal atrial fibrillation maintained on amiodarone at 400 mg twice a day for approximately 2 months. Anticoagulated with Eliquis, post cardioversion and he is in NSR Severe MR and preserved LV function History of recent coronary artery bypass grafting at [facility] History of underlying coronary artery disease COVID 19 infection in Mar 2022 Hyperlipidemia Hypothyroidism History of gastroesophageal reflux disease without esophagitis Former smoker Profound weakness and generalized debility second above-mentioned comorbidities. Plan: Keep the patient 5 L of oxygen by nasal cannula Provide the patient incentive spirometer Consult physical therapy Bedside speech evaluation and consult also speech pathology to evaluate his swallow Continue Lasix drip for another 24 hours and dropped the dose down to 5 mg an hour Give oral medication including Diamox and Eliquis as long as he is able to swallow tablets No pressors for now The family opted for DO NOT RESUSCITATE CODE STATUS. They declined long-term mechanical ventilation or tracheostomy tube insertion. IV Solu-Medrol for another 24 hours Chest x-ray today to be completed Critical care evaluation that was done in more than 30 minutes Time with Patient: Greater than 30
--- NOTE | 2022-05-27 08:04 | XR ---
EXAMINATION TYPE: XR chest 1V DATE OF EXAM: 05/27/2022 CLINICAL HISTORY: Difficulty breathing and pulmonary edema progress study. TECHNIQUE: Single AP portable upright view of the chest is obtained. COMPARISON: Chest x-ray from one day earlier And older studies. FINDINGS: Interval extubation with removal of endotracheal and orogastric tubes. Stable left interna l jugular central venous catheter. Overlying sternal wires and mediastinal clips along with left atri al appendage clip are redemonstrated. Persistent cardiomegaly with moderate to severe interstitial edema redemonstrated. Small to moderate- sized left pleural effusion more prominent from prior. Osseous structures are intact. IMPRESSION: Interval extubation. Cardiomegaly with moderate to severe interstitial edema redemonstrat ed consistent with CHF exacerbation. New small to moderate-sized left pleural effusion noted. Maikel s study advised.
[2022-05-27] MEDS: ASPIRIN 81 MG PO SCH (09:27)
[2022-05-27] MEDS: PANTOPRAZOLE 40 MG/10 ML VIAL IVP SCH (09:27)
[2022-05-27] MEDS: MAGNESIUM OXIDE 400 MG TAB PO SCH (09:27)
[2022-05-27 12:02] LABS: Glucose,Whole Blood 137 mg/dL (70-110)
--- NOTE | 2022-05-27 12:53 | P.PN ---
Subjective Progress Note Date: 05/27/22 The patient is an 82-year-old male who is currently admitted to the hospital with acute hypoxic respiratory failure. He has a known history of coronary artery disease with recent CABG as well as paroxysmal atrial fibrillation. The patient remains mechanically ventilated. No further episodes of atrial fi brillation according to nursing staff. Chest x-ray shows multifocal airspace opacities. Initial echocardiogram shows LV function AT 50% with moderate to severe mitral regurge and moderate pulmonary hypertension with RVSP at 50mmhg. Records reviewed from [facility]. Patient was initially admitted with congestive heart failure and shortness of breath. Initial echo showed EF of 40- 45% with severe pulmonary hypertension. He was found to have multivessel coronary artery disease where he underwent CABG 4. Mitral valve at that time had mild regurgitation with mild to moderate aortic sclerosis. He also became COVID-19 positive postoperatively. 05/24/2021 patient was started on furosemide drip. Echocardiogram revealed EF of 50-55% with moderate to severe MR. 05/25/2021 no change in chest x-ray. Diffuse bilateral airspace disease. 05/26/2021 patient was extubated Patient is following directions, however he is not responding to review of systems. His pulse ox at the time of my exam was 81. Nursing staff and sql ssrs developer aware. GENERAL: Ill-appearing male. Moderately labored breathing. NECK: Supple without JVD or thyromegaly. LUNGS: Breath sounds diminished to auscultation bilaterally. Respiration equal and labored. Crackles in the posterior bases. HEART: Regular rate and rhythm. Systolic murmur. No rubs or gallops. S1 and S2 heard. EXTREMITIES: Normal range of motion, +2 generalized edema. No clubbing or cyanosis. No palpable pedal pulses. Doppler signals present per nursing documentation. VITALS: Blood pressure 123/73, afebrile, respiratory rate 25, SpO2 91% on 5 L nasal cannula, pulse 89 TELEMETRY: Sinus rhythm LABS: WBC 17.0, hemoglobin 10.1, hematocrit 33.8, platelet 166, sodium 145, potassium 4.6, carbon dioxide 48, BUN 69, creatinine 0.88 IMPRESSION: Acute hypoxic respiratory failure, possibly secondary to amiodarone toxicity Multivessel coronary artery disease, s/p recent CABG Mitral regurgitation, moderate to severe Pulmonary hypertension, severe Recent COVID 19 infection PLAN: Continue Lasix drip Wean as tolerated Aggressive pulmonary hygiene No further recommendations from the cardiac standpoint I am dictating on behalf of Dr Chaka Larson's history/physical and assessment/plan. Objective - Vital Signs Vital signs: Vital Signs Temp 96.7 F L 05/27/22 12:00 Pulse 89 05/27/22 12:00 Resp 25 H 05/27/22 12:00 BP 123/73 05/27/22 12:00 Pulse Ox 91 L 05/27/22 12:00 FiO2 40 05/26/22 09:22 Intake & Output 05/26/22 05/27/22 05/27/22 18:59 06:59 18:59 Intake Total 1093.745 376.5 80 Output Total 2475 1635 345 Balance -1381.255 -1258.5 -265 Weight 88 kg 88.6 kg Intake: IV 492 208 80 Furosemide 100 mg In 0 Sodium Chloride 0.9% 90 ml @ 10 MG/HR 10 mls/hr IV .Q10H [facility] Rx#: [id number] NS Pressure Bag 72 78 30 Potassium Chloride 20 meq 300 In Water For Injection 1 100ml.bag @ 50 mls/hr IVPB Q2H [facility] Rx#: [id number] Sodium Chloride 0.9% 1, 120 130 50 000 ml @ 5 mls/hr IV . Q24H [facility] Rx#:[id number] Intake, IV Titration 323.745 168.5 Amount Furosemide 100 mg In 100 168.5 Sodium Chloride 0.9% 90 ml @ 10 MG/HR 10 mls/hr IV .Q10H [facility] Rx#: [id number] Norepinephrine 4 mg In 211.639 Sodium Chloride 0.9% 250 ml @ 0.03 MCG/KG/MIN 9. 224 mls/hr IV .Q24H [facility] Rx#:[id number] propofoL 1,000 mg In 12.106 Empty Bag 1 bag @ 15 MCG/ KG/MIN 7.263 mls/hr IV . [id number] [facility] Rx#:[id number] Tube Feeding 128 Other 150 Output: Urine 2475 1635 345 Other: Voiding Method Indwelling Catheter Indwelling Catheter Indwelling Catheter # Bowel Movements 1 ABP, PAP, CO, CI - Last Documented Arterial Blood Pressure 103/49 - Labs CBC & Chem 7: 05/27/22 04:52 05/27/22 04:52 Labs: Abnormal Lab Results - Last 24 Hours (Table) 05/27/22 05/27/22 05/27/22 Range/Units 00:22 04:52 04:52 WBC 17.0 H (3.8-10.6) k/uL RBC 3.57 L (4.30-5.90) m/uL Hgb 10.1 L (13.0-17.5) gm/dL Hct 33.8 L (39.0-53.0) % MCHC 29.8 L (31.0-37.0) g/dL Neutrophils # 16.5 H (1.3-7.7) k/uL Lymphocytes # 0.1 L (1.0-4.8) k/uL Carbon Dioxide 48 H* (22-30) mmol/L BUN 69 H (9-20) mg/dL Glucose 124 H (74-99) mg/dL POC Glucose (mg/dL) 158 H (70-110) mg/dL Calcium 7.6 L (8.4-10.2) mg/dL 05/27/22 05/27/22 Range/Units 05:50 12:01 WBC (3.8-10.6) k/uL RBC (4.30-5.90) m/uL Hgb (13.0-17.5) gm/dL Hct (39.0-53.0) % MCHC (31.0-37.0) g/dL Neutrophils # (1.3-7.7) k/uL Lymphocytes # (1.0-4.8) k/uL Carbon Dioxide (22-30) mmol/L BUN (9-20) mg/dL Glucose (74-99) mg/dL POC Glucose (mg/dL) 125 H 137 H (70-110) mg/dL Calcium (8.4-10.2) mg/dL
[2022-05-27 16:05] VITALS: TEMP 97.4
[2022-05-27 18:04] LABS: Glucose,Whole Blood 175 mg/dL (70-110)
[2022-05-27] MEDS: NOREPINEPHRINE 4 MG in SODIUM CHLORIDE 0.9% 250 ML IV SCH (18:05)
--- NOTE | 2022-05-27 18:22 | P.PN ---
Subjective Progress Note Date: 05/27/22 Principal diagnosis: Acute hypoxic respiratory failure; multifactorial Acute exacerbation CHF Acute exacerbation COPD 82 years old male with multiple medical problems as below including history of atrial fibrillation on amiodarone at home and not on a blood thinner, history of coronary artery disease status post recent CABG, heart failure, mitral valve disease, GERD, hyperlipidemia and hypothyroidism Presents with respiratory distress and hypoxia currently he is in the ICU very lethargic, easily arousable and answers questions and follows commands but very tired and go back to sleep. History requiring high flow nasal cannula at 60 L/m with FiO2 of 64-65%. Also he is kept on liquids 2.5 by hand frame surgical elastic knitter for A. fib, he is on diuretic acetazolamide, no Lasix currently but also his place on some gentle hydration by hand frame surgical elastic knitter for possible dehydration, renal function is improving. Today down to 1.0. Also there is suspected pulmonary fibrosis per pulmonary team, home dose of amiodarone as healthy bowel. Echocardiogram showing ejection fraction 50% with mild to moderate to severe mitral regurgitation There is some evidence of COPD exacerbation and reactive airway disease and he is kept on Solu-Medrol 40 mg. WBC 16.8 while on steroids, hemoglobin 11.1 24 hour interval change 05/26/2022 patient is seen and evaluated in room at bedside; remains sedated on propofol. Patient was given of a sedation holiday; he was able to arouse and follow simple commands yesterday. Patient is currently on assist-control mode of mechanical ventilation. -- The patient is being diuresed with Lasix drip at 10 mg an hour and the patient is also on Diamox. Patient is requiring low-dose pressors and the patient is on low-dose norepinephrine infusion -- Chest x-ray is still showing diffuse bilateral pulmonary infiltrates and no major interval change on today's chest x-ray findings. --Blood gas shows a pH of 7.41 with a pCO2 of 68 and pO2 of 97; sodium of 143, serum bicarb of 43, BUN is 54 with a creatinine of 1.1. The WBC count is at 19.4 with a hemoglobin of 10. Patient is receiving enteral feeding for nutritional support. Patient remains on IV steroids. Remains on anticoagulation. Cardiac rhythm is sinus. Otherwise, no significant issues over the past 24 hours. Blood sugars are managed and the patient did have a component of steroid-induced hyperglycemia and he is on a sliding scale insulin coverage. Family opted for a DNR CODE STATUS. 24 hour interval change 05/27/2022 Patient is seen and evaluated in follow-up; the patient was extubated yesterday and the patient is currently on oxygen at 5 L nasal cannula with a pulse ox of 95%. His breathing is extremely comfortable. He remains on a Lasix drip which is running at 10 mg an hour. Postextubation, he was unable to get by mouth Diamox. There is a national shortage of IV Diamox. In enervates, with aggressive diuresis, the patient has achieved another 2.6 L negative fluid balance and his net fluid balance over the past 3 days has been at least 8 L. Meanwhile, his electrolytes show development of metabolic alkalosis with a serum bicarb of 48, sodium is at 145, WBC count is at 70 with a hemoglobin of 10.1. He is calm and comfortable. He is weak. He failed a bedside swallow evaluation yesterday and the same is to be done today. He remains still on IV Solu-Medrol Objective - Vital Signs Vital signs: Vital Signs Temp 974 F H 05/27/22 08:00 Pulse 90 05/27/22 11:18 Resp 18 05/27/22 11:00 BP 108/62 05/27/22 11:00 Pulse Ox 92 L 05/27/22 11:00 FiO2 40 05/26/22 09:22 Intake & Output 05/26/22 05/27/22 05/27/22 18:59 06:59 18:59 Intake Total 1093.745 376.5 16 Output Total 2475 1635 110 Balance -1381.255 -1258.5 -94 Weight 88 kg 88.6 kg Intake: IV 492 208 16 Furosemide 100 mg In 0 Sodium Chloride 0.9% 90 ml @ 10 MG/HR 10 mls/hr IV .Q10H [facility] Rx#: [id number] NS Pressure Bag 72 78 6 Potassium Chloride 20 meq 300 In Water For Injection 1 100ml.bag @ 50 mls/hr IVPB Q2H [facility] Rx#: [id number] Sodium Chloride 0.9% 1, 120 130 10 000 ml @ 5 mls/hr IV . Q24H [facility] Rx#:[id number] Intake, IV Titration 323.745 168.5 Amount Furosemide 100 mg In 100 168.5 Sodium Chloride 0.9% 90 ml @ 10 MG/HR 10 mls/hr IV .Q10H [facility] Rx#: [id number] Norepinephrine 4 mg In 211.639 Sodium Chloride 0.9% 250 ml @ 0.03 MCG/KG/MIN 9. 224 mls/hr IV .Q24H [facility] Rx#:[id number] propofoL 1,000 mg In 12.106 Empty Bag 1 bag @ 15 MCG/ KG/MIN 7.263 mls/hr IV . [id number] [facility] Rx#:[id number] Tube Feeding 128 Other 150 Output: Urine 2475 1635 110 Other: Voiding Method Indwelling Catheter Indwelling Catheter Indwelling Catheter # Bowel Movements 1 ABP, PAP, CO, CI - Last Documented Arterial Blood Pressure 116/55 - Exam -GENERAL: The patient is intubated and sedated. HEENT: Pupils are round and equally reacting to light. EOMI. No scleral icterus. No conjunctival pallor. Normocephalic, atraumatic. No pharyngeal erythema. No thyromegaly. CARDIOVASCULAR: S1 and S2 present. No murmurs, rubs, or gallops. -PULMONARY: Chest is clear to auscultation, no wheezing bilateral crackles. ABDOMEN: Soft, nontender, nondistended, normoactive bowel sounds. No palpable organomegaly. MUSCULOSKELETAL: No joint swelling or deformity. -EXTREMITIES: No cyanosis, clubbing, Bilateral pitting leg edema. NEUROLOGICAL: Gross neurological examination did not reveal any focal deficits. SKIN: No rashes. no petechiae. - Labs CBC & Chem 7: 05/27/22 04:52 05/27/22 04:52 Labs: Abnormal Lab Results - Last 24 Hours (Table) 05/26/22 05/27/22 05/27/22 Range/Units 12:11 00:22 04:52 WBC 17.0 H (3.8-10.6) k/uL RBC 3.57 L (4.30-5.90) m/uL Hgb 10.1 L (13.0-17.5) gm/dL Hct 33.8 L (39.0-53.0) % MCHC 29.8 L (31.0-37.0) g/dL Neutrophils # 16.5 H (1.3-7.7) k/uL Lymphocytes # 0.1 L (1.0-4.8) k/uL Carbon Dioxide (22-30) mmol/L BUN (9-20) mg/dL Glucose (74-99) mg/dL POC Glucose (mg/dL) 215 H 158 H (70-110) mg/dL Calcium (8.4-10.2) mg/dL 05/27/22 05/27/22 05/27/22 Range/Units 04:52 05:50 12:01 WBC (3.8-10.6) k/uL RBC (4.30-5.90) m/uL Hgb (13.0-17.5) gm/dL Hct (39.0-53.0) % MCHC (31.0-37.0) g/dL Neutrophils # (1.3-7.7) k/uL Lymphocytes # (1.0-4.8) k/uL Carbon Dioxide 48 H* (22-30) mmol/L BUN 69 H (9-20) mg/dL Glucose 124 H (74-99) mg/dL POC Glucose (mg/dL) 125 H 137 H (70-110) mg/dL Calcium 7.6 L (8.4-10.2) mg/dL Assessment and Plan Assessment: Acute CHF exacerbation Possible reactive airway disease versus acute COPD exacerbation Acute hypoxic respiratory failure, status post intubation on 05/19 Moderate to severe mitral regurgitation Paroxysmal atrial fibrillation Recent history of bypass surgery Possible pulmonary fibrosis Plan: Patient is being multiple IV fluids Continue with current management with the pulmonary/critical care team consult Continue with Eliquis Continue with Solu-Medrol Keep holding amiodarone with cardiology team recommendation Continue with acetazolamide Continue with home dose of aspirin Cardiology and pulmonary team of the manager of case blood pressure, a pressors when necessary for hypotension monitor urine output Labs and medication were reviewed.. Continue same treatment. Continue with symptomatic treatment. Resume home medication. Monitor lytes and vitals. DVT and GI prophylaxis. Further recommendations as per clinical course of the patient DVT prophylaxis: Eliquis GI Prophylaxis: Ppi
[2022-05-27 19:34] VITALS: PULSE 65; RESP 23
[2022-05-27] MEDS: SODIUM CHLORIDE 0.9% 1,000 ML IV SCH (19:54)
[2022-05-27 22:31] VITALS: BP 83/49
== END 2022-05-27 20:00 | disposition expired | DRG 207 ==
LOC: EC 07:36 → 3SCARD 10:41 → 2SICU 05-11 10:58
PROVIDERS: ADMIT Internal Medicine; ATTEND Internal Medicine
PROC: 5A09557 Assistance with Respiratory Ventilation, Greater than 96 Consecutive Hours, Continuous Positive Airway Pressure (ICD-10-PCS; 2022-05-09)
PROC: 5A1955Z Respiratory Ventilation, Greater than 96 Consecutive Hours (ICD-10-PCS; principal; 2022-05-19)
PROC: 0BH17EZ Insertion of Endotracheal Airway into Trachea, Via Natural or Artificial Opening (ICD-10-PCS; 2022-05-19)
PROC: 4A133B1 Monitoring of Arterial Pressure, Peripheral, Percutaneous Approach (ICD-10-PCS; 2022-05-19)
PROC: 02HV33Z Insertion of Infusion Device into Superior Vena Cava, Percutaneous Approach (ICD-10-PCS; 2022-05-19)
PROC: 4A133J1 Monitoring of Arterial Pulse, Peripheral, Percutaneous Approach (ICD-10-PCS; 2022-05-19)
PROC: 03HY32Z Insertion of Monitoring Device into Upper Artery, Percutaneous Approach (ICD-10-PCS; 2022-05-19)
PROC: 3E043XZ Introduction of Vasopressor into Central Vein, Percutaneous Approach (ICD-10-PCS; 2022-05-19)
PROC: 0D9670Z Drainage of Stomach with Drainage Device, Via Natural or Artificial Opening (ICD-10-PCS; 2022-05-19)
PROC: 3E0G76Z Introduction of Nutritional Substance into Upper GI, Via Natural or Artificial Opening (ICD-10-PCS; 2022-05-19)
DX: J96.01 Acute respiratory failure with hypoxia (principal); A41.9 Sepsis, unspecified organism; I50.33 Acute on chronic diastolic (congestive) heart failure; R65.21 Severe sepsis with septic shock; J18.9 Pneumonia, unspecified organism; E87.4 Mixed disorder of acid-base balance; J44.0 Chronic obstructive pulmonary disease with (acute) lower respiratory infection; J44.1 Chronic obstructive pulmonary disease with (acute) exacerbation; I27.20 Pulmonary hypertension, unspecified; I11.0 Hypertensive heart disease with heart failure; J96.02 Acute respiratory failure with hypercapnia; J84.10 Pulmonary fibrosis, unspecified; E86.0 Dehydration; I48.0 Paroxysmal atrial fibrillation; E11.65 Type 2 diabetes mellitus with hyperglycemia; Z66 Do not resuscitate; Z20.822 Contact with and (suspected) exposure to COVID-19; T38.0X5A Adverse effect of glucocorticoids and synthetic analogues, initial encounter; I25.10 Atherosclerotic heart disease of native coronary artery without angina pectoris; E78.5 Hyperlipidemia, unspecified; E03.9 Hypothyroidism, unspecified; K21.9 Gastro-esophageal reflux disease without esophagitis; N40.0 Benign prostatic hyperplasia without lower urinary tract symptoms; I34.0 Nonrheumatic mitral (valve) insufficiency; I25.2 Old myocardial infarction; I45.10 Unspecified right bundle-branch block; K59.00 Constipation, unspecified; G47.00 Insomnia, unspecified; D64.9 Anemia, unspecified; F41.9 Anxiety disorder, unspecified; R26.2 Difficulty in walking, not elsewhere classified; Z79.82 Long term (current) use of aspirin; Z79.890 Hormone replacement therapy; Z79.899 Other long term (current) drug therapy; Z95.1 Presence of aortocoronary bypass graft; Z86.16 Personal history of COVID-19; Z87.891 Personal history of nicotine dependence; Z88.0 Allergy status to penicillin
CPT/HCPCS: 36415; 36600; 71045; 71260; 80048; 80053; 81001; 82533; 82805; 83605; 83735; 83880; 84132; 84145; 84484; 85025; 85027; 85610; 85730; 87070; 87205; 87636; 93005; 93306; 93308; 94003; 94640; 94660; 94760; 96361; 96374; 99285; 99291